=== PATIENT | female | born 1990 | race Caucasian/White ===

== ENCOUNTER 2021-12-10 11:27 | Inpatient (IN) | payer MEDICARE, MEDICAID, SELFPAY ==
--- NOTE | 2021-12-10 | ECG_ITS ---
Test Reason : cp Blood Pressure : / mmHG Vent. Rate : 063 BPM Atrial Rate : 063 BPM P-R Int : 120 ms QRS Dur : 084 ms QT Int : 496 ms P-R-T Axes : 056 065 040 degrees QTc Int : 507 ms Normal sinus rhythm Prolonged QT Abnormal ECG No previous ECGs available Referred By: Chandni Tracy Electronically Signed By:JETT SHEN
[2021-12-10 18:00] VITALS: BP 115/88; PULSE 95; TEMP 37.1; O2SAT 98
[2021-12-10] MEDS: busPIRone HCl 5 MG TABLET 15 MG PO (20:47)
[2021-12-10] MEDS: Gabapentin 100 MG CAPSULE PO (20:47)
[2021-12-10] MEDS: clonazePAM 1 MG TABLET 2 MG PO (20:47)
[2021-12-10] MEDS: cloNIDine HCL 0.1 MG TABLET PO (20:47)
[2021-12-10] MEDS: Albuterol Sulfate 90 MCG 8 GM INHALER 2 PUFF INHALE (20:49)
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
--- NOTE | 2021-12-10 21:57 | PC.ADMIT ---
pt is a 31 year old female who presented to [facility] with SI and increased depression. pt is positive for alcohol. pt has a PMH of anorexia, GIANCARLO, MDD, alcohol use disorder. during admission, pt appears to answer questions and seems to be withdrawn. pt has been sleeping in her room entire shift. pt reported chest pain and an EKG was ordered. pt was put on a liquid diet, but doesn't seems to be eating.
[2021-12-11 06:00] VITALS: BP 112/68; PULSE 94; RESP 16; O2SAT 98
[2021-12-11] MEDS: Fluticasone/Vilanterol 100/25 BLST.W.DEV 1 PUFF INHALE (08:34)
[2021-12-11] MEDS: Albuterol Sulfate 90 MCG 8 GM INHALER 2 PUFF INHALE ×2 (08:34→21:01)
[2021-12-11] MEDS: Thiamine HCL 100 MG TABLET PO (08:35)
[2021-12-11] MEDS: Cariprazine HCl 3 MG CAPSULE PO (08:35)
[2021-12-11] MEDS: Cholecalciferol (Vitamin D3) 25 MCG TABLET PO (08:35)
[2021-12-11] MEDS: Multivitamin TABLET 1 TAB PO (08:35)
[2021-12-11] MEDS: DULoxetine HCl 60 MG CAPSULE.DR 120 MG PO (08:35)
[2021-12-11] MEDS: clonazePAM 1 MG TABLET 2 MG PO ×2 (08:35→20:58)
[2021-12-11] MEDS: busPIRone HCl 10 MG TABLET 20 MG PO ×3 (08:36→20:58)
[2021-12-11] MEDS: Gabapentin 100 MG CAPSULE 200 MG PO ×2 (08:36→14:10)
[2021-12-11 09:59] LABS: Cholesterol 311 mg/dL; HDL Cholesterol 43 mg/dL; LDL Cholesterol Calculated 242 mg/dl; Triglycerides 131 mg/dL
--- NOTE | 2021-12-11 10:56 | HO.PM.IMCN ---
History of Present Illness Data of Consult Service Date: 12/11/21 Requesting physician: Robson Cade Primary Care Provider: Unknown Physician HPI Reason for consult: Prolonged QTC this is a 31-year-old female patient admitted to [facility] at due to generalized anxiety disorder patient was recently taken of Zyprexa since due to significant weight gain of 40 lb subsequently she was placed on metformin for weight loss, patient recently developed a bout of diarrhea mostly noted after solid food, diarrhea has now stopped, patient had no bowel movement in last 4 days, she has been mostly drinking Ensure at home, patient complained of mild denies nausea, denies vomiting, denies abdominal discomfort ,denies fever chills, has no urinary symptoms, of urgency, frequency, or burning, has history of mild persistent asthma, denies any shortness of breath, no new cough denies fever, chills, no recent travels, patient has no symptoms of headache, dizziness. 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 CVS no chest pain no palpitation musculoskeletal no joint pain Yes all other systems are reviewed and are negative PMFSH Pertinent family history: no pertinent family history, no history of premature coronary artery disease Social History Household Members: Family Housing: House Do you presently have visiting nurse or other home services: No Patient Tobacco Use Status: Never used Tobacco Use of substances other than those prescribed or required for medical reasons: No Currently Displaying Signs/Symptoms of Drug Intoxication Withdrawal: No Have you been hit, kicked, punched, or otherwise hurt by someone within the past year? If so, by whom?: No Do you feel safe in your current relationship?: Yes Is there a partner from a previous relationship who is making you feel unsafe now?: No Are you made to feel afraid or neglected: No Advance Directives: No Advance Directives Information Provided: No Do you have thoughts of harming others: None Do you have a plan to hurt others: No Plan Recently lost weight without trying: Yes How much weight loss: 24-33 pounds Eating poorly because of decreased appetite: Yes Nutrition screen score: 6 Nutrition Risks: No Nutritional Risk Patient : No : No Poor oral hygiene: No Meds Allergies Allergy/AdvReac Type Severity Reaction Status Date / Time escitalopram [From Lexapro] Allergy Unknown Unknown Verified 12/10/21 11:27 oxcarbazepine Allergy Unknown Unknown Verified 12/10/21 11:27 [From Trileptal] Active Medications: Current Medications Acetaminophen (Acetaminophen 325 Mg Tablet) 650 mg PO Q6H PRN PRN Reason: Headache/Pain Mild Scale (1-3) Al Hydroxide/Mg Hydroxide (Magnesium Hydrox/Alum Hydrox 30 Ml Oral.Susp) 30 ml PO Q6H PRN PRN Reason: Heartburn/Nausea Albuterol Sulfate (Albuterol Sulfate 90 Mcg 8 Gm Inhaler) 2 puff INHALE BID [facility] Last Admin: 12/11/21 08:34 Dose: 2 puff Buspirone HCl (Buspirone Hcl 10 Mg Tablet) 20 mg PO TID [facility] Last Admin: 12/11/21 08:36 Dose: 20 mg Cariprazine (Cariprazine Hcl 3 Mg Capsule) 3 mg PO DAILY [facility] Last Admin: 12/11/21 08:35 Dose: 3 mg Clonazepam (Clonazepam 1 Mg Tablet) 2 mg PO BID [facility] Last Admin: 12/11/21 08:35 Dose: 2 mg Clonidine HCl (Clonidine Hcl 0.1 Mg Tablet) 0.1 mg PO BEDTIME [facility]; Protocol Last Admin: 12/10/21 20:47 Dose: 0.1 mg Clonidine HCl (Clonidine Hcl 0.1 Mg Tablet) 0.1 mg PO DAILY PRN; Protocol PRN Reason: hyperarousal, anxiety Duloxetine HCl (Duloxetine Hcl 60 Mg Capsule.Dr) 120 mg PO DAILY [facility] Last Admin: 12/11/21 08:35 Dose: 120 mg Fluticasone/Vilanterol (Fluticasone/Vilanterol 100/25 Blst.W.Dev) 1 puff INHALE RDAILY [facility] Last Admin: 12/11/21 08:34 Dose: 1 puff Gabapentin (Gabapentin 100 Mg Capsule) 200 mg PO TID [facility] Last Admin: 12/11/21 08:36 Dose: 200 mg Magnesium Hydroxide (Milk Of Magnesia 30 Ml Oral.Susp) 30 ml PO DAILY PRN PRN Reason: Constipation Multivitamins/Vitamin C (Multivitamin Tablet) 1 tab PO DAILY [facility] Last Admin: 12/11/21 08:35 Dose: 1 tab Thiamine HCl (Thiamine Hcl 100 Mg Tablet) 100 mg PO DAILY [facility] Last Admin: 12/11/21 08:35 Dose: 100 mg Vitamin D (Cholecalciferol (Vitamin D3) 25 Mcg Tablet) 25 mcg PO DAILY [facility] Last Admin: 12/11/21 08:35 Dose: 25 mcg Physical Exam Vital Signs and Narrative: Vital Signs: Last Vital Signs Temp 98.7 F 12/10/21 18:00 Pulse 94 12/11/21 06:00 Resp 16 12/11/21 06:00 BP 112/68 12/11/21 06:00 Pulse Ox 98 12/11/21 06:00 O2 Del Method 12/11/21 06:00 Const: Other: General awake alert x3, in no acute distress. oral mucosa moist Neck no lymphadenopathy. CVS regular rate rhythm, Respiratory lungs clear to auscultation, no respiratory distress, no wheeze, no rhonchi. Gastrointestinal abdomen soft, nontender, bowel sounds audible, no guarding , no rigidity. Extremities no edema. Neuro nonfocal Skin no rash Results Labs Labs: Laboratory Results - last 24 hr 12/11/21 08:17 Triglycerides 131 Cholesterol 311 LDL Cholesterol, Calc 242 HDL Cholesterol 43 Assessment and Plan (1) Prolonged QT interval: Status: Acute (2) Mild persistent asthma: Status: Acute Plan 31-year-old female patient with past medical history of mild persistent asthma, history of generalized anxiety, depression, admitted to [facility] medical consult obtained due to prolonged QTC history of mild persistent asthma, no acute exacerbation recommend to continue Breo inhaler daily and Ventolin inhaler twice daily prolonged QTC noted on EKG from December 10 no prior EKGs available for comparison, prolonged QTC likely multifactorial was recently on Zyprexa , history of multiple other antipsychotic use and recent diarrhea likely causing electrolyte abnormality,patient asymptomatic with no chest pain, no palpitations, no lightheadedness, dizziness on near-syncope, will check electrolytes, magnesium, and repeat EKG, will review current medications. generalized anxiety disorder treatment as per Psychiatrist. thank you for allowing us to participate in the care of the patient will follow the patient along with you.
[2021-12-11 11:44] LABS: Anion Gap 21 (12-20); Blood Urea Nitrogen 11 mg/dL (9-16); Calcium 9.2 mg/dL (8.4-10.2); Carbon Dioxide 20 mmol/L (22-29); Chloride 101 mmol/L (96-108); Estimated Glomerular Filt Rate > 60; Glucose Random 92 mg/dL (60-115); Potassium 3.9 mmol/L (3.3-5.1); Sodium 138 mmol/L (135-145)
[2021-12-11] MEDS: cloNIDine HCL 0.1 MG TABLET PO ×2 (13:36→20:58)
[2021-12-11 13:38] VITALS: BP 116/73; PULSE 108
[2021-12-11 18:00] VITALS: BP 110/59; PULSE 71; TEMP 36.8; O2SAT 99
--- NOTE | 2021-12-11 20:14 | HO.PSYCHPN ---
Subjective Subjective Date of Service: 12/11/21 Reason For Visit: Generalized anxiety, Alcohol use, Depression Interim History: I spoke to pt's team and pt. Per pt, the increase in buspar has been well tolerated, I might have noticed something. Says she slept pretty good last night but woke up a few times and still says during the night is when I have the most SI. Says today she has been eating a little better than yesterday, willing to add ensure to her meals. She continues to endorse depressed mood and anxiety. Medication Compliance: Yes Side effects from medications: No Attending Groups: Yes Review of Systems Acute medical concerns: No Medical Review of Systems: unchanged Mental Status Exam Mental Status Exam Narrative: Patient Appearance: Well Groomed Patient Orientation: Person, Place, Time and Situation Level of Consciousness: Awake and Appropriate Patient Behavior: Passive and Anxious Mood Description: Depressed and Anxious Affect Description: Blunted Patient Cognition Impaired: No Ability to Follow Directions: Excellent Speech Pattern: Clear and Appropriate Memory Description: Intact Hallucinations: Auditory Delusions: Not Present Thought Process: Intact Thought Content: positive for Perseveration Depressive Symptoms: Increased Anxiety, Difficulty Sleeping, Changes in Appetite, Isolating-Friends/Family, Loss of Energy and Difficulty Concentrating Judgment: Fair Diagnostics Vital Signs (24Hr): Vital Signs - 24 hr 12/11/21 06:00 12/11/21 13:38 12/11/21 18:00 Temperature 98.3 F Pulse Rate 94 108 H 71 Respiratory Rate 16 Blood Pressure 112/68 116/73 110/59 L Pulse Oximetry 98 99 Oxygen Delivery Method Room Air Room Air Labs Results: 12/11/21 08:17 Labs: Laboratory Results - last 48 hr 12/11/21 08:17 Sodium 138 Potassium 3.9 Chloride 101 Carbon Dioxide 20 L Anion Gap 21 H BUN 11 Creatinine 0.84 Estim Creat Clear Calc TNP Estimated GFR > 60 Random Glucose 92 Calcium 9.2 Magnesium 2.0 Triglycerides 131 Cholesterol 311 LDL Cholesterol, Calc 242 HDL Cholesterol 43 Medications Medications Current Medications Acetaminophen (Acetaminophen 325 Mg Tablet) 650 mg PO Q6H PRN PRN Reason: Headache/Pain Mild Scale (1-3) Al Hydroxide/Mg Hydroxide (Magnesium Hydrox/Alum Hydrox 30 Ml Oral.Susp) 30 ml PO Q6H PRN PRN Reason: Heartburn/Nausea Albuterol Sulfate (Albuterol Sulfate 90 Mcg 8 Gm Inhaler) 2 puff INHALE BID [facility] Last Admin: 12/11/21 08:34 Dose: 2 puff Buspirone HCl (Buspirone Hcl 10 Mg Tablet) 20 mg PO TID [facility] Last Admin: 12/11/21 14:10 Dose: 20 mg Cariprazine (Cariprazine Hcl 1.5 Mg Capsule) 4.5 mg PO DAILY [facility] Clonazepam (Clonazepam 1 Mg Tablet) 2 mg PO BID [facility] Last Admin: 12/11/21 08:35 Dose: 2 mg Clonidine HCl (Clonidine Hcl 0.1 Mg Tablet) 0.1 mg PO BEDTIME [facility]; Protocol Last Admin: 12/10/21 20:47 Dose: 0.1 mg Clonidine HCl (Clonidine Hcl 0.1 Mg Tablet) 0.1 mg PO DAILY PRN; Protocol PRN Reason: hyperarousal, anxiety Last Admin: 12/11/21 13:36 Dose: 0.1 mg Duloxetine HCl (Duloxetine Hcl 60 Mg Capsule.Dr) 120 mg PO DAILY [facility] Last Admin: 12/11/21 08:35 Dose: 120 mg Fluticasone/Vilanterol (Fluticasone/Vilanterol 100/25 Blst.W.Dev) 1 puff INHALE RDAILY [facility] Last Admin: 12/11/21 08:34 Dose: 1 puff Lamotrigine (Lamotrigine 25 Mg Tablet) 25 mg PO BEDTIME [facility] Magnesium Hydroxide (Milk Of Magnesia 30 Ml Oral.Susp) 30 ml PO DAILY PRN PRN Reason: Constipation Multivitamins/Vitamin C (Multivitamin Tablet) 1 tab PO DAILY [facility] Last Admin: 12/11/21 08:35 Dose: 1 tab Thiamine HCl (Thiamine Hcl 100 Mg Tablet) 100 mg PO DAILY [facility] Last Admin: 12/11/21 08:35 Dose: 100 mg Vitamin D (Cholecalciferol (Vitamin D3) 25 Mcg Tablet) 25 mcg PO DAILY [facility] Last Admin: 12/11/21 08:35 Dose: 25 mcg Allergies Allergies Allergy/AdvReac Type Severity Reaction Status Date / Time escitalopram [From Lexapro] Allergy Unknown Unknown Verified 12/10/21 11:27 oxcarbazepine Allergy Unknown Unknown Verified 12/10/21 11:27 [From Trileptal] Assessment & Plan Assessment & Plan (1) Prolonged QT interval: Status: Acute Code(s): R94.31 - Abnormal electrocardiogram [ECG] [EKG] (2) Mild persistent asthma: Status: Acute Code(s): J45.30 - Mild persistent asthma, uncomplicated Plan Bozena is a 31 y.o. female who self presented to [facility] due to SI and increased depression. She also reports restricting her food intake x 2 weeks, has extensive hx of anorexia nervosa with multiple inpatient and residential stays at [facility]. Plan: 12/10: Pt denies benefit on gabapentin, will consider discontinuing this. Says klonopin and clonidine help with anxiety. Thinks buspar helps a little. Unsure if cymbalta or vraylar (on both since 09/2021) are helping. Will increase buspar to 20 mg TID for anxiety. Discussed starting mood stabilizer for depression, impulsive urges, will defer to primary psych provider. 12/11: Will start lamictal 25 mg HS for depression, impulsivity- discussed monitoring for rash/ SJS. Will discontinue gabapentin, as pt denies benefit and to reduce polypharm. Will increase vraylar to 4.5 mg as pt appears to need higher dosage range for therapeutic benefit and may help with depression, perceptual disturbances. Will re-check EKG due to hx of QTc prolongation, 507ms on 12/10. Will add ensure to her meals, monitor for restricting bx. Q15 min safety checks, CV Monitor response to medications. Monitor for safety in the milieu. Discharge on stabilization. Patient seen. Chart reviewed. Discussed with team. Obtain collateral contact info?as needed Per hospitalist consult: history of mild persistent asthma, no acute exacerbation recommend to continue Breo inhaler daily and Ventolin inhaler twice daily. prolonged QTC noted on EKG from December 10 no prior EKGs available for comparison, prolonged QTC likely multifactorial was recently on Zyprexa , history of multiple other antipsychotic use and recent diarrhea likely causing electrolyte abnormality,patient asymptomatic with no chest pain, no palpitations, no lightheadedness, dizziness on near-syncope, will check electrolytes, magnesium, and repeat EKG, will review current medications. I spent minutes with the patient and/or on the patient floor today, greater than?50% of which was spent counseling/coordinating care. Patient educated on: medication risk/benefits and therapeutic strategies Reason for contiued inpatient stay Substantial Risk for: harm to self and med/psych decompensation
[2021-12-11] MEDS: lamoTRIgine 25 MG TABLET PO (20:58)
[2021-12-12] MEDS: Cariprazine HCl 1.5 MG CAPSULE 4.5 MG PO (08:12)
[2021-12-12] MEDS: clonazePAM 1 MG TABLET 2 MG PO ×2 (08:12→20:27)
[2021-12-12] MEDS: Cholecalciferol (Vitamin D3) 25 MCG TABLET PO (08:12)
[2021-12-12] MEDS: busPIRone HCl 10 MG TABLET 20 MG PO ×3 (08:12→20:27)
[2021-12-12] MEDS: Thiamine HCL 100 MG TABLET PO (08:12)
[2021-12-12] MEDS: Multivitamin TABLET 1 TAB PO (08:12)
[2021-12-12] MEDS: DULoxetine HCl 60 MG CAPSULE.DR 120 MG PO (08:12)
[2021-12-12] MEDS: Fluticasone/Vilanterol 100/25 BLST.W.DEV 1 PUFF INHALE (08:22)
[2021-12-12 08:26] VITALS: BP 100/59; PULSE 62; TEMP 36.1; O2SAT 99
[2021-12-12 14:18] VITALS: BP 119/78; PULSE 98
[2021-12-12] MEDS: cloNIDine HCL 0.1 MG TABLET PO ×2 (14:19→20:26)
--- NOTE | 2021-12-12 15:47 | P.PNPSI_ITS ---
Subjective Subjective Date of Service: 12/12/21 Reason For Visit: Generalized anxiety, Alcohol use, Depression Subjective Notes: Conditional Voluntary Healthcare Proxy: No Guardianship: No Medical Problems Affecting Mental Status: Yes (gi issues, eating do) Review of Systems Acute medical concerns: Yes only taking liquid diet ? due to eating do or due to s/e of medications- unclear feels she could add fruit and reports not consistently getting ensure Review of Systems: slight gi difficulty ? since started lamotrigine , though also went up on vraylar Mental Status Exam Mental Status Exam Narrative: groomed, dec eye contact, Patient Appearance: Appropriate Patient Orientation: Person, Place, Time and Situation Level of Consciousness: Awake Patient Behavior: Appropriate and Guarded Mood Description: Anxious Affect Description: Blunted Patient Cognition Impaired: No Ability to Follow Directions: Good Speech Pattern: Clear Hallucinations: None Thought Process: Intact Thought Content: positive for Intact Depressive Symptoms: Increased Anxiety, Diff. Making Decisions, Changes in Appetite and Unexplained Stomach Pain Judgement: Fair Diagnostics Vital Signs (24Hr): Vital Signs - 24 hr 12/11/21 18:00 12/12/21 08:26 12/12/21 14:18 Temperature 98.3 F 97 F Pulse Rate 71 62 98 Blood Pressure 110/59 L 100/59 L 119/78 Pulse Oximetry 99 99 Oxygen Delivery Method Room Air Room Air Labs Results: 12/11/21 08:17 Labs: Laboratory Results - last 48 hr 12/11/21 08:17 Sodium 138 Potassium 3.9 Chloride 101 Carbon Dioxide 20 L Anion Gap 21 H BUN 11 Creatinine 0.84 Estim Creat Clear Calc TNP Estimated GFR > 60 Random Glucose 92 Calcium 9.2 Magnesium 2.0 Triglycerides 131 Cholesterol 311 LDL Cholesterol, Calc 242 HDL Cholesterol 43 Medications Medications Current Medications Acetaminophen (Acetaminophen 325 Mg Tablet) 650 mg PO Q6H PRN PRN Reason: Headache/Pain Mild Scale (1-3) Al Hydroxide/Mg Hydroxide (Magnesium Hydrox/Alum Hydrox 30 Ml Oral.Susp) 30 ml PO Q6H PRN PRN Reason: Heartburn/Nausea Albuterol Sulfate (Albuterol Sulfate 90 Mcg 8 Gm Inhaler) 2 puff INHALE BID [facility] Last Admin: 12/12/21 08:42 Dose: Not Given Buspirone HCl (Buspirone Hcl 10 Mg Tablet) 20 mg PO TID [facility] Last Admin: 10/01/22 14:15 Dose: 20 mg Cariprazine (Cariprazine Hcl 1.5 Mg Capsule) 4.5 mg PO DAILY [facility] Last Admin: 12/12/21 08:12 Dose: 4.5 mg Clonazepam (Clonazepam 1 Mg Tablet) 2 mg PO BID [facility] Last Admin: 12/12/21 08:12 Dose: 2 mg Clonidine HCl (Clonidine Hcl 0.1 Mg Tablet) 0.1 mg PO BEDTIME [facility]; Protocol Last Admin: 12/11/21 20:58 Dose: 0.1 mg Clonidine HCl (Clonidine Hcl 0.1 Mg Tablet) 0.1 mg PO DAILY PRN; Protocol PRN Reason: hyperarousal, anxiety Last Admin: 12/12/21 14:19 Dose: 0.1 mg Duloxetine HCl (Duloxetine Hcl 60 Mg Capsule.Dr) 120 mg PO DAILY [facility] Last Admin: 12/12/21 08:12 Dose: 120 mg Fluticasone/Vilanterol (Fluticasone/Vilanterol 100/25 Blst.W.Dev) 1 puff INHALE RDAILY [facility] Last Admin: 12/12/21 08:22 Dose: 1 puff Lamotrigine (Lamotrigine 25 Mg Tablet) 25 mg PO BEDTIME [facility] Last Admin: 12/11/21 20:58 Dose: 25 mg Magnesium Hydroxide (Milk Of Magnesia 30 Ml Oral.Susp) 30 ml PO DAILY PRN PRN Reason: Constipation Multivitamins/Vitamin C (Multivitamin Tablet) 1 tab PO DAILY [facility] Last Admin: 12/12/21 08:12 Dose: 1 tab Pt Own (Disulfiram (250 Mg)) 250 mg PO DAILY [facility] Last Admin: 12/12/21 08:22 Dose: 250 mg Thiamine HCl (Thiamine Hcl 100 Mg Tablet) 100 mg PO DAILY [facility] Last Admin: 12/12/21 08:12 Dose: 100 mg Vitamin D (Cholecalciferol (Vitamin D3) 25 Mcg Tablet) 25 mcg PO DAILY [facility] Last Admin: 12/12/21 08:12 Dose: 25 mcg Allergies Allergies Allergy/AdvReac Type Severity Reaction Status Date / Time escitalopram [From Lexapro] Allergy Unknown Unknown Verified 12/10/21 11:27 oxcarbazepine Allergy Unknown Unknown Verified 12/10/21 11:27 [From Trileptal] Assessment & Plan Assessment & Plan (1) Prolonged QT interval: Status: Acute Code(s): R94.31 - Abnormal electrocardiogram [ECG] [EKG] Assessment and Plan: ?eating do (2) MDD (major depressive disorder), recurrent episode, moderate: Status: Acute Code(s): F33.1 - Major depressive disorder, recurrent, moderate Assessment and Plan: having several medications adjusted seems concerned re gi s/e of lamotrigine- though pt has ongoing gi issues clearly as on very odd diet (3) Post traumatic stress disorder (PTSD): Status: Acute Code(s): F43.10 - Post-traumatic stress disorder, unspecified Assessment and Plan: on high doses of clonazepam, going to groups, (4) Anorexia nervosa: Status: Acute Code(s): F50.00 - Anorexia nervosa, unspecified Assessment and Plan: restricting so now on liquid diet- also getting ensure but not clear if tid or not also pt would like fruit as well with diet requests nutritional consult Plan Bozena is a 31 y.o. female who self presented to [facility] due to SI and increased depression. She also reports restricting her food intake x 2 weeks, has extensive hx of anorexia nervosa with multiple inpatient and residential stays at [place]. Plan: 12/10: Pt denies benefit on gabapentin, will consider discontinuing this. Says klonopin and clonidine help with anxiety. Thinks buspar helps a little. Unsure if cymbalta or vraylar (on both since 09/2021) are helping. Will increase buspar to 20 mg TID for anxiety. Discussed starting mood stabilizer for depressi on, impulsive urges, will defer to primary psych provider. 12/11: Will start lamictal 25 mg HS for depression, impulsivity- discussed monitoring for rash/ SJS. Will discontinue gabapentin, as pt denies benefit and to reduce polypharm. Will increase vraylar to 4.5 mg as pt appears to need higher dosage range for therapeutic benefit and may help with depression, perceptual disturbances. Will re-check EKG due to hx of QTc prolongation, 507ms on 12/10. Will add ensure to her meals, monitor for restricting bx. Q15 min safety checks, CV Monitor response to medications. Monitor for safety in the milieu. Discharge on stabilization. Patient seen. Chart reviewed. Discussed with team. Obtain collateral contact info?as needed Per hospitalist consult: history of mild persistent asthma, no acute exac erbation recommend to continue Breo inhaler daily and Ventolin inhaler twice daily. prolonged QTC noted on EKG from December 10 no prior EKGs available for comparison, prolonged QTC likely multifactorial was recently on Zyprexa , history of multiple other antipsychotic use and recent diarrhea likely causing electrolyte abnormality,patient asymptomatic with no chest pain, no palpitations, no lightheadedness, dizziness on near-syncope, will check electrolytes, magnesium, and repeat EKG, will review current medications. I spent minutes with the patient and/or on the patient floor today, greater than?50% of which was spent counseling/coordinating care. Patient educated on: medication risk/benefits Informed Consent: further education needed (wanted to change back to gabapentin , after told her lamotrigine could cause gi s/e but so can gabapentin) Reason for contiued inpatient stay Substantial Risk for: inability to function (not eating normally) and rapid decompensation
[2021-12-12 16:14] VITALS: BP 151/73; PULSE 76; TEMP 36.8; O2SAT 96
[2021-12-12] MEDS: Albuterol Sulfate 90 MCG 8 GM INHALER 2 PUFF INHALE (20:33)
[2021-12-13] MEDS: Magnesium Hydrox/Alum Hydrox 30 ML ORAL.SUSP PO (05:36)
[2021-12-13] MEDS: Fluticasone/Vilanterol 100/25 BLST.W.DEV 1 PUFF INHALE (08:28)
[2021-12-13] MEDS: Cariprazine HCl 1.5 MG CAPSULE 4.5 MG PO (08:29)
[2021-12-13] MEDS: DULoxetine HCl 60 MG CAPSULE.DR 120 MG PO (08:29)
[2021-12-13] MEDS: clonazePAM 1 MG TABLET 2 MG PO (08:29)
[2021-12-13] MEDS: Cholecalciferol (Vitamin D3) 25 MCG TABLET PO (08:29)
[2021-12-13] MEDS: Thiamine HCL 100 MG TABLET PO (08:29)
[2021-12-13] MEDS: Multivitamin TABLET 1 TAB PO (08:29)
[2021-12-13] MEDS: busPIRone HCl 10 MG TABLET 20 MG PO ×3 (08:29→20:27)
[2021-12-13] MEDS: Albuterol Sulfate 90 MCG 8 GM INHALER 2 PUFF INHALE ×2 (08:31→22:11)
[2021-12-13 09:00] VITALS: BP 105/66; PULSE 73; TEMP 36.4; O2SAT 100
--- NOTE | 2021-12-13 12:18 | P.PNPSI_ITS ---
Subjective Subjective Date of Service: 12/13/21 Reason For Visit: Generalized anxiety, Alcohol use, Depression Subjective Notes: Conditional Voluntary Healthcare Proxy: No Guardianship: No Medical Problems Affecting Mental Status: No Interim History: Pt with ongoing eating issues, eating do /on liquid diet? changed back to regular diet and pt can pick what she wants to eat (eg wanted fruit, soy milk) Also pt unhappy with lamotrigine trial said she felt better on gabapentin 200mg tid discussed with pt pros/cons lamotrigine might help depression more, pt wanting gabapentin for anxiety , - some concerns re weight didn't want to discuss Medication Compliance: Intermittent Side effects from medications: Yes (gi- but could be gi issues due to eating do) Attending Groups: Yes Review of Systems Acute medical concerns: No Mental Status Exam Mental Status Exam Patient Appearance: Well Grooomed and Appropriate Patient Orientation: Person, Place, Time and Situation Level of Consciousness: Awake, Appropriate and Alert Patient Behavior: Appropriate, Passive, Avoidant and Poor Eye Contact Mood Description: Depressed and Anxious Affect Description: Withdrawn and Constricted Patient Cognition Impaired: No Ability to Follow Directions: Fair Speech Pattern: Soft-Spoken Hallucinations: None Thought Process: Goal Oriented Thought Content: positive for Perseveration and positive for Suicidal Ideation (3:30 am and then again upon awakening) Depressive Symptoms: Increased Anxiety, Difficulty Sleeping, Unhappiness, Thoughts of /Suicide and Unexplained Stomach Pain Judgement: Fair Diagnostics Vital Signs (24Hr): Vital Signs - 24 hr 12/12/21 14:18 12/12/21 16:14 12/13/21 09:00 Temperature 98.3 F 97.5 F Pulse Rate 98 76 73 Blood Pressure 119/78 151/73 H 105/66 Pulse Oximetry 96 100 Oxygen Delivery Method Room Air Room Air Labs Results: 12/11/21 08:17 Medications Medications Current Medications Acetaminophen (Acetaminophen 325 Mg Tablet) 650 mg PO Q6H PRN PRN Reason: Headache/Pain Mild Scale (1-3) Al Hydroxide/Mg Hydroxide (Magnesium Hydrox/Alum Hydrox 30 Ml Oral.Susp) 30 ml PO Q6H PRN PRN Reason: Heartburn/Nausea Last Admin: 12/13/21 05:36 Dose: 30 ml Albuterol Sulfate (Albuterol Sulfate 90 Mcg 8 Gm Inhaler) 2 puff INHALE BID [facility] Last Admin: 12/13/21 08:31 Dose: 2 puff Buspirone HCl (Buspirone Hcl 10 Mg Tablet) 20 mg PO TID [facility] Last Admin: 12/13/21 08:29 Dose: 20 mg Cariprazine (Cariprazine Hcl 1.5 Mg Capsule) 4.5 mg PO DAILY [facility] Last Admin: 12/13/21 08:29 Dose: 4.5 mg Clonazepam (Clonazepam 1 Mg Tablet) 2 mg PO BID [facility] Last Admin: 12/13/21 08:29 Dose: 2 mg Clonidine HCl (Clonidine Hcl 0.1 Mg Tablet) 0.1 mg PO BEDTIME [facility]; Protocol Last Admin: 12/12/21 20:26 Dose: 0.1 mg Clonidine HCl (Clonidine Hcl 0.1 Mg Tablet) 0.1 mg PO DAILY PRN; Protocol PRN Reason: hyperarousal, anxiety Last Admin: 12/12/21 14:19 Dose: 0.1 mg Duloxetine HCl (Duloxetine Hcl 60 Mg Capsule.Dr) 120 mg PO DAILY [facility] Last Admin: 12/13/21 08:29 Dose: 120 mg Fluticasone/Vilanterol (Fluticasone/Vilanterol 100/25 Blst.W.Dev) 1 puff INHALE RDAILY [facility] Last Admin: 12/13/21 08:28 Dose: 1 puff Lamotrigine (Lamotrigine 25 Mg Tablet) 25 mg PO BEDTIME [facility] Last Admin: 12/12/21 20:48 Dose: Not Given Magnesium Hydroxide (Milk Of Magnesia 30 Ml Oral.Susp) 30 ml PO DAILY PRN PRN Reason: Constipation Multivitamins/Vitamin C (Multivitamin Tablet) 1 tab PO DAILY [facility] Last Admin: 12/13/21 08:29 Dose: 1 tab Pt Own (Disulfiram (250 Mg)) 250 mg PO DAILY [facility] Last Admin: 12/13/21 08:28 Dose: 250 mg Thiamine HCl (Thiamine Hcl 100 Mg Tablet) 100 mg PO DAILY [facility] Last Admin: 12/13/21 08:29 Dose: 100 mg Vitamin D (Cholecalciferol (Vitamin D3) 25 Mcg Tablet) 25 mcg PO DAILY [facility] Last Admin: 12/13/21 08:29 Dose: 25 mcg Allergies Allergies Allergy/AdvReac Type Severity Reaction Status Date / Time escitalopram [From Lexapro] Allergy Unknown Unknown Verified 12/10/21 11:27 oxcarbazepine Allergy Unknown Unknown Verified 12/10/21 11:27 [From Trileptal] Assessment & Plan Assessment & Plan (1) Prolonged QT interval: Status: Acute Code(s): R94.31 - Abnormal electrocardiogram [ECG] [EKG] Assessment and Plan: ?eating do (2) MDD (major depressive disorder), recurrent episode, moderate: Status: Acute Code(s): F33.1 - Major depressive disorder, recurrent, moderate Assessment and Plan: having several medications adjusted seems concerned re gi s/e of lamotrigine- though pt has ongoing gi issues clearly as on very odd diet 12/13 change back to regular diet, lamotrigine dced (3) Post traumatic stress disorder (PTSD): Status: Acute Code(s): F43.10 - Post-traumatic stress disorder, unspecified Assessment and Plan: on high doses of clonazepam, going to groups, 12/13 lowered clonazepam to 3mg/day resumed gabapentin per pt request (4) Anorexia nervosa: Status: Acute Code(s): F50.00 - Anorexia nervosa, unspecified Assessment and Plan: restricting so now on liquid diet- also getting ensure but not clear if tid or not also pt would like fruit as well with diet requests nutritional consult Plan Bozena is a 31 y.o. female who self presented to [facility] due to SI and increased depression. She also reports restricting her food intake x 2 weeks, has extensive hx of anorexia nervosa with multiple inpatient and residential stays at [place]. Plan: 12/10: Pt denies benefit on gabapentin, will consider discontinuing this. Says klonopin and clonidine help with anxiety. Thinks buspar helps a little. Unsure if cymbalta or vraylar (on both since 09/2021) are helping. Will increase buspar to 20 mg TID for anxiety. Discussed starting mood stabilizer for depression, impulsive urges, will defer to primary psych provider. 12/11: Will start lamictal 25 mg HS for depression, impulsivity- discussed monitoring for rash/ SJS. Will discontinue gabapentin, as pt denies benefit and to reduce polypharm. Will increase vraylar to 4.5 mg as pt appears to need higher dosage range for therapeutic benefit and may help with depression, perceptual disturbances. Will re-check EKG due to hx of QTc prolongation, 507ms on 12/10. Will add ensure to her meals, monitor for restricting bx. Q15 min safety checks, CV Monitor response to medications. Monitor for safety in the milieu. Discharge on stabilization. Patient seen. Chart reviewed. Discussed with team. Obtain collateral contact info?as needed Per hospitalist consult: history of mild persistent asthma, no acute exacerbation recommend to continue Breo inhaler daily and Ventolin inhaler twice daily. prolonged QTC noted on EKG from December 10 no prior EKGs available for comparison, prolonged QTC likely multifactorial was recently on Zyprexa , h istory of multiple other antipsychotic use and recent diarrhea likely causing electrolyte abnormality,patient asymptomatic with no chest pain, no palpitations, no lightheadedness, dizziness on near-syncope, will check electrolytes, magnesium, and repeat EKG, will review current medications. I spent minutes with the patient and/or on the patient floor today, great er than?50% of which was spent counseling/coordinating care. Patient educated on: medication risk/benefits and medical condition Informed Consent: understands Reason for contiued inpatient stay Substantial Risk for: harm to self, inability to function and rapid decompensation
[2021-12-13 16:20] VITALS: BP 126/73; PULSE 76; TEMP 36.3
[2021-12-13] MEDS: cloNIDine HCL 0.1 MG TABLET PO ×2 (16:25→20:32)
[2021-12-13] MEDS: Gabapentin 300 MG CAPSULE PO (20:24)
[2021-12-13] MEDS: clonazePAM 1 MG TABLET PO (20:24)
[2021-12-13 22:46] VITALS: BP 116/68; PULSE 81; TEMP 35.9
[2021-12-14] MEDS: Albuterol Sulfate 90 MCG 8 GM INHALER 2 PUFF INHALE ×2 (08:48→22:47)
[2021-12-14] MEDS: Fluticasone/Vilanterol 100/25 BLST.W.DEV 1 PUFF INHALE (08:48)
[2021-12-14] MEDS: Multivitamin TABLET 1 TAB PO (08:49)
[2021-12-14] MEDS: Gabapentin 100 MG CAPSULE 200 MG PO ×2 (08:49→14:52)
[2021-12-14] MEDS: busPIRone HCl 10 MG TABLET 20 MG PO ×3 (08:49→21:15)
[2021-12-14] MEDS: Cholecalciferol (Vitamin D3) 25 MCG TABLET PO (08:49)
[2021-12-14] MEDS: DULoxetine HCl 60 MG CAPSULE.DR 120 MG PO (08:49)
[2021-12-14] MEDS: Cariprazine HCl 1.5 MG CAPSULE 4.5 MG PO (08:49)
[2021-12-14] MEDS: clonazePAM 1 MG TABLET PO ×3 (08:49→21:17)
[2021-12-14] MEDS: Thiamine HCL 100 MG TABLET PO (08:50)
[2021-12-14] MEDS: cloNIDine HCL 0.1 MG TABLET PO ×2 (09:19→21:16)
[2021-12-14 09:39] VITALS: BP 104/60; PULSE 75; RESP 16; TEMP 36.2; O2SAT 100
--- NOTE | 2021-12-14 10:33 | P.PNPSI_ITS ---
Subjective Subjective Date of Service: 12/14/21 Reason For Visit: Generalized anxiety, Alcohol use, Depression Interim History: Patient shared with senior technical writer some of her history. She says that she was doing really well on Zyprexa, social anxiety gone, voices gone and was on this medication for couple of years. However she gained weight and went to about 160 lb which significantly triggered her anorexia thinking and so got off Zyprexa this past summer. She started losing weight and also started decompensating until she was depressed enough, not needing and started to get suicidal. P terenceozzie talked about how her eating disordered thinking and her depression/anxiety feet off of 1 another. Also, sometimes when her mood is better, she gets worried that she will start eating again which makes her anxious and depressed. She agrees that it is tricky overcoming the eating disordered thinking; she says [place] has helped significantly in hopes to get back in. Patient says that she was doing a little better on the unit until her clonazepam dose was changed without anyone telling her, lowered from 2 mg b.i.d. to 1 mg t.i.d.. She said that she got very anxious last night and had a hard time sleeping and has been too anxious to eat today. Patient talked about Disulfiram and how it has helped her stay sober since March. Currently no AH which only appear when she is upset and anxious; passive SI but intermittently some active suicidal thoughts come and go. Patient says she started thinking she will probably from anorexia Discuss therapy. Patient has been engaged in a version of EMDR; says it has not helped and that symptoms are significant problem Discussed medications. Patient said that Trileptal was helpful; it did not help as much as Zyprexa but it was helping her mood and anxiety. She says that erroneously it was listed as an allergy and that she only got hives from it because she took too much too soon. Patient agrees to a trial of Latuda since it is low risk for weight gain. Bindery Machine Operator reviewed risks/side effects of this medication which patient understood, asked questions about and agreed to trial of. other medication trials Risperdal Abilify Trileptal Lexapro Prozac Effexor Prazosin Mental Status Exam Mental Status Exam Narrative: Pt is alert and oriented; behavior is cooperative, slow moving, head down; patient is not in distress; dressed in casual attire with adequate hygiene; mood is described as too anxous and affect congruent, downcast; limited eye contact; Speech is a little soft; normal rate and prosody and not pressured; psychomotor retardation present; thought process is goal directed; Thought content is on tx, struggling to believe she will ever get better; otherwise pertinent to relevant topics and without any delusional content, paranoid ideations or grandiosity; passive wish; intermittent active SI but no plan or intent; no HI; intermittent AH, but mood congruent. Patients insight and judgment are impaired. Diagnostics Vital Signs (24Hr): Vital Signs - 24 hr 12/13/21 16:20 12/13/21 22:46 12/14/21 09:39 Temperature 97.3 F 96.6 F L 97.1 F Pulse Rate 76 81 75 Respiratory Rate 16 Blood Pressure 126/73 116/68 104/60 Pulse Oximetry 100 Oxygen Delivery Method Room Air Labs Results: 12/11/21 08:17 EKG EKG Comment: ? Date of Service: 12/10/21 Procedure(s): ECG 12 lead EKG Accession Number(s): [id number] Test Reason : cp Blood Pressure : / mmHG Vent. Rate : 063 BPM ? ? Atrial Rate : 063 BPM ?? P-R Int : 120 ms? QRS Dur : 084 ms ? ? QT Int : 496 ms ? ? ? P-R-T Axes : 056 065 040 degrees ?? QTc Int : 507 ms Medications Medications Current Medications Acetaminophen (Acetaminophen 325 Mg Tablet) 650 mg PO Q6H PRN PRN Reason: Headache/Pain Mild Scale (1-3) Al Hydroxide/Mg Hydroxide (Magnesium Hydrox/Alum Hydrox 30 Ml Oral.Susp) 30 ml PO Q6H PRN PRN Reason: Heartburn/Nausea Last Admin: 12/13/21 05:36 Dose: 30 ml Albuterol Sulfate (Albuterol Sulfate 90 Mcg 8 Gm Inhaler) 2 puff INHALE BID [facility] Last Admin: 12/14/21 08:48 Dose: 2 puff Buspirone HCl (Buspirone Hcl 10 Mg Tablet) 20 mg PO TID [facility] Last Admin: 12/14/21 08:49 Dose: 20 mg Cariprazine (Cariprazine Hcl 1.5 Mg Capsule) 4.5 mg PO DAILY [facility] Last Admin: 12/14/21 08:49 Dose: 4.5 mg Clonazepam (Clonazepam 1 Mg Tablet) 1 mg PO TID [facility] Last Admin: 12/14/21 08:49 Dose: 1 mg Clonidine HCl (Clonidine Hcl 0.1 Mg Tablet) 0.1 mg PO BEDTIME [facility]; Protocol Last Admin: 12/13/21 20:32 Dose: 0.1 mg Clonidine HCl (Clonidine Hcl 0.1 Mg Tablet) 0.1 mg PO DAILY PRN; Protocol PRN Reason: hyperarousal, anxiety Last Admin: 12/14/21 09:19 Dose: 0.1 mg Duloxetine HCl (Duloxetine Hcl 60 Mg Capsule.Dr) 120 mg PO DAILY [facility] Last Admin: 12/14/21 08:49 Dose: 120 mg Fluticasone/Vilanterol (Fluticasone/Vilanterol 100/25 Blst.W.Dev) 1 puff INHALE RDAILY [facility] Last Admin: 12/14/21 08:48 Dose: 1 puff Gabapentin (Gabapentin 300 Mg Capsule) 300 mg PO BEDTIME [facility] Last Admin: 12/13/21 20:24 Dose: 300 mg Gabapentin (Gabapentin 100 Mg Capsule) 200 mg PO BID@0830,1330 [facility] Last Admin: 12/14/21 08:49 Dose: 200 mg Magnesium Hydroxide (Milk Of Magnesia 30 Ml Oral.Susp) 30 ml PO DAILY PRN PRN Reason: Constipation Multivitamins/Vitamin C (Multivitamin Tablet) 1 tab PO DAILY [facility] Last Admin: 12/14/21 08:49 Dose: 1 tab Pt Own (Disulfiram (250 Mg)) 250 mg PO DAILY [facility] Last Admin: 12/14/21 08:48 Dose: 250 mg Thiamine HCl (Thiamine Hcl 100 Mg Tablet) 100 mg PO DAILY [facility] Last Admin: 12/14/21 08:50 Dose: 100 mg Vitamin D (Cholecalciferol (Vitamin D3) 25 Mcg Tablet) 25 mcg PO DAILY [facility] Last Admin: 12/14/21 08:49 Dose: 25 mcg Allergies Allergies Allergy/AdvReac Type Severity Reaction Status Date / Time escitalopram [From Lexapro] Allergy Unknown Unknown Verified 12/10/21 11:27 oxcarbazepine Allergy Unknown Unknown Verified 12/10/21 11:27 [From Trileptal] Assessment & Plan Assessment & Plan (1) MDD (major depressive disorder), recurrent episode, moderate: Status: Acute Code(s): F33.1 - Major depressive disorder, recurrent, moderate Assessment and Plan: having several medications adjusted seems concerned re gi s/e of lamotrigine- though pt has ongoing gi issues clearly as on very odd diet 12/13 change back to regular diet, lamotrigine dced (2) Post traumatic stress disorder (PTSD): Status: Acute Code(s): F43.10 - Post-traumatic stress disorder, unspecified (3) Anorexia nervosa: Status: Acute Code(s): F50.00 - Anorexia nervosa, unspecified Assessment and Plan: restricting so now on liquid diet- also getting ensure but not clear if tid or not also pt would like fruit as well with diet requests nutritional consult (4) Prolonged QT interval: Status: Acute Code(s): R94.31 - Abnormal electrocardiogram [ECG] [EKG] Assessment and Plan: ?eating do Plan Bozena is a 31 y.o. female who self presented to [facility] due to SI and increased depression. She also reports restricting her food intake x 2 weeks, has extensive hx of anorexia nervosa with multiple inpatient and residential stays at [place]. 12/10: Pt denies benefit on gabapentin, will consider discontinuing this. Says klonopin and clonidine help with anxiety. Thinks buspar helps a little. Unsure if cymbalta or vraylar (on both since 09/2021) are helping. Will increase buspar to 20 mg TID for anxiety. Discussed starting mood stabilizer for depression, impulsive urges, will defer to primary psych provider. 12/11: Will start lamictal 25 mg HS for depression, impulsivity- discussed monitoring for rash/ SJS. Will discontinue gabapentin, as pt denies benefit and to reduce polypharm. Will increase vraylar to 4.5 mg as pt appears to need higher dosage range for therapeutic benefit and may help with depression, perceptual disturbances. Will re-check EKG due to hx of QTc prolongation, 507ms on 12/10. Will add ensure to her meals, monitor for restricting bx. on high doses of clonazepam, going to groups, 12/13 lowered clonazepam to 3mg/day; resumed gabapentin per pt request 12/14 patient said she was doing okay but got much more anxious when suddenly found out clonazepam has been lowered. Patient still has depression, anxiety and intermittent SI. Reports Vraylar started 4 months ago and has had no effect; raised to 4.5mg this admission, but still no help Reports Cymbalta no affect patient was going to try Lamictal but over the weekend got anxious about it and did not want to take it Patient would like to try Latuda to see if it can replicate the effect of Zyprexa; otherwise will go back on Trileptal which she said was helpful. Regarding clonazepam, patient understands risks of this medication and also the barrier it can create an getting over PTSD/trauma; she has been on clonazepam 2 mg b.i.d. for several years. Patient would consider going down but feels it was abrupt to have it reduced without being told. She agrees to have senior technical writer put back 0.5 mg as a p.r.n. and will see if she can avoid taking it. PLAN: Q15 min safety checks, CV Start Latuda 20 mg daily; goal is to see if it can reproduce the effective Zypre xa Continue Vraylar 4.5 mg for now; if Latuda helpful will taper off and DC Vraylar Continue clonazepam 1 mg t.i.d., but will add 0.5 mg as a p.r.n. (has been on 4 mg daily for years) Continue to pursue [place] application Continued Dislulfiram 250 mg daily; will check labs Recheck Qtc Monitor response to medications. Monitor for safety in the milieu. Discharge on stabilization. Patient seen. Chart reviewed. Discussed with team. Obtain collateral contact info?as needed Per hospitalist consult: history of mild persistent asthma, no acute exacerbation recommend to continue Breo inhaler daily and Ventolin inhaler twice daily. prolonged QTC noted on EKG from December 10 no prior EKGs available for comparison, prolonged QTC likely multifactorial was recently on Zyprexa , history of multiple other antipsychotic use and recent diarrhea likely causing electrolyte abnormality,patient asymptomatic with no chest pain, no palpitations, no lightheadedness, dizziness on near-syncope, will check electrolytes, magnesium, and repeat EKG, will review current medications. I spent minutes with the patient and/or on the patient floor today, greater than?50% of which was spent counseling/coordinating care. Patient educated on: diagnosis, medication risk/benefits, substance abuse and therapeutic strategies Informed Consent: understands Reason for contiued inpatient stay Substantial Risk for: rapid decompensation
--- NOTE | 2021-12-14 10:57 | MHC.CLN ---
NUTRITION CONSULT FOR EATING DISORDER. VISITED WITH PATIENT ON UNIT. STATED THAT TAKES LIQUIDS ONLY DUE TO EATING DISORDER. HAS NOT BEEN ADVISED TO FOLLOW LIQUID DIET, BUT DOES SO DUE TO PREFERENCE. DIET=REGULAR WITH ENSURE CLEAR TID. SUPPLEMENT PROVIDES ADDITIONAL 720 KCALS, 24 G PROTEIN. STATED THAT SHE LIKES SUPPLEMENT. STATED THAT WILL START EATING SOLIDS TONIGHT. FOLLOWS VEGETARIAN DIET. HAD FOLLOWED VEGAN DIET X 4 YEARS BUT NO LONGER FOLLOWS. DISCUSSED ADDING VARIETY OF FOODS TO DIET. DOES NOT WANT CUT UP FRUIT BUT AGREES TO APPLESAUCE. WOULD LIKE SOY MILK EACH MEAL. RD TO ADVISE GSR OR PATIENT'S FOOD PREFERENCES SO HE CAN ASSIST HER WITH MEAL CHOICES.
[2021-12-14 12:03] VITALS: BMI 23.3
[2021-12-14] MEDS: Lurasidone HCl 20 MG TABLET PO (15:09)
[2021-12-14 21:10] VITALS: BP 133/75; PULSE 95; TEMP 36.1
[2021-12-14] MEDS: Gabapentin 300 MG CAPSULE PO (21:17)
[2021-12-15 06:00] VITALS: BP 99/55; PULSE 74; RESP 16; TEMP 36.5; O2SAT 99
[2021-12-15 08:00] VITALS: BP 99/55; PULSE 74; RESP 18; TEMP 36.5; O2SAT 99
[2021-12-15 08:19] LABS: Alanine Aminotransferase 10 U/L (0-31); Alkaline Phosphatase 49 U/L (39-117); Anion Gap 16 (12-20); Aspartate Amino Transferase 13 U/L (5-31); Bilirubin Direct 0.2 mg/dL (0.0-0.5); Bilirubin Total 0.6 mg/dL (0.0-1.0); Blood Urea Nitrogen 8 mg/dL (9-16); Carbon Dioxide 26 mmol/L (22-29); Chloride 103 mmol/L (96-108); Creatinine Clr Calc Pharmacy 79.2; Estimated Glomerular Filt Rate > 60; Potassium 4.6 mmol/L (3.3-5.1); Sodium 140 mmol/L (135-145); Total Protein 5.9 g/dL (6.5-8.0)
[2021-12-15 08:23] LABS: Estimated Average Glucose 97 mg/dL
[2021-12-15] MEDS: Albuterol Sulfate 90 MCG 8 GM INHALER 2 PUFF INHALE ×2 (08:30→20:42)
[2021-12-15] MEDS: Fluticasone/Vilanterol 100/25 BLST.W.DEV 1 PUFF INHALE (08:30)
[2021-12-15] MEDS: clonazePAM 1 MG TABLET PO ×3 (08:32→20:43)
[2021-12-15] MEDS: busPIRone HCl 10 MG TABLET 20 MG PO ×3 (08:32→20:42)
[2021-12-15] MEDS: Gabapentin 100 MG CAPSULE 200 MG PO ×2 (08:32→14:38)
[2021-12-15] MEDS: Thiamine HCL 100 MG TABLET PO (08:32)
[2021-12-15] MEDS: Multivitamin TABLET 1 TAB PO (08:32)
[2021-12-15] MEDS: DULoxetine HCl 60 MG CAPSULE.DR 120 MG PO (08:33)
[2021-12-15] MEDS: Lurasidone HCl 20 MG TABLET PO ×2 (08:33→17:06)
[2021-12-15] MEDS: Cholecalciferol (Vitamin D3) 25 MCG TABLET PO (09:27)
--- NOTE | 2021-12-15 10:00 | ECG_ITS ---
Test Reason : qtc Blood Pressure : / mmHG Vent. Rate : 066 BPM Atrial Rate : 066 BPM P-R Int : 116 ms QRS Dur : 092 ms QT Int : 458 ms P-R-T Axes : 059 056 035 degrees QTc Int : 480 ms Normal sinus rhythm Prolonged QT Abnormal ECG When compared with ECG of 10-DEC-2021 22:08, QT has shortened Referred By: Robson Cade Electronically Signed By:JETT SHEN
[2021-12-15] MEDS: cloNIDine HCL 0.1 MG TABLET PO ×2 (11:12→20:43)
[2021-12-15] MEDS: clonazePAM 0.5 MG TABLET PO (13:02)
--- NOTE | 2021-12-15 16:36 | P.PNPSI_ITS ---
Subjective Subjective Date of Service: 12/15/21 Reason For Visit: Generalized anxiety, Alcohol use, Depression Interim History: Patient reports she remains depressed with passive wish, intermittent SI but no plans or intention. Patient reports last night she had a nightmare which triggered SI in the morning but it has resolved. She denies any self-harm prior to this admission and feels she can stay safe. Patient did not eat breakfast today saying that she decided only coffee and tea were safe things to eat, safe meeting would not contain calories. Patient recognizes this as eating disordered thinking and explored new ways to approach eating, perhaps not thinking of it as choosing food but that she is choosing to spend more time with her boyfriend, choosing to take care of her organs... Choosing to give Latuda chance to work.. This idea resonate with patient and she said she would consider focusing on these ideas. She agreed to increasing Latuda. Patient was unsure about very large, thinking maybe it helped a little but not very sure but agrees to continue taking it for now. Mental Status Exam Mental Status Exam Narrative: Pt is alert and oriented; behavior is cooperative, slow moving, head down; patient is not in distress; dressed in casual attire with adequate hygiene; mood is described as anxous and affect congruent, downcast; limited eye contact; Speech is a little soft; normal rate and prosody and not pressured; psychomotor retardation present; thought process is goal directed; Thought content is on tx, struggling to believe she will ever get better; otherwise pertinent to relevant topics and without any delusional content, paranoid ideations or grandiosity; passive wish; intermittent active SI but no plan or intent; no HI; intermittent AH, but mood congruent. Patients insight and judgment are impaired. Diagnostics Vital Signs (24Hr): Vital Signs - 24 hr 12/14/21 21:10 12/15/21 06:00 12/15/21 08:00 Temperature 97.0 F 97.7 F 97.7 F Pulse Rate 95 74 74 Respiratory Rate 16 18 Blood Pressure 133/75 99/55 L 99/55 L Pulse Oximetry 99 99 Oxygen Delivery Method Room Air Room Air BMI result Body Mass Index 23.3 Labs Results: 12/15/21 07:32 Labs: Laboratory Results - last 48 hr 12/15/21 12/15/21 07:32 07:32 Sodium 140 Potassium 4.6 Chloride 103 Carbon Dioxide 26 Anion Gap 16 BUN 8 L Creatinine 0.79 Estim Creat Clear Calc 79.2 Estimated GFR > 60 Estimat Average Glucose 97 Hemoglobin A1c % 5.0 Total Bilirubin 0.6 Direct Bilirubin 0.2 AST 13 ALT 10 Alkaline Phosphatase 49 Total Protein 5.9 L Albumin 4.0 Medications Medications Current Medications Acetaminophen (Acetaminophen 325 Mg Tablet) 650 mg PO Q6H PRN PRN Reason: Headache/Pain Mild Scale (1-3) Al Hydroxide/Mg Hydroxide (Magnesium Hydrox/Alum Hydrox 30 Ml Oral.Susp) 30 ml PO Q6H PRN PRN Reason: Heartburn/Nausea Last Admin: 12/13/21 05:36 Dose: 30 ml Albuterol Sulfate (Albuterol Sulfate 90 Mcg 8 Gm Inhaler) 2 puff INHALE BID [facility] Last Admin: 12/15/21 08:30 Dose: 2 puff Buspirone HCl (Buspirone Hcl 10 Mg Tablet) 20 mg PO TID [facility] Last Admin: 12/15/21 14:38 Dose: 20 mg Cariprazine (Cariprazine Hcl 1.5 Mg Capsule) 4.5 mg PO DAILY [facility] Last Admin: 12/15/21 09:45 Dose: Not Given Clonazepam (Clonazepam 1 Mg Tablet) 1 mg PO TID [facility] Last Admin: 12/15/21 14:38 Dose: 1 mg Clonazepam (Clonazepam 0.5 Mg Tablet) 0.5 mg PO DAILY PRN PRN Reason: Anxiety Last Admin: 12/15/21 13:02 Dose: 0.5 mg Clonidine HCl (Clonidine Hcl 0.1 Mg Tablet) 0.1 mg PO BEDTIME [facility]; Protocol Last Admin: 12/14/21 21:16 Dose: 0.1 mg Clonidine HCl (Clonidine Hcl 0.1 Mg Tablet) 0.1 mg PO DAILY PRN; Protocol PRN Reason: hyperarousal, anxiety Last Admin: 12/15/21 11:12 Dose: 0.1 mg Duloxetine HCl (Duloxetine Hcl 60 Mg Capsule.Dr) 120 mg PO DAILY [facility] Last Admin: 12/15/21 08:33 Dose: 120 mg Fluticasone/Vilanterol (Fluticasone/Vilanterol 100/25 Blst.W.Dev) 1 puff INHALE RDAILY [facility] Last Admin: 12/15/21 08:30 Dose: 1 puff Gabapentin (Gabapentin 300 Mg Capsule) 300 mg PO BEDTIME [facility] Last Admin: 12/14/21 21:17 Dose: 300 mg Gabapentin (Gabapentin 100 Mg Capsule) 200 mg PO BID@0830,1330 [facility] Last Admin: 12/15/21 14:38 Dose: 200 mg Lurasidone HCl (Lurasidone Hcl 20 Mg Tablet) 20 mg PO DAILY [facility] Last Admin: 12/15/21 08:33 Dose: 20 mg Magnesium Hydroxide (Milk Of Magnesia 30 Ml Oral.Susp) 30 ml PO DAILY PRN PRN Reason: Constipation Multivitamins/Vitamin C (Multivitamin Tablet) 1 tab PO DAILY [facility] Last Admin: 12/15/21 08:32 Dose: 1 tab Pt Own (Disulfiram (250 Mg)) 250 mg PO DAILY [facility] Last Admin: 12/15/21 08:30 Dose: 250 mg Thiamine HCl (Thiamine Hcl 100 Mg Tablet) 100 mg PO DAILY [facility] Last Admin: 12/15/21 08:32 Dose: 100 mg Vitamin D (Cholecalciferol (Vitamin D3) 25 Mcg Tablet) 25 mcg PO DAILY [facility] Last Admin: 12/15/21 09:27 Dose: 25 mcg Allergies Allergies Allergy/AdvReac Type Severity Reaction Status Date / Time escitalopram [From Lexapro] AdvReac Unknown Unknown Unverified 12/14/21 14:28 Assessment & Plan Assessment & Plan (1) MDD (major depressive disorder), recurrent episode, moderate: Status: Acute Code(s): F33.1 - Major depressive disorder, recurrent, moderate Assessment and Plan: having several medications adjusted seems concerned re gi s/e of lamotrigine- though pt has ongoing gi issues clearly as on very odd diet 12/13 change back to regular diet, lamotrigine dced (2) Post traumatic stress disorder (PTSD): Status: Acute Code(s): F43.10 - Post-traumatic stress disorder, unspecified (3) Anorexia nervosa: Status: Acute Code(s): F50.00 - Anorexia nervosa, unspecified Assessment and Plan: restricting so now on liquid diet- also getting ensure but not clear if tid or not also pt would like fruit as well with diet requests nutritional consult (4) Prolonged QT interval: Status: Acute Code(s): R94.31 - Abnormal electrocardiogram [ECG] [EKG] Assessment and Plan: ?eating do Plan Bozena is a 31 y.o. female who self presented to [facility] due to SI and increased depression. She also reports restricting her food intake x 2 weeks, has extensive hx of anorexia nervosa with multiple inpatient and residential stays at [place]. 12/10: Pt denies benefit on gabapentin, will consider discontinuing this. Says klonopin and clonidine help with anxiety. Thinks buspar helps a little. Unsure if cymbalta or vraylar (on both since 09/2021) are helping. Will increase buspar to 20 mg TID for anxiety. Discussed starting mood stabilizer for depression, impulsive urges, will defer to primary psych provider. 12/11: Will start lamictal 25 mg HS for depression, impulsivity- discussed monitoring for rash/ SJS. Will discontinue gabapentin, as pt denies benefit and to reduce polypharm. Will increase vraylar to 4.5 mg as pt appears to need higher dosage range for therapeutic benefit and may help with depression, perceptual disturbances. Will re-check EKG due to hx of QTc prolongation, 507ms on 12/10. Will add ensure to her meals, monitor for restricting bx. on high doses of clonazepam, going to groups, 12/13 lowered clonazepam to 3mg/day; resumed gabapentin per pt request 12/14 patient said she was doing okay but got much more anxious when suddenly found out clonazepam has been lowered. Patient still has depression, anxiety and intermittent SI. Reports Vraylar started 4 months ago and has had no effect; raised to 4.5mg this admission, but still no help Reports Cymbalta no affect patient was going to try Lamictal but over the weekend got anxious about it and did not want to take it Patient would like to try Latuda to see if it can replicate the effect of Zyprexa; otherwise will go back on Trileptal which she said was helpful. Regarding clonazepam, patient understands risks of this medication and also the barrier it can create an getting over PTSD/trauma; she has been on clonazepam 2 mg b.i.d. for several years. Patient would consider going down but feels it was abrupt to have it reduced without being told. She agrees to have typewriter mechanic put back 0.5 mg as a p.r.n. and will see if she can avoid taking it. 12/15 still struggling with thought disordered thinking, restricting intake; no problems with Latuda and agrees to increase. Continue to work on making healthy choices. Patient's QTC is mildly prolonged. It is very rare for QTC prolongation to causing an arrhythmia and potential benefit far outweighs potential risk; most medications in this class pose this risk (though not cariprazine); will continue to monitor PLAN: Q15 min safety checks, CV INCREASE to Latuda 40 mg daily; goal is to see if it can reproduce the effective Zyprexa Continue Vraylar but back to former dose 3mg while seeing Latuda helpful; will taper off and DC Vraylar; has been on it for 4 months and patient says no help Continue clonazepam 1 mg t.i.d., but will add 0.5 mg as a p.r.n. (has been on 4 mg daily for years) Continue to pursue [place] application Continued Dislulfiram 250 mg daily; will check labs Rechecked Qtc on 12/15: ? ? QT Int : 458 ms ? QTc Int : 480 ms ? Monitor response to medications. Monitor for safety in the milieu. Discharge on stabilization. Patient seen. Chart reviewed. Discussed with team. Obtain collateral contact info?as needed Per hospitalist consult: history of mild persistent asthma, no acute exacerbation recommend to continue Breo inhaler daily and Ventolin inhaler twice daily. prolonged QTC noted on EKG from December 10 no prior EKGs available for comparison, prolonged QTC likely multifactorial was recently on Zyprexa , history of multiple other antipsychotic use and recent diarrhea likely causing electrolyte abnormality,patient asymptomatic with no chest pain, no palpitations, no lightheadedness, dizziness on near-syncope, will check electrolytes, magnesium, and repeat EKG, will review current medications. I spent minutes with the patient and/or on the patient floor today, greater than?50% of which was spent counseling/coordinating care. Patient educated on: diagnosis, medication risk/benefits, substance abuse and therapeutic strategies Informed Consent: understands Reason for contiued inpatient stay Substantial Risk for: rapid decompensation
[2021-12-15] MEDS: Magnesium Hydrox/Alum Hydrox 30 ML ORAL.SUSP PO (19:16)
[2021-12-15 20:30] VITALS: BP 114/80; PULSE 88; TEMP 36.1; O2SAT 100
[2021-12-15] MEDS: Gabapentin 300 MG CAPSULE PO (20:43)
[2021-12-16 05:38] VITALS: BP 109/72; PULSE 74
[2021-12-16] MEDS: cloNIDine HCL 0.1 MG TABLET PO ×2 (05:38→20:26)
[2021-12-16 06:00] VITALS: BP 99/55; PULSE 74; RESP 16; TEMP 36.5; O2SAT 74
[2021-12-16] MEDS: Fluticasone/Vilanterol 100/25 BLST.W.DEV 1 PUFF INHALE (08:54)
[2021-12-16] MEDS: Albuterol Sulfate 90 MCG 8 GM INHALER 2 PUFF INHALE ×2 (08:54→20:29)
[2021-12-16] MEDS: DULoxetine HCl 60 MG CAPSULE.DR 120 MG PO (08:54)
[2021-12-16] MEDS: Gabapentin 100 MG CAPSULE 200 MG PO ×2 (08:54→14:15)
[2021-12-16] MEDS: Lurasidone HCl 40 MG TABLET PO (08:55)
[2021-12-16] MEDS: Multivitamin TABLET 1 TAB PO (08:55)
[2021-12-16] MEDS: Cariprazine HCl 3 MG CAPSULE PO (08:55)
[2021-12-16] MEDS: busPIRone HCl 10 MG TABLET 20 MG PO ×3 (08:55→20:27)
[2021-12-16] MEDS: clonazePAM 1 MG TABLET PO ×3 (08:55→20:27)
[2021-12-16] MEDS: Cholecalciferol (Vitamin D3) 25 MCG TABLET PO (08:55)
[2021-12-16] MEDS: Thiamine HCL 100 MG TABLET PO (08:55)
[2021-12-16] MEDS: clonazePAM 0.5 MG TABLET PO (11:25)
--- NOTE | 2021-12-16 12:20 | P.PNIM_ITS ---
Subjective Subjective Date of Service: 12/16/21 Interval History: Seen for follow up on prolonged QTC: Pt reporting 6/0 nonradiating central chest tightness. Reports worsening of symptoms with deep inspiration. Nonexertional. Endorses anxiety and took prn clonazepam 10 minutes ago. Reports has has similar pain in the past. Denies palpitations, diaphoresis, lightheadedness. Otherwise has no complaints. Review of Systems General: No fevers, malaise, unintentional weight loss Cardiovascular: +chest pain. No palpitations, or leg edema Respiratory: No shortness of breath, wheezing, cough GI: No abdominal pain, nausea, vomiting, diarrhea, constipation, melena, hematochezia Neuro: No headaches, weakness, paresthesias Skin: No rashes or lesions Physical Exam Vital Signs: Vital Signs: Last Vital Signs Temp 97.7 F 12/16/21 06:00 Pulse 74 12/16/21 06:00 Resp 16 12/16/21 06:00 BP 99/55 L 12/16/21 06:00 Pulse Ox 74 L 12/16/21 06:00 O2 Del Method 12/16/21 06:00 BMI result Body Mass Index 23.3 Constitutional - Awake and Alert, No apparent distress Eyes - PERRLA, EOMI Cardiovascular - S1S2, RRR, No edema Respiratory - Normal lung expansion, Normal respiratory effort, No respiratory distress, CTA bilaterally Chest: Reproducible ttp across anterior chest Extremities - no calf tenderness bilaterally, no swelling Skin - Warm/Dry Neurological - Alert & oriented x3, No focal deficit Psychological - Appropriate affect Objective Data Active Medications Acetaminophen (Acetaminophen 325 Mg Tablet) 650 mg PO Q6H PRN PRN Reason: Headache/Pain Mild Scale (1-3) Al Hydroxide/Mg Hydroxide (Magnesium Hydrox/Alum Hydrox 30 Ml Oral.Susp) 30 ml PO Q6H PRN PRN Reason: Heartburn/Nausea Last Admin: 12/15/21 19:16 Dose: 30 ml Documented By: JOE Albuterol Sulfate (Albuterol Sulfate 90 Mcg 8 Gm Inhaler) 2 puff INHALE BID [facility] Last Admin: 12/16/21 08:54 Dose: 2 puff Documented By: ROCIO Buspirone HCl (Buspirone Hcl 10 Mg Tablet) 20 mg PO TID [facility] Last Admin: 12/16/21 08:55 Dose: 20 mg Documented By: ROCIO Cariprazine (Cariprazine Hcl 3 Mg Capsule) 3 mg PO DAILY [facility] Last Admin: 12/16/21 08:55 Dose: 3 mg Documented By: ROCIO Clonazepam (Clonazepam 1 Mg Tablet) 1 mg PO TID [facility] Last Admin: 12/16/21 08:55 Dose: 1 mg Documented By: ROCIO Clonazepam (Clonazepam 0.5 Mg Tablet) 0.5 mg PO DAILY PRN PRN Reason: Anxiety Last Admin: 12/16/21 11:25 Dose: 0.5 mg Documented By: DANIEL Clonidine HCl (Clonidine Hcl 0.1 Mg Tablet) 0.1 mg PO BEDTIME [facility]; Protocol Last Admin: 12/15/21 20:43 Dose: 0.1 mg Documented By: JOE Clonidine HCl (Clonidine Hcl 0.1 Mg Tablet) 0.1 mg PO DAILY PRN; Protocol PRN Reason: hyperarousal, anxiety Last Admin: 12/16/21 05:38 Dose: 0.1 mg Documented By: ALTAF Comments: 109/72, 74 Duloxetine HCl (Duloxetine Hcl 60 Mg Capsule.Dr) 120 mg PO DAILY [facility] Last Admin: 12/16/21 08:54 Dose: 120 mg Documented By: ROCIO Fluticasone/Vilanterol (Fluticasone/Vilanterol 100/25 Blst.W.Dev) 1 puff INHALE RDAILY [facility] Last Admin: 12/16/21 08:54 Dose: 1 puff Documented By: ROCIO Gabapentin (Gabapentin 300 Mg Capsule) 300 mg PO BEDTIME [facility] Last Admin: 12/15/21 20:43 Dose: 300 mg Documented By: JOE Gabapentin (Gabapentin 100 Mg Capsule) 200 mg PO BID@0830,1330 [facility] Last Admin: 12/16/21 08:54 Dose: 200 mg Documented By: ROCIO Lurasidone HCl (Lurasidone Hcl 40 Mg Tablet) 40 mg PO DAILY [facility] Last Admin: 12/16/21 08:55 Dose: 40 mg Documented By: ROCIO Magnesium Hydroxide (Milk Of Magnesia 30 Ml Oral.Susp) 30 ml PO DAILY PRN PRN Reason: Constipation Multivitamins/Vitamin C (Multivitamin Tablet) 1 tab PO DAILY [facility] Last Admin: 12/16/21 08:55 Dose: 1 tab Documented By: ROCIO Pt Own (Disulfiram (250 Mg)) 250 mg PO DAILY [facility] Last Admin: 12/16/21 08:54 Dose: 250 mg Documented By: ROCIO Thiamine HCl (Thiamine Hcl 100 Mg Tablet) 100 mg PO DAILY [facility] Last Admin: 12/16/21 08:55 Dose: 100 mg Documented By: ROCIO Vitamin D (Cholecalciferol (Vitamin D3) 25 Mcg Tablet) 25 mcg PO DAILY [facility] Last Admin: 12/16/21 08:55 Dose: 25 mcg Documented By: ROCIO Labs CBC & Chem 7: 12/15/21 07:32 Assessment and Plan (1) MDD (major depressive disorder), recurrent episode, moderate: Status: Acute (2) Post traumatic stress disorder (PTSD): Status: Acute (3) Anorexia nervosa: Status: Acute (4) Prolonged QT interval: Status: Acute Plan 31-year-old female patient with past medical history of mild persistent asthma, history of generalized anxiety, depression, anorexia nervose, admitted to . QTC improved to 460 on EKG obtained yesterday and chemistries showing normal electrolyte levels Prlonged QTC likely multifactorial including previous zyrexa use- -improved since medication dc'd and anorexia. Chest pain pt is reporting is reproducible to palpation and similar to prior episodes of chest pain, not likely to cardiac in etiology. Continue following monitoring QTC and management of anxiety per psychiatry. Quality Stroke Does the patient have a stroke diagnosis?: No VTE Prior VTE?: No VTE Risk Level:: Medical - low VTE Device Contraindication: Treatment Not Indicated VTE Drug Contraindication: Treatment Not Indicated
--- NOTE | 2021-12-16 14:37 | HO.PSYCHPN ---
Subjective Subjective Date of Service: 12/16/21 Reason For Visit: Generalized anxiety, Alcohol use, Depression Interim History: Patient depressed. Remains with passive wish however some increasing Hope. No active SI though patient feels that remains an option. Patient said her mood was better yesterday however a staff person broached the topic of her past trauma and she felt some obligation to discuss it, thinking maybe it would help her, however this triggered intense flashbacks, worse nightmares and she woke up suicidal this morning. Patient shared that Though she has engaged in trauma informed therapy, including EMDR, it has not been successful and overall she has hardly talked about her trauma but is realizing this is necessary in order for her to overcome feeling trapped by this past. Patient said she never thought about it before but she is realizing she has been in survival mode for years and this understanding is helping her make more sense of why she has struggled to accomplish things. Senior Product Development Scientist and patient engaged in some CBT work And patient responded favorably. Patient has not eaten for 2 and half days. She said she has it in her mind she needs to wait 3 full days before she eats again; however patient knows that this is irrational thinking. She shared more about how eating disordered thinking is so challenging and that in some ways she has thought that her anorexia has helped keep her alive. However, patient reports she is becoming more aware of how it is quite the opposite and that she is more controlled by it then in control of it. Patient said she is trying to consider eating; she does not want to go on a feeding Tube. Patient shared some history of OCD type behaviors, such as, having to shake her toothbrush 3 times; however she says These behaviors only occur when triggered by PTSD symptoms and not otherwise. Patient shared that she imagines she will be by her 32th birthday, which is a little over a month. She has no plans to kill herself but just thinks that it is likely she will gets overwhelmed that she will become suicidal or that her anorexia will become so severe that she will from that. That said patient does express this is not what she wants to occur and does want to believe that she can overcome her current issues. Patient discussed her hopes to be close to her family again and that she feels it is worth it to continue pushing forward. Mental Status Exam Mental Status Exam Narrative: Pt is alert and oriented; behavior is cooperative, slow moving, head down; patient is not in distress; dressed in casual attire with adequate hygiene; mood is described as Depressed, Anxious and affect congruent, downcast; limited eye contact; Speech is a little soft; normal rate and prosody and not pressured; psychomotor retardation present; thought process is goal directed; Thought content is on past trauma, hopelessness, but also on treatment; otherwise pertinent to relevant topics and without any delusional content, paranoid ideations or grandiosity; passive wish; intermittent active SI but no plan or intent; no HI; intermittent AH, but mood congruent. Patients insight and judgment are impaired. Diagnostics Vital Signs (24Hr): Vital Signs - 24 hr 12/15/21 20:30 12/16/21 05:38 12/16/21 06:00 Temperature 96.9 F 97.7 F Pulse Rate 88 74 74 Respiratory Rate 16 Blood Pressure 114/80 109/72 99/55 L Pulse Oximetry 100 74 L Oxygen Delivery Method Room Air Room Air BMI result Body Mass Index 23.3 Labs Results: 12/15/21 07:32 Labs: Laboratory Results - last 48 hr 12/15/21 12/15/21 07:32 07:32 Sodium 140 Potassium 4.6 Chloride 103 Carbon Dioxide 26 Anion Gap 16 BUN 8 L Creatinine 0.79 Estim Creat Clear Calc 79.2 Estimated GFR > 60 Estimat Average Glucose 97 Hemoglobin A1c % 5.0 Total Bilirubin 0.6 Direct Bilirubin 0.2 AST 13 ALT 10 Alkaline Phosphatase 49 Total Protein 5.9 L Albumin 4.0 Medications Medications Current Medications Acetaminophen (Acetaminophen 325 Mg Tablet) 650 mg PO Q6H PRN PRN Reason: Headache/Pain Mild Scale (1-3) Al Hydroxide/Mg Hydroxide (Magnesium Hydrox/Alum Hydrox 30 Ml Oral.Susp) 30 ml PO Q6H PRN PRN Reason: Heartburn/Nausea Last Admin: 12/15/21 19:16 Dose: 30 ml Albuterol Sulfate (Albuterol Sulfate 90 Mcg 8 Gm Inhaler) 2 puff INHALE BID [facility] Last Admin: 12/16/21 08:54 Dose: 2 puff Buspirone HCl (Buspirone Hcl 10 Mg Tablet) 20 mg PO TID [facility] Last Admin: 12/16/21 14:16 Dose: 20 mg Cariprazine (Cariprazine Hcl 3 Mg Capsule) 3 mg PO DAILY [facility] Last Admin: 12/16/21 08:55 Dose: 3 mg Clonazepam (Clonazepam 1 Mg Tablet) 1 mg PO TID [facility] Last Admin: 12/16/21 14:15 Dose: 1 mg Clonazepam (Clonazepam 0.5 Mg Tablet) 0.5 mg PO DAILY PRN PRN Reason: Anxiety Last Admin: 12/16/21 11:25 Dose: 0.5 mg Clonidine HCl (Clonidine Hcl 0.1 Mg Tablet) 0.1 mg PO BEDTIME [facility]; Protocol Last Admin: 12/15/21 20:43 Dose: 0.1 mg Clonidine HCl (Clonidine Hcl 0.1 Mg Tablet) 0.1 mg PO DAILY PRN; Protocol PRN Reason: hyperarousal, anxiety Last Admin: 12/16/21 05:38 Dose: 0.1 mg Duloxetine HCl (Duloxetine Hcl 60 Mg Capsule.Dr) 120 mg PO DAILY [facility] Last Admin: 12/16/21 08:54 Dose: 120 mg Fluticasone/Vilanterol (Fluticasone/Vilanterol 100/25 Blst.W.Dev) 1 puff INHALE RDAILY [facility] Last Admin: 12/16/21 08:54 Dose: 1 puff Gabapentin (Gabapentin 300 Mg Capsule) 300 mg PO BEDTIME [facility] Last Admin: 12/15/21 20:43 Dose: 300 mg Gabapentin (Gabapentin 100 Mg Capsule) 200 mg PO BID@0830,1330 [facility] Last Admin: 12/16/21 14:15 Dose: 200 mg Lurasidone HCl (Lurasidone Hcl 40 Mg Tablet) 40 mg PO DAILY [facility] Last Admin: 12/16/21 08:55 Dose: 40 mg Magnesium Hydroxide (Milk Of Magnesia 30 Ml Oral.Susp) 30 ml PO DAILY PRN PRN Reason: Constipation Multivitamins/Vitamin C (Multivitamin Tablet) 1 tab PO DAILY [facility] Last Admin: 12/16/21 08:55 Dose: 1 tab Pt Own (Disulfiram (250 Mg)) 250 mg PO DAILY [facility] Last Admin: 12/16/21 08:54 Dose: 250 mg Thiamine HCl (Thiamine Hcl 100 Mg Tablet) 100 mg PO DAILY [facility] Last Admin: 12/16/21 08:55 Dose: 100 mg Vitamin D (Cholecalciferol (Vitamin D3) 25 Mcg Tablet) 25 mcg PO DAILY [facility] Last Admin: 12/16/21 08:55 Dose: 25 mcg Allergies Allergies Allergy/AdvReac Type Severity Reaction Status Date / Time escitalopram [From Lexapro] AdvReac Unknown Unknown Unverified 12/14/21 14:28 Assessment & Plan Assessment & Plan (1) MDD (major depressive disorder), recurrent episode, moderate: Status: Acute Code(s): F33.1 - Major depressive disorder, recurrent, moderate (2) Post traumatic stress disorder (PTSD): Status: Acute Code(s): F43.10 - Post-traumatic stress disorder, unspecified (3) Anorexia nervosa: Status: Acute Code(s): F50.00 - Anorexia nervosa, unspecified (4) Prolonged QT interval: Status: Acute Code(s): R94.31 - Abnormal electrocardiogram [ECG] [EKG] Plan Bozena is a 31 y.o. female who self presented to [facility] due to SI and increased depression. She also reports restricting her food intake x 2 weeks, has extensive hx of anorexia nervosa with multiple inpatient and residential stays at [place]. ? 12/10: Pt denies benefit on gabapentin, will consider discontinuing this. Says klonopin and clonidine help with anxiety. Thinks buspar helps a little. Unsure if cymbalta or vraylar (on both since 09/2021) are helping. Will increase buspar to 20 mg TID for anxiety. Discussed starting mood stabilizer for depression, impulsive urges, will defer to primary psych provider. 12/11: Will start lamictal 25 mg HS for depression, impulsivity- discussed monitoring for rash/ SJS. Will discontinue gabapentin, as pt denies benefit and to reduce polypharm. Will increase vraylar to 4.5 mg as pt appears to need higher dosage range for therapeutic benefit and may help with depression, perceptual disturbances. Will re-check EKG due to hx of QTc prolongation, 507ms on 12/10. Will add ensure to her meals, monitor for restricting bx. on high doses of clonazepam, going to groups, 12/13 lowered clonazepam to 3mg/day; resumed gabapentin per pt request 12/14 patient said she was doing okay but got much more anxious when suddenly found out clonazepam has been lowered.? Patient still has depression, anxiety and intermittent SI. Reports Vraylar started 4 months ago and has had no effect; raised to 4.5mg this admission, but still no help Reports Cymbalta no affect patient was going to try Lamictal but over the weekend got anxious about it and did not want to take it Patient would like to try Latuda to see if it can replicate the effect of Zyprexa; otherwise will go back on Trileptal which she said was helpful. Regarding clonazepam, patient understands risks of this medication and also the barrier it can create an getting over PTSD/trauma; she has been on clonazepam 2 mg b.i.d. for several years.? Patient would consider going down but feels it was abrupt to have it reduced without being told.? She agrees to have typewriter assembler put back 0.5 mg as a p.r.n. and will see if she can avoid taking it. 12/15 still struggling with thought disordered thinking, restricting intake; no problems with Latuda and agrees to increase.? Continue to work on making healthy choices.? Patient's QTC is mildly prolonged. It is very rare for QTC prolongation to causing an arrhythmia and potential benefit far outweighs potential risk; most medications in this class pose this risk (though not cariprazine); will continue to monitor 12/16 Continues to be depressed, anxious, struggling with PTSD symptoms and hopelessness; that said she is also pushing herself to be hopeful that she can work through these issues. Patient shares that she is much more aware of her need to address more deeply her history of trauma. Patient has not eaten for almost 3 days. Will leave Latuda as it is for now since she is not taking in any food. Patient is pushing herself to trying get herself to eat. PLAN: Q15 min safety checks, CV Continue Latuda 40 mg daily; goal is to see if it can reproduce the effective Zyprexa Continue Vraylar but back to former dose 3mg while seeing Latuda helpful; will taper off and DC Vraylar; has been on it for 4 months and patient says no help Continue clonazepam 1 mg t.i.d., but will add 0.5 mg as a p.r.n. (has been on 4 mg daily for years) Continue to pursue [place] application Continued Dislulfiram 250 mg daily; will check labs Rechecked Qtc on 12/15: ? ? QT Int : 458 ms ? QTc Int : 480 ms ? Monitor response to medications. Monitor for safety in the milieu. Discharge on stabilization. Patient seen. Chart reviewed. Discussed with team. Obtain collateral contact info?as needed Per hospitalist consult: history of mild persistent asthma, no acute exacerbation recommend to continue Breo inhaler daily and Ventolin inhaler twice daily. prolonged QTC noted on EKG from December 10 no prior EKGs available for comparison, prolonged QTC likely multifactorial was recently on Zyprexa , history of multiple other antipsychotic use and? recent diarrhea likely ?causing electrolyte abnormality,patient asymptomatic with no chest pain, no palpitations, no lightheadedness, dizziness on near-syncope, will check electrolytes, magnesium, and repeat EKG, will review current medications. -hospitalist OTTONIEL saw patient again: QTC improved to 460 on EKG obtained yesterday and chemistries showing normal electrolyte levels Prlonged QTC likely multifactorial including previous zyrexa use- -improved since medication dc'd and anorexia. Chest pain pt is reporting is reproducible to palpation and similar to prior episodes of chest pain, not likely to cardiac in etiology. Continue following monitoring QTC and management of anxiety per psychiatry. I spent minutes with the patient and/or on the patient floor today, greater than?50% of which was spent counseling/coordinating care. Patient educated on: diagnosis, medication risk/benefits and therapeutic strategies Informed Consent: understands Reason for contiued inpatient stay Substantial Risk for: harm to self, inability to function and rapid decompensation
[2021-12-16 20:25] VITALS: BP 118/76; PULSE 102; TEMP 35.9
[2021-12-16] MEDS: Gabapentin 300 MG CAPSULE PO (20:28)
[2021-12-17 06:00] VITALS: BP 145/66; PULSE 81; RESP 16; TEMP 36.4; O2SAT 97
[2021-12-17] MEDS: clonazePAM 1 MG TABLET PO ×3 (08:40→21:04)
[2021-12-17] MEDS: Albuterol Sulfate 90 MCG 8 GM INHALER 2 PUFF INHALE ×2 (08:40→21:59)
[2021-12-17] MEDS: Cariprazine HCl 3 MG CAPSULE PO (08:40)
[2021-12-17] MEDS: Multivitamin TABLET 1 TAB PO (08:40)
[2021-12-17] MEDS: Cholecalciferol (Vitamin D3) 25 MCG TABLET PO (08:40)
[2021-12-17] MEDS: Thiamine HCL 100 MG TABLET PO (08:40)
[2021-12-17] MEDS: Lurasidone HCl 40 MG TABLET PO (08:40)
[2021-12-17] MEDS: busPIRone HCl 10 MG TABLET 20 MG PO ×3 (08:40→21:04)
[2021-12-17] MEDS: Fluticasone/Vilanterol 100/25 BLST.W.DEV 1 PUFF INHALE (08:40)
[2021-12-17] MEDS: Gabapentin 100 MG CAPSULE 200 MG PO ×2 (08:40→14:09)
[2021-12-17] MEDS: DULoxetine HCl 60 MG CAPSULE.DR 120 MG PO (08:41)
--- NOTE | 2021-12-17 09:12 | HO.PSYCHPN ---
Subjective Subjective Date of Service: 12/17/21 Reason For Visit: Generalized anxiety, Alcohol use, Depression Interim History: Patient has not eaten for about 4 days now. She is taking in some fluids but not much. She feels that her mind is a little mentally fuzzy and it does appear that way. Patient says that she does not want to and she remains holding on to some hope that perhaps she can get through this time and end up overall more stable. However she feels that right now she is stuck and cannot make herself eat food. Patient cannot explain it Other than to say that in her mind she is Just so far removed from food right now... She does not really want to go on a feeding tube but says that maybe she needs to, just to get some nutrition and her so that she can get unstuck and not be so captive to disordered thinking. She also asks to get on Trileptal which she has been on before and found partially helpful. Patient willing to have an IV Mental Status Exam Mental Status Exam Narrative: Pt is alert and oriented; behavior is cooperative, slow moving, head down; patient is not in distress; dressed in casual attire with adequate hygiene; mood is described as Depressed, Anxious and affect congruent, downcast; limited eye contact; Speech is a little soft; normal rate and prosody and not pressured; psychomotor retardation present; thought process is goal directed; Thought content is on past trauma, hopelessness, but also on treatment; otherwise pertinent to relevant topics and without any delusional content, paranoid ideations or grandiosity; passive wish; intermittent active SI but no plan or intent; no HI; intermittent AH, but mood congruent. Patients insight and judgment are impaired. Diagnostics Vital Signs (24Hr): Vital Signs - 24 hr 12/16/21 20:25 Temperature 96.7 F L Pulse Rate 102 H Blood Pressure 118/76 BMI result Body Mass Index 23.3 Labs Results: 12/15/21 07:32 Medications Medications Current Medications Acetaminophen (Acetaminophen 325 Mg Tablet) 650 mg PO Q6H PRN PRN Reason: Headache/Pain Mild Scale (1-3) Al Hydroxide/Mg Hydroxide (Magnesium Hydrox/Alum Hydrox 30 Ml Oral.Susp) 30 ml PO Q6H PRN PRN Reason: Heartburn/Nausea Last Admin: 12/15/21 19:16 Dose: 30 ml Albuterol Sulfate (Albuterol Sulfate 90 Mcg 8 Gm Inhaler) 2 puff INHALE BID [facility] Last Admin: 12/17/21 08:40 Dose: 2 puff Buspirone HCl (Buspirone Hcl 10 Mg Tablet) 20 mg PO TID [facility] Last Admin: 12/17/21 08:40 Dose: 20 mg Cariprazine (Cariprazine Hcl 3 Mg Capsule) 3 mg PO DAILY [facility] Last Admin: 12/17/21 08:40 Dose: 3 mg Clonazepam (Clonazepam 1 Mg Tablet) 1 mg PO TID [facility] Last Admin: 12/17/21 08:40 Dose: 1 mg Clonazepam (Clonazepam 0.5 Mg Tablet) 0.5 mg PO DAILY PRN PRN Reason: Anxiety Last Admin: 12/16/21 11:25 Dose: 0.5 mg Clonidine HCl (Clonidine Hcl 0.1 Mg Tablet) 0.1 mg PO BEDTIME [facility]; Protocol Last Admin: 12/16/21 20:26 Dose: 0.1 mg Clonidine HCl (Clonidine Hcl 0.1 Mg Tablet) 0.1 mg PO DAILY PRN; Protocol PRN Reason: hyperarousal, anxiety Last Admin: 12/16/21 05:38 Dose: 0.1 mg Duloxetine HCl (Duloxetine Hcl 60 Mg Capsule.Dr) 120 mg PO DAILY [facility] Last Admin: 12/17/21 08:41 Dose: 120 mg Fluticasone/Vilanterol (Fluticasone/Vilanterol 100/25 Blst.W.Dev) 1 puff INHALE RDAILY [facility] Last Admin: 12/17/21 08:40 Dose: 1 puff Gabapentin (Gabapentin 300 Mg Capsule) 300 mg PO BEDTIME [facility] Last Admin: 12/16/21 20:28 Dose: 300 mg Gabapentin (Gabapentin 100 Mg Capsule) 200 mg PO BID@0830,1330 [facility] Last Admin: 12/17/21 08:40 Dose: 200 mg Lurasidone HCl (Lurasidone Hcl 40 Mg Tablet) 40 mg PO DAILY [facility] Last Admin: 12/17/21 08:40 Dose: 40 mg Magnesium Hydroxide (Milk Of Magnesia 30 Ml Oral.Susp) 30 ml PO DAILY PRN PRN Reason: Constipation Multivitamins/Vitamin C (Multivitamin Tablet) 1 tab PO DAILY [facility] Last Admin: 12/17/21 08:40 Dose: 1 tab Pt Own (Disulfiram (250 Mg)) 250 mg PO DAILY [facility] Last Admin: 12/17/21 08:40 Dose: 250 mg Thiamine HCl (Thiamine Hcl 100 Mg Tablet) 100 mg PO DAILY [facility] Last Admin: 12/17/21 08:40 Dose: 100 mg Vitamin D (Cholecalciferol (Vitamin D3) 25 Mcg Tablet) 25 mcg PO DAILY [facility] Last Admin: 12/17/21 08:40 Dose: 25 mcg Allergies Allergies Allergy/AdvReac Type Severity Reaction Status Date / Time escitalopram [From Lexapro] AdvReac Unknown Unknown Unverified 12/14/21 14:28 Assessment & Plan Assessment & Plan (1) MDD (major depressive disorder), recurrent episode, moderate: Status: Acute Code(s): F33.1 - Major depressive disorder, recurrent, moderate (2) Post traumatic stress disorder (PTSD): Status: Acute Code(s): F43.10 - Post-traumatic stress disorder, unspecified (3) Anorexia nervosa: Status: Acute Code(s): F50.00 - Anorexia nervosa, unspecified (4) Prolonged QT interval: Status: Acute Code(s): R94.31 - Abnormal electrocardiogram [ECG] [EKG] Sallie Seals is a 31 y.o. female who self presented to [facility] due to SI and increased depression. She also reports restricting her food intake x 2 weeks, has extensive hx of anorexia nervosa with multiple inpatient and residential stays at [place]. ? 12/10: Pt denies benefit on gabapentin, will consider discontinuing this. Says klonopin and clonidine help with anxiety. Thinks buspar helps a little. Unsure if cymbalta or vraylar (on both since 09/2021) are helping. Will increase buspar to 20 mg TID for anxiety. Discussed starting mood stabilizer for depression, impulsive urges, will defer to primary psych provider. 12/11: Will start lamictal 25 mg HS for depression, impulsivity- discussed monitoring for rash/ SJS. Will discontinue gabapentin, as pt denies benefit and to reduce polypharm. Will increase vraylar to 4.5 mg as pt appears to need higher dosage range for therapeutic benefit and may help with depression, perceptual disturbances. Will re-check EKG due to hx of QTc prolongation, 507ms on 12/10. Will add ensure to her meals, monitor for restricting bx. on high doses of clonazepam, going to groups, 12/13 lowered clonazepam to 3mg/day; resumed gabapentin per pt request 12/14 patient said she was doing okay but got much more anxious when suddenly found out clonazepam has been lowered.? Patient still has depression, anxiety and intermittent SI. Reports Vraylar started 4 months ago and has had no effect; raised to 4.5mg this admission, but still no help Reports Cymbalta no affect patient was going to try Lamictal but over the weekend got anxious about it and did not want to take it Patient would like to try Latuda to see if it can replicate the effect of Zyprexa; otherwise will go back on Trileptal which she said was helpful. Regarding clonazepam, patient understands risks of this medication and also the barrier it can create an getting over PTSD/trauma; she has been on clonazepam 2 mg b.i.d. for several years.? Patient would consider going down but feels it was abrupt to have it reduced without being told.? She agrees to have sheet writer put back 0.5 mg as a p.r.n. and will see if she can avoid taking it. 12/15 still struggling with thought disordered thinking, restricting intake; no problems with Latuda and agrees to increase.? Continue to work on making healthy choices.? Patient's QTC is mildly prolonged. It is very rare for QTC prolongation to causing an arrhythmia and potential benefit far outweighs potential risk; most medications in this class pose this risk (though not cariprazine); will continue to monitor 12/16 Continues to be depressed, anxious, struggling with PTSD symptoms and hopelessness; that said she is also pushing herself to be hopeful that she can work through these issues. Patient shares that she is much more aware of her need to address more deeply her history of trauma. Patient has not eaten for almost 3 days. Will leave Latuda as it is for now since she is not taking in any food. Patient is pushing herself to trying get herself to eat. 12/17 Patient has not eaten for about 4 days; limited fluid intake and has become tachycardic though BP is remain normal. Will get repeat labs to assess. Discussed case with hospitalist who agrees with a L of fluid plus D5W for now;But to continue to assess. Hopefully fluids plus sugar will help patient turn the corner and get back to making healthy food choices and avoid need for feeding tube. Patient says she feels too stuck to make herself eat however she remains holding on to hope that she can work through these issues in therapy. She asks for Trileptal. Will DC Latuda For now. PLAN: Q15 min safety checks, CV 1. Aneroxia Has not eaten for 4 days with limited fluid intake; tachycardic up to 150 Repeat lytes, BUN creatinine Will give 1 L of fluid NS with D5W; Discussed case with hospitalist who agrees 2. Depression/PTSD DC Latuda 40 mg daily (she's not eating) START Trileptal: pt said partially helpful in past Continue Vraylar but back to former dose 3mg while seeing Latuda helpful; will taper off and DC Vraylar; has been on it for 4 months and patient says no help Continue clonazepam 1 mg t.i.d., but will add 0.5 mg as a p.r.n. (has been on 4 mg daily for years) Continue to pursue [employer] application Continued Dislulfiram 250 mg daily; will check labs Rechecked Qtc on 12/15: ? ? QT Int : 458 ms ? QTc Int : 480 ms ? Monitor response to medications. Monitor for safety in the milieu. Discharge on stabilization. Patient seen. Chart reviewed. Discussed with team. Obtain collateral contact info?as needed Per hospitalist consult: history of mild persistent asthma, no acute exacerbation recommend to continue Breo inhaler daily and Ventolin inhaler twice daily. prolonged QTC noted on EKG from December 10 no prior EKGs available for comparison, prolonged QTC likely multifactorial was recently on Zyprexa , history of multiple other antipsychotic use and? recent diarrhea likely ?causing electrolyte abnormality,patient asymptomatic with no chest pain, no palpitations, no lightheadedness, dizziness on near-syncope, will check electrolytes, magnesium, and repeat EKG, will review current medications. -hospitalist OTTONIEL saw patient again: QTC improved to 460 on EKG obtained yesterday and chemistries showing normal electrolyte levels Prlonged QTC likely multifactorial including previous zyrexa use- -improved since medication dc'd and anorexia. Chest pain pt is reporting is reproducible to palpation and similar to prior episodes of chest pain, not likely to cardiac in etiology. Continue following monitoring QTC and management of anxiety per psychiatry. I spent minutes with the patient and/or on the patient floor today, greater than?50% of which was spent counseling/coordinating care. Patient educated on: diagnosis, medication risk/benefits, therapeutic strategies and medical condition Informed Consent: understands Reason for contiued inpatient stay Substantial Risk for: inability to function
[2021-12-17] MEDS: cloNIDine HCL 0.1 MG TABLET PO ×2 (10:14→21:04)
[2021-12-17 10:17] VITALS: BP 112/75; PULSE 140
[2021-12-17 10:40] VITALS: BP 115/67; PULSE 118; RESP 18; O2SAT 100
[2021-12-17] MEDS: 0.9 % Sodium Chloride 1,000 ML 999 ML IV (15:00)
--- NOTE | 2021-12-17 15:28 | PC.NURSE ---
#22 IV placed to Left AC. Pt tolerated procedure well. Fluids started per MD order. 1:1 Sitter at bedside.
[2021-12-17 15:29] LABS: Anion Gap 19 (12-20); Blood Urea Nitrogen 10 mg/dL (9-16); Carbon Dioxide 23 mmol/L (22-29); Chloride 100 mmol/L (96-108); Creatinine Clr Calc Pharmacy 81.3; Estimated Glomerular Filt Rate > 60; Potassium 3.9 mmol/L (3.3-5.1); Sodium 138 mmol/L (135-145)
[2021-12-17] MEDS: Dextrose 5 % and 0.9 % NaCl 1,000 ML 250 ML IVCONT ×2 (16:57→21:33)
[2021-12-17 20:47] VITALS: BP 117/75; PULSE 84; TEMP 36.3
[2021-12-17] MEDS: Gabapentin 300 MG CAPSULE PO (21:04)
[2021-12-18] MEDS: Dextrose 5 % and 0.9 % NaCl 1,000 ML 250 ML IVCONT (03:11)
[2021-12-18 04:32] LABS: Glucose, Whole Blood 116 mg/dL (60-115)
[2021-12-18] MEDS: Dextrose 5 % and 0.9 % NaCl 1,000 ML 150 ML IVCONT (06:05)
[2021-12-18] MEDS: Gabapentin 100 MG CAPSULE 200 MG PO ×2 (08:46→14:16)
[2021-12-18] MEDS: DULoxetine HCl 60 MG CAPSULE.DR 120 MG PO (08:46)
[2021-12-18] MEDS: OXcarbazepine 150 MG TABLET PO ×2 (08:47→20:01)
[2021-12-18] MEDS: busPIRone HCl 10 MG TABLET 20 MG PO ×3 (08:47→20:00)
[2021-12-18] MEDS: Thiamine HCL 100 MG TABLET PO (08:47)
[2021-12-18] MEDS: clonazePAM 1 MG TABLET PO ×3 (08:47→20:00)
[2021-12-18] MEDS: Multivitamin TABLET 1 TAB PO (08:47)
[2021-12-18] MEDS: Cholecalciferol (Vitamin D3) 25 MCG TABLET PO (08:47)
[2021-12-18] MEDS: Fluticasone/Vilanterol 100/25 BLST.W.DEV 1 PUFF INHALE (08:49)
[2021-12-18] MEDS: Albuterol Sulfate 90 MCG 8 GM INHALER 2 PUFF INHALE ×2 (08:49→20:00)
--- NOTE | 2021-12-18 10:33 | HO.PSYCHPN ---
Subjective Subjective Date of Service: 12/18/21 Reason For Visit: Generalized anxiety, Alcohol use, Depression Interim History: pt reports she's a little better. She says she's more hopeful and a little less anxious. She continues to want to explore the possibility that she can get and stay stable. Patient denies SI. She says she knows she needs to eat in order to engage in therapy, but she feels stuck, that her mind cannot get herself to think of eating, that she is so removed from food right now... Pt says that what has helped in the past is a feeding tube, that it will get nutrion in her which will help her think more clearly and kind of gets ball rolling and unstick her. Mom called and they got in an arguement about eating; pt says historically when her mom gets pushy with her she ends up restricting more. felt fluids helped alot Mental Status Exam Mental Status Exam Narrative: Pt is alert and oriented; behavior is cooperative, more engaged; patient is not in distress; dressed in casual attire with adequate hygiene; mood is described as a little better and affect congruent, brighter; good eye contact; Speech is a little soft; normal rate and prosody and not pressured; psychomotor retardation present; thought process is goal directed; Thought content is on trying to get herself to make healthy choices; treatment; worried about her boyfriend; otherwise pertinent to relevant topics and without any delusional content, paranoid ideations or grandiosity; passive wish (chronic); but no SI; no HI; no AH, but mood congruent. Patients insight and judgment are impaired but improved. Diagnostics Vital Signs (24Hr): Vital Signs - 24 hr 12/17/21 10:40 12/17/21 20:47 Temperature 97.4 F Pulse Rate 118 H 84 Respiratory Rate 18 Blood Pressure 115/67 117/75 Pulse Oximetry 100 Oxygen Delivery Method Room Air BMI result Body Mass Index 23.3 Labs Results: 12/17/21 15:08 Labs: Laboratory Results - last 48 hr 12/17/21 12/18/21 15:08 04:25 Sodium 138 Potassium 3.9 Chloride 100 Carbon Dioxide 23 Anion Gap 19 BUN 10 Creatinine 0.77 Estim Creat Clear Calc 81.3 Estimated GFR > 60 POC Glucose 116 H Medications Medications Current Medications Acetaminophen (Acetaminophen 325 Mg Tablet) 650 mg PO Q6H PRN PRN Reason: Headache/Pain Mild Scale (1-3) Al Hydroxide/Mg Hydroxide (Magnesium Hydrox/Alum Hydrox 30 Ml Oral.Susp) 30 ml PO Q6H PRN PRN Reason: Heartburn/Nausea Last Admin: 12/15/21 19:16 Dose: 30 ml Albuterol Sulfate (Albuterol Sulfate 90 Mcg 8 Gm Inhaler) 2 puff INHALE BID [facility] Last Admin: 12/18/21 08:49 Dose: 2 puff Buspirone HCl (Buspirone Hcl 10 Mg Tablet) 20 mg PO TID [facility] Last Admin: 12/18/21 08:47 Dose: 20 mg Clonazepam (Clonazepam 1 Mg Tablet) 1 mg PO TID [facility] Last Admin: 12/18/21 08:47 Dose: 1 mg Clonazepam (Clonazepam 0.5 Mg Tablet) 0.5 mg PO DAILY PRN PRN Reason: Anxiety Last Admin: 12/16/21 11:25 Dose: 0.5 mg Clonidine HCl (Clonidine Hcl 0.1 Mg Tablet) 0.1 mg PO BEDTIME [facility]; Protocol Last Admin: 12/17/21 21:04 Dose: 0.1 mg Clonidine HCl (Clonidine Hcl 0.1 Mg Tablet) 0.1 mg PO DAILY PRN; Protocol PRN Reason: hyperarousal, anxiety Last Admin: 12/17/21 10:14 Dose: 0.1 mg Duloxetine HCl (Duloxetine Hcl 60 Mg Capsule.Dr) 120 mg PO DAILY [facility] Last Admin: 12/18/21 08:46 Dose: 120 mg Fluticasone/Vilanterol (Fluticasone/Vilanterol 100/25 Blst.W.Dev) 1 puff INHALE RDAILY [facility] Last Admin: 12/18/21 08:49 Dose: 1 puff Gabapentin (Gabapentin 300 Mg Capsule) 300 mg PO BEDTIME [facility] Last Admin: 12/17/21 21:04 Dose: 300 mg Gabapentin (Gabapentin 100 Mg Capsule) 200 mg PO BID@0830,1330 [facility] Last Admin: 12/18/21 08:46 Dose: 200 mg Magnesium Hydroxide (Milk Of Magnesia 30 Ml Oral.Susp) 30 ml PO DAILY PRN PRN Reason: Constipation Multivitamins/Vitamin C (Multivitamin Tablet) 1 tab PO DAILY [facility] Last Admin: 12/18/21 08:47 Dose: 1 tab Pt Own (Disulfiram (250 Mg)) 250 mg PO DAILY [facility] Last Admin: 12/18/21 08:49 Dose: 250 mg Oxcarbazepine (Oxcarbazepine 150 Mg Tablet) 150 mg PO DAILY [facility] Last Admin: 12/18/21 08:47 Dose: 150 mg Thiamine HCl (Thiamine Hcl 100 Mg Tablet) 100 mg PO DAILY [facility] Last Admin: 12/18/21 08:47 Dose: 100 mg Vitamin D (Cholecalciferol (Vitamin D3) 25 Mcg Tablet) 25 mcg PO DAILY [facility] Last Admin: 12/18/21 08:47 Dose: 25 mcg Allergies Allergies Allergy/AdvReac Type Severity Reaction Status Date / Time escitalopram [From Lexapro] AdvReac Unknown Unknown Unverified 12/14/21 14:28 Assessment & Plan Assessment & Plan (1) MDD (major depressive disorder), recurrent episode, moderate: Status: Acute Code(s): F33.1 - Major depressive disorder, recurrent, moderate (2) Post traumatic stress disorder (PTSD): Status: Acute Code(s): F43.10 - Post-traumatic stress disorder, unspecified (3) Anorexia nervosa: Status: Acute Code(s): F50.00 - Anorexia nervosa, unspecified (4) Prolonged QT interval: Status: Acute Code(s): R94.31 - Abnormal electrocardiogram [ECG] [EKG] Plan Bozena is a 31 y.o. female who self presented to [facility] due to SI and increased depression. She also reports restricting her food intake x 2 weeks, has extensive hx of anorexia nervosa with multiple inpatient and residential stays at [place]. ? 12/10: Pt denies benefit on gabapentin, will consider discontinuing this. Says klonopin and clonidine help with anxiety. Thinks buspar helps a little. Unsure if cymbalta or vraylar (on both since 09/2021) are helping. Will increase buspar to 20 mg TID for anxiety. Discussed starting mood stabilizer for depression, impulsive urges, will defer to primary psych provider. 12/11: Will start lamictal 25 mg HS for depression, impulsivity- discussed monitoring for rash/ SJS. Will discontinue gabapentin, as pt denies benefit and to reduce polypharm. Will increase vraylar to 4.5 mg as pt appears to need higher dosage range for therapeutic benefit and may help with depression, perceptual disturbances. Will re-check EKG due to hx of QTc prolongation, 507ms on 12/10. Will add ensure to her meals, monitor for restricting bx. on high doses of clonazepam, going to groups, 12/13 lowered clonazepam to 3mg/day; resumed gabapentin per pt request 12/14 patient said she was doing okay but got much more anxious when suddenly found out clonazepam has been lowered.? Patient still has depression, anxiety and intermittent SI. Reports Vraylar started 4 months ago and has had no effect; raised to 4.5mg this admission, but still no help Reports Cymbalta no affect patient was going to try Lamictal but over the weekend got anxious about it and did not want to take it Patient would like to try Latuda to see if it can replicate the effect of Zyprexa; otherwise will go back on Trileptal which she said was helpful. Regarding clonazepam, patient understands risks of this medication and also the barrier it can create an getting over PTSD/trauma; she has been on clonazepam 2 mg b.i.d. for several years.? Patient would consider going down but feels it was abrupt to have it reduced without being told.? She agrees to have personal lines underwriter put back 0.5 mg as a p.r.n. and will see if she can avoid taking it. 12/15 still struggling with thought disordered thinking, restricting intake; no problems with Latuda and agrees to increase.? Continue to work on making healthy choices.? Patient's QTC is mildly prolonged. It is very rare for QTC prolongation to causing an arrhythmia and potential benefit far outweighs potential risk; most medications in this class pose this risk (though not cariprazine); will continue to monitor 12/16 Continues to be depressed, anxious, struggling with PTSD symptoms and hopelessness; that said she is also pushing herself to be hopeful that she can work through these issues. Patient shares that she is much more aware of her need to address more deeply her history of trauma. Patient has not eaten for almost 3 days. Will leave Latuda as it is for now since she is not taking in any food. Patient is pushing herself to trying get herself to eat. 12/17 Patient has not eaten for about 4 days; limited fluid intake and has become tachycardic though BP is remain normal. Will get repeat labs to assess. Discussed case with hospitalist who agrees with a L of fluid plus D5W for now;But to continue to assess. Hopefully fluids plus sugar will help patient turn the corner and get back to making healthy food choices and avoid need for feeding tube. Patient says she feels too stuck to make herself eat however she remains holding on to hope that she can work through these issues in therapy. She asks for Trileptal. Will DC Latuda For now. 12/18 will increase Trileptal; although this can cause the side effect of electrolyte imbalance as can imposed fasting and poor p.o. intake, patient's mood significantly related to her willingness to eat food; also patient has tolerated this medication in the past which she found at least partially helpful. At this point the potential benefit outweighs the risk. -mood a little better and no SI; increasing hope and wanting to engage in therapy; feels stuck, unable to get herself to eat -pt convinced she will not be able to will/get herself to eat; says needs feeding tube to unstick her anorexic-disorderd thinking -discussed feeding tube with Dr. Simpson who agrees pt likely needs feeding tube; as it's inevitable (5 days no food) and no reason to wait until pt crashes. Says to get nutritional assessment as first step PLAN: Q15 min safety checks, CV 1. Aneroxia Has not eaten for 4 days with limited fluid intake; tachycardic up to 150 Repeat lytes, BUN creatinine gave1 L of fluid NS; got a few liters of D5W; Discussed case with hospitalist who agrees -Nutritional assessment 2. Depression/PTSD DC Latuda 40 mg daily (she's not eating) Increased to Trileptal 150 mg b.i.d.: pt said partially helpful in past Continue Vraylar but back to former dose 3mg while seeing Latuda helpful; will taper off and DC Vraylar; has been on it for 4 months and patient says no help Continue clonazepam 1 mg t.i.d., but will add 0.5 mg as a p.r.n. (has been on 4 mg daily for years) Continue to pursue [employer] application Continued Dislulfiram 250 mg daily; will check labs Rechecked Qtc on 12/15: ? ? QT Int : 458 ms ? QTc Int : 480 ms ? Monitor response to medications. Monitor for safety in the milieu. Discharge on stabilization. Patient seen. Chart reviewed. Discussed with team. Obtain collateral contact info?as needed Per hospitalist consult: history of mild persistent asthma, no acute exacerbation recommend to continue Breo inhaler daily and Ventolin inhaler twice daily. prolonged QTC noted on EKG from December 10 no prior EKGs available for comparison, prolonged QTC likely multifactorial was recently on Zyprexa , history of multiple other antipsychotic use and? recent diarrhea likely ?causing electrolyte abnormality,patient asymptomatic with no chest pain, no palpitations, no lightheadedness, dizziness on near-syncope, will check electrolytes, magnesium, and repeat EKG, will review current medications. -hospitalist OTTONIEL saw patient again: QTC improved to 460 on EKG obtained yesterday and chemistries showing normal electrolyte levels Prlonged QTC likely multifactorial including previous zyrexa use- -improved since medication dc'd and anorexia. Chest pain pt is reporting is reproducible to palpation and similar to prior episodes of chest pain, not likely to cardiac in etiology. Continue following monitoring QTC and management of anxiety per psychiatry. I spent minutes with the patient and/or on the patient floor today, greater than?50% of which was spent counseling/coordinating care. Patient educated on: diagnosis, medication risk/benefits, therapeutic strategies and medical condition Informed Consent: understands Reason for contiued inpatient stay Substantial Risk for: inability to function
[2021-12-18 11:25] VITALS: BP 113/66; PULSE 74; TEMP 36.1
[2021-12-18] MEDS: clonazePAM 0.5 MG TABLET PO (12:11)
[2021-12-18] MEDS: cloNIDine HCL 0.1 MG TABLET PO ×2 (17:09→20:00)
[2021-12-18 19:45] VITALS: BP 126/74; PULSE 90; TEMP 36.1
[2021-12-18] MEDS: Gabapentin 300 MG CAPSULE PO (20:00)
[2021-12-19 06:00] VITALS: BP 116/81; PULSE 113; RESP 18; O2SAT 98
[2021-12-19] MEDS: Albuterol Sulfate 90 MCG 8 GM INHALER 2 PUFF INHALE (09:20)
[2021-12-19] MEDS: Fluticasone/Vilanterol 100/25 BLST.W.DEV 1 PUFF INHALE (09:20)
[2021-12-19] MEDS: Gabapentin 100 MG CAPSULE 200 MG PO ×2 (09:21→15:04)
[2021-12-19] MEDS: DULoxetine HCl 60 MG CAPSULE.DR 120 MG PO (09:21)
[2021-12-19] MEDS: busPIRone HCl 10 MG TABLET 20 MG PO ×3 (09:21→20:24)
[2021-12-19] MEDS: Multivitamin TABLET 1 TAB PO (09:21)
[2021-12-19] MEDS: OXcarbazepine 150 MG TABLET PO ×2 (09:21→20:24)
[2021-12-19] MEDS: Cholecalciferol (Vitamin D3) 25 MCG TABLET PO (09:21)
[2021-12-19] MEDS: Thiamine HCL 100 MG TABLET PO (09:21)
[2021-12-19] MEDS: clonazePAM 0.5 MG TABLET PO (09:26)
[2021-12-19] MEDS: clonazePAM 1 MG TABLET PO ×3 (09:59→20:24)
[2021-12-19] MEDS: cloNIDine HCL 0.1 MG TABLET PO ×2 (17:06→20:24)
--- NOTE | 2021-12-19 18:19 | MHC.CLN ---
RE:CONSULT HT 61.5 WT 57.1KG (12/14/21) IBW 107#+/-10% PT IS 117% IBW; BMI 23.3 WNL PT APPEARS ADEQUATE WT FOR HT. 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 PT HAS NOT EATEN X6 DAYS REVIEWED LABS BMP-WNL ON 12/17/21 NOTED TC 311, LDL 242, HDL 43 ESTIMATED NUTRITION NEEDS:1425KCALS, 57G PROTEIN, 1710ML FLUIDS DIET RX: REGULAR-APPROPRIATE PT SPOKE WITH RD (SEE NOTE DATED 12/14/21) FOLLOWS VEGETARIAN DIET PT AGREED TO DRINK ENSURE CLEAR SUPPLEMENT FOOD PREFERENCES RECORDED AND SENT TO [facility] PT REPORTED ON THAT DATE SHE WAS ONLY DRINKING LIQUIDS PT RECEPTIVE TO FEEDING TUBE PER MD PT WITH HX FEEDING TUBE IN PAST PT WITH HIGH NUTRITION RISK R/T HX ANOREXIA, WT LOSS, TACHYCARDIA, AND POOR PO >/=5 DAYS RECOMMEND NGT FOR ALTERNATIVE NUTRITION SUPPORT-PT IS AGREEABLE AT THIS TIME RECOMMEND JEVITY 1.0 FORMULA START AT 10ML/HR AND INCREASE BY 10ML Q 4 HRS UNTIL MAX GOAL IS ACHIEVED MONITOR TOLERANCE, RESIDUALS AND LYTES RECOMMEND INCREASING FORMULA SLOWLY R/T RISK OF RE-FEEDING SECONDARY TO HX ANOREXIA (MONITOR K+, PHOS, MG CLOSELY) PT'S MAX GOAL RATE JEVITY 1.0 AT 55ML/HR TO PROVIDE 1399KCALS (25KCALS/KG), 58G PROTEIN (1.0G/KG), 1168ML FREE WATER FLUSHES WILL FOLLOW WITH TEAM
--- NOTE | 2021-12-19 18:56 | HO.PSYCHPN ---
Subjective Subjective Date of Service: 12/19/21 Reason For Visit: Generalized anxiety, Alcohol use, Depression Interim History: pt reports mood remains a better; no SI. no passive wish but wanting to pursue therapy. Asking for feeding tube, no 6 days no food (still making urine); cannot conceive of eating and convinced needs feeding tube to get nutrition in order to combat disordered thinking. Pt has some anxiety since boyfriend called expressing SI; she will call his mother. Mental Status Exam Mental Status Exam Narrative: Pt is alert and oriented; behavior is cooperative, more engaged; patient is not in distress; dressed in casual attire with adequate hygiene; mood is described as a little better and affect congruent, brighter; good eye contact; Speech is a little soft; normal rate and prosody and not pressured; psychomotor retardation present; thought process is goal directed; Thought content is on trying to get herself to make healthy choices; treatment; worried about her boyfriend; otherwise pertinent to relevant topics and without any delusional content, paranoid ideations or grandiosity; intermittent passive wish (chronic); but no SI; no HI; no AH, but mood congruent. Patients insight and judgment are impaired but improved. Diagnostics Vital Signs (24Hr): Vital Signs - 24 hr 12/18/21 19:45 12/19/21 06:00 Temperature 97 F Pulse Rate 90 113 H Respiratory Rate 18 Blood Pressure 126/74 116/81 Pulse Oximetry 98 Oxygen Delivery Method Room Air BMI result Body Mass Index 23.3 Labs Results: 12/17/21 15:08 Labs: Laboratory Results - last 48 hr 12/18/21 04:25 POC Glucose 116 H Medications Medications Current Medications Acetaminophen (Acetaminophen 325 Mg Tablet) 650 mg PO Q6H PRN PRN Reason: Headache/Pain Mild Scale (1-3) Al Hydroxide/Mg Hydroxide (Magnesium Hydrox/Alum Hydrox 30 Ml Oral.Susp) 30 ml PO Q6H PRN PRN Reason: Heartburn/Nausea Last Admin: 12/15/21 19:16 Dose: 30 ml Albuterol Sulfate (Albuterol Sulfate 90 Mcg 8 Gm Inhaler) 2 puff INHALE BID [facility] Last Admin: 12/19/21 09:20 Dose: 2 puff Buspirone HCl (Buspirone Hcl 10 Mg Tablet) 20 mg PO TID [facility] Last Admin: 12/19/21 15:04 Dose: 20 mg Clonazepam (Clonazepam 1 Mg Tablet) 1 mg PO TID [facility] Last Admin: 12/19/21 15:04 Dose: 1 mg Clonidine HCl (Clonidine Hcl 0.1 Mg Tablet) 0.1 mg PO BEDTIME [facility]; Protocol Last Admin: 12/18/21 20:00 Dose: 0.1 mg Clonidine HCl (Clonidine Hcl 0.1 Mg Tablet) 0.1 mg PO DAILY PRN; Protocol PRN Reason: hyperarousal, anxiety Last Admin: 12/19/21 17:06 Dose: 0.1 mg Duloxetine HCl (Duloxetine Hcl 60 Mg Capsule.Dr) 120 mg PO DAILY [facility] Last Admin: 12/19/21 09:21 Dose: 120 mg Fluticasone/Vilanterol (Fluticasone/Vilanterol 100/25 Blst.W.Dev) 1 puff INHALE RDAILY [facility] Last Admin: 12/19/21 09:20 Dose: 1 puff Gabapentin (Gabapentin 300 Mg Capsule) 300 mg PO BEDTIME [facility] Last Admin: 12/18/21 20:00 Dose: 300 mg Gabapentin (Gabapentin 100 Mg Capsule) 200 mg PO BID@0830,1330 [facility] Last Admin: 12/19/21 15:04 Dose: 200 mg Magnesium Hydroxide (Milk Of Magnesia 30 Ml Oral.Susp) 30 ml PO DAILY PRN PRN Reason: Constipation Multivitamins/Vitamin C (Multivitamin Tablet) 1 tab PO DAILY [facility] Last Admin: 12/19/21 09:21 Dose: 1 tab Pt Own (Disulfiram (250 Mg)) 250 mg PO DAILY [facility] Last Admin: 12/19/21 09:21 Dose: 250 mg Oxcarbazepine (Oxcarbazepine 150 Mg Tablet) 150 mg PO BID [facility] Last Admin: 12/19/21 09:21 Dose: 150 mg Thiamine HCl (Thiamine Hcl 100 Mg Tablet) 100 mg PO DAILY [facility] Last Admin: 12/19/21 09:21 Dose: 100 mg Vitamin D (Cholecalciferol (Vitamin D3) 25 Mcg Tablet) 25 mcg PO DAILY [facility] Last Admin: 12/19/21 09:21 Dose: 25 mcg Allergies Allergies Allergy/AdvReac Type Severity Reaction Status Date / Time escitalopram [From Lexapro] AdvReac Unknown Unknown Unverified 12/14/21 14:28 Assessment & Plan Assessment & Plan (1) MDD (major depressive disorder), recurrent episode, moderate: Status: Acute Code(s): F33.1 - Major depressive disorder, recurrent, moderate (2) Post traumatic stress disorder (PTSD): Status: Acute Code(s): F43.10 - Post-traumatic stress disorder, unspecified (3) Anorexia nervosa: Status: Acute Code(s): F50.00 - Anorexia nervosa, unspecified (4) Prolonged QT interval: Status: Acute Code(s): R94.31 - Abnormal electrocardiogram [ECG] [EKG] Plan Bozena is a 31 y.o. female who self presented to [facility] due to SI and increased depression. She also reports restricting her food intake x 2 weeks, has extensive hx of anorexia nervosa with multiple inpatient and residential stays at [place]. ? 12/10: Pt denies benefit on gabapentin, will consider discontinuing this. Says klonopin and clonidine help with anxiety. Thinks buspar helps a little. Unsure if cymbalta or vraylar (on both since 09/2021) are helping. Will increase buspar to 20 mg TID for anxiety. Discussed starting mood stabilizer for depression, impulsive urges, will defer to primary psych provider. 12/11: Will start lamictal 25 mg HS for depression, impulsivity- discussed monitoring for rash/ SJS. Will discontinue gabapentin, as pt denies benefit and to reduce polypharm. Will increase vraylar to 4.5 mg as pt appears to need higher dosage range for therapeutic benefit and may help with depression, perceptual disturbances. Will re-check EKG due to hx of QTc prolongation, 507ms on 12/10. Will add ensure to her meals, monitor for restricting bx. on high doses of clonazepam, going to groups, 12/13 lowered clonazepam to 3mg/day; resumed gabapentin per pt request 12/14 patient said she was doing okay but got much more anxious when suddenly found out clonazepam has been lowered.? Patient still has depression, anxiety and intermittent SI. Reports Vraylar started 4 months ago and has had no effect; raised to 4.5mg this admission, but still no help Reports Cymbalta no affect patient was going to try Lamictal but over the weekend got anxious about it and did not want to take it Patient would like to try Latuda to see if it can replicate the effect of Zyprexa; otherwise will go back on Trileptal which she said was helpful. Regarding clonazepam, patient understands risks of this medication and also the barrier it can create an getting over PTSD/trauma; she has been on clonazepam 2 mg b.i.d. for several years.? Patient would consider going down but feels it was abrupt to have it reduced without being told.? She agrees to have writer technical publications put back 0.5 mg as a p.r.n. and will see if she can avoid taking it. 12/15 still struggling with thought disordered thinking, restricting intake; no problems with Latuda and agrees to increase.? Continue to work on making healthy choices.? Patient's QTC is mildly prolonged. It is very rare for QTC prolongation to causing an arrhythmia and potential benefit far outweighs potential risk; most medications in this class pose this risk (though not cariprazine); will continue to monitor 12/16 Continues to be depressed, anxious, struggling with PTSD symptoms and hopelessness; that said she is also pushing herself to be hopeful that she can work through these issues. Patient shares that she is much more aware of her need to address more deeply her history of trauma. Patient has not eaten for almost 3 days. Will leave Latuda as it is for now since she is not taking in any food. Patient is pushing herself to trying get herself to eat. 12/17 Patient has not eaten for about 4 days; limited fluid intake and has become tachycardic though BP is remain normal. Will get repeat labs to assess. Discussed case with hospitalist who agrees with a L of fluid plus D5W for now;But to continue to assess. Hopefully fluids plus sugar will help patient turn the corner and get back to making healthy food choices and avoid need for feeding tube. Patient says she feels too stuck to make herself eat however she remains holding on to hope that she can work through these issues in therapy. She asks for Trileptal. Will DC Latuda For now. 12/18 will increase Trileptal; although this can cause the side effect of electrolyte imbalance as can imposed fasting and poor p.o. intake, patient's mood significantly related to her willingness to eat food; also patient has tolerated this medication in the past which she found at least partially helpful.? At this point the potential benefit outweighs the risk. -mood a little better and no SI; increasing hope and wanting to engage in therapy; feels stuck, unable to get herself to eat -pt convinced she will not be able to will/get herself to eat; says needs feeding tube to unstick her anorexic-disorderd? thinking? -discussed feeding tube with Dr. Simpson who agrees pt likely needs feeding tube; as it's inevitable (5 days no food) and no reason to wait until pt crashes. Says to get nutritional assessment as first step?? 12/19 mood remains a little better; no SI and more hopeful about getting to therapy; adamant needs feeding tube. writer technical publications agrees that patient is in a place that she will not eat and it's inevitable she'll need a feeding tube. Will discuss transfer to medical floor w/ hospitalist (nursing student says nursing on current unit not trained in ng tube at this time) PLAN: Q15 min safety checks, CV 1. Aneroxia Has not eaten for 4 days with limited fluid intake; tachycardic up to 150 Repeat lytes, BUN creatinine gave1 L of fluid NS; got a few liters of D5W; Discussed case with hospitalist who agrees -Nutritional assessment: discussed case with her and she agrees w/ feeding tube -medical floor tansfer for NG tube 2. Depression/PTSD DC Latuda 40 mg daily (she's not eating) Increased to Trileptal 150 mg b.i.d.: pt said partially helpful in past Continue Vraylar but back to former dose 3mg while seeing Latuda helpful; will taper off and DC Vraylar; has been on it for 4 months and patient says no help Continue clonazepam 1 mg t.i.d., but will add 0.5 mg as a p.r.n. (has been on 4 mg daily for years) Continue to pursue [employer] application Continued Dislulfiram 250 mg daily; will check labs Rechecked Qtc on 12/15: ? ? QT Int : 458 ms ? QTc Int : 480 ms ? Monitor response to medications. Monitor for safety in the milieu. Discharge on stabilization. Patient seen. Chart reviewed. Discussed with team. Obtain collateral contact info?as needed Per hospitalist consult: history of mild persistent asthma, no acute exacerbation recommend to continue Breo inhaler daily and Ventolin inhaler twice daily. prolonged QTC noted on EKG from December 10 no prior EKGs available for comparison, prolonged QTC likely multifactorial was recently on Zyprexa , history of multiple other antipsychotic use and? recent diarrhea likely ?causing electrolyte abnormality,patient asymptomatic with no chest pain, no palpitations, no lightheadedness, dizziness on near-syncope, will check electrolytes, magnesium, and repeat EKG, will review current medications. -hospitalist OTTONIEL saw patient again: QTC improved to 460 on EKG obtained yesterday and chemistries showing normal electrolyte levels Prlonged QTC likely multifactorial including previous zyrexa use- -improved since medication dc'd and anorexia. Chest pain pt is reporting is reproducible to palpation and similar to prior episodes of chest pain, not likely to cardiac in etiology. Continue following monitoring QTC and management of anxiety per psychiatry. I spent minutes with the patient and/or on the patient floor today, greater than?50% of which was spent counseling/coordinating care. Patient educated on: diagnosis, medication risk/benefits, therapeutic strategies and medical condition Informed Consent: understands Reason for contiued inpatient stay Substantial Risk for: inability to function
--- NOTE | 2021-12-19 19:02 | PM.PSYDC ---
DS: Providers Provider Date of Service: 12/19/21 Date of admission: 12/10/21 11:27 Date of discharge: 12/19/21 Primary care physician: Unknown Physician Admitting clinician: Chandni Tracy Consults: 12/10/21 11:27 Consult to Hospitalist Routine Consulting Provider: Hospitalist Reason For Exam: [facility] Transfer; Qtc 502 Attending physician on discharge: Robson Cade DS: Diagnosis Discharge Diagnosis (1) MDD (major depressive disorder), recurrent episode, moderate: Status: Acute (2) Post traumatic stress disorder (PTSD): Status: Acute (3) Anorexia nervosa: Status: Acute (4) Prolonged QT interval: Status: Acute DS: Medications Discharge Medications Home Medications: Previous Rx's Medication Instructions Recorded albuterol sulfate 90 mcg/actuation 2 puff inhalation BID 30 days #6.7 12/15/21 aerosol inhaler (Ventolin HFA) grams Mental Status Exam Mental Status Exam Narrative: Pt is alert and oriented; behavior is cooperative, more engaged; patient is not in distress; dressed in casual attire with adequate hygiene; mood is described as a little better and affect congruent, brighter; good eye contact; Speech is a little soft; normal rate and prosody and not pressured; psychomotor retardation present; thought process is goal directed; Thought content is on trying to get herself to make healthy choices; treatment; worried about her boyfriend; otherwise pertinent to relevant topics and without any delusional content, paranoid ideations or grandiosity; intermittent passive wish (chronic); but no SI; no HI; no AH, but mood congruent. Patients insight and judgment are impaired but improved. Data Data Completed and Pending Completed studies during hospitalization [Text1]: 12/15/21 12/15/21 12/17/21 07:32 07:32 15:08 Sodium 140 138 Potassium 4.6 3.9 Chloride 103 100 Carbon Dioxide 26 23 Anion Gap 16 19 BUN 8 L 10 Creatinine 0.79 0.77 Estim Creat Clear Calc 79.2 81.3 Estimated GFR > 60 > 60 POC Glucose Estimat Average Glucose 97 Hemoglobin A1c % 5.0 Total Bilirubin 0.6 Direct Bilirubin 0.2 AST 13 ALT 10 Alkaline Phosphatase 49 Total Protein 5.9 L Albumin 4.0 12/18/21 04:25 Sodium Potassium Chloride Carbon Dioxide Anion Gap BUN Creatinine Estim Creat Clear Calc Estimated GFR POC Glucose 116 H Estimat Average Glucose Hemoglobin A1c % Total Bilirubin Direct Bilirubin AST ALT Alkaline Phosphatase Total Protein Albumin DS: Summary Hospital Course Hospital Course: Bozena is a 31 y.o. female who self presented to [facility] due to SI and increased depression. She also reports restricting her food intake x 2 weeks, has extensive hx of anorexia nervosa with multiple inpatient and residential stays at [place]. ? 12/10: Pt denies benefit on gabapentin, will consider discontinuing this. Says klonopin and clonidine help with anxiety. Thinks buspar helps a little. Unsure if cymbalta or vraylar (on both since 09/2021) are helping. Will increase buspar to 20 mg TID for anxiety. Discussed starting mood stabilizer for depression, impulsive urges, will defer to primary psych provider. 12/11: Will start lamictal 25 mg HS for depression, impulsivity- discussed monitoring for rash/ SJS. Will discontinue gabapentin, as pt denies benefit and to reduce polypharm. Will increase vraylar to 4.5 mg as pt appears to need higher dosage range for therapeutic benefit and may help with depression, perceptual disturbances. Will re-check EKG due to hx of QTc prolongation, 507ms on 12/10. Will add ensure to her meals, monitor for restricting bx. on high doses of clonazepam, going to groups, 12/13 lowered clonazepam to 3mg/day; resumed gabapentin per pt request 12/14 patient said she was doing okay but got much more anxious when suddenly found out clonazepam has been lowered.? Patient still has depression, anxiety and intermittent SI. Reports Vraylar started 4 months ago and has had no effect; raised to 4.5mg this admission, but still no help Reports Cymbalta no affect patient was going to try Lamictal but over the weekend got anxious about it and did not want to take it Patient would like to try Latuda to see if it can replicate the effect of Zyprexa; otherwise will go back on Trileptal which she said was helpful. Regarding clonazepam, patient understands risks of this medication and also the barrier it can create an getting over PTSD/trauma; she has been on clonazepam 2 mg b.i.d. for several years.? Patient would consider going down but feels it was abrupt to have it reduced without being told.? She agrees to have senior writer put back 0.5 mg as a p.r.n. and will see if she can avoid taking it. 12/15 still struggling with thought disordered thinking, restricting intake; no problems with Latuda and agrees to increase.? Continue to work on making healthy choices.? Patient's QTC is mildly prolonged. It is very rare for QTC prolongation to causing an arrhythmia and potential benefit far outweighs potential risk; most medications in this class pose this risk (though not cariprazine); will continue to monitor 12/16 Continues to be depressed, anxious, struggling with PTSD symptoms and hopelessness; that said she is also pushing herself to be hopeful that she can work through these issues.? Patient shares that she is much more aware of her need to address more deeply her history of trauma.? Patient has not eaten for almost 3 days.? Will leave Latuda as it is for now since she is not taking in any food.? Patient is pushing herself to trying get herself to eat. 12/17 Patient has not eaten for about 4 days; limited fluid intake and has become tachycardic though BP is remain normal.? Will get repeat labs to assess.? Discussed case with hospitalist who agrees with a L of fluid plus D5W for now;But to continue to assess. Hopefully fluids plus sugar will help patient turn the corner and get back to making healthy food choices and avoid need for feeding tube. Patient says she feels too stuck to make herself eat however she remains holding on to hope that she can work through these issues? in therapy.? She asks for Trileptal.? Will DC Latuda For now. -received 1 liter NS + 2 liters D5W which helped clear up some cognitive fogginess from no food intake 12/18 will increase Trileptal; although this can cause the side effect of electrolyte imbalance as can imposed fasting and poor p.o. intake, patient's mood significantly related to her willingness to eat food; also patient has tolerated this medication in the past which she found at least partially helpful.? At this point the potential benefit outweighs the risk. -mood a little better and no SI; increasing hope and wanting to engage in therapy; feels stuck, unable to get herself to eat -pt convinced she will not be able to will/get herself to eat; says needs feeding tube to unstick her anorexic-disorderd? thinking? -discussed feeding tube with Dr. Simpson who agrees pt likely needs feeding tube; as it's inevitable (5 days no food) and no reason to wait until pt crashes. Says to get nutritional assessment as first step?? 12/19 mood remains a little better; no SI and more hopeful about getting to therapy; adamant needs feeding tube.? senior writer agrees that patient is in a place that she will not eat and it's inevitable she'll need a feeding tube. Will discuss transfer to medical floor w/ hospitalist (certified nursing assistant instructor says nursing on current unit not trained in ng tube at this time) *pt discharged/transfer to medical floor for NG tube following 6 days of no food. Time spent discussing smoking cessation with patient: 3 to 10 minutes Status at Discharge Functional status at discharge: independent ambulation Overall status at discharge: patient is progressing back to baseline Time Spent with Patient Time attestation: Total time spent providing and/or coordinating discharge services: Time spent: Greater than 30 minutes Discharge Plan Discharge Anticipated Discharge Date/Time: 12/19/21 22:00 Patient Disposition: Xfer Other Discharge Diagnosis: Anorexia Nervosa; MDD; PTSD Referrals: Physician,Unknown J [Primary Care Provider] - 1 Week Discharge Medications: New albuterol sulfate [Ventolin HFA] 90 mcg/actuation Hfa Aerosol Inhaler 2 puff inhalation BID 30 Days Qty: 6.7 0RF Discharge Orders: Discharge Order (Routine); Ordered 12/19/21 Ordered By: Robson Cade Diet: NG tube Activity on Discharge: defer Stand Alone Forms: Patient Portal Discharge page Care Plan Goals: Maintain mood and safe behaviors Take medications as prescribed Continue to pursue sobriety Practice coping skills Continue with outpatient providers and reach out to them as needed Health Concerns: Mood stability and behaviors Sobriety nutritional restriction Plan of Treatment: transfer to medical floor for NG tube Assessment: Risk assessment at time of discharge:? Patient was interviewed prior to discharge and found to be fully oriented and without SI or HI. Discharge Date/Time: 12/19/21 22:11
[2021-12-19] MEDS: Gabapentin 300 MG CAPSULE PO (20:24)
== END 2021-12-19 22:11 | disposition short-term general hospital (02) | DRG 885 ==
PROVIDERS: Clinical Nurse Specialist Psychiatric/Mental Health, Adult; Hospitalist; Admitting Provider Psychiatry & Neurology Psychiatry; Visit Provider Psychiatry & Neurology Psychiatry
DX: F33.1 Major depressive disorder, recurrent, moderate (principal); R45.851 Suicidal ideations; F50.01 Anorexia nervosa, restricting type; F41.1 Generalized anxiety disorder; J45.30 Mild persistent asthma, uncomplicated; Z68.23 Body mass index [BMI] 23.0-23.9, adult; R94.31 Abnormal electrocardiogram [ECG] [EKG]; F43.10 Post-traumatic stress disorder, unspecified; Z79.51 Long term (current) use of inhaled steroids; Z79.899 Other long term (current) drug therapy
CPT/HCPCS: 36415; 80048; 80051; 80061; 80076; 82565; 82947; 83036; 83735; 84520; 90792; 93005

== ENCOUNTER 2021-12-19 22:54 | Inpatient (IN) | payer OTHER, SELFPAY ==
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
[2021-12-19 23:43] VITALS: BMI 22.8
[2021-12-20] VITALS (8 sets, daily range): BP systolic 108–136; BP diastolic 58–89; PULSE 68–122; RESP 14–20; TEMP 36.1–37.1; O2SAT 96–100
[2021-12-20] MEDS: Lactated Ringers 1,000 ML 100 ML IVCONT ×3 (00:30→21:35)
[2021-12-20] MEDS: Enoxaparin Sodium 40 MG/0.4 ML SYRINGE SUBCUT ×2 (00:30→22:39)
[2021-12-20] MEDS: 0.9 % Sodium Chloride Flush 3 ML SYRINGE IVFLUSH (00:31)
[2021-12-20 06:11] LABS: MANUAL DIFF FLAG NO
[2021-12-20 06:21] LABS: Basophils Absolute Auto 0.1 X10*3/uL (0.0-0.2); Basophils Percent Auto 0.7 % (0-2); Eosinophils Absolute Auto 0.2 X10*3/uL (0.0-0.4); Eosinophils Percent Auto 1.9 % (0-4); Hematocrit 37.4 % (37.0-47.0); Imm Gran Abs Auto 0.02 X10*3/uL (0.00-0.03); Imm Gran Pct Auto 0.2 % (0.0-0.4); Lymphocytes Absolute Auto 2.5 X10*3/uL (1.2-4.9); Lymphocytes Percent Auto 31.5 % (20-40); Mean Corpuscular HGB Conc 34.8 g/dl (31.0-35.0); Mean Corpuscular Hemoglobin 31.3 pg (27.0-33.0); Mean Corpuscular Volume 90.1 fL (80.0-98.0); Mean Platelet Volume 9.9 fL (9.4-12.3); Monocytes Absolute Auto 0.5 X10*3/uL (0.1-1.2); Neutrophils Absolute Auto 4.8 x10*3/uL (2.0-8.3); Neutrophils Percent Auto 59.7 % (45-73); Platelet Count 287 X10*3/uL (160-400); Red Blood Count 4.15 X10*6/uL (4.20-5.50); Red Cell Distribution Width 12.2 % (11.0-16.0)
[2021-12-20 06:46] LABS: Anion Gap 18 (12-20); Blood Urea Nitrogen 3 mg/dL (9-16); Calcium 8.7 mg/dL (8.4-10.2); Carbon Dioxide 20 mmol/L (22-29); Chloride 104 mmol/L (96-108); Creatinine Clr Calc Pharmacy 95.1; Estimated Glomerular Filt Rate > 60; Glucose Random 68 mg/dL (60-115); Potassium 4.3 mmol/L (3.3-5.1); Sodium 138 mmol/L (135-145)
[2021-12-20] MEDS: Albuterol Sulfate 90 MCG 8 GM INHALER 2 PUFF INHALE ×2 (07:58→19:48)
[2021-12-20] MEDS: Fluticasone/Vilanterol 100/25 BLST.W.DEV 1 PUFF INHALE (08:04)
[2021-12-20 08:24] LABS: Albumin Level 3.8 g/dL (3.5-5.0)
[2021-12-20] MEDS: Cholecalciferol (Vitamin D3) 25 MCG TABLET PO (08:39)
[2021-12-20] MEDS: DULoxetine HCl 60 MG CAPSULE.DR 120 MG PO (08:39)
[2021-12-20] MEDS: Gabapentin 100 MG CAPSULE 200 MG PO ×2 (08:39→13:19)
[2021-12-20] MEDS: Multivitamin TABLET 1 TAB PO (08:39)
[2021-12-20] MEDS: clonazePAM 1 MG TABLET PO ×3 (08:39→20:38)
[2021-12-20] MEDS: Thiamine HCL 100 MG TABLET PO (08:39)
[2021-12-20] MEDS: busPIRone HCl 10 MG TABLET 20 MG PO ×3 (08:39→20:38)
[2021-12-20] MEDS: OXcarbazepine 150 MG TABLET PO ×2 (08:40→20:38)
--- NOTE | 2021-12-20 10:19 | HO.PM.IMPN ---
Subjective Subjective Date of Service: 12/20/21 Interval History: a little lightheaded no N/V no abd pain no SI 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 of Systems: Yes all other systems are reviewed and are negative Physical Exam Vital Signs: Vital Signs: Last Vital Signs Temp 97.8 F 12/20/21 08:00 Pulse 96 12/20/21 08:00 Resp 18 12/20/21 08:00 BP 123/58 L 12/20/21 08:00 Pulse Ox 100 12/20/21 08:00 O2 Del Method 12/20/21 08:00 BMI result Body Mass Index 22.8 Gen: in no acute distress HEENT: sclera anicteric, moist mucus membranes Neck: supple Lungs: clear to auscultation bilaterally Heart: regular rate and rhythm, no murmurs Abd: soft, non-tender, non-distended Ext: no edema Skin: warm/well-perfused Neuro: alert and oriented x3, no focal findings Psych: restricted affect Objective Data Active Medications Acetaminophen (Acetaminophen 325 Mg Tablet) 650 mg PO Q6H PRN PRN Reason: Headache/Pain Mild Scale (1-3) Al Hydroxide/Mg Hydroxide (Magnesium Hydrox/Alum Hydrox 30 Ml Oral.Susp) 30 ml PO Q6H PRN PRN Reason: Heartburn/Nausea Albuterol Sulfate (Albuterol Sulfate 90 Mcg 8 Gm Inhaler) 2 puff INHALE BID [facility] Last Admin: 12/20/21 07:58 Dose: 2 puff Documented By: NEFTALI Buspirone HCl (Buspirone Hcl 10 Mg Tablet) 20 mg PO TID [facility] Last Admin: 12/20/21 08:39 Dose: 20 mg Documented By: PETERSON Clonazepam (Clonazepam 1 Mg Tablet) 1 mg PO TID [facility] Last Admin: 12/20/21 08:39 Dose: 1 mg Documented By: PETERSON Clonidine HCl (Clonidine Hcl 0.1 Mg Tablet) 0.1 mg PO BEDTIME [facility]; Protocol Clonidine HCl (Clonidine Hcl 0.1 Mg Tablet) 0.1 mg PO DAILY PRN; Protocol PRN Reason: hyperarousal, anxiety Duloxetine HCl (Duloxetine Hcl 60 Mg Capsule.Dr) 120 mg PO DAILY [facility] Last Admin: 12/20/21 08:39 Dose: 120 mg Documented By: PETERSON Enoxaparin Sodium (Enoxaparin Sodium 40 Mg/0.4 Ml Syringe) 40 mg SUBCUT Q24H [facility] Last Admin: 12/20/21 00:30 Dose: 40 mg Documented By: KIAN Fluticasone/Vilanterol (Fluticasone/Vilanterol 100/25 Blst.W.Dev) 1 puff INHALE RDAILY [facility] Last Admin: 12/20/21 08:04 Dose: 1 puff Documented By: NEFTALI Gabapentin (Gabapentin 100 Mg Capsule) 200 mg PO BID@0830,1330 [facility] Last Admin: 12/20/21 08:39 Dose: 200 mg Documented By: PETERSON Gabapentin (Gabapentin 300 Mg Capsule) 300 mg PO BEDTIME [facility] Lactated Ringer's (Lr) 1,000 mls @ 100 mls/hr IVCONT .Q10H [facility] Last Admin: 12/20/21 00:30 Dose: 100 mls/hr Documented By: KIAN Magnesium Hydroxide (Milk Of Magnesia 30 Ml Oral.Susp) 30 ml PO DAILY PRN PRN Reason: Constipation Multivitamins/Vitamin C (Multivitamin Tablet) 1 tab PO DAILY [facility] Last Admin: 12/20/21 08:39 Dose: 1 tab Documented By: PETERSON Non-Formulary Medication (Disulfiram) 250 mg PO DAILY [facility] Ondansetron HCl (Ondansetron Hcl 4 Mg/2 Ml Vial) 4 mg IVPUSH Q8H PRN PRN Reason: Nausea and Vomiting Oxcarbazepine (Oxcarbazepine 150 Mg Tablet) 150 mg PO BID [facility] Last Admin: 12/20/21 08:40 Dose: 150 mg Documented By: PETERSON Sodium Chloride (0.9 % Sodium Chloride Flush 3 Ml Syringe) 3 ml IVFLUSH QSHIFT [facility] Last Admin: 12/20/21 08:40 Dose: Not Given Documented By: PETERSON Non-Admin Reason: IV Running Thiamine HCl (Thiamine Hcl 100 Mg Tablet) 100 mg PO DAILY [facility] Last Admin: 12/20/21 08:39 Dose: 100 mg Documented By: PETERSON Vitamin D (Cholecalciferol (Vitamin D3) 25 Mcg Tablet) 25 mcg PO DAILY [facility] Last Admin: 12/20/21 08:39 Dose: 25 mcg Documented By: PETERSON Labs CBC & Chem 7: 12/20/21 05:59 12/20/21 05:59 Labs: Laboratory Results - last 24 hr 12/20/21 12/20/21 05:59 05:59 MCV 90.1 MCH 31.3 MCHC 34.8 RDW 12.2 Plt Count 287 MPV 9.9 Immature Gran % (Auto) 0.2 Neut % (Auto) 59.7 Lymph % (Auto) 31.5 [place] % (Auto) 6.0 Eos % (Auto) 1.9 Baso % (Auto) 0.7 Lymph # (Auto) 2.5 [place] # (Auto) 0.5 Eos # (Auto) 0.2 Baso # (Auto) 0.1 Abs Immat Gran (auto) 0.02 Absolute Neuts (auto) 4.8 Absolute Nucleated RBC 0.000 Nucleated RBC % (auto) 0.0 Anion Gap 18 Estim Creat Clear Calc 95.1 Estimated GFR > 60 Random Glucose 68 Calcium 8.7 Albumin 3.8 Prealbumin 18.0 L Assessment and Plan (1) Anorexia nervosa: Status: Acute Plan 31yo F admitted to 12/10/21 with MDD, PTSD, anorexia nervosa, transferred to /S 12/19/21 due to not eating for 6 days, agreeable to TFs via NGT # anorexia nervosa # malnutrition, protein-calorie, mild - place NGT and start Jevity 10 mL/hr to advance by 10 mL/hr q4h to goal 55 mL/hr; free water 300 mL q6hr; Nutrition to follow; monitor electrolytes for refeeding syndrome - vitamin supplementation # MDD # PTSD # AUD [sober since Mar 2021] - management per Psychiatry: on clonidine, duloxetine, gabapentin, buspirone, clonazepam, disulfiram, oxcarbazepine # VTE ppx: LMWH In my clinical judgment, the patient requires continued hospitalization for the following reasons: inpatient psychiatric care, tube feeding initiation Quality Stroke Does the patient have a stroke diagnosis?: No VTE Prior VTE?: No VTE Risk Level:: Medical - moderate - high VTE Device Contraindication: Treatment Not Indicated VTE Drug Contraindication: N/A - Med Ordered
--- NOTE | 2021-12-20 13:31 | MHC.CM.PN ---
Patient appears to have been admitted to [facility] 5th floor IPLOC R/T Anorexia and need for a PEG. CM will follow/assist with dc planning.
[2021-12-20] MEDS: cloNIDine HCL 0.1 MG TABLET PO ×2 (17:55→20:39)
[2021-12-20] MEDS: Gabapentin 300 MG CAPSULE PO (20:38)
[2021-12-20] MEDS: Throat Lozenge, Medicated LOZENGE 1 LOZENGE MUCOUS MEM (22:39)
--- NOTE | 2021-12-21 | ECG_ITS ---
Test Reason : cp Blood Pressure : / mmHG Vent. Rate : 111 BPM Atrial Rate : 111 BPM P-R Int : 126 ms QRS Dur : 082 ms QT Int : 356 ms P-R-T Axes : 041 051 -64 degrees QTc Int : [address] & T wave abnormality, consider inferolateral ischemia Abnormal ECG When compared with ECG of 15-DEC-2021 10:34, Vent. rate has increased BY 45 BPM T wave inversion now evident in Inferior leads T wave inversion now evident in Anterolateral leads Referred By: Cassidy Palafox Electronically Signed By:CARY BOYER MD
[2021-12-21] MEDS: Throat Lozenge, Medicated LOZENGE 1 LOZENGE MUCOUS MEM ×3 (02:10→21:37)
[2021-12-21 03:50] VITALS: BP 104/63; PULSE 74; RESP 18; TEMP 36.4; O2SAT 98
[2021-12-21 06:25] LABS: Anion Gap 14 (12-20); Blood Urea Nitrogen 3 mg/dL (9-16); Calcium 8.7 mg/dL (8.4-10.2); Carbon Dioxide 24 mmol/L (22-29); Chloride 106 mmol/L (96-108); Creatinine Clr Calc Pharmacy 93.8; Estimated Glomerular Filt Rate > 60; Glucose Random 90 mg/dL (60-115); Magnesium 1.9 mg/dL (1.6-2.6); Phosphorus 4.1 mg/dL (2.7-4.5); Potassium 3.8 mmol/L (3.3-5.1); Sodium 140 mmol/L (135-145)
[2021-12-21 06:58] VITALS: BP 119/56; PULSE 81; RESP 18; TEMP 36.1; O2SAT 98
[2021-12-21 07:58] VITALS: PULSE 81; RESP 16; O2SAT 95
[2021-12-21] MEDS: Fluticasone/Vilanterol 100/25 BLST.W.DEV 1 PUFF INHALE (07:58)
[2021-12-21] MEDS: Albuterol Sulfate 90 MCG 8 GM INHALER 2 PUFF INHALE ×2 (07:58→19:32)
[2021-12-21] MEDS: busPIRone HCl 10 MG TABLET 20 MG PO ×3 (08:13→21:30)
[2021-12-21] MEDS: Cholecalciferol (Vitamin D3) 25 MCG TABLET PO (08:13)
[2021-12-21] MEDS: DULoxetine HCl 60 MG CAPSULE.DR 120 MG PO (08:13)
[2021-12-21] MEDS: OXcarbazepine 150 MG TABLET PO ×2 (08:13→21:30)
[2021-12-21] MEDS: Thiamine HCL 100 MG TABLET PO (08:13)
[2021-12-21] MEDS: clonazePAM 1 MG TABLET PO ×3 (08:13→21:30)
[2021-12-21] MEDS: Gabapentin 100 MG CAPSULE 200 MG PO ×2 (08:13→13:59)
[2021-12-21] MEDS: Multivitamin TABLET 1 TAB PO (08:13)
[2021-12-21] MEDS: Lactated Ringers 1,000 ML 100 ML IVCONT (08:15)
[2021-12-21 11:07] VITALS: BP 114/68; PULSE 97; RESP 16; TEMP 36.8; O2SAT 96
--- NOTE | 2021-12-21 11:14 | P.PNIM_ITS ---
Subjective Subjective Date of Service: 12/21/21 Interval History: tolerating tube feeds, currently at 50 mL/hr no N/V no abd pain no SI/HI 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 of Systems: Yes all other systems are reviewed and are negative Physical Exam Vital Signs: Vital Signs: Last Vital Signs Temp 98.2 F 12/21/21 11:07 Pulse 97 12/21/21 11:07 Resp 16 12/21/21 11:07 BP 114/68 12/21/21 11:07 Pulse Ox 96 12/21/21 11:07 O2 Del Method 12/21/21 11:07 BMI result Body Mass Index 22.8 Gen: in no acute distress HEENT: sclera anicteric, moist mucus membranes Neck: supple Lungs: clear to auscultation bilaterally Heart: regular rate and rhythm, no murmurs Abd: soft, non-tender, non-distended Ext: no edema Skin: warm/well-perfused Neuro: alert and oriented x3, no focal findings Psych: appropriate affect Objective Data Active Medications Acetaminophen (Acetaminophen 325 Mg Tablet) 650 mg PO Q6H PRN PRN Reason: Headache/Pain Mild Scale (1-3) Al Hydroxide/Mg Hydroxide (Magnesium Hydrox/Alum Hydrox 30 Ml Oral.Susp) 30 ml PO Q6H PRN PRN Reason: Heartburn/Nausea Albuterol Sulfate (Albuterol Sulfate 90 Mcg 8 Gm Inhaler) 2 puff INHALE BID [facility] Last Admin: 12/21/21 07:58 Dose: 2 puff Documented By: NEFTALI Benzocaine (Throat Lozenge, Medicated Lozenge) 1 lozenge MUCOUS MEM Q2H PRN PRN Reason: Sore Throat Last Admin: 12/21/21 08:59 Dose: 1 lozenge Documented By: PETERSON Buspirone HCl (Buspirone Hcl 10 Mg Tablet) 20 mg PO TID [facility] Last Admin: 12/21/21 08:13 Dose: 20 mg Documented By: PETERSNO Clonazepam (Clonazepam 1 Mg Tablet) 1 mg PO TID [facility] Last Admin: 12/21/21 08:13 Dose: 1 mg Documented By: PETERSON Clonidine HCl (Clonidine Hcl 0.1 Mg Tablet) 0.1 mg PO BEDTIME [facility]; Protocol Last Admin: 12/20/21 20:39 Dose: 0.1 mg Documented By: MICHELINE Clonidine HCl (Clonidine Hcl 0.1 Mg Tablet) 0.1 mg PO DAILY PRN; Protocol PRN Reason: hyperarousal, anxiety Last Admin: 12/20/21 17:55 Dose: 0.1 mg Documented By: MICHELINE Duloxetine HCl (Duloxetine Hcl 60 Mg Capsule.Dr) 120 mg PO DAILY [facility] Last Admin: 12/21/21 08:13 Dose: 120 mg Documented By: PETERSON Enoxaparin Sodium (Enoxaparin Sodium 40 Mg/0.4 Ml Syringe) 40 mg SUBCUT Q24H [facility] Last Admin: 12/20/21 22:39 Dose: 40 mg Documented By: MICHELINE Fluticasone/Vilanterol (Fluticasone/Vilanterol 100/25 Blst.W.Dev) 1 puff INHALE RDAILY [facility] Last Admin: 12/21/21 07:58 Dose: 1 puff Documented By: NEFTALI Gabapentin (Gabapentin 100 Mg Capsule) 200 mg PO BID@0830,1330 [facility] Last Admin: 12/21/21 08:13 Dose: 200 mg Documented By: PETERSON Gabapentin (Gabapentin 300 Mg Capsule) 300 mg PO BEDTIME [facility] Last Admin: 12/20/21 20:38 Dose: 300 mg Documented By: MICHELINE Lactated Ringer's (Lr) 1,000 mls @ 100 mls/hr IVCONT .Q10H [facility] Last Admin: 12/21/21 08:15 Dose: 100 mls/hr Documented By: PETERSON Magnesium Hydroxide (Milk Of Magnesia 30 Ml Oral.Susp) 30 ml PO DAILY PRN PRN Reason: Constipation Multivitamins/Vitamin C (Multivitamin Tablet) 1 tab PO DAILY [facility] Last Admin: 12/21/21 08:13 Dose: 1 tab Documented By: PETERSON Non-Formulary Medication (Disulfiram) 250 mg PO DAILY [facility] Last Admin: 12/21/21 08:13 Dose: 250 mg Documented By: PETERSON Ondansetron HCl (Ondansetron Hcl 4 Mg/2 Ml Vial) 4 mg IVPUSH Q8H PRN PRN Reason: Nausea and Vomiting Oxcarbazepine (Oxcarbazepine 150 Mg Tablet) 150 mg PO BID [facility] Last Admin: 12/21/21 08:13 Dose: 150 mg Documented By: PETERSON Sodium Chloride (0.9 % Sodium Chloride Flush 3 Ml Syringe) 3 ml IVFLUSH QSHIFT [facility] Last Admin: 12/21/21 08:11 Dose: Not Given Documented By: PETERSON Non-Admin Reason: IV Running Thiamine HCl (Thiamine Hcl 100 Mg Tablet) 100 mg PO DAILY [facility] Last Admin: 12/21/21 08:13 Dose: 100 mg Documented By: PETERSON Vitamin D (Cholecalciferol (Vitamin D3) 25 Mcg Tablet) 25 mcg PO DAILY [facility] Last Admin: 12/21/21 08:13 Dose: 25 mcg Documented By: PETERSON Labs CBC & Chem 7: 12/20/21 05:59 12/21/21 05:16 Labs: Laboratory Results - last 24 hr 12/21/21 05:16 Anion Gap 14 Estim Creat Clear Calc 93.8 Estimated GFR > 60 Random Glucose 90 Calcium 8.7 Phosphorus 4.1 Magnesium 1.9 Assessment and Plan (1) Anorexia nervosa: Status: Acute Plan 31yo F admitted to 12/10/21 with MDD, PTSD, anorexia nervosa, transferred to M/S 12/19/21 due to not eating for 6 days, agreeable to TFs via NGT # anorexia nervosa # malnutrition, protein-calorie, mild - advance Jevity 1.0 to goal 55 mL/hr; free water 300 mL q6hr; Nutrition to follow; monitor electrolytes daily for refeeding syndrome - vitamin supplementation # MDD # PTSD # AUD [sober since Mar 2021] - management per Psychiatry: on clonidine, duloxetine, gabapentin, buspirone, clonazepam, disulfiram, oxcarbazepine # VTE ppx: LMWH In my clinical judgment, the patient requires continued hospitalization for the following reasons: inpatient psychiatric care, tube feeding initiation Quality Stroke Does the patient have a stroke diagnosis?: No VTE Prior VTE?: No VTE Risk Level:: Medical - moderate - high VTE Device Contraindication: Treatment Not Indicated VTE Drug Contraindication: N/A - Med Ordered
--- NOTE | 2021-12-21 13:28 | MHC.CLN ---
NUTRITION DX ANOREXIA NERVOSA AND REPORTS TAKING WATER AND COFFEE ONLY X PRIOR 6 DAYS. KAOFEED STARTED 12/20. RUNNING AT MAX GOAL RATE AND PATIENT APPEARS TO BE TOLERATING. MAX GOAL RATE JEVITY 1.0 AT 55 ML PER HOUR. FLUSH REDUCED TO 240 ML Q 8 HOURS. PROVIDES: 1399 KCALS (25 KCALS/KG), 58 G PROTEIN (1.02 G/KG), FREE WATER FROM FORMULA PLUS [id number] PB=7649 ML (32.2 ML/KG). SEE PRIOR RD NOTES FROM M5 ADMISSION. HAD BEEN TAKING LIQUIDS ONLY, INCLUDING SOY MILK AND ENSURE CLEAR TID TO PROMOTE NUTRITIONAL INTAKE. REPORTS TAKING COFFEE AND WATER ONLY X 6 DAYS PRIOR TO TUBE FEEDING. MONITOR FOR REFEEDING. FOLLOW LABS, TF TOLERANCE, AND DIET ADVANCEMENT. SEE NUTRITION ASSESSMENT 12/21/21.
[2021-12-21 13:40] VITALS: BMI 22.8
[2021-12-21 15:54] VITALS: BP 121/64; PULSE 94; RESP 18; TEMP 37; O2SAT 97
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
[2021-12-21] MEDS: cloNIDine HCL 0.1 MG TABLET PO ×2 (18:09→21:31)
[2021-12-21 19:13] VITALS: BP 118/69; PULSE 83; RESP 18; TEMP 36.6; O2SAT 98
[2021-12-21] MEDS: Gabapentin 300 MG CAPSULE PO (21:30)
[2021-12-21] MEDS: Enoxaparin Sodium 40 MG/0.4 ML SYRINGE SUBCUT (21:31)
[2021-12-22] VITALS (7 sets, daily range): BP systolic 104–119; BP diastolic 64–77; PULSE 78–89; RESP 16–19; TEMP 36.2–36.7; O2SAT 96–99
[2021-12-22] MEDS: 0.9 % Sodium Chloride Flush 3 ML SYRINGE IVFLUSH ×4 (03:11→20:37)
[2021-12-22 07:18] LABS: Anion Gap 16 (12-20); Blood Urea Nitrogen 3 mg/dL (9-16); Calcium 8.8 mg/dL (8.4-10.2); Carbon Dioxide 21 mmol/L (22-29); Chloride 107 mmol/L (96-108); Creatinine Clr Calc Pharmacy 93.8; Estimated Glomerular Filt Rate > 60; Glucose Random 96 mg/dL (60-115); Magnesium 1.9 mg/dL (1.6-2.6); Phosphorus 4.7 mg/dL (2.7-4.5); Potassium 3.8 mmol/L (3.3-5.1); Sodium 140 mmol/L (135-145)
[2021-12-22] MEDS: busPIRone HCl 10 MG TABLET 20 MG PO ×3 (09:08→20:36)
[2021-12-22] MEDS: Gabapentin 100 MG CAPSULE 200 MG PO ×2 (09:09→14:49)
[2021-12-22] MEDS: OXcarbazepine 150 MG TABLET PO ×2 (09:09→20:36)
[2021-12-22] MEDS: DULoxetine HCl 60 MG CAPSULE.DR 120 MG PO (09:09)
[2021-12-22] MEDS: Multivitamin TABLET 1 TAB PO (09:10)
[2021-12-22] MEDS: Thiamine HCL 100 MG TABLET PO (09:10)
[2021-12-22] MEDS: Cholecalciferol (Vitamin D3) 25 MCG TABLET PO (09:10)
[2021-12-22] MEDS: clonazePAM 1 MG TABLET PO ×3 (09:10→20:36)
--- NOTE | 2021-12-22 11:43 | HO.PM.IMPN ---
Subjective Subjective Date of Service: 12/22/21 Interval History: tolerating tube feeds at goal no N/V/abd pain 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 of Systems: Yes all other systems are reviewed and are negative Physical Exam Vital Signs: Vital Signs: Last Vital Signs Temp 97.8 F 12/22/21 08:00 Pulse 79 12/22/21 08:00 Resp 18 12/22/21 08:00 BP 104/64 12/22/21 08:00 Pulse Ox 98 12/22/21 08:00 O2 Del Method 12/22/21 08:00 BMI result Body Mass Index 22.8 Gen: in no acute distress HEENT: sclera anicteric, moist mucus membranes Neck: supple Lungs: clear to auscultation bilaterally Heart: regular rate and rhythm, no murmurs Abd: soft, non-tender, non-distended Ext: no edema Skin: warm/well-perfused Neuro: alert and oriented x3, no focal findings Psych: appropriate affect Objective Data Active Medications Acetaminophen (Acetaminophen 325 Mg Tablet) 650 mg PO Q6H PRN PRN Reason: Headache/Pain Mild Scale (1-3) Al Hydroxide/Mg Hydroxide (Magnesium Hydrox/Alum Hydrox 30 Ml Oral.Susp) 30 ml PO Q6H PRN PRN Reason: Heartburn/Nausea Albuterol Sulfate (Albuterol Sulfate 90 Mcg 8 Gm Inhaler) 2 puff INHALE BID [facility] Last Admin: 12/21/21 19:32 Dose: 2 puff Documented By: IVONNE Benzocaine (Throat Lozenge, Medicated Lozenge) 1 lozenge MUCOUS MEM Q2H PRN PRN Reason: Sore Throat Last Admin: 12/21/21 21:37 Dose: 1 lozenge Documented By: MARGIE Buspirone HCl (Buspirone Hcl 10 Mg Tablet) 20 mg PO TID [facility] Last Admin: 12/22/21 09:08 Dose: 20 mg Documented By: MAXIMILIANO Clonazepam (Clonazepam 1 Mg Tablet) 1 mg PO TID [facility] Last Admin: 12/22/21 09:10 Dose: 1 mg Documented By: MAXIMILIANO Clonidine HCl (Clonidine Hcl 0.1 Mg Tablet) 0.1 mg PO BEDTIME [facility]; Protocol Last Admin: 12/21/21 21:31 Dose: 0.1 mg Documented By: MARGIE Clonidine HCl (Clonidine Hcl 0.1 Mg Tablet) 0.1 mg PO DAILY PRN; Protocol PRN Reason: hyperarousal, anxiety Last Admin: 12/21/21 18:09 Dose: 0.1 mg Documented By: PETERSON Duloxetine HCl (Duloxetine Hcl 60 Mg Capsule.Dr) 120 mg PO DAILY [facility] Last Admin: 12/22/21 09:09 Dose: 120 mg Documented By: MAXIMILIANO Enoxaparin Sodium (Enoxaparin Sodium 40 Mg/0.4 Ml Syringe) 40 mg SUBCUT Q24H [facility] Last Admin: 12/21/21 21:31 Dose: 40 mg Documented By: MARGIE Fluticasone/Vilanterol (Fluticasone/Vilanterol 100/25 Blst.W.Dev) 1 puff INHALE RDAILY [facility] Last Admin: 12/21/21 07:58 Dose: 1 puff Documented By: NEFTALI Gabapentin (Gabapentin 100 Mg Capsule) 200 mg PO BID@0830,1330 [facility] Last Admin: 12/22/21 09:09 Dose: 200 mg Documented By: MAXIMILIANO Gabapentin (Gabapentin 300 Mg Capsule) 300 mg PO BEDTIME [facility] Last Admin: 12/21/21 21:30 Dose: 300 mg Documented By: MARGIE Magnesium Hydroxide (Milk Of Magnesia 30 Ml Oral.Susp) 30 ml PO DAILY PRN PRN Reason: Constipation Multivitamins/Vitamin C (Multivitamin Tablet) 1 tab PO DAILY [facility] Last Admin: 12/22/21 09:10 Dose: 1 tab Documented By: MAXIMILIANO Non-Formulary Medication (Disulfiram) 250 mg PO DAILY [facility] Last Admin: 12/22/21 09:10 Dose: 250 mg Documented By: MAXIMILIANO Ondansetron HCl (Ondansetron Hcl 4 Mg/2 Ml Vial) 4 mg IVPUSH Q8H PRN PRN Reason: Nausea and Vomiting Oxcarbazepine (Oxcarbazepine 150 Mg Tablet) 150 mg PO BID [facility] Last Admin: 12/22/21 09:09 Dose: 150 mg Documented By: MAXIMILIANO Sodium Chloride (0.9 % Sodium Chloride Flush 3 Ml Syringe) 3 ml IVFLUSH QSHIFT [facility] Last Admin: 12/22/21 09:10 Dose: 3 ml Documented By: MAXIMILIANO Thiamine HCl (Thiamine Hcl 100 Mg Tablet) 100 mg PO DAILY [facility] Last Admin: 12/22/21 09:10 Dose: 100 mg Documented By: MAXIMILIANO Vitamin D (Cholecalciferol (Vitamin D3) 25 Mcg Tablet) 25 mcg PO DAILY [facility] Last Admin: 12/22/21 09:10 Dose: 25 mcg Documented By: MAXIMILIANO Labs CBC & Chem 7: 12/20/21 05:59 12/22/21 05:52 Labs: Laboratory Results - last 24 hr 12/22/21 05:52 Anion Gap 16 Estim Creat Clear Calc 93.8 Estimated GFR > 60 Random Glucose 96 Calcium 8.8 Phosphorus 4.7 H Magnesium 1.9 Assessment and Plan (1) Anorexia nervosa: Status: Acute Plan 31yo F admitted to 12/10/21 with MDD, PTSD, anorexia nervosa, transferred to / 12/19/21 due to not eating for 6 days, agreeable to TFs via NGT # anorexia nervosa # malnutrition, protein-calorie, mild - Jevity 1.0 at goal 55 mL/hr; free water 240 mL q8hr; Nutrition to follow; monitor electrolytes daily for refeeding syndrome - vitamin supplementation # MDD # PTSD # AUD [sober since Mar 2021] - management per Psychiatry: on clonidine, duloxetine, gabapentin, buspirone, clonazepam, disulfiram, oxcarbazepine # VTE ppx: LMWH In my clinical judgment, the patient requires continued hospitalization for the following reasons: inpatient psychiatric care, tube feeding initiation Quality Stroke Does the patient have a stroke diagnosis?: No VTE Prior VTE?: No VTE Risk Level:: Medical - moderate - high VTE Device Contraindication: Treatment Not Indicated VTE Drug Contraindication: N/A - Med Ordered
--- NOTE | 2021-12-22 13:29 | MHC.CLN ---
F/U REVIEWED LABS- NO S/S RE-FEEDING AT THIS TIME PT TOLERATING JEVITY 1.0 AT MAX GOAL RATE OF 55ML/HR WITH 240ML FREE WATER FLSUHES Q 8 HRS PROVIDES 1399KCALS (25KCALS/KG), 58G PROTEIN (1.0G/KG), 1822ML TOTAL FREE WATER FROM FORMULA AND FLUSHES (32ML/KG) MONITOR TOLERANCE, RESIDUALS AND LYTES DISCUSSED WITH MDs (HOSPITALIST AND PSYCH) AGREE TO START PO MEAL TRAYS RECOMMEND REGULAR DIET IN ADDITION TO TF WILL TITRATE DOWN ON TF BASED ON PO INTAKE STRICT PO INTAKE
[2021-12-22] MEDS: Throat Lozenge, Medicated LOZENGE 1 LOZENGE MUCOUS MEM ×2 (17:07→22:14)
[2021-12-22] MEDS: cloNIDine HCL 0.1 MG TABLET PO ×2 (17:09→20:37)
--- NOTE | 2021-12-22 19:27 | PC.NURSE ---
Pt tolerated tube feed well today. Residual volume 0ml at 0915 and 10ml at 1715. 240ml water flushes at 0915 and 1715. Pt reported drinking about 250ml of protein shake after dinner. MD and scrubber operator aware.
[2021-12-22] MEDS: Albuterol Sulfate 90 MCG 8 GM INHALER 2 PUFF INHALE (20:21)
[2021-12-22] MEDS: Gabapentin 300 MG CAPSULE PO (20:36)
[2021-12-22] MEDS: Magnesium Hydrox/Alum Hydrox 30 ML ORAL.SUSP PO (20:38)
[2021-12-22] MEDS: Enoxaparin Sodium 40 MG/0.4 ML SYRINGE SUBCUT (22:14)
[2021-12-23] VITALS: BP 98/62; PULSE 73; RESP 16; TEMP 36.1; O2SAT 99
[2021-12-23 03:32] VITALS: BP 101/62; PULSE 71; RESP 16; TEMP 36.3; O2SAT 97
--- NOTE | 2021-12-23 06:39 | PC.NURSE ---
Pt has NGT on the left nares patent and intact, feedings and water bolus tolerated, no residuals noted.
[2021-12-23 07:02] LABS: Anion Gap 13 (12-20); Blood Urea Nitrogen 7 mg/dL (9-16); Calcium 8.7 mg/dL (8.4-10.2); Carbon Dioxide 26 mmol/L (22-29); Chloride 105 mmol/L (96-108); Creatinine Clr Calc Pharmacy 89.9; Estimated Glomerular Filt Rate > 60; Glucose Random 94 mg/dL (60-115); Phosphorus 4.5 mg/dL (2.7-4.5); Potassium 4.2 mmol/L (3.3-5.1); Sodium 140 mmol/L (135-145)
[2021-12-23 07:45] VITALS: BP 104/59; PULSE 74; RESP 18; TEMP 36.2; O2SAT 97
[2021-12-23] MEDS: Fluticasone/Vilanterol 100/25 BLST.W.DEV 1 PUFF INHALE (07:49)
[2021-12-23] MEDS: Albuterol Sulfate 90 MCG 8 GM INHALER 2 PUFF INHALE (07:49)
[2021-12-23 07:56] VITALS: PULSE 78; RESP 16; O2SAT 96
[2021-12-23] MEDS: busPIRone HCl 10 MG TABLET 20 MG PO (09:39)
[2021-12-23] MEDS: Cholecalciferol (Vitamin D3) 25 MCG TABLET PO (09:39)
[2021-12-23] MEDS: clonazePAM 1 MG TABLET PO (09:39)
[2021-12-23] MEDS: Gabapentin 100 MG CAPSULE 200 MG PO ×2 (09:39→13:31)
[2021-12-23] MEDS: OXcarbazepine 150 MG TABLET PO (09:39)
[2021-12-23] MEDS: Thiamine HCL 100 MG TABLET PO (09:39)
[2021-12-23] MEDS: DULoxetine HCl 60 MG CAPSULE.DR 120 MG PO (09:39)
[2021-12-23] MEDS: Multivitamin TABLET 1 TAB PO (09:39)
[2021-12-23] MEDS: 0.9 % Sodium Chloride Flush 3 ML SYRINGE IVFLUSH (09:40)
--- NOTE | 2021-12-23 10:11 | PM.DS ---
DS: Providers Provider Date of Service: 12/23/21 Date of admission: 12/19/21 22:54 Date of discharge: 12/23/21 Primary care physician: Unknown Physician Consults: 12/20/21 08:03 Consult to Psychiatry Routine Consulting Provider: Psych Covering Reason for consultation: came from [facility], ongoing medication adjustments please DS: Transfer Hospital Acceptance Reason for Transfer: psychiatric care DS: Diagnosis Discharge Diagnosis (1) Anorexia nervosa: Status: Acute (2) Post traumatic stress disorder (PTSD): Status: Acute (3) MDD (major depressive disorder), recurrent episode, moderate: Status: Acute (4) Mild protein-calorie malnutrition: Status: Acute DS: Summary Hospital Course Hospital Course: from discharge summary by psychiatric Robson Cade, 12/19/21: Bozena is a 31 y.o. female who self presented to [facility] due to SI and increased depression. She also reports restricting her food intake x 2 weeks, has extensive hx of anorexia nervosa with multiple inpatient and residential stays at [facility]. ? 12/10: Pt denies benefit on gabapentin, will consider discontinuing this. Says klonopin and clonidine help with anxiety. Thinks buspar helps a little. Unsure if cymbalta or vraylar (on both since 09/2021) are helping. Will increase buspar to 20 mg TID for anxiety. Discussed starting mood stabilizer for depression, impulsive urges, will defer to primary psych provider. 12/11: Will start lamictal 25 mg HS for depression, impulsivity- discussed monitoring for rash/ SJS. Will discontinue gabapentin, as pt denies benefit and to reduce polypharm. Will increase vraylar to 4.5 mg as pt appears to need higher dosage range for therapeutic benefit and may help with depression, perceptual disturbances. Will re-check EKG due to hx of QTc prolongation, 507ms on 12/10. Will add ensure to her meals, monitor for restricting bx. on high doses of clonazepam, going to [facility], 12/13 lowered clonazepam to 3mg/day; resumed gabapentin per pt request 12/14 patient said she was doing okay but got much more anxious when suddenly found out clonazepam has been lowered.? Patient still has depression, anxiety and intermittent SI. Reports Vraylar started 4 months ago and has had no effect; raised to 4.5mg this admission, but still no help Reports Cymbalta no affect patient was going to try Lamictal but over the weekend got anxious about it and did not want to take it Patient would like to try Latuda to see if it can replicate the effect of Zyprexa; otherwise will go back on Trileptal which she said was helpful. Regarding clonazepam, patient understands risks of this medication and also the barrier it can create an getting over PTSD/trauma; she has been on clonazepam 2 mg b.i.d. for several years.? Patient would consider going down but feels it was abrupt to have it reduced without being told.? She agrees to have ghost writer put back 0.5 mg as a p.r.n. and will see if she can avoid taking it. 12/15 still struggling with thought disordered thinking, restricting intake; no problems with Latuda and agrees to increase.? Continue to work on making healthy choices.? Patient's QTC is mildly prolonged. It is very rare for QTC prolongation to causing an arrhythmia and potential benefit far outweighs potential risk; most medications in this class pose this risk (though not cariprazine); will continue to monitor 12/16 Continues to be depressed, anxious, struggling with PTSD symptoms and hopelessness; that said she is also pushing herself to be hopeful that she can work through these issues.? Patient shares that she is much more aware of her need to address more deeply her history of trauma.? Patient has not eaten for almost 3 days.? Will leave Latuda as it is for now since she is not taking in any food.? Patient is pushing herself to trying get herself to eat. 12/17 Patient has not eaten for about 4 days; limited fluid intake and has become tachycardic though BP is remain normal.? Will get repeat labs to assess.? Discussed case with hospitalist who agrees with a L of fluid plus D5W for now;But to continue to assess. Hopefully fluids plus sugar will help patient turn the corner and get back to making healthy food choices and avoid need for feeding tube. Patient says she feels too stuck to make herself eat however she remains holding on to hope that she can work through these issues? in therapy.? She asks for Trileptal.? Will DC Latuda For now. -received 1 liter NS + 2 liters D5W which helped clear up some cognitive fogginess from no food intake 12/18 will increase Trileptal; although this can cause the side effect of electrolyte imbalance as can imposed fasting and poor p.o. intake, patient's mood significantly related to her willingness to eat food; also patient has tolerated this medication in the past which she found at least partially helpful.? At this point the potential benefit outweighs the risk. -mood a little better and no SI; increasing hope and wanting to engage in therapy; feels stuck, unable to get herself to eat -pt convinced she will not be able to will/get herself to eat; says needs feeding tube to unstick her anorexic-disorderd? thinking? -discussed feeding tube with Dr. Simpson who agrees pt likely needs feeding tube; as it's inevitable (5 days no food) and no reason to wait until pt crashes. Says to get nutritional assessment as first step?? 12/19 mood remains a little better; no SI and more hopeful about getting to therapy; adamant needs feeding tube.? ghost writer agrees that patient is in a place that she will not eat and it's inevitable she'll need a feeding tube. Will discuss transfer to medical floor w/ hospitalist (privacy director says nursing on current unit not trained in ng tube at this time) *pt discharged/transfer to medical floor for NG tube following 6 days of no food. from admission H+P by hospitalist Vera Messer, 12/19/21: This is a 31-year-old female with past medical history of major depressive disorder, PTSD who is admitted to [facility] for management of and ED as well as PTSD.? Patient was noted to be anorexic, has not been eating for past 6 days, has symptoms of lightheadedness, significant weakness, therefore she is being transferred to medical floor for placement of G-tube and initiation of tube feeds.? Patient reports that she is unable to eat, for the past 6 days.? She reports feeling dizzy and lightheaded, significantly weak.? She denies any headache, no change in vision, no chest pain, no palpitations, no nausea or vomiting, no abdominal pain, no diarrhea constipation, no urinary symptoms and no lower extremity edema.? At this time patient denies any SI, she is not having any thoughts of hurting herself, no homicidal ideation.? Vitals reviewed show no significant findings Labs done on 12/17 unremarkable 31yo F admitted to 12/10/21 with MDD, PTSD, anorexia nervosa, transferred to M/S 12/19/21 due to not eating for 6 days, agreeable to TFs via NGT. Small-bore NGT placed at bedside on 12/20/21 and advanced to Jevity 1.0 goal 55 mL/hr plus free water 240 mL q8h. Electrolytes normal. Starting to take some POs as well. Transferred back to inpatient psychiatry on 12/23/21 for resumption of care. Time Spent with Patient Time attestation: Total time spent providing and/or coordinating discharge services: Discharge coordination time: Greater than 30 minutes Quality: Safe Use of Opioids Does Pt have an Active Cancer Diagnosis on the Problem List?: No Quality: Stroke Does the patient have a stroke diagnosis?: No Physical Exam Vital Signs: Vital Signs: Last Vital Signs Temp 97.2 F 12/23/21 07:45 Pulse 78 12/23/21 07:56 Resp 16 12/23/21 07:56 BP 104/59 L 12/23/21 07:45 Pulse Ox 97 12/23/21 07:45 O2 Del Method 12/23/21 07:45 BMI result Body Mass Index 22.8 Gen: in no acute distress HEENT: sclera anicteric, moist mucus membranes, NGT running feeds Neck: supple Lungs: clear to auscultation bilaterally Heart: regular rate and rhythm, no murmurs Abd: soft, non-tender, non-distended Ext: no edema Skin: warm/well-perfused Neuro: alert and oriented x3, no focal findings Psych: appropriate affect DS: Data Data Completed and Pending Completed studies during hospitalization [Text1]: Laboratory Tests 12/20/21 12/20/21 12/21/21 05:59 05:59 05:16 WBC 8.0 RBC 4.15 L Hgb 13.0 Hct 37.4 MCV 90.1 MCH 31.3 MCHC 34.8 RDW 12.2 Plt Count 287 MPV 9.9 Immature Gran % (Auto) 0.2 Neut % (Auto) 59.7 Lymph % (Auto) 31.5 Grant % (Auto) 6.0 Eos % (Auto) 1.9 Baso % (Auto) 0.7 Lymph # (Auto) 2.5 Grant # (Auto) 0.5 Eos # (Auto) 0.2 Baso # (Auto) 0.1 Abs Immat Gran (auto) 0.02 Absolute Neuts (auto) 4.8 Absolute Nucleated RBC 0.000 Nucleated RBC % (auto) 0.0 Sodium 138 140 Potassium 4.3 3.8 Chloride 104 106 Carbon Dioxide 20 L 24 Anion Gap 18 14 BUN 3 L D 3 L Creatinine 0.69 0.70 Estim Creat Clear Calc 95.1 93.8 Estimated GFR > 60 > 60 Random Glucose 68 90 Calcium 8.7 8.7 Phosphorus 4.1 Magnesium 1.9 Albumin 3.8 Prealbumin 18.0 L 12/22/21 12/23/21 05:52 05:29 WBC RBC Hgb Hct MCV MCH MCHC RDW Plt Count MPV Immature Gran % (Auto) Neut % (Auto) Lymph % (Auto) Grant % (Auto) Eos % (Auto) Baso % (Auto) Lymph # (Auto) Grant # (Auto) Eos # (Auto) Baso # (Auto) Abs Immat Gran (auto) Absolute Neuts (auto) Absolute Nucleated RBC Nucleated RBC % (auto) Sodium 140 140 Potassium 3.8 4.2 Chloride 107 105 Carbon Dioxide 21 L 26 Anion Gap 16 13 BUN 3 L 7 L D Creatinine 0.70 0.73 Estim Creat Clear Calc 93.8 89.9 Estimated GFR > 60 > 60 Random Glucose 96 94 Calcium 8.8 8.7 Phosphorus 4.7 H 4.5 Magnesium 1.9 2.0 Albumin Prealbumin ITS Impressions Abdomen X-Ray 12/20/21 11:45 IMPRESSION: Weighted enterogastric tube with the tip in the region of the gastric antrum/proximal duodenum. Moderate air and stool throughout the bowel. Discharge Plan Discharge Patient Disposition: Xfer Psychiatric Hosp Referrals: Physician,Unknown J [Primary Care Provider] - 1 Week Discharge Medications: New clonidine HCl 0.1 mg Tablet 0.1 mg PO BEDTIME Qty: 14 0RF Protocol: Hold for SBP< HOLD for SBP < : 90 clonidine HCl 0.1 mg Tablet 0.1 mg PO DAILY PRN (Reason: hyperarousal, anxiety) Qty: 14 0RF Protocol: Hold for SBP< HOLD for SBP < : 90 acetaminophen 325 mg Tablet 650 mg PO Q6H PRN (Reason: Headache/Pain Mild Scale (1-3)) Qty: 10 0RF oxcarbazepine 150 mg Tablet 150 mg PO BID Qty: 14 0RF clonazepam 1 mg Tablet 1 mg PO TID Qty: 10 0RF buspirone 10 mg Tablet 20 mg PO TID Qty: 1 0RF gabapentin 300 mg Capsule 300 mg PO BEDTIME Qty: 7 0RF gabapentin 100 mg Capsule 200 mg PO BID@0830,1330 Qty: 20 0RF duloxetine 60 mg Capsule,Delayed Release(Dr/Ec) 120 mg PO DAILY Qty: 30 0RF fluticasone furoate-vilanterol [Breo Ellipta] 100-25 mcg/dose Blister With Device 1 ea inhalation RDAILY Qty: 60 0RF cholecalciferol (vitamin D3) 25 mcg (1,000 unit) Tablet 25 mcg PO DAILY Qty: 7 0RF multivitamin [Daily-Sara] Tablet 1 tab PO DAILY Qty: 1 0RF thiamine mononitrate (vit B1) 100 mg Tablet 100 mg PO DAILY Qty: 10 0RF Continued albuterol sulfate [Ventolin HFA] 90 mcg/actuation Hfa Aerosol Inhaler 2 puff inhalation BID 30 Days Qty: 6.7 0RF disulfiram 250 mg tablet 1 tab PO DAILY Discontinued metformin 500 mg tablet 1 tab PO BID clonidine HCl 0.1 mg tablet 1 tab PO BEDTIME hydroxyzine HCl 50 mg tablet 1 tab PO BID PRN (Reason: anxiety) clonazepam 2 mg tablet 1 tab PO BID PRN (Reason: anxiety attack) gabapentin 100 mg capsule 2 cap PO TID buspirone 15 mg tablet 1 tab PO TID cholecalciferol (vitamin D3) [Vitamin D3] 25 mcg (1,000 unit) capsule 1 cap PO DAILY duloxetine 60 mg capsule,delayed release(DR/EC) 2 cap PO DAILY Latuda 80 mg tablet 1 tab PO BEDTIME fluticasone furoate-vilanterol [Breo Ellipta] 100-25 mcg/dose blister with device 1 puff INHALATION DAILY Vraylar 3 mg capsule 1 cap PO DAILY Discharge Orders: Discharge Order (Routine); Ordered 12/20/21 Ordered By: Vera Cowan Diet: tube feeds Activity on Discharge: As tolerated Stand Alone Forms: Patient Portal Discharge page Care Plan Goals: mental health nutrition Health Concerns: anorexia PTSD depression Plan of Treatment: inpatient psychiatric care tube feeds- Jevity 1.0 @ 55 mL/hr plus free water 240 mL q8h until taking oral feeds consistently Assessment: See Discharge Summary. Discharge Date/Time: 12/23/21 14:11
[2021-12-23 11:34] VITALS: BP 116/76; PULSE 87; RESP 18; TEMP 520; TEMP 968; O2SAT 98
--- NOTE | 2021-12-23 13:21 | MHC.CLN ---
F/U REVIEWED LABS- NO S/S RE-FEEDING AT THIS TIME PT TOLERATING JEVITY 1.0 AT MAX GOAL RATE OF 55ML/HR WITH 240ML FREE WATER FLUSHES Q 8 HRS. PROVIDES 1399KCALS (25KCALS/KG), 58G PROTEIN (1.0G/KG), 1822ML TOTAL FREE WATER FROM FORMULA AND FLUSHES (32ML/KG) MONITOR TOLERANCE, RESIDUALS AND LYTES DIET ORDER=REGULAR IN ADDITION TO TUBE FEEDING. VISITED WITH PATIENT BEFORE AND AFTER LUNCH TODAY. DID NOT EAT/DRINK FROM BREAKFAST TRAY. ENSURE CLEAR, SOY MILK, AND COFFEE WITH ONE SUGAR DELIVERED ON LUNCH TRAY. DRANK 1/2 OF COFFEE, OTHER BEVERAGES UNOPENED. WILLING TO TAKE SMALL AMOUNTS OF LIQUIDS IN 1 OZ CUP PER M[facility] STAFF RECOMMENDATION. AGREED WITH METHOD TO TAKE SOME PO. CONTINUE REGULAR DIET AND TUBE FEEDING. WILL TITRATE DOWN ON TF BASED ON PO INTAKE. FOLLOW PO INTAKE.
== END 2021-12-23 14:11 | DRG 641 ==
PROVIDERS: Admitting Provider Internal Medicine; Visit Provider Family Medicine
DX: E44.1 Mild protein-calorie malnutrition (principal); F50.01 Anorexia nervosa, restricting type; F33.1 Major depressive disorder, recurrent, moderate; F10.11 Alcohol abuse, in remission; Z56.0 Unemployment, unspecified; F43.10 Post-traumatic stress disorder, unspecified; Z68.22 Body mass index [BMI] 22.0-22.9, adult; Z91.52 Personal history of nonsuicidal self-harm; Z79.51 Long term (current) use of inhaled steroids; Z79.899 Other long term (current) drug therapy
CPT/HCPCS: 36415; 74018; 80048; 80051; 82040; 83735; 84100; 84134; 85025; 87635; 93005; 94640; J1650

== ENCOUNTER 2021-12-23 15:20 | Inpatient (IN) | payer OTHER, SELFPAY ==
[2021-12-23 15:42] VITALS: BMI 22.8
--- NOTE | 2021-12-23 16:04 | MHC.CLN ---
NUTRITION SEE CLINICAL NUTRITION ASSESSMENT 12/23/21. PATIENT TOLERATING NG TUBE FEEDING AT MAX GOAL RATE: JEVITY 1.0 AT 55 ML PER HOUR. FLUSH 240 ML WATER Q 8 HOURS. HAS DIET ORDER FOR REGULAR. PATIENT AGREES AND DINING SERVICES AWARE TO SEND ON EACH TRAY ENSURE CLEAR, SOY MILK, AND COFFEE IN ADDITION TO OTHER PATIENT CHOICES. LABS REVIEWED WITH NO SIGNS OF REFEEDING. RD TO FOLLOW FOR TUBE FEED TOLERANCE, PO INTAKE, AND LABS.
[2021-12-23] MEDS: clonazePAM 1 MG TABLET PO (17:55)
[2021-12-23] MEDS: busPIRone HCl 10 MG TABLET 20 MG PO (17:55)
[2021-12-23 18:49] VITALS: BMI 22.7
[2021-12-23 19:26] VITALS: BP 118/68; PULSE 75; RESP 16; TEMP 36.6; O2SAT 99
[2021-12-23] MEDS: cloNIDine HCL 0.1 MG TABLET PO (21:10)
[2021-12-23] MEDS: Gabapentin 300 MG CAPSULE PO (21:10)
[2021-12-23] MEDS: OXcarbazepine 150 MG TABLET PO (21:10)
--- NOTE | 2021-12-23 23:50 | PC.ADMIT ---
Pt is a 31 year old woman previously known to this unit. Pt was transferred to the medical floor for NG-Tube placement and stabilization. Pt is readmitted on CV back to the unit. Pt is alert and oriented. VSS. Tox screen negative, covid negative. Pt is physically in group room B with in medical bed with equipment observation. Pt is on Jevity 1 suri 24hrs waterflush 240ml/8hrs. Regular diet as tolerated. Pt is taking PO meds, Med and meal compliant. Pt denies SI/HI/AH/VH but endorses a low depression of 4/10, anxiety of 3/10. Speech is normal with regular rhythm, tone and omar. Pt is tolerating Tube feeding well. Admission orders obtained.
[2021-12-24] MEDS: DULoxetine HCl 60 MG CAPSULE.DR 120 MG PO (08:47)
[2021-12-24] MEDS: busPIRone HCl 10 MG TABLET 20 MG PO ×3 (08:48→20:49)
[2021-12-24] MEDS: Multivitamin TABLET 1 TAB PO (08:48)
[2021-12-24] MEDS: Gabapentin 100 MG CAPSULE 200 MG PO ×2 (08:48→13:09)
[2021-12-24] MEDS: clonazePAM 1 MG TABLET PO ×3 (08:49→20:49)
[2021-12-24] MEDS: Thiamine HCL 100 MG TABLET PO (08:49)
[2021-12-24] MEDS: OXcarbazepine 150 MG TABLET PO ×2 (08:49→20:49)
[2021-12-24] MEDS: Cholecalciferol (Vitamin D3) 25 MCG TABLET PO (08:49)
[2021-12-24 08:57] VITALS: BP 120/70; PULSE 87; RESP 16; TEMP 36.3; O2SAT 99
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
--- NOTE | 2021-12-24 16:50 | P.DS_ITS ---
DS: Providers Provider Date of Service: 12/25/21 Date of admission: 12/23/21 15:20 Date of discharge: 12/25/21 Primary care physician: Unknown Physician Attending physician on admission: Robson Cade Attending physician on discharge: Robson Cade DS: Diagnosis Discharge Diagnosis (1) Post traumatic stress disorder (PTSD): Status: Acute (2) Anorexia nervosa: Status: Acute (3) MDD (major depressive disorder), recurrent episode, moderate: Status: Acute DS: Medications Discharge Medications Home Medications: Home Medications Medication Instructions Recorded Confirmed disulfiram 250 mg tablet 1 tab PO DAILY 12/20/21 12/20/21 Previous Rx's Medication Instructions Recorded albuterol sulfate 90 mcg/actuation 2 puff inhalation BID 30 days #6.7 12/15/21 aerosol inhaler (Ventolin HFA) grams acetaminophen 325 mg tablet 650 mg PO Q6H PRN Headache/Pain 12/23/21 Mild Scale (1-3) #10 tabs buspirone 10 mg tablet 20 mg PO TID #1 tab 12/23/21 cholecalciferol (vitamin D3) 25 25 mcg PO DAILY #7 tabs 12/23/21 mcg (1,000 unit) tablet clonazepam 1 mg tablet 1 mg PO TID #10 tabs 12/23/21 clonidine HCl 0.1 mg tablet 0.1 mg PO BEDTIME #14 tabs 12/23/21 clonidine HCl 0.1 mg tablet 0.1 mg PO DAILY PRN hyperarousal, 12/23/21 anxiety #14 tabs duloxetine 60 mg capsule,delayed 120 mg PO DAILY #30 caps 12/23/21 release fluticasone furoate 100 1 ea inhalation RDAILY #60 ea 12/23/21 mcg-vilanterol 25 mcg/dose inhalation powder (Breo Ellipta) gabapentin 100 mg capsule 200 mg PO BID@0830,1330 #20 caps 12/23/21 gabapentin 300 mg capsule 300 mg PO BEDTIME #7 caps 12/23/21 multivitamin (Daily-Sara tablet) 1 tab PO DAILY #1 tab 12/23/21 oxcarbazepine 150 mg tablet 150 mg PO BID #14 tabs 12/23/21 thiamine mononitrate (vit B1) 100 100 mg PO DAILY #10 tabs 12/23/21 mg tablet Mental Status Exam Mental Status Exam Narrative: Pt is alert and oriented; behavior is cooperative, calm, engaged; patient is not in distress; dressed in hospital gown, NG tube; mood is described as better and affect congruent, brighter; good eye contact; Speech is a little soft; normal rate and prosody and not pressured; psychomotor retardation present; thought process is goal directed; Thought content is on trying to get herself to make healthy choices; treatment; otherwise pertinent to relevant topics and without any delusional content, paranoid ideations or grandiosity; no SI; no HI; Patients insight and judgment are impaired but improving. DS: Summary Hospital Course Hospital Course: This is a 31-year-old female with past medical history of major depressive disorder, PTSD who is admitted to Psych inpatient for management of and depression, Anorexia nervosa (restricting food for 2 weeks) hx of being on tube feeding/admissions to [facility],? PTSD and 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 Patient was admitted to for worsening depression, continued restricting and SI with plan to admit to [facility] once bed available.? Patient reports Zyprexa was most helpful however caused weight gain.? Patient currently on Vraylar and duloxetine neither of which she thinks are helpful.? For Vralar was discontinued and she was started on Latuda however she was not eating and Latuda was discontinued. She remained on Clonazepam and disulfiram. She was restarted on Trileptal; SI resolved.? Considered starting Lamictal, however she continued to restrict and not eating for 6 days,? with symptoms of lightheadedness, significant weakness, and intermittent prolonged QTc (which resolved); therefore she was transferred to medical floor for placement of G-tube and initiation of tube feeds.? Transfer to Mecical floor: Patient was transferred to /S 12/19/21 due to not eating for 6 days, agreeable to TFs via NGT.? Small-bore NGT placed at bedside on 12/20/21 and advanced to Jevity 1.0 goal 55 mL/hr plus free water 240 mL q8h.? Electrolytes normal.? She started to take in some POs as well and was able to be transferred back to inpatient psychiatry. Patient returns to psych unit: Returns on tube feed: - Jevity 1.0 @ 55 mL/hr plus free water 240 mL q8h until taking oral feeds consistently Patient reports her mood is a little better, though she is still quite anxious.? Says she feels much less weak and dizzy.? She said her suicidal thinking is on hold since the feeding tube is in which she is curious about but does not know why.? Patient remains eager for treatment and continues to take in PO and eat 1/2 Ensure at lunch time.? Patient has a goal to get to 3 ensures per day. On 12/24 [facility] called and offered a bed for the following day.? Patient wanted to go to [facility], agreed with plan and discharge preparations made.? Admission to [facility] was the plan from the beginning.? Patient wants to go and is appropriate for discharge via ambulance to this facility. Time spent discussing smoking cessation with patient: 3 to 10 minutes Status at Discharge Functional status at discharge: independent ambulation Overall status at discharge: patient is progressing back to baseline Time Spent with Patient Time attestation: Total time spent providing and/or coordinating discharge services: Time spent: Greater than 30 minutes Discharge Plan Discharge Anticipated Discharge Date/Time: 12/25/21 07:00 Patient Disposition: Xfer Other Discharge Diagnosis: Anorexia Nervousa; MDD Referrals: [facility] [Other] - 12/25/21 9:00 am (Patient being transferred to [facility] In[facility] from [facility]. ) Physician,Unknown J [Primary Care Provider] - 1 Week Discharge Medications: Continued albuterol sulfate [Ventolin HFA] 90 mcg/actuation Hfa Aerosol Inhaler 2 puff inhalation BID 30 Days Qty: 6.7 0RF disulfiram 250 mg tablet 1 tab PO DAILY clonidine HCl 0.1 mg Tablet 0.1 mg PO BEDTIME Qty: 14 0RF Protocol: Hold for SBP< HOLD for SBP < : 90 clonidine HCl 0.1 mg Tablet 0.1 mg PO DAILY PRN (Reason: hyperarousal, anxiety) Qty: 14 0RF Protocol: Hold for SBP< HOLD for SBP < : 90 acetaminophen 325 mg Tablet 650 mg PO Q6H PRN (Reason: Headache/Pain Mild Scale (1-3)) Qty: 10 0RF oxcarbazepine 150 mg Tablet 150 mg PO BID Qty: 14 0RF clonazepam 1 mg Tablet 1 mg PO TID Qty: 10 0RF buspirone 10 mg Tablet 20 mg PO TID Qty: 1 0RF gabapentin 300 mg Capsule 300 mg PO BEDTIME Qty: 7 0RF gabapentin 100 mg Capsule 200 mg PO BID@0830,1330 Qty: 20 0RF duloxetine 60 mg Capsule,Delayed Release(Dr/Ec) 120 mg PO DAILY Qty: 30 0RF fluticasone furoate-vilanterol [Breo Ellipta] 100-25 mcg/dose Blister With Device 1 ea inhalation RDAILY Qty: 60 0RF cholecalciferol (vitamin D3) 25 mcg (1,000 unit) Tablet 25 mcg PO DAILY Qty: 7 0RF multivitamin [Daily-Sara] Tablet 1 tab PO DAILY Qty: 1 0RF thiamine mononitrate (vit B1) 100 mg Tablet 100 mg PO DAILY Qty: 10 0RF Discharge Orders: Discharge Order (Routine); Ordered 12/23/21 Ordered By: Robson Cade Diet: Advance to usual diet Activity on Discharge: As tolerated Stand Alone Forms: Patient Portal Discharge page, Community Support Care Plan Goals: Maintain mood and safe behaviors Take medications as prescribed Continue to pursue sobriety Practice coping skills Continue with outpatient providers and reach out to them as needed Health Concerns: Mood stability and behaviors Healthy eating Plan of Treatment: Discharging for admission to [facility] Assessment: Risk assessment at time of discharge:? Patient was interviewed prior to discharge and found to be fully oriented and without any SI or HI. Patient has insight and demonstrates good judgment in terms of wanting to pursue treatment. Patient is not in imminent risk of harm to self or others and has a safety plan that includes presenting to the closest ER or calling 911 if feeling unsafe.? Patient has been observed closely by nursing and unit staff throughout admission; patient has not engaged in any behaviors that suggest dangerousness to self or others and has demonstrated appropriate behaviors and impulse control
[2021-12-24 18:00] VITALS: BP 119/67; PULSE 83; RESP 16; TEMP 36.3; O2SAT 100
[2021-12-24] MEDS: Gabapentin 300 MG CAPSULE PO (20:49)
[2021-12-24] MEDS: cloNIDine HCL 0.1 MG TABLET PO (20:49)
[2021-12-25 07:26] LABS: COVID-19 Test Negative (Negative); IDNOW Serial# 16C4AD1C
[2021-12-25] MEDS: OXcarbazepine 150 MG TABLET PO (08:39)
[2021-12-25] MEDS: busPIRone HCl 10 MG TABLET 20 MG PO (08:39)
[2021-12-25] MEDS: Gabapentin 100 MG CAPSULE 200 MG PO (08:40)
[2021-12-25] MEDS: Multivitamin TABLET 1 TAB PO (08:40)
[2021-12-25] MEDS: DULoxetine HCl 60 MG CAPSULE.DR 120 MG PO (08:40)
[2021-12-25] MEDS: clonazePAM 1 MG TABLET PO (08:40)
[2021-12-25] MEDS: Cholecalciferol (Vitamin D3) 25 MCG TABLET PO (08:40)
[2021-12-25] MEDS: Thiamine HCL 100 MG TABLET PO (08:40)
[2021-12-25] MEDS: Fluticasone/Vilanterol 100/25 BLST.W.DEV 1 PUFF INHALE (08:41)
[2021-12-25] MEDS: Albuterol Sulfate 90 MCG 8 GM INHALER 2 PUFF INHALE (09:06)
[2021-12-25 09:23] LABS: Anion Gap 16 (12-20); Carbon Dioxide 26 mmol/L (22-29); Chloride 100 mmol/L (96-108); Sodium 137 mmol/L (135-145)
--- NOTE | 2021-12-25 10:39 | PC.NURSE ---
Nasogastric tube flushed with 30mls of N/S and removed at approximately 0815 without incident.
== END 2021-12-25 09:30 | disposition other institution (70) | DRG 885 ==
PROVIDERS: Admitting Provider Psychiatry & Neurology Psychiatry; Visit Provider Psychiatry & Neurology Psychiatry
DX: F33.1 Major depressive disorder, recurrent, moderate (principal); F50.01 Anorexia nervosa, restricting type; F10.11 Alcohol abuse, in remission; F43.10 Post-traumatic stress disorder, unspecified; Z68.22 Body mass index [BMI] 22.0-22.9, adult; Z20.822 Contact with and (suspected) exposure to COVID-19; Z79.51 Long term (current) use of inhaled steroids; Z79.899 Other long term (current) drug therapy
CPT/HCPCS: 36415; 80051; 87635

== ENCOUNTER 2023-05-12 14:19 | Inpatient (IN) | payer OTHER, SELFPAY ==
--- NOTE | ~2023-05-12 | FL_ITS ---
FLUOROSCOPIC GUIDED PLACEMENT OF A NASOGASTRIC TUBE. INDICATION: Needs enteral feeding access. Failed bedside attempts. Patient was placed upright on the fluoroscopy table. A lubricated 10 [place] soft feeding tube was placed into the left nare advanced into the stomach under fluoroscopic guidance. The tip overlies the distal body of the stomach along the greater curvature. The tube was secured to the patient's nose with the marking at 75 cm from the left nare. No immediate complications Total fluoroscopy time: 0.2 min FL/FL fluoroscopy <1hr IMPRESSION: Fluoroscopic placement of a nasogastric tube for enteral feeding. This procedure was performed by Lencho Olsen PA-C and supervised by Dr. Jimenez.
[2023-05-12 14:22] VITALS: BP 114/69; PULSE 98; RESP 16; TEMP 36.6; O2SAT 98; BMI 18.0
--- NOTE | 2023-05-12 14:22 | ED_ITS ---
HPI - General Adult General Chief complaint: General Medical Stated complaint: Rapid weight loss, low BP Time Seen by Provider: 05/12/23 19:51 Source: patient Mode of arrival: ambulatory Limitations: no limitations History of Present Illness HPI narrative: 33-year-old female with history of alcohol use disorder, MDD, PTSD, anorexia nervosa, asthma presenting to the emergency department with complaint of diarrhea, loss of approx 20lbs over a few months. States she has been struggling with intake over the past 3-4 weeks. Attributes weight loss to multiple life stressors. Patient states she was recently hospitalized at [facility] for 1-2 days for NG tube feeding. I did speak to the nursing staff at the patient's current respite in a state that the patient has had very little concerned that the patient needs a higher level of care at this point in needs IV fluid and NG tube feeds since despite getting psychiatric she has made no progress and eating. The patient does not report any significant event that is changed but states that she just has significant life stress and is not able to eat. She denied suicidal or homicidal ideation. Related Data Home Medications Medication Instructions Recorded Confirmed disulfiram 250 mg tablet 1 tab PO QAM PRN alcohol craving 12/20/21 05/12/23 albuterol sulfate 90 mcg/actuation 2 puff inhalation Q4H PRN 05/12/23 05/12/23 aerosol inhaler (Ventolin HFA) Shortness Of Breath Or Wheezing buspirone 10 mg tablet 20 mg PO TID 05/12/23 05/12/23 clonazepam 1 mg tablet 1 mg PO BID 05/12/23 05/12/23 clonazepam 1 mg tablet 1 mg PO DAILY PRN Anxiety 05/12/23 05/12/23 cyanocobalamin (vitamin B-12) 1,000 mcg PO QAM 05/12/23 05/12/23 1,000 mcg tablet docusate sodium 100 mg capsule 100 mg PO BID 05/12/23 05/12/23 ferrous sulfate 140 mg (45 mg 140 mg PO DAILY 05/12/23 05/12/23 iron) tablet,extended release (Slow Release Iron) fluticasone furoate 200 1 ea inhalation DAILY 05/12/23 05/12/23 mcg-vilanterol 25 mcg/dose inhalation powder (Breo Ellipta) folic acid 1 mg tablet 1 mg PO DAILY 05/12/23 05/12/23 lurasidone 80 mg tablet 160 mg PO QPM 05/12/23 05/12/23 omeprazole 20 mg capsule,delayed 20 mg PO DAILY 05/12/23 05/12/23 release vilazodone 10 mg tablet 10 mg PO DAILY@1800 05/12/23 05/12/23 Previous Rx's Medication Instructions Recorded acetaminophen 325 mg tablet 650 mg (2 x 325 mg) PO Q6H PRN 12/23/21 Headache/Pain Mild Scale (1-3) #10 tabs thiamine mononitrate (vit B1) 100 100 mg PO DAILY #10 tabs 12/23/21 mg tablet Allergies Allergy/AdvReac Type Severity Reaction Status Date / Time escitalopram [From Lexapro] AdvReac Unknown Unknown Verified 12/20/21 13:16 Review of Systems 2 Review of Systems: Yes all other systems are reviewed and are negative [facility] Past Medical History [facility] Narrative: Social history: Patient smokes 4 cigarettes per day. She denies alcohol use. She denies drug use Medical History MDD (major depressive disorder), recurrent episode, moderate Post traumatic stress disorder (PTSD) Anorexia nervosa Prolonged QT interval Surgical History No pertinent past surgical history Family History Family History Other No family history of coronary artery disease Social History Social History Household Members: None Household Members Other:: house on mothers land Housing: House Do you presently have visiting nurse or other home services: No Patient Tobacco Use Status: Never used Tobacco Smoked in Last 30 Days: Yes Use of substances other than those prescribed or required for medical reasons: No Substance Use Type: Marijuana Advance Directives: No Advance Directives Information Provided: No Patient : No service: No Current occupational status: unemployed Sexual orientation: Straight/Heterosexual Physical Exam ED Vital Signs: Vital Signs - 24 hr 05/12/23 14:22 05/12/23 18:58 Temperature 97.8 F 97.2 F Pulse Rate 98 84 Respiratory Rate 16 16 Blood Pressure 114/69 105/62 Pulse Oximetry 98 98 Oxygen Delivery Method Room Air Room Air BMI result Body Mass Index 18.0 Vital signs were no Exam General: Awake, alert in no distress, very soft-spoken, thin, BMI 18.0 kg per m2 with a weight of 44.6 kg Head: Normocephalic, atraumatic EENT: PERRL, Lids normal, sclera normal, conjunctiva normal, nose normal , ears normal, throat without erythema or exudates Neck: Supple, no adenopathy Lung: breath sounds symmetric, no wheezing, rales or rhonchi Chest: symmetric movement, nontender Heart: regular rate and rhythm, normal S1, S2 no murmurs or rubs Abdomen: soft, non-tender, nondistended, normal bowel sounds Back: no vertebral tenderness, no CVAT Extremities: no deformities, moves all extremities symmetrically Neuro: Awake, alert, oriented, normal speech, cranial nerves intact, moves all extremities symmetrically Psych: Pleasant, cooperative Course Course Course Narrative: This is a rapid medical exam: Additional HPI, ROS, PE not included below will be deferred to primary provider. Patient is a 33-year-old female with history of alcohol use disorder, MDD, PTSD, anorexia nervosa, asthma presenting to the emergency department with complaint of diarrhea, loss of approx 20lbs over a few months. States she has been struggling with intake over the past 3-4 weeks. Attributes weight loss to multiple life stressors. Currently in respite. BP 114/69 in triage. Plan: EKG, labs, UA Medications Administered Generic Name Dose Route Start Last Admin Trade Name Freq PRN Reason Stop Dose Admin Enoxaparin Sodium 40 mg 05/12/23 21:00 05/12/23 22:44 Enoxaparin Sodium 40 Mg/0.4 Ml Syringe SUBCUT Not Given Q24H MARY BETH Lactated Ringer's 1,000 mls @ 125 mls/hr 05/12/23 20:45 05/12/23 21:21 Lr IV 05/13/23 04:44 125 mls/hr .Q8H MARY BETH Administration Sodium Chloride 3 ml 05/13/23 00:00 05/12/23 23:43 0.9 % Sodium Chloride Flush 3 Ml Syringe IVFLUSH Not Given QSHIFT MARY BETH Discontinued Medications Generic Name Dose Route Start Last Admin Trade Name Freq PRN Reason Stop Dose Admin Lidocaine HCl 10 ml 05/12/23 22:16 05/12/23 22:38 Lidocaine Hcl 2 % Urojet 10 Ml Jel.Pf.Scott TOPICAL 05/12/23 22:17 10 ml ONCE ONE Administration Lorazepam 2 mg 05/12/23 22:14 05/12/23 22:38 Lorazepam 2 Mg/Ml Vial IVPUSH 05/12/23 22:15 2 mg ONCE ONE Administration Medical Decision Making Medical Decision Making MDM Narrative: 33-year-old female with history of alcohol use disorder, MDD, PTSD, anorexia nervosa, asthma presenting to the emergency department with complaint of diarrhea, loss of approx 20lbs over a few months with very poor oral intake over the last 3-4 weeks, hospitalized for several days at [facility] 2 weeks prior for NG-tube feeding. Patient is at a respite and according to respite staff, they are concerned that the patient has had very little food and fluid intake and that the patient needs a higher level of care since despite psychiatric care at the [facility] she is not eating. Patient states she is feeling weak and dizzy otherwise has no complaints. She denied being suicidal or homicidal. Physical examination was unremarkable except for low BMI of 18 kg per meter sq and low body weight of 44.6 kg. Differential diagnosis: ?Includes but is not limited to volume depletion, dehydration, malnutrition, electrolyte abnormalities, anemia, depression, anxiety, Following evaluation was ordered: CBC, CMP, ethanol level, urinalysis, quantitative beta-hCG, lipase, magnesium, PT/INR, TSH with reflex T4 Patient was initially treated with the following: Lactated Ringer's 125 cc/hour, NG tube for tube feeds Course: My interpretation patient's laboratory evaluation is as follows: CBC was normal. CMP revealed elevated chloride of 110. LFTs were normal. Urinalysis detectable limits. Alcohol was below detectable limits. Given the patient's failure to eat despite getting psychiatric care at the [facility], the patient will need to be admitted medically for NG tube nutritional supplementation. Respite states that the patient does have a bed at the [facility] where they specialize and anorexia nervosa however there is no bed at this time and the patient could possibly get the next bed available . According the respite staff , the [facility] does do NG tube nutritional supplementation for people with anorexia nervosa I did discuss the patient's presentation with the covering hospitalist, Dr. Scott and the patient will be admitted for further management 23:40 I was unable to insert a 10 [place] Octavio Entriflex weighted feeding in the patient's left nares secondary to a very narrow nasal passage. I did make several attempts at inserting that to but was unsuccessful. Patient states that she has never been able to get a to placed in her right nares secondary to deviated septum and she would not allow me to try the right nares. I did discuss inability to insert in NG tube with the covering hospitalist Dr. Scott. Admission/Observation Consideration of admission/observation: Escalation of care including admission/observation considered Consult Healthcare Provider Management of the patient was discussed with: Hospitalist Lab Data MDM Lab Attestation statement: I reviewed the patient's lab results. 05/12/23 14:43 05/12/23 14:43 Labs: Lab Results 05/12/23 05/12/23 Range/Units 14:43 14:45 WBC 10.4 (4.8-10.8) X10*3/uL RBC 4.00 L (4.20-5.50) X10*6/uL Hgb 12.7 (12.0-16.0) g/dl Hct 37.7 (37.0-47.0) % MCV 94.3 (80.0-98.0) fL MCH 31.8 (27.0-33.0) pg MCHC 33.7 (31.0-35.0) g/dl RDW 12.1 (11.0-16.0) % Plt Count 316 (160-400) X10*3/uL MPV 9.7 (9.4-12.3) fL Immature Gran % (Auto) 0.3 (0.0-0.4) % Neut % (Auto) 74.3 H (45-73) % Lymph % (Auto) 18.1 L (20-40) % Jewell % (Auto) 6.2 (2-11) % Eos % (Auto) 0.8 (0-4) % Baso % (Auto) 0.3 (0-2) % Lymph # (Auto) 1.9 (1.2-4.9) X10*3/uL Jewell # (Auto) 0.6 (0.1-1.2) X10*3/uL Eos # (Auto) 0.1 (0.0-0.4) X10*3/uL Baso # (Auto) 0.0 (0.0-0.2) X10*3/uL Abs Immat Gran (auto) 0.03 (0.00-0.03) X10*3/uL Absolute Neuts (auto) 7.7 (2.0-8.3) x10*3/uL Absolute Nucleated RBC 0.000 (0.0-0.012) X10*3/uL Nucleated RBC % (auto) 0.0 (0.0-0.2) /100WBC PT 13.1 (11.1-13.3) SEC INR 1.1 (0.9-1.1) Sodium 143 (135-145) mmol/L Potassium 4.0 (3.3-5.1) mmol/L Chloride 110 H (96-108) mmol/L Carbon Dioxide 25 (22-29) mmol/L Anion Gap 12 (12-20) BUN 7 L (9-16) mg/dL Creatinine 0.79 (0.5-1.4) mg/dL Estim Creat Clear Calc 72.6 Estimated GFR > 60 Random Glucose 78 (60-115) mg/dL Calcium 9.1 (8.4-10.2) mg/dL Magnesium 1.7 (1.6-2.6) mg/dL Total Bilirubin 0.3 (0.0-1.0) mg/dL AST 13 (5-31) U/L ALT 14 (0-31) U/L Alkaline Phosphatase 46 (39-117) U/L Total Protein 6.4 L (6.5-8.0) g/dL Albumin 4.0 (3.5-5.0) g/dL Lipase 24 (8-78) U/L TSH 0.94 (0.32-4.0) uIU/mL Beta HCG, Quant < 2 mIU/mL Urine Color Yellow Urine Appearance Clear Urine pH 7.5 (5.0-9.0) Ur Specific [place] 1.015 (1.005-1.025) Urine Protein Negative (Neg-Trace) mg/dL Urine Glucose (UA) Negative (Negative) mg/dL Urine Ketones Trace (Negative) mg/dL Urine Blood Negative (Negative) Urine Nitrite Negative (Negative) Ur Leukocyte Esterase Negative (Negative) Ethyl Alcohol < 10 mg/dL Independent Historian Clinical information obtained from an independent historian. History obtained from or confirmed by: Other (Nursing staff at patient's respite) External Record Review External record reviewed: Inpatient record Chronic Conditions Patient?s care impacted by: Other (Anorexia nervosa) Discharge Plan Discharge Clinical Impression: Caloric malnutrition, Anorexia nervosa Patient Disposition: Admitted As Inpatient
--- NOTE | 2023-05-12 14:24 | ECG_ITS ---
Test Reason : WEIGHT LOSS Blood Pressure : / mmHG Vent. Rate : 090 BPM Atrial Rate : 090 BPM P-R Int : 112 ms QRS Dur : 088 ms QT Int : 394 ms P-R-T Axes : 069 058 033 degrees QTc Int : 481 ms Normal sinus rhythm Prolonged QT Abnormal ECG When compared with ECG of 21-DEC-2021 10:26, T wave inversion no longer evident in Inferior leads T wave inversion no longer evident in Anterolateral leads Referred By: Bozena Mendes Electronically Signed By:TANYA TOLEDO
[2023-05-12 14:50] LABS: MANUAL DIFF FLAG NO
[2023-05-12 14:52] LABS: Basophils Percent Auto 0.3 % (0-2); Eosinophils Absolute Auto 0.1 X10*3/uL (0.0-0.4); Eosinophils Percent Auto 0.8 % (0-4); Hematocrit 37.7 % (37.0-47.0); Hemoglobin 12.7 g/dl (12.0-16.0); Imm Gran Abs Auto 0.03 X10*3/uL (0.00-0.03); Imm Gran Pct Auto 0.3 % (0.0-0.4); Lymphocytes Absolute Auto 1.9 X10*3/uL (1.2-4.9); Lymphocytes Percent Auto 18.1 % (20-40); Mean Corpuscular HGB Conc 33.7 g/dl (31.0-35.0); Mean Corpuscular Hemoglobin 31.8 pg (27.0-33.0); Mean Corpuscular Volume 94.3 fL (80.0-98.0); Mean Platelet Volume 9.7 fL (9.4-12.3); Monocytes Absolute Auto 0.6 X10*3/uL (0.1-1.2); Monocytes Percent Auto 6.2 % (2-11); Neutrophils Absolute Auto 7.7 x10*3/uL (2.0-8.3); Neutrophils Percent Auto 74.3 % (45-73); Platelet Count 316 X10*3/uL (160-400); Red Cell Distribution Width 12.1 % (11.0-16.0); White Blood Count 10.4 X10*3/uL (4.8-10.8)
[2023-05-12 14:53] LABS: Appearance Urine Clear; Color Urine Yellow; Glucose Urine UA Negative (Negative); Leukocyte Esterase Urine Negative (Negative); Nitrite Urine Negative (Negative); PH 7.5 (5.0-9.0); Specific Gravity - Urine 1.015 (1.005-1.025); Urine Blood Negative (Negative); Urine Ketones Trace mg/dL (Negative); Urine Protein Negative (Neg-Trace)
[2023-05-12 15:05] LABS: INTERNATIONAL NORM RATIO 1.1 (0.9-1.1); Prothrombin Time 13.1 SEC (11.1-13.3)
[2023-05-12 15:14] LABS: Alanine Aminotransferase 14 U/L (0-31); Alkaline Phosphatase 46 U/L (39-117); Anion Gap 12 (12-20); Aspartate Amino Transferase 13 U/L (5-31); Bilirubin Total 0.3 mg/dL (0.0-1.0); Blood Urea Nitrogen 7 mg/dL (9-16); Calcium 9.1 mg/dL (8.4-10.2); Carbon Dioxide 25 mmol/L (22-29); Chloride 110 mmol/L (96-108); Creatinine Clr Calc Pharmacy 72.6; Estimated Glomerular Filt Rate > 60; Ethanol < 10 mg/dL; Glucose Random 78 mg/dL (60-115); HCG Quantitative < 2 mIU/mL; Lipase 24 U/L (8-78); Magnesium 1.7 mg/dL (1.6-2.6); Sodium 143 mmol/L (135-145); Total Protein 6.4 g/dL (6.5-8.0)
[2023-05-12 15:27] LABS: TSH reflex Free T4 0.94 uIU/mL (0.32-4.0)
[2023-05-12 18:58] VITALS: BP 105/62; PULSE 84; RESP 16; TEMP 36.2; O2SAT 98
--- NOTE | 2023-05-12 20:42 | PM.IMHP ---
History of Present Illness Date of Service: 05/12/23 Chief Complaint: Weight loss This is a 33-year-old female with pertinent history of anorexia nervosa, PTSD, major depressive disorder who presents to the emergency department for evaluation of weakness and poor appetite. Patient states she has been dealing with anorexia nervosa for the last 16 years. Patient states she has been struggling with multiple life stressors and over the last 2 months she has lost about 20 lb. She has been unable to maintain adequate p.o. intake. She was hospitalized at [facility] about 10 days ago and given NG tube feedings for a couple of days. Patient states since returning to [facility], she has been unable to maintain adequate p.o. intake. She feels weak and and has occasional dizziness. Of note, [place] [facility] [place]. No fever, chills, chest discomfort, palpitations, shortness of breath, changes in urinary or bowel habits. Patient denies any suicidal or homicidal ideations. States her last alcohol intake was about 7 months ago. Review of Systems Constitutional: Constitutional: Reports poor appetite, Reports weakness and Reports weight loss Cardiovascular: Cardiovascular: Reports no additional cardiovascular complaints Respiratory: Respiratory: Reports no additional respiratory complaints Gastrointestinal: Gastrointestinal: Reports no additional gastrointestinal complaints Genitourinary: Genitourinary: Reports no additional female genitourinary complaints Neurologic: Reports weakness [facility] Medical History MDD (major depressive disorder), recurrent episode, moderate Post traumatic stress disorder (PTSD) Anorexia nervosa Prolonged QT interval Family History Other No family history of coronary artery disease Surgical History No pertinent past surgical history Social History Household Members: None Household Members Other:: house on mothers land Housing: House Do you presently have visiting nurse or other home services: No Patient Tobacco Use Status: Never used Tobacco Substance Use Type: Marijuana service: No Current occupational status: unemployed Sexual orientation: Straight/Heterosexual Meds Allergies Allergy/AdvReac Type Severity Reaction Status Date / Time escitalopram [From Lexapro] AdvReac Unknown Unknown Verified 12/20/21 13:16 Active Medications: Current Medications Lactated Ringer's (Lr) 1,000 mls @ 125 mls/hr IV .Q8H MARY BETH Stop: 05/13/23 04:44 Home Medications Medication Instructions Recorded Confirmed Last Taken Type disulfiram 250 mg tablet 1 tab PO DAILY 12/20/21 12/20/21 Unknown History Physical Exam Vital Signs and Narrative: Vital Signs: Last Vital Signs Temp 97.2 F 05/12/23 18:58 Pulse 84 05/12/23 18:58 Resp 16 05/12/23 18:58 BP 105/62 05/12/23 18:58 Pulse Ox 98 05/12/23 18:58 O2 Del Method Room Air 05/12/23 18:58 BMI result Body Mass Index 18.0 Middle-aged thinly built female lying in bed in no distress Neck supple, no JVD Regular rate and rhythm, S1-S2 heard Regular breath sounds bilaterally, no wheezing or crackles appreciated Abdomen soft nontender, no guarding, no rigidity Patient is awake, alert and oriented to self, place, time and person ; no focal motor deficit Psych: Normal mood No pedal edema Results Labs 05/12/23 14:43 05/12/23 14:43 Labs: Laboratory Results - last 24 hr 05/12/23 05/12/23 14:43 14:45 MCV 94.3 MCH 31.8 MCHC 33.7 RDW 12.1 Plt Count 316 MPV 9.7 Immature Gran % (Auto) 0.3 Neut % (Auto) 74.3 H Lymph % (Auto) 18.1 L [place] % (Auto) 6.2 Eos % (Auto) 0.8 Baso % (Auto) 0.3 Lymph # (Auto) 1.9 [place] # (Auto) 0.6 Eos # (Auto) 0.1 Baso # (Auto) 0.0 Abs Immat Gran (auto) 0.03 Absolute Neuts (auto) 7.7 Absolute Nucleated RBC 0.000 Nucleated RBC % (auto) 0.0 PT 13.1 INR 1.1 Anion Gap 12 Estim Creat Clear Calc 72.6 Estimated GFR > 60 Random Glucose 78 Calcium 9.1 Magnesium 1.7 Total Bilirubin 0.3 AST 13 ALT 14 Alkaline Phosphatase 46 Total Protein 6.4 L Albumin 4.0 Lipase 24 TSH 0.94 Beta HCG, Quant < 2 Urine Color Yellow Urine Appearance Clear Urine pH 7.5 Ur Specific [place] 1.015 Urine Protein Negative Urine Glucose (UA) Negative Urine Ketones Trace Urine Blood Negative Urine Nitrite Negative Ur Leukocyte Esterase Negative Ethyl Alcohol < 10 Assessment and Plan (1) Anorexia nervosa: Status: Acute (2) Caloric malnutrition: Status: Acute Plan This is a 33-year-old female with pertinent history of anorexia nervosa, PTSD, major depressive disorder who presents to the emergency department for evaluation of weakness and poor appetite. #. Anorexia nervosa / protein calorie malnutrition: NG tube being placed in the ER. Will consult nutrition for recommendation regarding tube feedings. Monitor electrolytes for refeeding syndrome. Consulted Psychiatry, appreciate assistance. Obtaining TSH #. PTSD / major depressive disorder: No suicidal or homicidal ideations. Continue home mood stabilizers. Management per Psychiatry Med rec pending DVT prophylaxis: Lovenox Full code Admit as inpatient and will require two night minimum hospital stay for tube feeding, monitoring of electrolytes in a patient with weight loss due to anorexia nervosa (as above), which is not possible in a lesser acute setting. Quality Stroke Does the patient have a stroke diagnosis?: No VTE Prior VTE?: No VTE Risk Level:: Medical - moderate - high VTE Device Contraindication: Treatment Not Indicated VTE Drug Contraindication: N/A - Med Ordered
[2023-05-12] MEDS: Lactated Ringers 1,000 ML 125 ML IV (21:21)
--- NOTE | 2023-05-12 22:01 | PC.NURSE ---
PT is refusing placement of NG tube due to size. 14 is the smallest in ED. air conditioning installer supervisor made aware. Dr. Gtz aware. Looking for alternatives at this time. LR running @ 125mls/hr. VSS. Resting quietly.
--- NOTE | 2023-05-12 22:12 | PHA.MEDREC ---
Pharmacy Consult ? Medication Reconciliation Pharmacy has completed the medication reconciliation.Confirmed medication with patient and with list brought from [facility]) Patient reports she is no longer taking [place].
[2023-05-12] MEDS: LORazepam 2 MG/ML VIAL IVPUSH (22:38)
[2023-05-12] MEDS: Lidocaine HCl 2 % Urojet 10 ML JEL.PF.APP TOPICAL (22:38)
[2023-05-12 22:39] VITALS: BP 101/61; PULSE 70; RESP 17; O2SAT 95
--- NOTE | 2023-05-12 23:03 | PC.NURSE ---
PT refused Lovenox, I don't need that . Dr. Scott made aware.
--- NOTE | 2023-05-12 23:44 | PC.NURSE ---
PT unable to tolerate NG tube placement by Dr. Almazan and tearful throughout process. Verbal reassurance given throughout process.
[2023-05-13 02:34] VITALS: BP 104/56; PULSE 52; RESP 13; O2SAT 97
[2023-05-13 05:04] LABS: Basophils Percent Auto 0.4 % (0-2); Eosinophils Absolute Auto 0.2 X10*3/uL (0.0-0.4); Eosinophils Percent Auto 3.1 % (0-4); Hematocrit 36.5 % (37.0-47.0); Hemoglobin 12.2 g/dl (12.0-16.0); Imm Gran Abs Auto 0.02 X10*3/uL (0.00-0.03); Imm Gran Pct Auto 0.3 % (0.0-0.4); Lymphocytes Absolute Auto 2.6 X10*3/uL (1.2-4.9); Lymphocytes Percent Auto 35.6 % (20-40); MANUAL DIFF FLAG NO; Mean Corpuscular HGB Conc 33.4 g/dl (31.0-35.0); Mean Corpuscular Hemoglobin 32.2 pg (27.0-33.0); Mean Corpuscular Volume 96.3 fL (80.0-98.0); Mean Platelet Volume 9.6 fL (9.4-12.3); Monocytes Absolute Auto 0.5 X10*3/uL (0.1-1.2); Monocytes Percent Auto 6.8 % (2-11); Neutrophils Percent Auto 53.8 % (45-73); Platelet Count 233 X10*3/uL (160-400); Red Blood Count 3.79 X10*6/uL (4.20-5.50); Red Cell Distribution Width 12.2 % (11.0-16.0); White Blood Count 7.4 X10*3/uL (4.8-10.8)
[2023-05-13 05:27] LABS: Anion Gap 12 (12-20); Blood Urea Nitrogen 7 mg/dL (9-16); Calcium 9.1 mg/dL (8.4-10.2); Carbon Dioxide 26 mmol/L (22-29); Chloride 108 mmol/L (96-108); Creatinine Clr Calc Pharmacy 75.5; Estimated Glomerular Filt Rate > 60; Glucose Random 99 mg/dL (60-115); Magnesium 1.9 mg/dL (1.6-2.6); Phosphorus 4.1 mg/dL (2.7-4.5); Potassium 4.2 mmol/L (3.3-5.1); Sodium 142 mmol/L (135-145)
[2023-05-13 05:41] LABS: Thyroid Stimulating Hormone 0.97 uIU/mL (0.32-4.0)
[2023-05-13 06:14] VITALS: BP 106/57; PULSE 61; RESP 12; TEMP 36.6; O2SAT 96
--- NOTE | 2023-05-13 09:48 | MHC.CLN ---
Addendum entered by Camryn Haines, CAREN 05/13/23 14:04: SEE FULL CLINICAL NUTRITION ASSESSMENT FOR FURTHER DETAILS Original Note: RE: CONSULT PT REFUSED NGT PLACEMENT AND ALSO UNABLE TO TOLERATE PLACEMENT ON SECOND ATTEMPT IF NGT PLACED AND TF NEEDED; RECOMMEND JEVITY 1.0 AT MAX GOAL RATE 55ML/HR WITH 120ML FREE WATER FLUSHES Q 8 HRS TO PROVIDE 1399KCALS (31KCALS/KG), 58G PROTEIN (1.3G/KG), 1462ML TOTAL WATER FROM FORMULA AND FLUSHES (32ML/KG) MONITOR TOLERANCE, RESIDUALS AND LYTES STRICT INTAKE RECORDS
[2023-05-13] MEDS: clonazePAM 1 MG TABLET PO ×3 (11:33→20:42)
[2023-05-13] MEDS: busPIRone HCl 10 MG TABLET 20 MG PO ×3 (11:33→20:43)
[2023-05-13] MEDS: 0.9 % Sodium Chloride Flush 3 ML SYRINGE IVFLUSH ×3 (11:34→20:43)
--- NOTE | 2023-05-13 11:35 | P.PNIM_ITS ---
Subjective Subjective Date of Service: 05/13/23 Interval History: seen and examined this morning follow up for anorexia patient reports weakness, has had trouble eating for several weeks has been losing weight. no nausea or vomiting 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 of Systems: Yes all other systems are reviewed and are negative Constitutional Constitutional: Denies chills and Denies fever(s) Cardiovascular Cardiovascular: Denies chest pain, Denies palpitations and Denies dyspnea Respiratory Respiratory: Denies cough and Denies dyspnea Gastrointestinal Gastrointestinal: Denies abdominal pain, Denies nausea and Denies vomiting Endocrine Endocrine: Denies palpitations Physical Exam 2 Vital Signs: Vital Signs: Last Vital Signs Temp 97.8 F 05/13/23 06:14 Pulse 61 05/13/23 06:14 Resp 12 05/13/23 06:14 BP 106/57 L 05/13/23 06:14 Pulse Ox 96 05/13/23 06:14 O2 Del Method Room Air 05/13/23 06:14 BMI result Body Mass Index 18.0 Const: General: cooperative, comfortable, no acute distress, alert and awake Nutritional Appearance: thin Orientation/consciousness: patient oriented x3 Resp: Effort & Inspection: normal respiratory effort, able to speak in complete sentences, no respiratory distress and no use of accessory muscles Cardio: Rate: regular rate GI: Inspection: No distended Palpation (GI): Soft to palpation and nontender Neuro: General: patient oriented x3, moves all extremities and CN's II-XI intact bilaterally Extrem: General: Yes no pedal edema Objective Data Active Medications Acetaminophen (Acetaminophen 325 Mg Tablet) 650 mg PO Q6H PRN PRN Reason: Pain, Mild (Pain Scale 1-3) Albuterol Sulfate (Albuterol Sulfate 90 Mcg 8 Gm Inhaler) 2 puff INHALE Q4H PRN PRN Reason: Shortness Of Breath Or Wheezing Buspirone HCl (Buspirone Hcl 10 Mg Tablet) 20 mg PO TID MARY BETH Clonazepam (Clonazepam 1 Mg Tablet) 1 mg PO DAILY PRN PRN Reason: Anxiety Clonazepam (Clonazepam 1 Mg Tablet) 1 mg PO BID [facility] Docusate Sodium (Docusate Sodium 100 Mg Capsule) 100 mg PO BID [facility] Enoxaparin Sodium (Enoxaparin Sodium 40 Mg/0.4 Ml Syringe) 40 mg SUBCUT Q24H [facility] Last Admin: 05/12/23 22:44 Dose: Not Given Documented By: NIGEL Non-Admin Reason: Patient Refused Fluticasone/Vilanterol (Fluticasone/Vilanterol 200/25 Blst.W.Dev) 1 puff INHALE RDAILY [facility] Folic Acid (Folic Acid 1 Mg Tablet) 1 mg PO DAILY [facility] Lurasidone HCl (Lurasidone Hcl 80 Mg Tablet) 160 mg PO DAILY@1700 [facility] Melatonin (Melatonin 3 Mg Tablet) 6 mg PO BEDTIME PRN PRN Reason: Insomnia Omeprazole (Omeprazole 20 Mg Capsule.Dr) 20 mg PO DAILY@0630 [facility] Ondansetron HCl (Ondansetron Hcl 4 Mg/2 Ml Vial) 4 mg IVPUSH Q8H PRN PRN Reason: Nausea and Vomiting Sodium Chloride (0.9 % Sodium Chloride Flush 3 Ml Syringe) 3 ml IVFLUSH QSHIFT [facility] Last Admin: 05/12/23 23:43 Dose: Not Given Documented By: NIGEL Non-Admin Reason: IV Running Thiamine HCl (Thiamine Hcl 100 Mg Tablet) 100 mg PO DAILY [facility] Vilazodone HCl (Vilazodone Hcl 10 Mg Tablet) 10 mg PO DAILY@1800 [facility] Labs 05/13/23 04:59 05/13/23 04:59 Labs: Laboratory Results - last 24 hr 05/12/23 05/12/23 05/13/23 14:43 14:45 04:59 MCV 94.3 96.3 MCH 31.8 32.2 MCHC 33.7 33.4 RDW 12.1 12.2 Plt Count 316 233 D MPV 9.7 9.6 Immature Gran % (Auto) 0.3 0.3 Neut % (Auto) 74.3 H 53.8 Lymph % (Auto) 18.1 L 35.6 [place] % (Auto) 6.2 6.8 Eos % (Auto) 0.8 3.1 Baso % (Auto) 0.3 0.4 Lymph # (Auto) 1.9 2.6 [place] # (Auto) 0.6 0.5 Eos # (Auto) 0.1 0.2 Baso # (Auto) 0.0 0.0 Abs Immat Gran (auto) 0.03 0.02 Absolute Neuts (auto) 7.7 4.0 Absolute Nucleated RBC 0.000 0.000 Nucleated RBC % (auto) 0.0 0.0 PT 13.1 INR 1.1 Anion Gap 12 12 Estim Creat Clear Calc 72.6 75.5 Estimated GFR > 60 > 60 Random Glucose 78 99 Calcium 9.1 9.1 Phosphorus 4.1 Magnesium 1.7 1.9 Total Bilirubin 0.3 AST 13 ALT 14 Alkaline Phosphatase 46 Total Protein 6.4 L Albumin 4.0 Lipase 24 TSH 0.94 0.97 Beta HCG, Quant < 2 Urine Color Yellow Urine Appearance Clear Urine pH 7.5 Ur Specific [place] 1.015 Urine Protein Negative Urine Glucose (UA) Negative Urine Ketones Trace Urine Blood Negative Urine Nitrite Negative Ur Leukocyte Esterase Negative Ethyl Alcohol < 10 Assessment and Plan (1) Anorexia nervosa: Status: Acute Plan This is a 33-year-old female with pertinent history of anorexia nervosa, PTSD, major depressive disorder who presents to the emergency department for evaluation of weakness and poor appetite. Anorexia nervosa / protein calorie malnutrition: plan for NG tube being placed in the ER but unable to be placed; have requsted IR to place under fluoroscopy guidance nutrition consulted for recommendations regarding tube feedings Monitor electrolytes for refeeding syndrome - if K, phos, mag all low at the same time rec to reduce feeding by 10 kcals/kg Psychiatry consult pending PTSD / major depressive disorder: No suicidal or homicidal ideations Continue home mood stabilizers psych consult pending mild persistent asthma no acute exacerbation DVT prophylaxis: Lovenox Full code Requires ongoing hospital stay for tube feeding, monitoring of electrolytes in a patient with weight loss due to anorexia nervosa (as above), which is not possible in a lesser acute setting. Quality Stroke Does the patient have a stroke diagnosis?: No VTE Prior VTE?: No VTE Risk Level:: Medical - moderate - high VTE Device Contraindication: Treatment Not Indicated VTE Drug Contraindication: N/A - Med Ordered
--- NOTE | 2023-05-13 12:02 | PC.NURSE ---
pt slept most of the morning, awoke and only wantd coffee with 2 cream and 2 sugars, offered to make toast or try to get something else for her and she declined, it's past that point I can't eat , c/o anxiety and medicated as ordered, skin wpd, nad
--- NOTE | 2023-05-13 13:26 | PM.EVENT ---
Event Note Date of Service: 05/13/23 Event Note: Procedure Note: FL feeding tube placement Indications: refeeding syndrome, failed bedside attempts 10 fr DHT placed via left nare into the stomach. Position confirmed with fluoroscopy. Would ideally place tube post pyloric, however, patient requested tube not be advanced any further. Tube at 75 cm at left nare. Ok for use. Lencho ALCAZAR Interventional Radiology Time Spent With Patient Time: Total time managing care of this patient today ____ minutes.
[2023-05-13 13:31] VITALS: BP 114/65; PULSE 61; RESP 16; TEMP 36.5; O2SAT 100
[2023-05-13 13:56] VITALS: BMI 18.0
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
[2023-05-13 14:40] VITALS: BMI 19.1
[2023-05-13 14:58] VITALS: BP 104/68; PULSE 65; RESP 18; TEMP 36.4; O2SAT 98
[2023-05-13 20:00] VITALS: BP 103/68; PULSE 62; RESP 18; TEMP 36.7; O2SAT 97
[2023-05-13] MEDS: Enoxaparin Sodium 40 MG/0.4 ML SYRINGE SUBCUT (20:42)
[2023-05-13] MEDS: Lurasidone HCl 80 MG TABLET 160 MG PO (20:42)
[2023-05-13] MEDS: Docusate Sodium 100 MG CAPSULE PO (20:43)
[2023-05-13] MEDS: Vilazodone HCL 10 MG TABLET PO (20:43)
[2023-05-14 03:49] VITALS: BP 107/54; PULSE 52; RESP 16; TEMP 36.4; O2SAT 97
[2023-05-14 05:39] LABS: Anion Gap 11 (12-20); Blood Urea Nitrogen 8 mg/dL (9-16); Calcium 8.8 mg/dL (8.4-10.2); Carbon Dioxide 25 mmol/L (22-29); Chloride 108 mmol/L (96-108); Creatinine Clr Calc Pharmacy 85.7; Estimated Glomerular Filt Rate > 60; Glucose Random 92 mg/dL (60-115); Phosphorus 4.2 mg/dL (2.7-4.5); Potassium 3.8 mmol/L (3.3-5.1); Sodium 140 mmol/L (135-145)
[2023-05-14] MEDS: Omeprazole 20 MG CAPSULE.DR PO (06:02)
[2023-05-14 07:36] VITALS: BP 104/54; PULSE 55; RESP 18; TEMP 36.1; O2SAT 96
[2023-05-14] MEDS: Fluticasone/Vilanterol 200/25 BLST.W.DEV 1 PUFF INHALE (07:48)
[2023-05-14 07:49] VITALS: PULSE 61; RESP 18; O2SAT 99
[2023-05-14] MEDS: 0.9 % Sodium Chloride Flush 3 ML SYRINGE IVFLUSH ×3 (08:13→20:53)
[2023-05-14] MEDS: busPIRone HCl 10 MG TABLET 20 MG PO ×3 (08:14→20:52)
[2023-05-14] MEDS: Thiamine HCL 100 MG TABLET PO (08:14)
[2023-05-14] MEDS: clonazePAM 1 MG TABLET PO ×3 (08:14→20:52)
[2023-05-14] MEDS: Folic Acid 1 MG TABLET PO (08:14)
[2023-05-14] MEDS: Docusate Sodium 100 MG CAPSULE PO ×2 (08:15→20:52)
--- NOTE | 2023-05-14 09:54 | MHC.CM.PN ---
pt lives in a [facility] respite house where he has been the last yr [address] [facility] [address] [place]hena she will her own ride when dcd
--- NOTE | 2023-05-14 10:25 | HO.PM.IMPN ---
Subjective Subjective Date of Service: 05/14/23 Interval History: seen and examined this morning follow up for anorexia patient reports weakness, has had trouble eating for several weeks has been losing weight. no nausea or vomiting 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 of Systems: Yes all other systems are reviewed and are negative Constitutional Constitutional: Denies chills and Denies fever(s) Cardiovascular Cardiovascular: Denies chest pain, Denies palpitations and Denies dyspnea Respiratory Respiratory: Denies cough and Denies dyspnea Gastrointestinal Gastrointestinal: Denies abdominal pain, Denies nausea and Denies vomiting Endocrine Endocrine: Denies palpitations Physical Exam Vital Signs: Vital Signs: Last Vital Signs Temp 97.0 F 05/14/23 07:36 Pulse 61 05/14/23 07:49 Resp 18 05/14/23 07:49 BP 104/54 L 05/14/23 07:36 Pulse Ox 96 05/14/23 07:36 O2 Del Method Room Air 05/14/23 07:36 BMI result Body Mass Index 19.1 Appearing in no acute distress lung sounds are clear to auscultation heart regular rate rhythm, clear S1, S2 positive bowel sounds, abdomen is soft, nontender neuro patient is alert x3, no focal deficits NGT feed Objective Data Active Medications Acetaminophen (Acetaminophen 325 Mg Tablet) 650 mg PO Q6H PRN PRN Reason: Pain, Mild (Pain Scale 1-3) Albuterol Sulfate (Albuterol Sulfate 90 Mcg 8 Gm Inhaler) 2 puff INHALE Q4H PRN PRN Reason: Shortness Of Breath Or Wheezing Buspirone HCl (Buspirone Hcl 10 Mg Tablet) 20 mg PO TID [facility] Last Admin: 05/14/23 08:14 Dose: 20 mg Documented By: ANGÉLICA Clonazepam (Clonazepam 1 Mg Tablet) 1 mg PO BID [facility] Last Admin: 05/14/23 08:14 Dose: 1 mg Documented By: ANGÉLICA Clonazepam (Clonazepam 1 Mg Tablet) 1 mg PO DAILY PRN PRN Reason: Anxiety Last Admin: 05/13/23 16:18 Dose: 1 mg Documented By: NURIS Docusate Sodium (Docusate Sodium 100 Mg Capsule) 100 mg PO BID [facility] Last Admin: 05/14/23 08:15 Dose: 100 mg Documented By: ANGÉLICA Enoxaparin Sodium (Enoxaparin Sodium 40 Mg/0.4 Ml Syringe) 40 mg SUBCUT Q24H [facility] Last Admin: 05/13/23 20:42 Dose: 40 mg Documented By: ISABEL Fluticasone/Vilanterol (Fluticasone/Vilanterol 200/25 Blst.W.Dev) 1 puff INHALE RDAILY [facility] Last Admin: 05/14/23 07:48 Dose: 1 puff Documented By: CORI Folic Acid (Folic Acid 1 Mg Tablet) 1 mg PO DAILY [facility] Last Admin: 05/14/23 08:14 Dose: 1 mg Documented By: ANGÉLICA Lurasidone HCl (Lurasidone Hcl 80 Mg Tablet) 160 mg PO BEDTIME [facility] Last Admin: 05/13/23 20:42 Dose: 160 mg Documented By: ISABEL Melatonin (Melatonin 3 Mg Tablet) 6 mg PO BEDTIME PRN PRN Reason: Insomnia Omeprazole (Omeprazole 20 Mg Capsule.Dr) 20 mg PO DAILY@0630 [facility] Last Admin: 05/14/23 06:02 Dose: 20 mg Documented By: ISABEL Ondansetron HCl (Ondansetron Hcl 4 Mg/2 Ml Vial) 4 mg IVPUSH Q8H PRN PRN Reason: Nausea and Vomiting Sodium Chloride (0.9 % Sodium Chloride Flush 3 Ml Syringe) 3 ml IVFLUSH QSHIFT [facility] Last Admin: 05/14/23 08:13 Dose: 3 ml Documented By: ANGÉLICA Thiamine HCl (Thiamine Hcl 100 Mg Tablet) 100 mg PO DAILY [facility] Last Admin: 05/14/23 08:14 Dose: 100 mg Documented By: ANGÉLICA Vilazodone HCl (Vilazodone Hcl 10 Mg Tablet) 10 mg PO BEDTIME [facility] Last Admin: 05/13/23 20:43 Dose: 10 mg Documented By: ISABEL Labs 05/13/23 04:59 05/14/23 05:09 Labs: Laboratory Results - last 24 hr 05/14/23 05:09 Hold Purple Top SEE NOTE Anion Gap 11 L Estim Creat Clear Calc 85.7 Estimated GFR > 60 Random Glucose 92 Calcium 8.8 Phosphorus 4.2 Magnesium 2.0 Assessment and Plan (1) Anorexia nervosa: Status: Acute Plan This is a 33-year-old female with pertinent history of anorexia nervosa, PTSD, major depressive disorder who presents to the emergency department for evaluation of weakness and poor appetite. Anorexia nervosa / protein calorie malnutrition NG tube feedings nutrition/dietition following Monitor electrolytes for re feeding syndrome Psychiatry following> tx to [facility], eating disorder unit, as soon as bed available PTSD / major depressive disorder No suicidal or homicidal ideations Continue home mood stabilizers psych consult pending mild persistent asthma no acute exacerbation DVT prophylaxis: Nathan Attending Dr. Regalado Full code Requires ongoing hospital stay for tube feeding, monitoring of electrolytes in a patient with weight loss due to anorexia nervosa (as above), which is not possible in a lesser acute setting. Quality Stroke Does the patient have a stroke diagnosis?: No VTE Prior VTE?: No VTE Risk Level:: Medical - moderate - high VTE Device Contraindication: Treatment Not Indicated VTE Drug Contraindication: N/A - Med Ordered
[2023-05-14] MEDS: Throat Lozenge, Medicated LOZENGE 1 LOZENGE MUCOUS MEM ×2 (13:50→20:53)
[2023-05-14 15:27] VITALS: BP 102/55; PULSE 60; RESP 18; TEMP 36.4; O2SAT 95
[2023-05-14 20:00] VITALS: BP 102/57; PULSE 56; RESP 16; TEMP 35.9; O2SAT 98
[2023-05-14] MEDS: Lurasidone HCl 80 MG TABLET 160 MG PO (20:52)
[2023-05-14] MEDS: Vilazodone HCL 10 MG TABLET PO (20:53)
[2023-05-15 04:00] VITALS: BP 102/61; PULSE 61; RESP 18; TEMP 36.3; O2SAT 98
[2023-05-15] MEDS: Omeprazole 20 MG CAPSULE.DR PO (06:10)
[2023-05-15 06:48] LABS: Anion Gap 10 (12-20); Blood Urea Nitrogen 11 mg/dL (9-16); Calcium 8.9 mg/dL (8.4-10.2); Carbon Dioxide 27 mmol/L (22-29); Chloride 106 mmol/L (96-108); Creatinine Clr Calc Pharmacy 81.1; Estimated Glomerular Filt Rate > 60; Glucose Random 85 mg/dL (60-115); Magnesium 2.1 mg/dL (1.6-2.6); Phosphorus 4.1 mg/dL (2.7-4.5); Potassium 3.9 mmol/L (3.3-5.1); Sodium 139 mmol/L (135-145)
[2023-05-15 08:00] VITALS: BP 96/51; PULSE 69; RESP 17; TEMP 36.3; O2SAT 97
[2023-05-15] MEDS: Fluticasone/Vilanterol 200/25 BLST.W.DEV 1 PUFF INHALE (08:10)
[2023-05-15 08:12] VITALS: PULSE 68; RESP 18; O2SAT 98
--- NOTE | 2023-05-15 08:46 | P.PNIM_ITS ---
Subjective Subjective Date of Service: 05/15/23 Interval History: seen and examined this morning follow up for anorexia patient reports weakness, has had trouble eating for several weeks has been losing weight. no nausea or vomiting taking po as well as tube feed 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 of Systems: Yes all other systems are reviewed and are negative Constitutional Constitutional: Denies chills and Denies fever(s) Cardiovascular Cardiovascular: Denies chest pain, Denies palpitations and Denies dyspnea Respiratory Respiratory: Denies cough and Denies dyspnea Gastrointestinal Gastrointestinal: Denies abdominal pain, Denies nausea and Denies vomiting Endocrine Endocrine: Denies palpitations Physical Exam 2 Vital Signs: Vital Signs: Last Vital Signs Temp 97.3 F 05/15/23 08:00 Pulse 68 05/15/23 08:12 Resp 18 05/15/23 08:12 BP 96/51 L 05/15/23 08:00 Pulse Ox 97 05/15/23 08:00 O2 Del Method Room Air 05/15/23 08:00 BMI result Body Mass Index 19.1 Appearing in no acute distress lung sounds are clear to auscultation heart regular rate rhythm, clear S1, S2 positive bowel sounds, abdomen is soft, nontender neuro patient is alert x3, no focal deficits Objective Data Active Medications Acetaminophen (Acetaminophen 325 Mg Tablet) 650 mg PO Q6H PRN PRN Reason: Pain, Mild (Pain Scale 1-3) Albuterol Sulfate (Albuterol Sulfate 90 Mcg 8 Gm Inhaler) 2 puff INHALE Q4H PRN PRN Reason: Shortness Of Breath Or Wheezing Benzocaine (Throat Lozenge, Medicated Lozenge) 1 lozenge MUCOUS MEM Q2H PRN PRN Reason: Sore Throat Last Admin: 05/14/23 20:53 Dose: 1 lozenge Documented By: ISABEL Buspirone HCl (Buspirone Hcl 10 Mg Tablet) 20 mg PO TID [facility] Last Admin: 05/14/23 20:52 Dose: 20 mg Documented By: ISABEL Clonazepam (Clonazepam 1 Mg Tablet) 1 mg PO BID [facility] Last Admin: 05/14/23 20:52 Dose: 1 mg Documented By: ISABEL Clonazepam (Clonazepam 1 Mg Tablet) 1 mg PO DAILY PRN PRN Reason: Anxiety Last Admin: 05/14/23 14:48 Dose: 1 mg Documented By: ANGÉLICA Docusate Sodium (Docusate Sodium 100 Mg Capsule) 100 mg PO BID [facility] Last Admin: 05/14/23 20:52 Dose: 100 mg Documented By: ISABEL Enoxaparin Sodium (Enoxaparin Sodium 40 Mg/0.4 Ml Syringe) 40 mg SUBCUT Q24H [facility] Last Admin: 05/14/23 20:52 Dose: Not Given Documented By: ISABEL Non-Admin Reason: Patient Refused Fluticasone/Vilanterol (Fluticasone/Vilanterol 200/25 Blst.W.Dev) 1 puff INHALE RDAILY [facility] Last Admin: 05/15/23 08:10 Dose: 1 puff Documented By: MAGALIE Folic Acid (Folic Acid 1 Mg Tablet) 1 mg PO DAILY [facility] Last Admin: 05/14/23 08:14 Dose: 1 mg Documented By: ANGÉLICA Lurasidone HCl (Lurasidone Hcl 80 Mg Tablet) 160 mg PO BEDTIME [facility] Last Admin: 05/14/23 20:52 Dose: 160 mg Documented By: ISABEL Melatonin (Melatonin 3 Mg Tablet) 6 mg PO BEDTIME PRN PRN Reason: Insomnia Omeprazole (Omeprazole 20 Mg Capsule.Dr) 20 mg PO DAILY@0630 [facility] Last Admin: 05/15/23 06:10 Dose: 20 mg Documented By: ISABEL Ondansetron HCl (Ondansetron Hcl 4 Mg/2 Ml Vial) 4 mg IVPUSH Q8H PRN PRN Reason: Nausea and Vomiting Sodium Chloride (0.9 % Sodium Chloride Flush 3 Ml Syringe) 3 ml IVFLUSH QSHIFT [facility] Last Admin: 05/14/23 20:53 Dose: 3 ml Documented By: ISABEL Thiamine HCl (Thiamine Hcl 100 Mg Tablet) 100 mg PO DAILY [facility] Last Admin: 05/14/23 08:14 Dose: 100 mg Documented By: ANGÉLICA Vilazodone HCl (Vilazodone Hcl 10 Mg Tablet) 10 mg PO BEDTIME [facility] Last Admin: 05/14/23 20:53 Dose: 10 mg Documented By: ISABEL Labs 05/13/23 04:59 05/15/23 05:36 Labs: Laboratory Results - last 24 hr 05/15/23 05:36 Anion Gap 10 L Estim Creat Clear Calc 81.1 Estimated GFR > 60 Random Glucose 85 Calcium 8.9 Phosphorus 4.1 Magnesium 2.1 Assessment and Plan (1) Anorexia nervosa: Status: Acute Plan This is a 33-year-old female with pertinent history of anorexia nervosa, PTSD, major depressive disorder who presents to the emergency department for evaluation of weakness and poor appetite. Anorexia nervosa / protein calorie malnutrition NG tube feedings also taking po nutrition/dietition following Monitor electrolytes for re feeding syndrome Psychiatry following> tx to [place], eating disorder unit, as soon as bed available PTSD / major depressive disorder No suicidal or homicidal ideations Continue home mood stabilizers mild persistent asthma no acute exacerbation DVT prophylaxis: Lovenox Attending Dr. Regalado Full code Requires ongoing hospital stay for tube feeding, monitoring of electrolytes in a patient with weight loss due to anorexia nervosa (as above), which is not possible in a lesser acute setting. Quality Stroke Does the patient have a stroke diagnosis?: No VTE Prior VTE?: No VTE Risk Level:: Medical - moderate - high VTE Device Contraindication: Treatment Not Indicated VTE Drug Contraindication: N/A - Med Ordered
[2023-05-15] MEDS: clonazePAM 1 MG TABLET PO ×3 (08:57→21:02)
[2023-05-15] MEDS: Thiamine HCL 100 MG TABLET PO (08:57)
[2023-05-15] MEDS: Folic Acid 1 MG TABLET PO (08:57)
[2023-05-15] MEDS: busPIRone HCl 10 MG TABLET 20 MG PO ×3 (08:57→21:01)
[2023-05-15] MEDS: Docusate Sodium 100 MG CAPSULE PO ×2 (08:57→21:00)
[2023-05-15] MEDS: 0.9 % Sodium Chloride Flush 3 ML SYRINGE IVFLUSH ×3 (08:58→21:01)
[2023-05-15] MEDS: Throat Lozenge, Medicated LOZENGE 1 LOZENGE MUCOUS MEM ×2 (09:02→19:22)
[2023-05-15] MEDS: Nicotine Polacrilex 2 MG GUM BUCCAL ×3 (09:39→19:22)
[2023-05-15 10:06] LABS: Adenovirus F 40/41 Not Detected (Not Detect.); Astrovirus Not Detected (Not Detect.); Campylobacter Not Detected (Not Detect.); Cryptosporidium Not Detected (Not Detect.); Cyclospora cayetanensis Not Detected (Not Detect.); E. coli EAEC Not Detected (Not Detect.); E. coli EPEC Not Detected (Not Detect.); E. coli ETEC Not Detected (Not Detect.); E. coli STEC Not Detected (Not Detect.); Entamoeba histolytica Not Detected (Not Detect.); Giardia lamblia Not Detected (Not Detect.); Norovirus GI/GII Not Detected (Not Detect.); Plesiomonas shigelloides Not Detected (Not Detect.); Rotavirus A Not Detected (Not Detect.); Salmonella Not Detected (Not Detect.); Sapovirus Not Detected (Not Detect.); Shigella sp./EIEC Not Detected (Not Detect.); Vibrio Not Detected (Not Detect.); Vibrio Cholerae Not Detected (Not Detect.); Yersinia enterocolitica Not Detected (Not Detect.)
[2023-05-15 16:00] VITALS: BP 96/49; PULSE 63; RESP 18; TEMP 36.8; O2SAT 97
[2023-05-15 19:08] VITALS: BP 111/53; PULSE 59; RESP 18; TEMP 36.2; O2SAT 96
[2023-05-15] MEDS: Vilazodone HCL 10 MG TABLET PO (21:00)
[2023-05-15] MEDS: Lurasidone HCl 80 MG TABLET 160 MG PO (21:01)
[2023-05-16 03:49] VITALS: BP 98/57; PULSE 60; RESP 16; TEMP 36.4; O2SAT 97
[2023-05-16] MEDS: Omeprazole 20 MG CAPSULE.DR PO (06:11)
[2023-05-16 07:00] VITALS: BP 107/53; PULSE 68; RESP 16; TEMP 36.7; O2SAT 97
[2023-05-16 07:28] LABS: Anion Gap 10 (12-20); Blood Urea Nitrogen 11 mg/dL (9-16); Calcium 8.9 mg/dL (8.4-10.2); Carbon Dioxide 28 mmol/L (22-29); Chloride 106 mmol/L (96-108); Creatinine Clr Calc Pharmacy 79.1; Estimated Glomerular Filt Rate > 60; Glucose Random 98 mg/dL (60-115); Phosphorus 3.7 mg/dL (2.7-4.5); Sodium 140 mmol/L (135-145)
[2023-05-16] MEDS: Fluticasone/Vilanterol 200/25 BLST.W.DEV 1 PUFF INHALE (07:48)
[2023-05-16 07:49] VITALS: PULSE 86; RESP 16; O2SAT 98
[2023-05-16] MEDS: clonazePAM 1 MG TABLET PO ×3 (08:33→20:38)
[2023-05-16] MEDS: Folic Acid 1 MG TABLET PO (08:33)
[2023-05-16] MEDS: 0.9 % Sodium Chloride Flush 3 ML SYRINGE IVFLUSH ×3 (08:33→20:40)
[2023-05-16] MEDS: Docusate Sodium 100 MG CAPSULE PO ×2 (08:33→20:38)
[2023-05-16] MEDS: busPIRone HCl 10 MG TABLET 20 MG PO ×3 (08:33→20:38)
[2023-05-16] MEDS: Thiamine HCL 100 MG TABLET PO (08:33)
[2023-05-16] MEDS: Nicotine Polacrilex 2 MG GUM BUCCAL ×2 (08:50→16:04)
[2023-05-16] MEDS: Throat Lozenge, Medicated LOZENGE 1 LOZENGE MUCOUS MEM ×2 (08:51→16:04)
--- NOTE | 2023-05-16 10:16 | HO.PM.IMPN ---
Subjective Subjective Date of Service: 05/16/23 Interval History: seen and examined this morning follow up for anorexia taking po as well as tube feed 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 of Systems: Yes all other systems are reviewed and are negative Constitutional Constitutional: Denies chills and Denies fever(s) Cardiovascular Cardiovascular: Denies chest pain, Denies palpitations and Denies dyspnea Respiratory Respiratory: Denies cough and Denies dyspnea Gastrointestinal Gastrointestinal: Denies abdominal pain, Denies nausea and Denies vomiting Endocrine Endocrine: Denies palpitations Physical Exam Vital Signs: Vital Signs: Last Vital Signs Temp 98.0 F 05/16/23 07:00 Pulse 86 05/16/23 07:49 Resp 16 05/16/23 07:49 BP 107/53 L 05/16/23 07:00 Pulse Ox 97 05/16/23 07:00 O2 Del Method Room Air 05/16/23 07:00 BMI result Body Mass Index 19.1 Appearing in no acute distress lung sounds are clear to auscultation heart regular rate rhythm, clear S1, S2 positive bowel sounds, abdomen is soft, nontender neuro patient is alert x3, no focal deficits Tube feed Objective Data Active Medications Acetaminophen (Acetaminophen 325 Mg Tablet) 650 mg PO Q6H PRN PRN Reason: Pain, Mild (Pain Scale 1-3) Albuterol Sulfate (Albuterol Sulfate 90 Mcg 8 Gm Inhaler) 2 puff INHALE Q4H PRN PRN Reason: Shortness Of Breath Or Wheezing Benzocaine (Throat Lozenge, Medicated Lozenge) 1 lozenge MUCOUS MEM Q2H PRN PRN Reason: Sore Throat Last Admin: 05/16/23 08:51 Dose: 1 lozenge Documented By: PETERSON Buspirone HCl (Buspirone Hcl 10 Mg Tablet) 20 mg PO TID [facility] Last Admin: 05/16/23 08:33 Dose: 20 mg Documented By: PETERSON Clonazepam (Clonazepam 1 Mg Tablet) 1 mg PO BID [facility] Last Admin: 05/16/23 08:33 Dose: 1 mg Documented By: PETERSON Clonazepam (Clonazepam 1 Mg Tablet) 1 mg PO DAILY PRN PRN Reason: Anxiety Last Admin: 05/15/23 15:03 Dose: 1 mg Documented By: ANGÉLICA Docusate Sodium (Docusate Sodium 100 Mg Capsule) 100 mg PO BID [facility] Last Admin: 05/16/23 08:33 Dose: 100 mg Documented By: PETERSON Enoxaparin Sodium (Enoxaparin Sodium 40 Mg/0.4 Ml Syringe) 40 mg SUBCUT Q24H [facility] Last Admin: 05/15/23 21:01 Dose: Not Given Documented By: ISABEL Non-Admin Reason: Patient Refused Fluticasone/Vilanterol (Fluticasone/Vilanterol 200/25 Blst.W.Dev) 1 puff INHALE RDAILY [facility] Last Admin: 05/16/23 07:48 Dose: 1 puff Documented By: CHERIE Folic Acid (Folic Acid 1 Mg Tablet) 1 mg PO DAILY [facility] Last Admin: 05/16/23 08:33 Dose: 1 mg Documented By: PETERSON Lurasidone HCl (Lurasidone Hcl 80 Mg Tablet) 160 mg PO BEDTIME [facility] Last Admin: 05/15/23 21:01 Dose: 160 mg Documented By: ISABEL Melatonin (Melatonin 3 Mg Tablet) 6 mg PO BEDTIME PRN PRN Reason: Insomnia Nicotine Polacrilex (Nicotine Polacrilex 2 Mg Gum) 2 mg BUCCAL Q2H PRN PRN Reason: withdrawl Last Admin: 05/16/23 08:50 Dose: 2 mg Documented By: PETERSON Omeprazole (Omeprazole 20 Mg Capsule.Dr) 20 mg PO DAILY@0630 [facility] Last Admin: 05/16/23 06:11 Dose: 20 mg Documented By: ISABEL Ondansetron HCl (Ondansetron Hcl 4 Mg/2 Ml Vial) 4 mg IVPUSH Q8H PRN PRN Reason: Nausea and Vomiting Sodium Chloride (0.9 % Sodium Chloride Flush 3 Ml Syringe) 3 ml IVFLUSH QSHIFT [facility] Last Admin: 05/16/23 08:33 Dose: 3 ml Documented By: PETERSON Thiamine HCl (Thiamine Hcl 100 Mg Tablet) 100 mg PO DAILY [facility] Last Admin: 05/16/23 08:33 Dose: 100 mg Documented By: PETERSON Vilazodone HCl (Vilazodone Hcl 10 Mg Tablet) 10 mg PO BEDTIME [facility] Last Admin: 05/15/23 21:00 Dose: 10 mg Documented By: HO.CHOIP Labs 05/13/23 04:59 05/16/23 05:57 Labs: Laboratory Results - last 24 hr 05/15/23 05/16/23 07:23 05:57 Hold Purple Top SEE NOTE Anion Gap 10 L Estim Creat Clear Calc 79.1 Estimated GFR > 60 Random Glucose 98 Calcium 8.9 Phosphorus 3.7 Magnesium 2.0 Stl C. cayetanensis PCR Not Detected Stool Rotavirus A PCR Not Detected Stl Adenov F 40/41 PCR Not Detected Stool Astrovirus (PCR) Not Detected Stool Campylobacter PCR Not Detected Stool Cryptosporidium PCR Not Detected Stl Sh Tox Pr E STEC PCR Not Detected Stool E coli O157 PCR Not applicable Stl Enterotoxigenic E PCR Not Detected Stool EPEC (PCR) Not Detected Stool EAEC (PCR) Not Detected Stl E. histolytica PCR Not Detected Stool Giardia Lamblia PCR Not Detected Stl P. shigelloides PCR Not Detected Stool Salmonella PCR Not Detected Stool Sapovirus (PCR) Not Detected Stl Shigella/EIEC PCR Not Detected St Y.enterocolitica PCR Not Detected Stool Vibrio (PCR) Not Detected Stl Vibrio cholerae PCR Not Detected Stl Norovirus GI/GII PCR Not Detected Assessment and Plan (1) Anorexia nervosa: Status: Acute Plan This is a 33-year-old female with pertinent history of anorexia nervosa, PTSD, major depressive disorder who presents to the emergency department for evaluation of weakness and poor appetite. Anorexia nervosa / protein calorie malnutrition NG tube feedings also taking po nutrition/dietition following Monitor electrolytes for re feeding syndrome Psychiatry following> tx to [place], eating disorder unit, as soon as bed available PTSD / major depressive disorder No suicidal or homicidal ideations Continue home mood stabilizers mild persistent asthma no acute exacerbation DVT prophylaxis: Lovenox Attending Dr. Simpson Full code Requires ongoing hospital stay for tube feeding, monitoring of electrolytes in a patient with weight loss due to anorexia nervosa (as above), which is not possible in a lesser acute setting. Quality Stroke Does the patient have a stroke diagnosis?: No VTE Prior VTE?: No VTE Risk Level:: Medical - moderate - high VTE Device Contraindication: Treatment Not Indicated VTE Drug Contraindication: N/A - Med Ordered
--- NOTE | 2023-05-16 10:28 | MHC.CLN ---
F/U PT IS SEVERELY MALNOURISHED PT TRIGGERS FOR 20% SIGNIFICANT WT LOSS X 16 MONTHS WITH CHRONIC POOR PO INTAKE R/T ANOREXIA NERVOSA. PT WITH HX DX X16 YEARS WITH RECENT LIFE STRESSORS CAUSING SEVERE POOR PO INTAKE WITH WEAKNESS AND DIZZINESS. PT IS FAMILIAR FROM PREVIOUS ADMISSION NOTED 12/23/21-PT DID ACCEPT NGT AT PREVIOUS ADMISSION SEE FULL CLINICAL NUTRITION ASSESSMENT DATED 05/13/[address] WITH ENSURE BID PT CONSUMING APPROX. 25% PT ALSO RECEIVING TF JEVITY 1.0 AT MAX GOAL RATE 55ML/HR WITH 120ML Q 8 HRS PROVIDES 1399KCALS (31KCALS/KG), 58G PROTEIN (1.3G/KG), 1462ML TOTAL WATER FROM FORMULA AND FLUSHES REVIEWED LABS-NO S/S RE-FEEDING STRICT PO INTAKE RECORDS
--- NOTE | 2023-05-16 11:02 | MHC.CM.PN ---
Addendum entered by Coco Shen 05/16/23 15:35: PT WILL STAY TODAY, PLAN TO DC BACK [facility] TOMOR[facility] Original Note: PER PSYCH NOTE, THE RECOMMENDATION IS TO REFER PT TO [facility] CM CALLED [facility] SEVERAL TIMES [phone] AND [phone] AND LEFT TWO MESSAGES CM MET WITH PT WHO REPORTS SHE DID HER INTAKE WITH [facility] OVER A MONTH AGO AND HAS BEEN ON THE WAIT LIST CM INFORMED PT IF SHE IS ALREADY ON THE WAIT LIST, THERE IS LIKELY NOTHING WE CAN DO TO EXPEDITE THE PROCESS SHE REPORTS SHE THINKS SHE STILL HAS A BED AT [facility] BUT ASKS THAT CM CONFIRM CM CALLED [facility] [phone] AND SPOKE TO THE SUPERVISOR SHOW OPERATIONS HE REPORTS THE PT DOES HAVE A BED, HOWEVER THEY WILL NEED A NURSE TO NURSE REPORT BEFORE HER RETURN PHONE NUMBER AND NURSES NAME, IVANA, GIVEN TO PTS NURSE FOR REPORT. PT WILL DC BACK TO [facility] WHILE WAITING FOR A BED TO OPEN AT [facility]
[2023-05-16 15:16] VITALS: BP 95/54; PULSE 64; RESP 16; TEMP 36.9; O2SAT 98
[2023-05-16 19:36] VITALS: BP 92/53; PULSE 70; RESP 18; TEMP 36.1; O2SAT 98
[2023-05-16] MEDS: Vilazodone HCL 10 MG TABLET PO (20:38)
[2023-05-16] MEDS: Lurasidone HCl 80 MG TABLET 160 MG PO (20:38)
[2023-05-17 03:18] VITALS: BP 95/54; PULSE 60; RESP 18; TEMP 36.7; O2SAT 97
[2023-05-17] MEDS: Omeprazole 20 MG CAPSULE.DR PO (05:50)
[2023-05-17 06:00] LABS: Anion Gap 9 (12-20); Blood Urea Nitrogen 12 mg/dL (9-16); Calcium 8.9 mg/dL (8.4-10.2); Carbon Dioxide 26 mmol/L (22-29); Chloride 109 mmol/L (96-108); Estimated Glomerular Filt Rate > 60; Glucose Random 117 mg/dL (60-115); Magnesium 2.1 mg/dL (1.6-2.6); Phosphorus 3.7 mg/dL (2.7-4.5); Potassium 3.7 mmol/L (3.3-5.1); Sodium 140 mmol/L (135-145)
[2023-05-17 07:20] VITALS: BP 96/55; PULSE 60; RESP 16; TEMP 36.3; O2SAT 97
[2023-05-17] MEDS: Fluticasone/Vilanterol 200/25 BLST.W.DEV 1 PUFF INHALE (08:24)
[2023-05-17 08:25] VITALS: PULSE 71; RESP 15; O2SAT 98
[2023-05-17] MEDS: Folic Acid 1 MG TABLET PO (08:57)
[2023-05-17] MEDS: Nicotine Polacrilex 2 MG GUM BUCCAL (08:57)
[2023-05-17] MEDS: Docusate Sodium 100 MG CAPSULE PO (08:57)
[2023-05-17] MEDS: Thiamine HCL 100 MG TABLET PO (08:57)
[2023-05-17] MEDS: Throat Lozenge, Medicated LOZENGE 1 LOZENGE MUCOUS MEM (08:57)
[2023-05-17] MEDS: clonazePAM 1 MG TABLET PO (08:57)
[2023-05-17] MEDS: busPIRone HCl 10 MG TABLET 20 MG PO (08:57)
[2023-05-17] MEDS: 0.9 % Sodium Chloride Flush 3 ML SYRINGE IVFLUSH (08:58)
--- NOTE | 2023-05-17 10:36 | HO.PM.IMPN ---
Subjective Subjective Date of Service: 05/17/23 Interval History: seen and examined this morning follow up for anorexia taking po as well as tube feed 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 of Systems: Yes all other systems are reviewed and are negative Constitutional Constitutional: Denies chills and Denies fever(s) Cardiovascular Cardiovascular: Denies chest pain, Denies palpitations and Denies dyspnea Respiratory Respiratory: Denies cough and Denies dyspnea Gastrointestinal Gastrointestinal: Denies abdominal pain, Denies nausea and Denies vomiting Endocrine Endocrine: Denies palpitations Physical Exam Vital Signs: Vital Signs: Last Vital Signs Temp 97.4 F 05/17/23 07:20 Pulse 71 05/17/23 08:25 Resp 15 05/17/23 08:25 BP 96/55 L 05/17/23 07:20 Pulse Ox 97 05/17/23 07:20 O2 Del Method Room Air 05/17/23 07:20 BMI result Body Mass Index 19.1 Appearing in no acute distress lung sounds are clear to auscultation heart regular rate rhythm, clear S1, S2 positive bowel sounds, abdomen is soft, nontender. NGT feeding tube neuro patient is alert x3, no focal deficits Objective Data Active Medications Acetaminophen (Acetaminophen 325 Mg Tablet) 650 mg PO Q6H PRN PRN Reason: Pain, Mild (Pain Scale 1-3) Albuterol Sulfate (Albuterol Sulfate 90 Mcg 8 Gm Inhaler) 2 puff INHALE Q4H PRN PRN Reason: Shortness Of Breath Or Wheezing Benzocaine (Throat Lozenge, Medicated Lozenge) 1 lozenge MUCOUS MEM Q2H PRN PRN Reason: Sore Throat Last Admin: 05/17/23 08:57 Dose: 1 lozenge Documented By: PETERSON Buspirone HCl (Buspirone Hcl 10 Mg Tablet) 20 mg PO TID [facility] Last Admin: 05/17/23 08:57 Dose: 20 mg Documented By: PETERSON Clonazepam (Clonazepam 1 Mg Tablet) 1 mg PO BID [facility] Last Admin: 05/17/23 08:57 Dose: 1 mg Documented By: PETERSON Clonazepam (Clonazepam 1 Mg Tablet) 1 mg PO DAILY PRN PRN Reason: Anxiety Last Admin: 05/16/23 15:02 Dose: 1 mg Documented By: PETERSON Docusate Sodium (Docusate Sodium 100 Mg Capsule) 100 mg PO BID [facility] Last Admin: 05/17/23 08:57 Dose: 100 mg Documented By: PETERSON Enoxaparin Sodium (Enoxaparin Sodium 40 Mg/0.4 Ml Syringe) 40 mg SUBCUT Q24H [facility] Last Admin: 05/16/23 20:45 Dose: Not Given Documented By: MATEO Non-Admin Reason: Patient Refused Fluticasone/Vilanterol (Fluticasone/Vilanterol 200/25 Blst.W.Dev) 1 puff INHALE RDAILY [facility] Last Admin: 05/17/23 08:24 Dose: 1 puff Documented By: AURELIO Folic Acid (Folic Acid 1 Mg Tablet) 1 mg PO DAILY [facility] Last Admin: 05/17/23 08:57 Dose: 1 mg Documented By: PETERSON Lurasidone HCl (Lurasidone Hcl 80 Mg Tablet) 160 mg PO BEDTIME [facility] Last Admin: 05/16/23 20:38 Dose: 160 mg Documented By: MATEO Melatonin (Melatonin 3 Mg Tablet) 6 mg PO BEDTIME PRN PRN Reason: Insomnia Nicotine Polacrilex (Nicotine Polacrilex 2 Mg Gum) 2 mg BUCCAL Q2H PRN PRN Reason: withdrawl Last Admin: 05/17/23 08:57 Dose: 2 mg Documented By: PETERSON Omeprazole (Omeprazole 20 Mg Capsule.Dr) 20 mg PO DAILY@0630 [facility] Last Admin: 05/17/23 05:50 Dose: 20 mg Documented By: MATEO Ondansetron HCl (Ondansetron Hcl 4 Mg/2 Ml Vial) 4 mg IVPUSH Q8H PRN PRN Reason: Nausea and Vomiting Sodium Chloride (0.9 % Sodium Chloride Flush 3 Ml Syringe) 3 ml IVFLUSH QSHIFT [facility] Last Admin: 05/17/23 08:58 Dose: 3 ml Documented By: PETERSON Thiamine HCl (Thiamine Hcl 100 Mg Tablet) 100 mg PO DAILY [facility] Last Admin: 05/17/23 08:57 Dose: 100 mg Documented By: PETERSON Vilazodone HCl (Vilazodone Hcl 10 Mg Tablet) 10 mg PO BEDTIME [facility] Last Admin: 05/16/23 20:38 Dose: 10 mg Documented By: MATEO Labs 05/13/23 04:59 05/17/23 05:17 Labs: Laboratory Results - last 24 hr 05/17/23 05:17 Hold Purple Top SEE NOTE Anion Gap 9 L Estim Creat Clear Calc 78.0 Estimated GFR > 60 Random Glucose 117 H Calcium 8.9 Phosphorus 3.7 Magnesium 2.1 Assessment and Plan (1) Anorexia nervosa: Status: Acute Plan This is a 33-year-old female with pertinent history of anorexia nervosa, PTSD, major depressive disorder who presents to the emergency department for evaluation of weakness and poor appetite. Anorexia nervosa / protein calorie malnutrition NG tube feedings also taking po nutrition/dietition following Monitor electrolytes for re feeding syndrome Psychiatry following> tx to [place], eating disorder unit, as soon as bed available PTSD / major depressive disorder No suicidal or homicidal ideations Continue home mood stabilizers mild persistent asthma no acute exacerbation DVT prophylaxis: Nathan Attending Dr. Simpson Full code Requires ongoing hospital stay for tube feeding, monitoring of electrolytes in a patient with weight loss due to anorexia nervosa (as above), which is not possible in a lesser acute setting. Quality Stroke Does the patient have a stroke diagnosis?: No VTE Prior VTE?: No VTE Risk Level:: Medical - moderate - high VTE Device Contraindication: Treatment Not Indicated VTE Drug Contraindication: N/A - Med Ordered
--- NOTE | 2023-05-17 10:54 | MHC.CM.PN ---
pt dcd back to [facility] staff will picker feeder pt at 1:00
--- NOTE | 2023-05-17 12:10 | P.DS_ITS ---
DS: Providers Provider Date of Service: 05/17/23 Date of admission: 05/12/23 20:40 Primary care physician: Criselda Jeffrey NP Consults: 05/12/23 20:40 Consult to Psychiatry Routine Consulting Provider: Psych Covering Reason for consultation: anorexia nervosa DS: Diagnosis Discharge Diagnosis (1) Anorexia nervosa: Status: Acute DS: Summary Hospital Course Hospital Course: HP as per admitting provider. This is a 33-year-old female with pertinent history of anorexia nervosa, PTSD, major depressive disorder who presents to the emergency department for evaluation of weakness and poor appetite. Patient states she has been dealing with anorexia nervosa for the last 16 years. Patient states she has been struggling with multiple life stressors and over the last 2 months she has lost about 20 lb. She has been unable to maintain adequate p.o. intake. She was hospitalized at [facility] about 10 days ago and given NG tube feedings for a couple of days. Patient states since returning to [facility], she has been unable to maintain adequate p.o. intake. She feels weak and and has occasional dizziness. Of note, patient was admitted in December 2021 at [facility] for NG tube feedings. No fever, chills, chest discomfort, palpitations, shortness of breath, changes in urinary or bowel habits. Patient denies any suicidal or homicidal ideations. States her last alcohol intake was about 7 months ago. 33-year-old woman treated for anorexia nervosa with concern for refeeding. Patient was started on NG tube with Jevity at 55 mL an hour with 120 mL of water flushes. Patient was also taking mostly protein shakes orally. Patient never had any symptoms of refeeding, electrolytes remained within normal limits. She was seen evaluated by nutrition, with goal of 1300 calories a day with 45 g of protein. Patient is currently on a waiting list for an eating disorder clinic has been for about 1 month, currently awaiting bed to open up, will be [facility] in the meantime. PTSD. Continue home medications Asthma. No exacerbation during hospitalization Time Attestation Discharge Coordination Time: discharge time of ____ minutes Quality: Safe Use of Opioids Does Pt have an Active Cancer Diagnosis on the Problem List?: No Quality: Stroke Does the patient have a stroke diagnosis?: No Physical Exam Vital Signs: Vital Signs: Last Vital Signs Temp 97.4 F 05/17/23 07:20 Pulse 71 05/17/23 08:25 Resp 15 05/17/23 08:25 BP 96/55 L 05/17/23 07:20 Pulse Ox 97 05/17/23 07:20 O2 Del Method Room Air 05/17/23 07:20 BMI result Body Mass Index 19.1 Appearing in no acute distress head is normocephalic atraumatic eyes pupils are PERRLA sclera is anicteric mouth throat mucous membranes are intact and moist neck is supple no lymphadenopathy, no JVD noted lung sounds are clear to auscultation heart regular rate rhythm, clear S1, S2 positive bowel sounds, abdomen is soft, nontender neuro patient is alert x3, no focal deficits DS: Data Data Completed and Pending Completed studies during hospitalization [Text1]: Procedures Insertion of Feeding Device into Stomach, Via Natural or Artificial Opening (12/19/21) Introduction of Nutritional Substance into Upper GI, Via Natural or Artificial Opening (12/19/21) Labs on day of discharge: Laboratory Results - last 24 hr 05/17/23 05:17 Hold Purple Top SEE NOTE Sodium 140 Potassium 3.7 Chloride 109 H Carbon Dioxide 26 Anion Gap 9 L BUN 12 Creatinine 0.78 Estim Creat Clear Calc 78.0 Estimated GFR > 60 Random Glucose 117 H Calcium 8.9 Phosphorus 3.7 Magnesium 2.1 Discharge Plan Discharge Anticipated Discharge Date/Time: 05/17/23 12:04 Patient Disposition: Home, Self-Care Discharge Diagnosis: Anorexia nervosa Protein calorie malnutrition Referrals: Criselda Jeffrey [employer] [Primary Care Provider] - 1 Week Discharge Medications: New Ensure MAX Protein Liquid 1 ea PO BID Qty: 1320 0RF Continued disulfiram 250 mg tablet 1 tab PO QAM PRN (Reason: alcohol craving) acetaminophen 325 mg Tablet 650 mg PO Q6H PRN (Reason: Headache/Pain Mild Scale (1-3)) Qty: 10 0RF thiamine mononitrate (vit B1) 100 mg Tablet 100 mg PO DAILY Qty: 10 0RF cyanocobalamin (vitamin B-12) 1,000 mcg tablet 1,000 mcg PO QAM docusate sodium 100 mg capsule 100 mg PO BID omeprazole 20 mg capsule,delayed release(DR/EC) 20 mg PO DAILY folic acid 1 mg tablet 1 mg PO DAILY lurasidone 80 mg tablet 160 mg PO QPM Slow Release Iron 140 mg (45 mg iron) Tablet Extended Release 140 mg PO DAILY vilazodone 10 mg tablet 10 mg PO DAILY@1800 albuterol sulfate [Ventolin HFA] 90 mcg/actuation HFA aerosol inhaler 2 puff inhalation Q4H PRN (Reason: Shortness Of Breath Or Wheezing) clonazepam 1 mg Tablet 1 mg PO DAILY PRN (Reason: Anxiety) clonazepam 1 mg tablet 1 mg PO BID buspirone 10 mg tablet 20 mg PO TID fluticasone furoate-vilanterol [Breo Ellipta] 200-25 mcg/dose blister with device 1 ea inhalation DAILY Discharge Orders: Discharge Order (Routine); Ordered 05/17/23 Ordered By: Crystal Lynn Diet: Advance to usual diet Activity on Discharge: As tolerated Stand Alone Forms: Patient Portal Discharge page Care Plan Goals: Goal is for 1300 calories, 45grams of protein daily Health Concerns: Anorexia nervosa Protein calorie malnutrition Plan of Treatment: Follow up with primary care provider as needed Take all medications as prescribed Assessment: See discharge summary
== END 2023-05-17 12:54 | disposition home or self-care (01) | DRG 883 ==
LOC: HO.ED 20:29 → HO.EDOVER 21:06 → HO.S3 05-13 12:01
PROVIDERS: Physician Assistant Medical; Registered Nurse Emergency; Admitting Provider Student in an Organized Health Care Education/Training Program; Emergency Provider Emergency Medicine Emergency Medical Services; PCP Nurse Practitioner Adult Health; Visit Provider Nurse Practitioner Acute Care
DX: F50.00 Anorexia nervosa, unspecified (principal); E43 Unspecified severe protein-calorie malnutrition; Z68.1 Body mass index [BMI] 19.9 or less, adult; F33.1 Major depressive disorder, recurrent, moderate; F17.210 Nicotine dependence, cigarettes, uncomplicated; Z71.6 Tobacco abuse counseling; F43.10 Post-traumatic stress disorder, unspecified; J45.30 Mild persistent asthma, uncomplicated; Z79.51 Long term (current) use of inhaled steroids; Z79.899 Other long term (current) drug therapy
CPT/HCPCS: 36415; 76000; 80048; 80053; 80307; 81003; 83690; 83735; 84100; 84443; 84702; 85025; 85610; 87507; 93005; 94640; 99285; J1650; J2060; J7120

== ENCOUNTER → 2023-05-12 14:24 | Outpatient (BNV) | payer OTHER, SELFPAY | PROVIDERS: Admitting Provider Student in an Organized Health Care Education/Training Program; Emergency Provider Emergency Medicine Emergency Medical Services; PCP Nurse Practitioner Adult Health; Visit Provider Internal Medicine | DX: R63.4 Abnormal weight loss (principal) | CPT/HCPCS: 93010 ==

== ENCOUNTER 2023-05-12 20:40 | Outpatient (BNV) | payer OTHER, SELFPAY | END 2023-05-13 12:45 | PROVIDERS: Admitting Provider Student in an Organized Health Care Education/Training Program; Emergency Provider Emergency Medicine Emergency Medical Services; PCP Nurse Practitioner Adult Health; Visit Provider Physician Assistant Surgical | DX: E46 Unspecified protein-calorie malnutrition (principal) | CPT/HCPCS: 43752 ==

== ENCOUNTER → 2023-05-12 20:40 | Outpatient (BNV) | payer OTHER, SELFPAY | PROVIDERS: Admitting Provider Student in an Organized Health Care Education/Training Program; Emergency Provider Emergency Medicine Emergency Medical Services; PCP Nurse Practitioner Adult Health; Visit Provider Student in an Organized Health Care Education/Training Program | DX: F50.00 Anorexia nervosa, unspecified (principal) | CPT/HCPCS: 99222; 99232; 99238 ==

== ENCOUNTER → 2023-05-12 20:40 | Outpatient (BNV) | payer OTHER, SELFPAY | PROVIDERS: Admitting Provider Student in an Organized Health Care Education/Training Program; Emergency Provider Emergency Medicine Emergency Medical Services; PCP Nurse Practitioner Adult Health; Visit Provider Social Worker | DX: F50.00 Anorexia nervosa, unspecified (principal); F33.1 Major depressive disorder, recurrent, moderate | CPT/HCPCS: 99232 ==

== ENCOUNTER 2023-07-01 14:15 | Inpatient (IN) | payer OTHER, SELFPAY ==
--- NOTE | 2023-07-01 | ECG_ITS ---
Test Reason : CONCERN FOR REFEEDING SYNDROME Blood Pressure : / mmHG Vent. Rate : 053 BPM Atrial Rate : 053 BPM P-R Int : 106 ms QRS Dur : 092 ms QT Int : 504 ms P-R-T Axes : 063 066 056 degrees QTc Int : 472 ms Sinus bradycardia with short DE Otherwise normal ECG When compared with ECG of 12-MAY-2023 14:35, Vent. rate has decreased BY 37 BPM Referred By: Dania Gaytan Electronically Signed By:TANYA TOLEDO
--- NOTE | ~2023-07-01 | XR_ITS ---
EXAMINATION: XR CHEST CLINICAL INFORMATION: Feeding tube position. COMPARISON: None available. TECHNIQUE: Frontal view of the chest was obtained. FINDINGS: Feeding tube passing through the esophagus into the stomach the tip of which is outside the [id number]. Opacity projecting over the left lung laterally, has unusual configuration could be soft tissue overlap and/or in patient clothing. Costophrenic angles are sharp. Lung apices are excluded from film margins. Skeletal structures unremarkable. XR/XR chest 1V IMPRESSION: 1. Feeding tube passing through the esophagus into the stomach the tip of which is outside the [id number]. 2. Large Opacity projecting over the left lung laterally, has unusual configuration could be soft tissue overlap and/or in patient clothing rather than pulmonary disease. Please correlate with the clinical presentation. May consider correlation with follow-up chest PA and lateral..
[2023-07-01 14:20] VITALS: BP 128/64; PULSE 98; RESP 18; TEMP 36.6; O2SAT 98; BMI 17.3
--- NOTE | 2023-07-01 14:35 | ED.GENADULT ---
HPI - General Adult General Chief complaint: General Medical Stated complaint: Dehydrated Time Seen by Provider: 07/01/23 18:35 History of Present Illness HPI narrative: Opening duplicate please delete Related Data Home Medications ?Medication ?Instructions ?Recorded ?Confirmed disulfiram 250 mg tablet 1 tab PO QAM PRN alcohol craving 12/20/21 07/01/23 albuterol sulfate 90 mcg/actuation 2 puff inhalation Q4H PRN 05/12/23 07/01/23 aerosol inhaler (Ventolin HFA) Shortness Of Breath Or Wheezing buspirone 10 mg tablet 20 mg PO TID 05/12/23 07/01/23 clonazepam 1 mg tablet 1 mg PO BID 05/12/23 07/01/23 clonazepam 1 mg tablet 1 mg PO DAILY@1400 PRN Anxiety 05/12/23 07/01/23 cyanocobalamin (vitamin B-12) 1,000 mcg PO QAM 05/12/23 07/01/23 1,000 mcg tablet docusate sodium 100 mg capsule 100 mg PO BID 05/12/23 07/01/23 ferrous sulfate 140 mg (45 mg 140 mg PO DAILY 05/12/23 07/01/23 iron) tablet,extended release (Slow Release Iron) fluticasone furoate 200 1 ea inhalation DAILY 05/12/23 07/01/23 mcg-vilanterol 25 mcg/dose inhalation powder (Breo Ellipta) folic acid 1 mg tablet 1 mg PO DAILY 05/12/23 07/01/23 lurasidone 80 mg tablet 160 mg PO DAILY@1800 05/12/23 07/01/23 omeprazole 20 mg capsule,delayed 20 mg PO DAILY 05/12/23 07/01/23 release vilazodone 20 mg tablet 20 mg PO DAILY@1800 07/01/23 07/01/23 Previous Rx's ?Medication ?Instructions ?Recorded acetaminophen 325 mg tablet 650 mg (2 x 325 mg) PO Q6H PRN 12/23/21 Headache/Pain Mild Scale (1-3) #10 tabs thiamine mononitrate (vit B1) 100 100 mg PO DAILY #10 tabs 12/23/21 mg tablet Allergies Allergy/AdvReac Type Severity Reaction Status Date / Time escitalopram [From Lexapro] AdvReac Unknown Unknown Verified 07/01/23 14:22 egg AdvReac Diarrhea Verified 07/01/23 14:22 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 of Systems: Yes all other systems are reviewed and are negative [facility] Past Medical History Medical History MDD (major depressive disorder), recurrent episode, moderate Post traumatic stress disorder (PTSD) Anorexia nervosa Prolonged QT interval Surgical History No pertinent past surgical history Family History Family History Other No family history of coronary artery disease Social History Social History Household Members: Other Household Members Other:: [facility]pite community. Housing: House Do you presently have visiting nurse or other home services: No (24hour Nurse on site per pt.) Alcohol intake: never Patient Tobacco Use Status: Current everyday Tobacco user Tobacco use type: Cigarette Cigarettes Per Day: 8 Smoked in Last 30 Days: Yes Second Hand Smoke Exposure: No Use of substances other than those prescribed or required for medical reasons: Yes Substance Use Type: Marijuana Advance Directives: No Advance Directives Information Provided: Yes service: No Current occupational status: unemployed Sexual orientation: Straight/Heterosexual Physical Exam ED Vital Signs: Vital Signs - 24 hr 07/01/23 14:20 07/01/23 18:21 07/01/23 18:48 Temperature 98 F 97.8 F Pulse Rate 98 96 84 Respiratory Rate 18 18 18 Blood Pressure 128/64 131/79 107/52 L Pulse Oximetry 98 98 98 Oxygen Delivery Method Room Air Room Air Room Air BMI result Body Mass Index 17.3 General: Alert, Not in Distress, muscle waisting Skin: No rash, warm HEENT: Atraumatic, No Exudate or Pharyngeal Erythema Resp: Normal Breath sounds bilaterally Cardio: Regular rate and Rhythm, Normal S1, S2 ABD: Abd soft, non tender, no guarding or rebound. Normal Bowel sounds. : No cva tenderness Neuro: Alert, oriented x4, PERRL Strenght 5/5 on all extremities Sensation is preserved in both lower and upper extremities Index to nose: normal Cranial Nerves II-XII grossly intact No dysarthria, or aphasia No neglet. Visual lemon are normal bilaterally Psych: Cooperative, NO SI Course Course Course Narrative: This is an RME: Additional HPI, ROS, PE not included below will be deferred to primary provider. 33 yo f hx of anorexia nervosa, caloric malnutrition, alcohol use, ptsd, asthma, depression presents w/ poor po intake x 3 days. Last intake was ensure 3 days ago. PCP told her to come in for feeding tube and labs. Patient tells me she has had multiple admissions for anorexia. PE cachectic Medications Administered Discontinued Medications Generic Name Dose Route Start Last Admin Trade Name Frefaizan PRN Reason Stop Dose Admin Sodium Chloride 1,000 mls @ 999 mls/hr 07/01/23 19:00 07/01/23 20:10 Ns IV 07/01/23 20:00 Infused .Q1H1M MARY BETH Infusion Medical Decision Making Medical Decision Making [facility] Narrative: Patient presented to the emergency room requesting IV fluids and NG feeding. Patient has been admitted in the past for similar reasons last admission was in May. Her blood work done Lab Data 07/01/23 14:44 07/01/23 14:44 Labs: Lab Results 07/01/23 Range/Units 14:44 WBC 8.6 (4.8-10.8) X10*3/uL RBC 4.34 (4.20-5.50) X10*6/uL Hgb 13.6 (12.0-16.0) g/dl Hct 39.7 (37.0-47.0) % MCV 91.5 (80.0-98.0) fL MCH 31.3 (27.0-33.0) pg MCHC 34.3 (31.0-35.0) g/dl RDW 11.9 (11.0-16.0) % Plt Count 293 D (160-400) X10*3/uL MPV 9.1 L (9.4-12.3) fL Immature Gran % (Auto) 0.2 (0.0-0.4) % Neut % (Auto) 77.2 H (45-73) % Lymph % (Auto) 17.7 L (20-40) % [place] % (Auto) 4.4 (2-11) % Eos % (Auto) 0.1 (0-4) % Baso % (Auto) 0.4 (0-2) % Lymph # (Auto) 1.5 (1.2-4.9) X10*3/uL [place] # (Auto) 0.4 (0.1-1.2) X10*3/uL Eos # (Auto) 0.0 (0.0-0.4) X10*3/uL Baso # (Auto) 0.0 (0.0-0.2) X10*3/uL Abs Immat Gran (auto) 0.02 (0.00-0.03) X10*3/uL Absolute Neuts (auto) 6.6 (2.0-8.3) x10*3/uL Absolute Nucleated RBC 0.000 (0.0-0.012) X10*3/uL Nucleated RBC % (auto) 0.0 (0.0-0.2) /100WBC Sodium 139 (135-145) mmol/L Potassium 3.7 (3.3-5.1) mmol/L Chloride 105 (96-108) mmol/L Carbon Dioxide 26 (22-29) mmol/L Anion Gap 12 (12-20) BUN 9 (9-16) mg/dL Creatinine 0.87 (0.5-1.4) mg/dL Estim Creat Clear Calc 63.6 Estimated GFR > 60 Random Glucose 113 (60-115) mg/dL Calcium 9.8 D (8.4-10.2) mg/dL Total Bilirubin 0.7 (0.0-1.0) mg/dL AST 20 (5-31) U/L ALT 17 (0-31) U/L Alkaline Phosphatase 46 (39-117) U/L Total Protein 7.2 (6.5-8.0) g/dL Albumin 4.5 (3.5-5.0) g/dL Beta HCG, Quant < 2 mIU/mL Discharge Plan Discharge Clinical Impression: Anorexia nervosa, Acute dehydration Patient Disposition: Admitted As Inpatient Print Language: Uzbek
[2023-07-01 14:48] LABS: MANUAL DIFF FLAG NO
[2023-07-01 14:51] LABS: Basophils Percent Auto 0.4 % (0-2); Eosinophils Percent Auto 0.1 % (0-4); Hematocrit 39.7 % (37.0-47.0); Hemoglobin 13.6 g/dl (12.0-16.0); Imm Gran Abs Auto 0.02 X10*3/uL (0.00-0.03); Imm Gran Pct Auto 0.2 % (0.0-0.4); Lymphocytes Absolute Auto 1.5 X10*3/uL (1.2-4.9); Lymphocytes Percent Auto 17.7 % (20-40); Mean Corpuscular HGB Conc 34.3 g/dl (31.0-35.0); Mean Corpuscular Hemoglobin 31.3 pg (27.0-33.0); Mean Corpuscular Volume 91.5 fL (80.0-98.0); Mean Platelet Volume 9.1 fL (9.4-12.3); Monocytes Absolute Auto 0.4 X10*3/uL (0.1-1.2); Monocytes Percent Auto 4.4 % (2-11); Neutrophils Absolute Auto 6.6 x10*3/uL (2.0-8.3); Neutrophils Percent Auto 77.2 % (45-73); Platelet Count 293 X10*3/uL (160-400); Red Blood Count 4.34 X10*6/uL (4.20-5.50); Red Cell Distribution Width 11.9 % (11.0-16.0); White Blood Count 8.6 X10*3/uL (4.8-10.8)
[2023-07-01 15:31] LABS: Alanine Aminotransferase 17 U/L (0-31); Albumin Level 4.5 g/dL (3.5-5.0); Alkaline Phosphatase 46 U/L (39-117); Anion Gap 12 (12-20); Aspartate Amino Transferase 20 U/L (5-31); Bilirubin Total 0.7 mg/dL (0.0-1.0); Blood Urea Nitrogen 9 mg/dL (9-16); Calcium 9.8 mg/dL (8.4-10.2); Carbon Dioxide 26 mmol/L (22-29); Chloride 105 mmol/L (96-108); Creatinine Clr Calc Pharmacy 63.6; Estimated Glomerular Filt Rate > 60; Glucose Random 113 mg/dL (60-115); Potassium 3.7 mmol/L (3.3-5.1); Sodium 139 mmol/L (135-145); Total Protein 7.2 g/dL (6.5-8.0)
[2023-07-01 15:32] LABS: HCG Quantitative < 2 mIU/mL
[2023-07-01 18:21] VITALS: BP 131/79; PULSE 96; RESP 18; TEMP 36.6; O2SAT 98
--- NOTE | 2023-07-01 18:42 | ED_ITS ---
HPI - General Adult General Chief complaint: General Medical Stated complaint: Dehydrated Time Seen by Provider: 07/01/23 18:35 Source: patient Limitations: no limitations History of Present Illness HPI narrative: 33 years old with history of anorexia nervosa, PTSD, major depressive disorder, multiple admission for poor p.o. feeding requiring NG tube and NG tube feeding, presents emergency room for decreased p.o. intake over the past 3 days, patient reports that the only thing she had was 1 and sure. Patient reports that she was admitted last month here for similar presentation. Patient reported that since she got home she was doing okay up until a few days ago when she had an argument with her mom that precipitated patient symptoms. Patient reports that she has not willing to eat and does not have appetite. She discussed her symptoms and situation with her therapist Dr. Jeffrey who recommended for her to come to the emergency room for NG tube and IV fluids. Patient denies chest pain, shortness of breath, nausea or vomiting. Denies SI or HI. No recent trauma Related Data Home Medications ?Medication ?Instructions ?Recorded ?Confirmed disulfiram 250 mg tablet 1 tab PO QAM PRN alcohol craving 12/20/21 07/01/23 albuterol sulfate 90 mcg/actuation 2 puff inhalation Q4H PRN 05/12/23 07/01/23 aerosol inhaler (Ventolin HFA) Shortness Of Breath Or Wheezing buspirone 10 mg tablet 20 mg PO TID 05/12/23 07/01/23 clonazepam 1 mg tablet 1 mg PO BID 05/12/23 07/01/23 clonazepam 1 mg tablet 1 mg PO DAILY@1400 PRN Anxiety 05/12/23 07/01/23 cyanocobalamin (vitamin B-12) 1,000 mcg PO QAM 05/12/23 07/01/23 1,000 mcg tablet docusate sodium 100 mg capsule 100 mg PO BID 05/12/23 07/01/23 ferrous sulfate 140 mg (45 mg 140 mg PO DAILY 05/12/23 07/01/23 iron) tablet,extended release (Slow Release Iron) fluticasone furoate 200 1 ea inhalation DAILY 05/12/23 07/01/23 mcg-vilanterol 25 mcg/dose inhalation powder (Breo Ellipta) folic acid 1 mg tablet 1 mg PO DAILY 05/12/23 07/01/23 lurasidone 80 mg tablet 160 mg PO DAILY@1800 05/12/23 07/01/23 omeprazole 20 mg capsule,delayed 20 mg PO DAILY 05/12/23 07/01/23 release vilazodone 20 mg tablet 20 mg PO DAILY@1800 07/01/23 07/01/23 Previous Rx's ?Medication ?Instructions ?Recorded acetaminophen 325 mg tablet 650 mg (2 x 325 mg) PO Q6H PRN 12/23/21 Headache/Pain Mild Scale (1-3) #10 tabs thiamine mononitrate (vit B1) 100 100 mg PO DAILY #10 tabs 12/23/21 mg tablet Allergies Allergy/AdvReac Type Severity Reaction Status Date / Time escitalopram [From Lexapro] AdvReac Unknown Unknown Verified 07/01/23 14:22 egg AdvReac Diarrhea Verified 07/01/23 14:22 Review of Systems 2 Review of Systems: Yes all other systems are reviewed and are negative [facility] Past Medical History Medical History MDD (major depressive disorder), recurrent episode, moderate Post traumatic stress disorder (PTSD) Anorexia nervosa Prolonged QT interval Surgical History No pertinent past surgical history Family History Family History Other No family history of coronary artery disease Social History Social History Household Members: Other Household Members Other:: [facility] community. Housing: House Do you presently have visiting nurse or other home services: No (24hour Nurse on site per pt.) Alcohol intake: never Patient Tobacco Use Status: Current everyday Tobacco user Tobacco use type: Cigarette Cigarettes Per Day: 8 Smoked in Last 30 Days: Yes Second Hand Smoke Exposure: No Use of substances other than those prescribed or required for medical reasons: Yes Substance Use Type: Marijuana Advance Directives: No Advance Directives Information Provided: Yes service: No Current occupational status: unemployed Sexual orientation: Straight/Heterosexual Physical Exam ED Vital Signs: Vital Signs - 24 hr 07/01/23 14:20 07/01/23 18:21 07/01/23 18:48 Temperature 98 F 97.8 F Pulse Rate 98 96 84 Respiratory Rate 18 18 18 Blood Pressure 128/64 131/79 107/52 L Pulse Oximetry 98 98 98 Oxygen Delivery Method Room Air Room Air Room Air BMI result Body Mass Index 17.3 General: Alert, Not in Distress, poor muscle mass Skin: No rash, warm HEENT: Atraumatic, No Exudate or Pharyngeal Erythema Resp: Normal Breath sounds bilaterally Cardio: Regular rate and Rhythm, Normal S1, S2 ABD: Abd soft, non tender, no guarding or rebound. Normal Bowel sounds. : No cva tenderness Neuro: Alert, oriented x4, PERRL Strenght 5/5 on all extremities Sensation is preserved in both lower and upper extremities Index to nose: normal Cranial Nerves II-XII grossly intact No dysarthria, or aphasia No neglet. Visual lemon are normal bilaterally Psych: Cooperative, NO SI Course Reevaluation(s) Reevaluation #1: Case was discussed with admitting team for admission in consideration that patient is not tolerating p.o. will admit the patient to the hospital for IV fluids and further treatment. Time: 19:31 Medications Administered Discontinued Medications Generic Name Dose Route Start Last Admin Trade Name Freq PRN Reason Stop Dose Admin Sodium Chloride 1,000 mls @ 999 mls/hr 07/01/23 19:00 07/01/23 20:10 Ns IV 07/01/23 20:00 Infused .Q1H1M MARY BETH Infusion Medical Decision Making Medical Decision Making [facility] Narrative: Patient presents to the emergency room requesting admission for IV fluids and NG tube. Patient has history of anorexia nervosa and is refusing to eat. She had several admission for similar presentation. On arrival she has stable vital signs. I personally reviewed the patient's lab work that showed normal electrolytes Plan IV fluids Discussed with IM team for admission. Admission/Observation Consideration of admission/observation: Escalation of care including admission/observation considered Consult Healthcare Provider Management of the patient was discussed with: Hospitalist (Hospitalist consulted for admission. We will admit the patient) Lab Data [facility] Lab Attestation statement: I reviewed the patient's lab results. An unremarkable BMP and CBC 07/01/23 14:44 07/01/23 14:44 Labs: Lab Results 07/01/23 Range/Units 14:44 WBC 8.6 (4.8-10.8) X10*3/uL RBC 4.34 (4.20-5.50) X10*6/uL Hgb 13.6 (12.0-16.0) g/dl Hct 39.7 (37.0-47.0) % MCV 91.5 (80.0-98.0) fL MCH 31.3 (27.0-33.0) pg MCHC 34.3 (31.0-35.0) g/dl RDW 11.9 (11.0-16.0) % Plt Count 293 D (160-400) X10*3/uL MPV 9.1 L (9.4-12.3) fL Immature Gran % (Auto) 0.2 (0.0-0.4) % Neut % (Auto) 77.2 H (45-73) % Lymph % (Auto) 17.7 L (20-40) % [place] % (Auto) 4.4 (2-11) % Eos % (Auto) 0.1 (0-4) % Baso % (Auto) 0.4 (0-2) % Lymph # (Auto) 1.5 (1.2-4.9) X10*3/uL [place] # (Auto) 0.4 (0.1-1.2) X10*3/uL Eos # (Auto) 0.0 (0.0-0.4) X10*3/uL Baso # (Auto) 0.0 (0.0-0.2) X10*3/uL Abs Immat Gran (auto) 0.02 (0.00-0.03) X10*3/uL Absolute Neuts (auto) 6.6 (2.0-8.3) x10*3/uL Absolute Nucleated RBC 0.000 (0.0-0.012) X10*3/uL Nucleated RBC % (auto) 0.0 (0.0-0.2) /100WBC Sodium 139 (135-145) mmol/L Potassium 3.7 (3.3-5.1) mmol/L Chloride 105 (96-108) mmol/L Carbon Dioxide 26 (22-29) mmol/L Anion Gap 12 (12-20) BUN 9 (9-16) mg/dL Creatinine 0.87 (0.5-1.4) mg/dL Estim Creat Clear Calc 63.6 Estimated GFR > 60 Random Glucose 113 (60-115) mg/dL Calcium 9.8 D (8.4-10.2) mg/dL Total Bilirubin 0.7 (0.0-1.0) mg/dL AST 20 (5-31) U/L ALT 17 (0-31) U/L Alkaline Phosphatase 46 (39-117) U/L Total Protein 7.2 (6.5-8.0) g/dL Albumin 4.5 (3.5-5.0) g/dL Beta HCG, Quant < 2 mIU/mL External Record Review External record reviewed: Inpatient record (Records from last admission for similar complaint were reviewed. Patient did require NG feeding) Discharge Plan Discharge Clinical Impression: Anorexia nervosa, Acute dehydration Patient Disposition: Admitted As Inpatient Print Language: Stateless
[2023-07-01 18:48] VITALS: BP 107/52; PULSE 84; RESP 18; O2SAT 98
[2023-07-01] MEDS: 0.9 % Sodium Chloride 1,000 ML 999 ML IV (19:07)
--- NOTE | 2023-07-01 19:50 | PHA.MEDREC ---
Pharmacy Consult ? Medication Reconciliation Pharmacy has completed the medication reconciliation. Patient confirmed all medications. Ching Mei, EnidD
--- NOTE | 2023-07-01 20:26 | PC.NURSE ---
Patient is alert and oriented x5, VSS. Patient denies any pain. 1 L NS IV infused. Patient ambulates to the restroom independently, gait is steady. Urine specimen collected via clean catch and sent to lab. Patient denies urinary symptoms. + BS x4. Patient reports last BM 07/01/2023. Patient resting in a stretcher bed, call ramirez in reach. Plan of care ongoing.
[2023-07-01 20:34] LABS: Appearance Urine Clear; Color Urine Yellow; Glucose Urine UA Negative (Negative); Leukocyte Esterase Urine Negative (Negative); Nitrite Urine Negative (Negative); PH 6.5 (5.0-9.0); Specific Gravity - Urine 1.015 (1.005-1.025); Urine Blood Negative (Negative); Urine Ketones Negative (Negative); Urine Protein Negative (Neg-Trace)
[2023-07-01 20:36] LABS: UPreg QC Valid YES; Urine Pregnancy NEGATIVE (NEGATIVE)
[2023-07-01 20:50] VITALS: BP 112/78; PULSE 53; RESP 14; TEMP 37.1; O2SAT 99
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
[2023-07-01] MEDS: Docusate Sodium 100 MG CAPSULE PO (21:11)
[2023-07-01] MEDS: busPIRone HCl 10 MG TABLET 20 MG PO (21:12)
[2023-07-01] MEDS: clonazePAM 1 MG TABLET PO (21:12)
[2023-07-01] MEDS: KCl 20 mEq in 5% Dex/0.9% Sod 20 MEQ/1,000 ML IV.SOLN 100 MEQ IVCONT (23:04)
[2023-07-01] MEDS: 0.9 % Sodium Chloride Flush 3 ML SYRINGE IVFLUSH (23:11)
--- NOTE | 2023-07-01 23:29 | PC.NURSE ---
Patient refused 14 Fr NG tube placement reporting that she requires a smallest size of NG tube. Per patient she remembers from the last stay that the smallest size of NG tube available at OR is 8Fr/pediatric and it was too big for her, GI had to address the NG tube placement in the morning last time when she was hospitalized here. Patient requesting NG tube placement by GI in am. Dr. Tyson and rn charge made aware.
[2023-07-02] VITALS (8 sets, daily range): BP systolic 85–107; BP diastolic 50–66; PULSE 49–67; RESP 16–20; TEMP 36.3–36.7; O2SAT 96–99; BMI 19.2
[2023-07-02 07:30] LABS: Anion Gap 7 (12-20); Blood Urea Nitrogen 8 mg/dL (9-16); Calcium 8.4 mg/dL (8.4-10.2); Carbon Dioxide 27 mmol/L (22-29); Chloride 112 mmol/L (96-108); Creatinine Clr Calc Pharmacy 83.7; Estimated Glomerular Filt Rate > 60; Glucose Random 107 mg/dL (60-115); Magnesium 2.1 mg/dL (1.6-2.6); Phosphorus 3.3 mg/dL (2.7-4.5); Potassium 3.8 mmol/L (3.3-5.1); Sodium 142 mmol/L (135-145)
[2023-07-02] MEDS: Omeprazole 20 MG CAPSULE.DR PO (07:36)
--- NOTE | 2023-07-02 08:07 | MHC.CM.PN ---
CM met with Patient at bedside and addressed IMM with her, providing Patient with the original and a copy has been placed on the chart. Patient has lived at the [facility] in [facility], for Mental Health purposes for nearly a year. Returning there is the goal unless a bed were to become available at [facility], where Patient is on a waiting list.CM has initiated and will follow for dc planning. Prior, Patient was living in a small house on her Mother/HCP/Yusra's land and she is functionally independent. PCP is Dr. Criselda Jeffrey.
[2023-07-02] MEDS: busPIRone HCl 10 MG TABLET 20 MG PO ×3 (08:46→20:39)
[2023-07-02] MEDS: Cyanocobalamin (Vitamin B-12) 1,000 MCG TABLET 1000 MCG PO (08:47)
[2023-07-02] MEDS: 0.9 % Sodium Chloride Flush 3 ML SYRINGE IVFLUSH ×2 (08:47→20:39)
[2023-07-02] MEDS: Docusate Sodium 100 MG CAPSULE PO ×2 (08:47→20:38)
[2023-07-02] MEDS: Thiamine HCL 100 MG TABLET PO (08:47)
[2023-07-02] MEDS: clonazePAM 1 MG TABLET PO ×3 (08:47→20:39)
[2023-07-02] MEDS: Folic Acid 1 MG TABLET PO (08:47)
[2023-07-02] MEDS: KCl 20 mEq in 5% Dex/0.9% Sod 20 MEQ/1,000 ML IV.SOLN 100 MEQ IVCONT ×2 (08:51→18:11)
[2023-07-02] MEDS: Nicotine Polacrilex 2 MG GUM BUCCAL ×2 (10:55→20:45)
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
--- NOTE | 2023-07-02 13:21 | P.PNIM_ITS ---
Subjective Subjective Date of Service: 07/02/23 Interval History: Seen and examined this morning Follow-up for anorexia, decreased p.o. intake KO feeding tube placed at bedside, patient tolerated well Denies abdominal pain, nausea, vomiting 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 of Systems: Yes all other systems are reviewed and are negative Constitutional Constitutional: Denies chills and Denies fever(s) Cardiovascular Cardiovascular: Denies chest pain, Denies palpitations and Denies dyspnea Respiratory Respiratory: Denies cough and Denies dyspnea Gastrointestinal Gastrointestinal: Denies abdominal pain Endocrine Endocrine: Denies palpitations Physical Exam 2 Vital Signs: Vital Signs: Last Vital Signs Temp 98.1 F 07/02/23 11:05 Pulse 54 07/02/23 11:05 Resp 18 07/02/23 11:05 BP 92/56 L 07/02/23 11:05 Pulse Ox 98 07/02/23 11:05 O2 Del Method Room Air 07/02/23 11:05 BMI result Body Mass Index 19.2 Const: General: cooperative, comfortable, alert and awake Nutritional Appearance: thin Orientation/consciousness: patient oriented x3 Resp: Effort & Inspection: normal respiratory effort, able to speak in complete sentences, no respiratory distress and no use of accessory muscles Cardio: Rate: regular rate GI: Inspection: No distended Palpation (GI): Soft to palpation and nontender Neuro: General: patient oriented x3, moves all extremities and CN's II-XI intact bilaterally Objective Data Active Medications Acetaminophen (Acetaminophen 325 Mg Tablet) 650 mg PO Q6H PRN PRN Reason: Pain, Mild (Pain Scale 1-3) Albuterol Sulfate (Albuterol Sulfate 90 Mcg 8 Gm Inhaler) 2 puff INHALE Q4H PRN PRN Reason: Shortness Of Breath Or Wheezing Benzonatate (Benzonatate 100 Mg Capsule) 100 mg PO TID PRN PRN Reason: Cough Buspirone HCl (Buspirone Hcl 10 Mg Tablet) 20 mg PO TID [facility] Last Admin: 07/02/23 08:46 Dose: 20 mg Documented By: JULIO Clonazepam (Clonazepam 1 Mg Tablet) 1 mg PO DAILY@1400 PRN PRN Reason: Anxiety Clonazepam (Clonazepam 1 Mg Tablet) 1 mg PO BID [facility] Last Admin: 07/02/23 08:47 Dose: 1 mg Documented By: JULIO Cyanocobalamin (Cyanocobalamin (Vitamin B-12) 1,000 Mcg Tablet) 1,000 mcg PO DAILY [facility] Last Admin: 07/02/23 08:47 Dose: 1,000 mcg Documented By: JULIO Docusate Sodium (Docusate Sodium 100 Mg Capsule) 100 mg PO BID [facility] Last Admin: 07/02/23 08:47 Dose: 100 mg Documented By: JULIO Enoxaparin Sodium (Enoxaparin Sodium 40 Mg/0.4 Ml Syringe) 40 mg SUBCUT Q24H [facility] Last Admin: 07/01/23 20:50 Dose: Not Given Documented By: LEE Non-Admin Reason: Patient Refused Fluticasone/Vilanterol (Fluticasone/Vilanterol 200/25 Blst.W.Dev) 1 puff INHALE RDAILY@2000 [facility] Folic Acid (Folic Acid 1 Mg Tablet) 1 mg PO DAILY [facility] Last Admin: 07/02/23 08:47 Dose: 1 mg Documented By: JULIO Potassium Chloride/Dextrose/Sod Cl (Kcl 20 Meq In 5% Dex/0.9% Sod) 20 meq in 1,000 mls @ 100 mls/hr IVCONT .Q10H [facility] Last Admin: 07/02/23 08:51 Dose: 100 mls/hr Documented By: JULIO Lurasidone HCl (Lurasidone Hcl 80 Mg Tablet) 160 mg PO DAILY@1800 [facility] Melatonin (Melatonin 3 Mg Tablet) 6 mg PO BEDTIME PRN PRN Reason: Insomnia Nicotine Polacrilex (Nicotine Polacrilex 2 Mg Gum) 2 mg BUCCAL Q2H PRN PRN Reason: Nicotine Cravings Last Admin: 07/02/23 10:55 Dose: 2 mg Documented By: JULIO Omeprazole (Omeprazole 20 Mg Capsule.) 20 mg PO DAILY@0630 [facility] Last Admin: 07/02/23 07:36 Dose: 20 mg Documented By: BRANDON Ondansetron HCl (Ondansetron Hcl 4 Mg/2 Ml Vial) 4 mg IVPUSH Q8H PRN PRN Reason: Nausea and Vomiting Sodium Chloride (0.9 % Sodium Chloride Flush 3 Ml Syringe) 3 ml IVFLUSH QSHIFT [facility] Last Admin: 07/02/23 08:47 Dose: 3 ml Documented By: JULIO Thiamine HCl (Thiamine Hcl 100 Mg Tablet) 100 mg PO DAILY [facility] Last Admin: 07/02/23 08:47 Dose: 100 mg Documented By: MELISSA Vilazodone HCl (Vilazodone Hcl 20 Mg Tablet) 20 mg PO DAILY@1800 [facility] Labs 07/01/23 14:44 07/02/23 06:01 Labs: Laboratory Results - last 24 hr 07/01/23 07/01/23 07/02/23 14:44 20:20 06:01 MCV 91.5 MCH 31.3 MCHC 34.3 RDW 11.9 Plt Count 293 D MPV 9.1 L Immature Gran % (Auto) 0.2 Neut % (Auto) 77.2 H Lymph % (Auto) 17.7 L [place] % (Auto) 4.4 Eos % (Auto) 0.1 Baso % (Auto) 0.4 Lymph # (Auto) 1.5 [place] # (Auto) 0.4 Eos # (Auto) 0.0 Baso # (Auto) 0.0 Abs Immat Gran (auto) 0.02 Absolute Neuts (auto) 6.6 Absolute Nucleated RBC 0.000 Nucleated RBC % (auto) 0.0 Hold Purple Top SEE NOTE Anion Gap 12 7 L Estim Creat Clear Calc 63.6 83.7 Estimated GFR > 60 > 60 Random Glucose 113 107 Calcium 9.8 D 8.4 D Phosphorus 3.3 Magnesium 2.1 Total Bilirubin 0.7 AST 20 ALT 17 Alkaline Phosphatase 46 Total Protein 7.2 Albumin 4.5 Beta HCG, Quant < 2 Urine Color Yellow Urine Appearance Clear Urine pH 6.5 Ur Specific [place] 1.015 Urine Protein Negative Urine Glucose (UA) Negative Urine Ketones Negative Urine Blood Negative Urine Nitrite Negative Ur Leukocyte Esterase Negative Urine Test NEGATIVE Assessment and Plan (1) Anorexia nervosa: Status: Acute (2) Caloric malnutrition: Status: Acute Plan Pt is a 33-year-old female with a PMH significant for?anorexia nervosa, mild intermittent asthma, PTSD, MDD, and GERD who presents to the ED after being unable to make herself eat or drink for the past 3 days Anorexia nervosa/protein calorie malnutrition KO feeding tube placed at bedside Initial tube feeding instructions per nutrition from last admission: Monitor electrolytes for refeeding syndrome - if K, phos, mag all low at the same time rec to reduce feeding by 10 kcals/kg Continue PPI Will monitor BMP, phosphorus, magnesium Mood disorder Patient denies SI/HI Continue home mood stabilizers seen by psych - plan to continue same medication regimen Mild persistent asthma Not in acute exacerbation Continue home inhalers Full Code Attending:?Dr. Ty DVT Prophylaxis: Lovenox Pt will require a hospitalization of at least two nights for treatment of?severe anorexia nervosa with concern for refeeding syndrome. Patient will require hospitalization for feeding through NGT and close monitoring of electrolytes and cardiac function. Quality Stroke Does the patient have a stroke diagnosis?: No VTE Prior VTE?: No VTE Risk Level:: Medical - moderate - high VTE Device Contraindication: Treatment Not Indicated VTE Drug Contraindication: N/A - Med Ordered
[2023-07-02] MEDS: Acetaminophen 325 MG TABLET 650 MG PO (14:25)
--- NOTE | 2023-07-02 15:23 | PC.NURSE ---
tube feed inserted by DR CRUZ , # 10 FR keofreyna , placement confirmed by CXRAY and Maddie Levin clarified that tube feed can start
[2023-07-02] MEDS: Throat Lozenge, Medicated LOZENGE 1 LOZENGE MUCOUS MEM ×2 (15:31→20:45)
[2023-07-02] MEDS: Lurasidone HCl 80 MG TABLET 160 MG PO (17:57)
[2023-07-02] MEDS: Vilazodone HCL 20 MG TABLET PO (17:57)
[2023-07-02] MEDS: Fluticasone/Vilanterol 200/25 BLST.W.DEV 1 PUFF INHALE (20:06)
[2023-07-03] VITALS (7 sets, daily range): BP systolic 90–99; BP diastolic 48–59; PULSE 50–76; RESP 16–20; TEMP 36.1–37; O2SAT 96–100
[2023-07-03] MEDS: Omeprazole 20 MG CAPSULE.DR PO (05:02)
[2023-07-03] MEDS: Throat Lozenge, Medicated LOZENGE 1 LOZENGE MUCOUS MEM ×6 (05:02→23:54)
[2023-07-03] MEDS: KCl 20 mEq in 5% Dex/0.9% Sod 20 MEQ/1,000 ML IV.SOLN 100 MEQ IVCONT ×2 (05:02→16:39)
[2023-07-03] MEDS: Nicotine Polacrilex 2 MG GUM BUCCAL ×3 (05:04→14:14)
[2023-07-03 07:52] LABS: Anion Gap 8 (12-20); Blood Urea Nitrogen 7 mg/dL (9-16); Calcium 8.3 mg/dL (8.4-10.2); Carbon Dioxide 25 mmol/L (22-29); Chloride 112 mmol/L (96-108); Creatinine Clr Calc Pharmacy 89.8; Estimated Glomerular Filt Rate > 60; Glucose Random 85 mg/dL (60-115); Magnesium 2.1 mg/dL (1.6-2.6); Phosphorus 2.8 mg/dL (2.7-4.5); Potassium 4.2 mmol/L (3.3-5.1); Sodium 141 mmol/L (135-145)
[2023-07-03] MEDS: busPIRone HCl 10 MG TABLET 20 MG PO ×3 (08:57→19:54)
[2023-07-03] MEDS: Thiamine HCL 100 MG TABLET PO (08:57)
[2023-07-03] MEDS: Folic Acid 1 MG TABLET PO (08:57)
[2023-07-03] MEDS: clonazePAM 1 MG TABLET PO ×3 (08:57→19:54)
[2023-07-03] MEDS: Cyanocobalamin (Vitamin B-12) 1,000 MCG TABLET 1000 MCG PO (08:57)
--- NOTE | 2023-07-03 11:48 | P.PNIM_ITS ---
Subjective Subjective Date of Service: 07/03/23 Interval History: seen and examined this morning follow up for decreased po intake, h/o anorexia no abdominal pain, no vomiting tolerating tube feeds minimal po intake 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 of Systems: Yes all other systems are reviewed and are negative Constitutional Constitutional: Denies chills and Denies fever(s) Gastrointestinal Gastrointestinal: Denies abdominal pain Physical Exam 2 Vital Signs: Vital Signs: Last Vital Signs Temp 98.0 F 07/03/23 11:29 Pulse 50 07/03/23 11:29 Resp 19 07/03/23 11:29 BP 95/52 L 07/03/23 11:29 Pulse Ox 100 07/03/23 11:29 O2 Del Method Room Air 07/03/23 11:29 BMI result Body Mass Index 19.2 Const: General: cooperative, comfortable, no acute distress, alert and awake Nutritional Appearance: thin Orientation/consciousness: patient oriented x3 HEENT: Other: KO feeding tube left nare Resp: Effort & Inspection: normal respiratory effort, able to speak in complete sentences, no respiratory distress and no use of accessory muscles Cardio: Rate: regular rate GI: Inspection: No distended Palpation (GI): Soft to palpation and nontender Neuro: General: patient oriented x3 Objective Data Active Medications Acetaminophen (Acetaminophen 325 Mg Tablet) 650 mg PO Q6H PRN PRN Reason: Pain, Mild (Pain Scale 1-3) Last Admin: 07/02/23 14:25 Dose: 650 mg Documented By: JULIO Albuterol Sulfate (Albuterol Sulfate 90 Mcg 8 Gm Inhaler) 2 puff INHALE Q4H PRN PRN Reason: Shortness Of Breath Or Wheezing Benzocaine (Throat Lozenge, Medicated Lozenge) 1 lozenge MUCOUS MEM Q2H PRN PRN Reason: Sore Throat Last Admin: 07/03/23 09:00 Dose: 1 lozenge Documented By: JULIO Benzonatate (Benzonatate 100 Mg Capsule) 100 mg PO TID PRN PRN Reason: Cough Buspirone HCl (Buspirone Hcl 10 Mg Tablet) 20 mg PO TID [facility] Last Admin: 07/03/23 08:57 Dose: 20 mg Documented By: JULIO Clonazepam (Clonazepam 1 Mg Tablet) 1 mg PO DAILY@1400 PRN PRN Reason: Anxiety Last Admin: 07/02/23 14:04 Dose: 1 mg Documented By: JULIO Clonazepam (Clonazepam 1 Mg Tablet) 1 mg PO BID [facility] Last Admin: 07/03/23 08:57 Dose: 1 mg Documented By: JULIO Cyanocobalamin (Cyanocobalamin (Vitamin B-12) 1,000 Mcg Tablet) 1,000 mcg PO DAILY [facility] Last Admin: 07/03/23 08:57 Dose: 1,000 mcg Documented By: JULIO Docusate Sodium (Docusate Sodium 100 Mg Capsule) 100 mg PO BID [facility] Last Admin: 07/03/23 08:58 Dose: Not Given Documented By: JULIO Non-Admin Reason: loose stool Enoxaparin Sodium (Enoxaparin Sodium 40 Mg/0.4 Ml Syringe) 40 mg SUBCUT Q24H [facility] Last Admin: 07/02/23 20:40 Dose: Not Given Documented By: JASPAL Non-Admin Reason: Patient Refused Fluticasone/Vilanterol (Fluticasone/Vilanterol 200/25 Blst.W.Dev) 1 puff INHALE RDAILY@2000 [facility] Last Admin: 07/02/23 20:06 Dose: 1 puff Documented By: VICKY Folic Acid (Folic Acid 1 Mg Tablet) 1 mg PO DAILY [facility] Last Admin: 07/03/23 08:57 Dose: 1 mg Documented By: JULIO Potassium Chloride/Dextrose/Sod Cl (Kcl 20 Meq In 5% Dex/0.9% Sod) 20 meq in 1,000 mls @ 100 mls/hr IVCONT .Q10H [facility] Last Admin: 07/03/23 05:02 Dose: 100 mls/hr Documented By: JASPAL Lurasidone HCl (Lurasidone Hcl 80 Mg Tablet) 160 mg PO DAILY@1800 [facility] Last Admin: 07/02/23 17:57 Dose: 160 mg Documented By: JULIO Melatonin (Melatonin 3 Mg Tablet) 6 mg PO BEDTIME PRN PRN Reason: Insomnia Nicotine Polacrilex (Nicotine Polacrilex 2 Mg Gum) 2 mg BUCCAL Q2H PRN PRN Reason: Nicotine Cravings Last Admin: 07/03/23 09:00 Dose: 2 mg Documented By: JULIO Omeprazole (Omeprazole 20 Mg Capsule.) 20 mg PO DAILY@0630 [facility] Last Admin: 07/03/23 05:02 Dose: 20 mg Documented By: JASPAL Ondansetron HCl (Ondansetron Hcl 4 Mg/2 Ml Vial) 4 mg IVPUSH Q8H PRN PRN Reason: Nausea and Vomiting Sodium Chloride (0.9 % Sodium Chloride Flush 3 Ml Syringe) 3 ml IVFLUSH QSHIFT [facility] Last Admin: 07/03/23 10:38 Dose: Not Given Documented By: JULIO Non-Admin Reason: IV Running Thiamine HCl (Thiamine Hcl 100 Mg Tablet) 100 mg PO DAILY [facility] Last Admin: 07/03/23 08:57 Dose: 100 mg Documented By: JULIO Vilazodone HCl (Vilazodone Hcl 20 Mg Tablet) 20 mg PO DAILY@1800 [facility] Last Admin: 07/02/23 17:57 Dose: 20 mg Documented By: JULIO Labs 07/01/23 14:44 07/03/23 06:35 Labs: Laboratory Results - last 24 hr 07/03/23 06:35 Hold Purple Top SEE NOTE Anion Gap 8 L Estim Creat Clear Calc 89.8 Estimated GFR > 60 Random Glucose 85 Calcium 8.3 L Phosphorus 2.8 Magnesium 2.1 Assessment and Plan (1) Anorexia nervosa: Status: Acute (2) Caloric malnutrition: Status: Acute Plan Pt is a 33-year-old female with a PMH significant for?anorexia nervosa, mild intermittent asthma, PTSD, MDD, and GERD who presents to the ED after being unable to make herself eat or drink for 3 days prior to presentation Anorexia nervosa/moderate protein calorie malnutrition KO feeding tube placed at bedside 07/02 Initial tube feeding instructions per nutrition from last admission: Monitor electrolytes for refeeding syndrome - if K, phos, mag all low at the same time rec to reduce feeding by 10 kcals/kg nutrition consult Continue PPI monitor BMP, phosphorus, magnesium Mood disorder Continue home mood stabilizers seen by psych - plan to continue same medication regimen Mild persistent asthma Not in acute exacerbation Continue home inhalers Full Code Attending:?Dr. Ty DVT Prophylaxis: Lovenox dispo - return to respite; on wait list for [place] inpatient program in [facility] [place] Requires ongoing inpatient stay for treatment of?anorexia nervosa, tube feeding and close monitoring of electrolytes Quality Stroke Does the patient have a stroke diagnosis?: No VTE Prior VTE?: No VTE Risk Level:: Medical - moderate - high VTE Device Contraindication: Treatment Not Indicated VTE Drug Contraindication: N/A - Med Ordered
--- NOTE | 2023-07-03 13:21 | PC.NURSE ---
tolerating tube feed , some po intake : 2 cups of coffee and 1 ensure for lunch
[2023-07-03] MEDS: Acetaminophen 325 MG TABLET 650 MG PO (16:42)
[2023-07-03] MEDS: Lurasidone HCl 80 MG TABLET 160 MG PO (17:52)
[2023-07-03] MEDS: Vilazodone HCL 20 MG TABLET PO (17:52)
[2023-07-03] MEDS: Fluticasone/Vilanterol 200/25 BLST.W.DEV 1 PUFF INHALE ×2 (19:22→19:26)
[2023-07-03] MEDS: Docusate Sodium 100 MG CAPSULE PO (19:56)
[2023-07-03] MEDS: 0.9 % Sodium Chloride Flush 3 ML SYRINGE IVFLUSH (19:57)
--- NOTE | 2023-07-03 23:28 | PC.NURSE ---
Assumed care of pt at 19:15. A&Ox4. Pt c/o sore throat 2/2 NGT; lozenges prn as ordered given with some effect. Covering Dr. Jah Hull notified and requested to adjust tylenol dose or frequency. Handoff report given to oncoming RN at 23:00. Please see shift assessment, tasks, and MAR for full details.
[2023-07-03] MEDS: Acetaminophen 325 MG TABLET 975 MG PO (23:54)
[2023-07-04] VITALS (8 sets, daily range): BP systolic 87–100; BP diastolic 46–57; PULSE 51–63; RESP 16–20; TEMP 36.1–36.6; O2SAT 97–100; BMI 19.2
[2023-07-04 06:10] LABS: Anion Gap 8 (12-20); Blood Urea Nitrogen 6 mg/dL (9-16); Calcium 8.3 mg/dL (8.4-10.2); Carbon Dioxide 27 mmol/L (22-29); Chloride 110 mmol/L (96-108); Creatinine Clr Calc Pharmacy 87.3; Estimated Glomerular Filt Rate > 60; Glucose Random 93 mg/dL (60-115); Magnesium 2.1 mg/dL (1.6-2.6); Phosphorus 3.4 mg/dL (2.7-4.5); Potassium 3.9 mmol/L (3.3-5.1); Sodium 141 mmol/L (135-145)
[2023-07-04] MEDS: Omeprazole 20 MG CAPSULE.DR PO (06:15)
[2023-07-04] MEDS: Thiamine HCL 100 MG TABLET PO (07:45)
[2023-07-04] MEDS: busPIRone HCl 10 MG TABLET 20 MG PO ×3 (07:45→20:20)
[2023-07-04] MEDS: Cyanocobalamin (Vitamin B-12) 1,000 MCG TABLET 1000 MCG PO (07:45)
[2023-07-04] MEDS: Docusate Sodium 100 MG CAPSULE PO ×2 (07:45→20:19)
[2023-07-04] MEDS: clonazePAM 1 MG TABLET PO ×3 (07:45→20:20)
[2023-07-04] MEDS: Folic Acid 1 MG TABLET PO (07:45)
[2023-07-04] MEDS: 0.9 % Sodium Chloride Flush 3 ML SYRINGE IVFLUSH ×3 (07:46→20:20)
[2023-07-04] MEDS: Nicotine Polacrilex 2 MG GUM BUCCAL (07:48)
[2023-07-04] MEDS: Throat Lozenge, Medicated LOZENGE 1 LOZENGE MUCOUS MEM ×2 (07:48→14:44)
[2023-07-04] MEDS: Acetaminophen 325 MG TABLET 975 MG PO ×2 (07:48→14:44)
--- NOTE | 2023-07-04 09:52 | HO.PM.IMPN ---
Subjective Subjective Date of Service: 07/04/23 Review of Systems Follow up dehydration. poor oral intake doing better, no pain NGT in place Physical Exam Vital Signs: Vital Signs: Last Vital Signs Temp 98 F 07/04/23 07:34 Pulse 57 07/04/23 07:34 Resp 20 07/04/23 07:34 BP 97/55 L 07/04/23 07:34 Pulse Ox 99 07/04/23 07:34 O2 Del Method Room Air 07/04/23 07:34 BMI result Body Mass Index 19.2 Appearing in no acute distress lung sounds are clear to auscultation heart regular rate rhythm, clear S1, S2 positive bowel sounds, abdomen is soft, nontender neuro patient is alert x3, no focal deficits Objective Data Active Medications Acetaminophen (Acetaminophen 325 Mg Tablet) 975 mg PO Q6H PRN PRN Reason: mild pain, headache or fever Last Admin: 07/04/23 07:48 Dose: 975 mg Documented By: ZONIA Albuterol Sulfate (Albuterol Sulfate 90 Mcg 8 Gm Inhaler) 2 puff INHALE Q4H PRN PRN Reason: Shortness Of Breath Or Wheezing Benzocaine (Throat Lozenge, Medicated Lozenge) 1 lozenge MUCOUS MEM Q2H PRN PRN Reason: Sore Throat Last Admin: 07/04/23 07:48 Dose: 1 lozenge Documented By: ZONIA Benzonatate (Benzonatate 100 Mg Capsule) 100 mg PO TID PRN PRN Reason: Cough Buspirone HCl (Buspirone Hcl 10 Mg Tablet) 20 mg PO TID [facility] Last Admin: 07/04/23 07:45 Dose: 20 mg Documented By: ZONIA Clonazepam (Clonazepam 1 Mg Tablet) 1 mg PO DAILY@1400 PRN PRN Reason: Anxiety Last Admin: 07/03/23 14:14 Dose: 1 mg Documented By: JULIO Clonazepam (Clonazepam 1 Mg Tablet) 1 mg PO BID [facility] Last Admin: 07/04/23 07:45 Dose: 1 mg Documented By: ZONIA Cyanocobalamin (Cyanocobalamin (Vitamin B-12) 1,000 Mcg Tablet) 1,000 mcg PO DAILY [facility] Last Admin: 07/04/23 07:45 Dose: 1,000 mcg Documented By: ZONIA Docusate Sodium (Docusate Sodium 100 Mg Capsule) 100 mg PO BID [facility] Last Admin: 07/04/23 07:45 Dose: 100 mg Documented By: ZONIA Enoxaparin Sodium (Enoxaparin Sodium 40 Mg/0.4 Ml Syringe) 40 mg SUBCUT Q24H [facility] Last Admin: 07/03/23 19:54 Dose: Not Given Documented By: ELHAM Non-Admin Reason: Patient Refused Fluticasone/Vilanterol (Fluticasone/Vilanterol 200/25 Blst.W.Dev) 1 puff INHALE RDAILY@2000 [facility] Last Admin: 07/03/23 19:26 Dose: 1 puff Documented By: SUHA Folic Acid (Folic Acid 1 Mg Tablet) 1 mg PO DAILY [facility] Last Admin: 07/04/23 07:45 Dose: 1 mg Documented By: ZONIA Lurasidone HCl (Lurasidone Hcl 80 Mg Tablet) 160 mg PO DAILY@1800 [facility] Last Admin: 07/03/23 17:52 Dose: 160 mg Documented By: JULIO Melatonin (Melatonin 3 Mg Tablet) 6 mg PO BEDTIME PRN PRN Reason: Insomnia Nicotine Polacrilex (Nicotine Polacrilex 2 Mg Gum) 2 mg BUCCAL Q2H PRN PRN Reason: Nicotine Cravings Last Admin: 07/04/23 07:48 Dose: 2 mg Documented By: ZONIA Omeprazole (Omeprazole 20 Mg Capsule.Dr) 20 mg PO DAILY@0630 [facility] Last Admin: 07/04/23 06:15 Dose: 20 mg Documented By: BREANNA Ondansetron HCl (Ondansetron Hcl 4 Mg/2 Ml Vial) 4 mg IVPUSH Q8H PRN PRN Reason: Nausea and Vomiting Sodium Chloride (0.9 % Sodium Chloride Flush 3 Ml Syringe) 3 ml IVFLUSH QSHIFT [facility] Last Admin: 07/04/23 07:46 Dose: 3 ml Documented By: ZONIA Thiamine HCl (Thiamine Hcl 100 Mg Tablet) 100 mg PO DAILY [facility] Last Admin: 07/04/23 07:45 Dose: 100 mg Documented By: ZONIA Vilazodone HCl (Vilazodone Hcl 20 Mg Tablet) 20 mg PO DAILY@1800 [facility] Last Admin: 07/03/23 17:52 Dose: 20 mg Documented By: JULIO Labs 07/01/23 14:44 07/04/23 05:30 Labs: Laboratory Results - last 24 hr 07/04/23 05:30 Hold Purple Top SEE NOTE Anion Gap 8 L Estim Creat Clear Calc 87.3 Estimated GFR > 60 Random Glucose 93 Calcium 8.3 L Phosphorus 3.4 Magnesium 2.1 Assessment and Plan (1) Anorexia nervosa: Status: Acute (2) Caloric malnutrition: Status: Acute Plan Pt is a 33-year-old female with a PMH significant for?anorexia nervosa, mild intermittent asthma, PTSD, MDD, and GERD who presents to the ED after being unable to make herself eat or drink for 3 days prior to presentation Anorexia nervosa/moderate protein calorie malnutrition feeding tube placed at bedside 07/02 Initial tube feeding instructions per nutrition from last admission: Monitor electrolytes for refeeding syndrome - if K, phos, mag all low at the same time rec to reduce feeding by 10 kcals/kg nutrition consult Continue PPI monitor BMP, phosphorus, magnesium Mood disorder Continue home mood stabilizers seen by psych - plan to continue same medication regimen Mild persistent asthma Not in acute exacerbation Continue home inhalers Severe protein calorie malnutrition. BMI 19.2 Continue NG tube Encourage oral intake Full Code Attending:?Dr. Simpson DVT Prophylaxis: Lovenox dispo - return to respite; on wait list for [place] inpatient program in [facility] Requires ongoing inpatient stay for treatment of?anorexia nervosa, tube feeding and close monitoring of electrolytes Quality Stroke Does the patient have a stroke diagnosis?: No VTE Prior VTE?: No VTE Risk Level:: Medical - moderate - high VTE Device Contraindication: Treatment Not Indicated VTE Drug Contraindication: N/A - Med Ordered
--- NOTE | 2023-07-04 11:46 | MHC.CLN ---
RE: CONSULT PT IS SEVERELY MALNOURISHED PT TRIGGERS FOR 20% SIGNIFICANT WT LOSS X 16 MONTHS (PREVIOUS ADMISSION 1 MONTH AGO) WITH CHRONIC POOR PO INTAKE R/T ANOREXIA NERVOSA. PT IS FAMILIAR FROM PREVIOUS ADMISSION WT STABLE X 1 MONTH; NO SIGNIFICANT CHANGE REGULAR DIET IN PLACE PT WITH NGT INSERTED PT RECEIVING TF JEVITY 1.0 AT MAX GOAL RATE 55ML/HR WITH 120ML Q 8 HRS PROVIDES 1399KCALS (31KCALS/KG), 58G PROTEIN (1.3G/KG), 1462ML TOTAL WATER FROM FORMULA AND FLUSHES START FORMULA AT 10ML/HR AND INCREASE BY 10ML Q 4 HRS UNTIL MAX GOAL IS ACHIEVED MONITOR CLOSELY FOR RE-FEEDING SYNDROME LOW K+, MG, PHOS (THEN DECREASE FEEDING TO 10KCALS/KG) STRICT PO INTAKE RECORDS PT MAY REQUIRE HIGHER LEVEL OF CARE IE [facility] DIS[facility] -RECOMMEND PSYCH INVOLVEMENT -NOTED PT AWAITING ADMISSION INTO EATING D/O CLINIC SEE ALSO FULL CLINICAL NUTRITION ASSESSMENT
--- NOTE | 2023-07-04 12:51 | MHC.CM.PN ---
Pt is not ready for DC. Her DC plan is to return to the prison that she [facility] in run by [facility], a respite program in [place]. Pt. has been on a waiting list for [facility] [place]. CM received a call today from the nurse from the [facility] program, Jose Albert, , she asked if hosp. can place a referral to the [place] program. CM called and sent in referral information to [facility] today, fax# [phone]. CM will follow and assist with DC planning.
[2023-07-04] MEDS: Vilazodone HCL 20 MG TABLET PO (17:15)
[2023-07-04] MEDS: Lurasidone HCl 80 MG TABLET 160 MG PO (17:15)
[2023-07-04] MEDS: Fluticasone/Vilanterol 200/25 BLST.W.DEV 1 PUFF INHALE (19:53)
[2023-07-05] VITALS (9 sets, daily range): BP systolic 86–105; BP diastolic 40–63; PULSE 50–70; RESP 16–18; TEMP 36.1–36.7; O2SAT 96–98
[2023-07-05] MEDS: Omeprazole 20 MG CAPSULE.DR PO (06:24)
[2023-07-05 07:57] LABS: Anion Gap 9 (12-20); Blood Urea Nitrogen 10 mg/dL (9-16); Calcium 8.7 mg/dL (8.4-10.2); Carbon Dioxide 28 mmol/L (22-29); Chloride 107 mmol/L (96-108); Creatinine Clr Calc Pharmacy 73.6; Estimated Glomerular Filt Rate > 60; Glucose Random 70 mg/dL (60-115); Magnesium 2.1 mg/dL (1.6-2.6); Phosphorus 3.6 mg/dL (2.7-4.5); Potassium 3.8 mmol/L (3.3-5.1); Sodium 140 mmol/L (135-145)
[2023-07-05] MEDS: Docusate Sodium 100 MG CAPSULE PO (08:59)
[2023-07-05] MEDS: Thiamine HCL 100 MG TABLET PO (08:59)
[2023-07-05] MEDS: Cyanocobalamin (Vitamin B-12) 1,000 MCG TABLET 1000 MCG PO (08:59)
[2023-07-05] MEDS: busPIRone HCl 10 MG TABLET 20 MG PO ×2 (08:59→14:18)
[2023-07-05] MEDS: clonazePAM 1 MG TABLET PO ×2 (08:59→14:12)
[2023-07-05] MEDS: Folic Acid 1 MG TABLET PO (08:59)
[2023-07-05] MEDS: 0.9 % Sodium Chloride Flush 3 ML SYRINGE IVFLUSH ×2 (09:00→15:52)
[2023-07-05] MEDS: Throat Lozenge, Medicated LOZENGE 1 LOZENGE MUCOUS MEM ×3 (09:02→17:04)
[2023-07-05] MEDS: Acetaminophen 325 MG TABLET 975 MG PO ×2 (09:02→17:04)
[2023-07-05] MEDS: Nicotine Polacrilex 2 MG GUM BUCCAL (09:03)
--- NOTE | 2023-07-05 09:22 | P.PNIM_ITS ---
Subjective Subjective Date of Service: 07/05/23 Review of Systems Follow up dehydration. poor oral intake doing better, no pain NGT in place Physical Exam 2 Vital Signs: Vital Signs: Last Vital Signs Temp 97.4 F 07/05/23 07:10 Pulse 50 07/05/23 07:10 Resp 18 07/05/23 07:10 BP 96/63 07/05/23 07:10 Pulse Ox 97 07/05/23 07:10 O2 Del Method Room Air 07/05/23 07:10 BMI result Body Mass Index 19.2 Appearing in no acute distress lung sounds are clear to auscultation heart regular rate rhythm, clear S1, S2 positive bowel sounds, abdomen is soft, nontender neuro patient is alert x3, no focal deficits Objective Data Active Medications Acetaminophen (Acetaminophen 325 Mg Tablet) 975 mg PO Q6H PRN PRN Reason: mild pain, headache or fever Last Admin: 07/05/23 09:02 Dose: 975 mg Documented By: BRANDON Albuterol Sulfate (Albuterol Sulfate 90 Mcg 8 Gm Inhaler) 2 puff INHALE Q4H PRN PRN Reason: Shortness Of Breath Or Wheezing Benzocaine (Throat Lozenge, Medicated Lozenge) 1 lozenge MUCOUS MEM Q2H PRN PRN Reason: Sore Throat Last Admin: 07/05/23 09:02 Dose: 1 lozenge Documented By: BRANDON Benzonatate (Benzonatate 100 Mg Capsule) 100 mg PO TID PRN PRN Reason: Cough Buspirone HCl (Buspirone Hcl 10 Mg Tablet) 20 mg PO TID [facility] Last Admin: 07/05/23 08:59 Dose: 20 mg Documented By: BRANDON Clonazepam (Clonazepam 1 Mg Tablet) 1 mg PO DAILY@1400 PRN PRN Reason: Anxiety Last Admin: 07/04/23 14:44 Dose: 1 mg Documented By: ZONIA Clonazepam (Clonazepam 1 Mg Tablet) 1 mg PO BID [facility] Last Admin: 07/05/23 08:59 Dose: 1 mg Documented By: BRANDON Cyanocobalamin (Cyanocobalamin (Vitamin B-12) 1,000 Mcg Tablet) 1,000 mcg PO DAILY [facility] Last Admin: 07/05/23 08:59 Dose: 1,000 mcg Documented By: BRANDON Docusate Sodium (Docusate Sodium 100 Mg Capsule) 100 mg PO BID [facility] Last Admin: 07/05/23 08:59 Dose: 100 mg Documented By: BRANDON Enoxaparin Sodium (Enoxaparin Sodium 40 Mg/0.4 Ml Syringe) 40 mg SUBCUT Q24H [facility] Last Admin: 07/04/23 20:20 Dose: Not Given Documented By: BREANNA Non-Admin Reason: Patient Refused Fluticasone/Vilanterol (Fluticasone/Vilanterol 200/25 Blst.W.Dev) 1 puff INHALE RDAILY@2000 [facility] Last Admin: 07/04/23 19:53 Dose: 1 puff Documented By: VICKY Folic Acid (Folic Acid 1 Mg Tablet) 1 mg PO DAILY [facility] Last Admin: 07/05/23 08:59 Dose: 1 mg Documented By: BRANDON Lurasidone HCl (Lurasidone Hcl 80 Mg Tablet) 160 mg PO DAILY@1800 [facility] Last Admin: 07/04/23 17:15 Dose: 160 mg Documented By: ZONIA Melatonin (Melatonin 3 Mg Tablet) 6 mg PO BEDTIME PRN PRN Reason: Insomnia Nicotine Polacrilex (Nicotine Polacrilex 2 Mg Gum) 2 mg BUCCAL Q2H PRN PRN Reason: Nicotine Cravings Last Admin: 07/05/23 09:03 Dose: 2 mg Documented By: BRANDON Omeprazole (Omeprazole 20 Mg Capsule.Dr) 20 mg PO DAILY@0630 [facility] Last Admin: 07/05/23 06:24 Dose: 20 mg Documented By: BREANNA Ondansetron HCl (Ondansetron Hcl 4 Mg/2 Ml Vial) 4 mg IVPUSH Q8H PRN PRN Reason: Nausea and Vomiting Sodium Chloride (0.9 % Sodium Chloride Flush 3 Ml Syringe) 3 ml IVFLUSH QSHIFT [facility] Last Admin: 07/05/23 09:00 Dose: 3 ml Documented By: BRANDON Thiamine HCl (Thiamine Hcl 100 Mg Tablet) 100 mg PO DAILY [facility] Last Admin: 07/05/23 08:59 Dose: 100 mg Documented By: BRANDON Vilazodone HCl (Vilazodone Hcl 20 Mg Tablet) 20 mg PO DAILY@1800 [facility] Last Admin: 07/04/23 17:15 Dose: 20 mg Documented By: ZONIA Labs 07/01/23 14:44 07/05/23 06:32 Labs: Laboratory Results - last 24 hr 07/05/23 06:32 Hold Purple Top SEE NOTE Anion Gap 9 L Estim Creat Clear Calc 73.6 Estimated GFR > 60 Random Glucose 70 Calcium 8.7 Phosphorus 3.6 Magnesium 2.1 Assessment and Plan (1) Anorexia nervosa: Status: Acute (2) Caloric malnutrition: Status: Acute Plan 33-year-old female with a PMH significant for?anorexia nervosa, mild intermittent asthma, PTSD, MDD, and GERD who presents to the ED after being unable to make herself eat or drink for 3 days prior to presentation Anorexia nervosa/moderate protein calorie malnutrition feeding tube placed at bedside 07/02 nutrition following Continue PPI monitor BMP, phosphorus, magnesium Mood disorder Continue home mood stabilizers seen by psych - plan to continue same medication regimen Mild persistent asthma Not in acute exacerbation Continue home inhalers Severe protein calorie malnutrition. BMI 19.2 Continue NG tube feeding Encourage oral intake Full Code Attending:?Dr. Simpson DVT Prophylaxis: Lovenox dispo - return to respite; on wait list for [place] inpatient program in [facility] Requires ongoing inpatient stay for treatment of?anorexia nervosa, tube feeding and close monitoring of electrolytes Quality Stroke Does the patient have a stroke diagnosis?: No VTE Prior VTE?: No VTE Risk Level:: Medical - moderate - high VTE Device Contraindication: Treatment Not Indicated VTE Drug Contraindication: N/A - Med Ordered
--- NOTE | 2023-07-05 11:08 | MHC.CLN ---
F/U PT IS SEVERELY MALNOURISHED SEE FULL CLINICAL NUTRITION ASSESSMENT DATED 07/04/[address] NO PO INTAKE RECORDED REVIEWED LABS-UNREMARKABLE NO S/S RE-FEEDING AT THIS TIME PT RECEIVING TF JEVITY 1.0 AT MAX GOAL RATE 55ML/HR WITH 120ML Q 8 HRS PROVIDES 1399KCALS (31KCALS/KG), 58G PROTEIN (1.3G/KG), 1462ML TOTAL WATER FROM FORMULA AND FLUSHES CONTINUE TF AT MAX GOAL RATE AND REGULAR DIET MONITOR TOLERANCE, RESIDUALS AND LYTES STRICT PO INTAKE RECORDS NOTED PT AWAITING ADMISSION INTO [facility]
[2023-07-05] MEDS: Lactated Ringers 1,000 ML 150 ML IVCONT (15:58)
[2023-07-05] MEDS: Lurasidone HCl 80 MG TABLET 160 MG PO (17:04)
[2023-07-05] MEDS: Vilazodone HCL 20 MG TABLET PO (17:04)
[2023-07-05] MEDS: Fluticasone/Vilanterol 200/25 BLST.W.DEV 1 PUFF INHALE (19:37)
[2023-07-05] MEDS: Lactated Ringers 500 ML 999 ML IV (22:09)
[2023-07-06 04:00] VITALS: BP 94/50; PULSE 56; RESP 20; TEMP 36.2; O2SAT 98
[2023-07-06] MEDS: Omeprazole 20 MG CAPSULE.DR PO (05:27)
[2023-07-06] MEDS: 0.9 % Sodium Chloride Flush 3 ML SYRINGE IVFLUSH ×3 (05:28→14:46)
[2023-07-06 06:52] LABS: Anion Gap 8 (12-20); Blood Urea Nitrogen 12 mg/dL (9-16); Calcium 8.8 mg/dL (8.4-10.2); Carbon Dioxide 28 mmol/L (22-29); Chloride 106 mmol/L (96-108); Creatinine Clr Calc Pharmacy 78.3; Estimated Glomerular Filt Rate > 60; Glucose Random 85 mg/dL (60-115); Magnesium 1.9 mg/dL (1.6-2.6); Phosphorus 3.8 mg/dL (2.7-4.5); Potassium 3.8 mmol/L (3.3-5.1); Sodium 138 mmol/L (135-145)
[2023-07-06 07:21] VITALS: BP 104/57; PULSE 79; RESP 20; TEMP 36.4; O2SAT 97
[2023-07-06] MEDS: Cyanocobalamin (Vitamin B-12) 1,000 MCG TABLET 1000 MCG PO (08:01)
[2023-07-06] MEDS: busPIRone HCl 10 MG TABLET 20 MG PO ×2 (08:01→14:45)
[2023-07-06] MEDS: Docusate Sodium 100 MG CAPSULE PO (08:01)
[2023-07-06] MEDS: Thiamine HCL 100 MG TABLET PO (08:02)
[2023-07-06] MEDS: clonazePAM 1 MG TABLET PO ×2 (08:02→14:45)
[2023-07-06] MEDS: Folic Acid 1 MG TABLET PO (08:02)
[2023-07-06] MEDS: Nicotine Polacrilex 2 MG GUM BUCCAL (08:06)
[2023-07-06] MEDS: Throat Lozenge, Medicated LOZENGE 1 LOZENGE MUCOUS MEM (08:06)
--- NOTE | 2023-07-06 09:32 | HO.PM.IMPN ---
Subjective Subjective Date of Service: 07/06/23 Review of Systems Follow up dehydration. poor oral intake doing better, no pain NGT in place Physical Exam Vital Signs: Vital Signs: Last Vital Signs Temp 97.6 F 07/06/23 07:21 Pulse 79 07/06/23 07:21 Resp 20 07/06/23 07:21 BP 104/57 L 07/06/23 07:21 Pulse Ox 97 07/06/23 07:21 O2 Del Method Room Air 07/06/23 07:21 BMI result Body Mass Index 19.2 Appearing in no acute distress lung sounds are clear to auscultation heart regular rate rhythm, clear S1, S2 positive bowel sounds, abdomen is soft, nontender neuro patient is alert x3, no focal deficits Objective Data Active Medications Acetaminophen (Acetaminophen 325 Mg Tablet) 975 mg PO Q6H PRN PRN Reason: mild pain, headache or fever Last Admin: 07/05/23 17:04 Dose: 975 mg Documented By: DARON Albuterol Sulfate (Albuterol Sulfate 90 Mcg 8 Gm Inhaler) 2 puff INHALE Q4H PRN PRN Reason: Shortness Of Breath Or Wheezing Benzocaine (Throat Lozenge, Medicated Lozenge) 1 lozenge MUCOUS MEM Q2H PRN PRN Reason: Sore Throat Last Admin: 07/06/23 08:06 Dose: 1 lozenge Documented By: AYAN Benzonatate (Benzonatate 100 Mg Capsule) 100 mg PO TID PRN PRN Reason: Cough Buspirone HCl (Buspirone Hcl 10 Mg Tablet) 20 mg PO TID [facility] Last Admin: 07/06/23 08:01 Dose: 20 mg Documented By: AYAN Clonazepam (Clonazepam 1 Mg Tablet) 1 mg PO DAILY@1400 PRN PRN Reason: Anxiety Last Admin: 07/05/23 14:12 Dose: 1 mg Documented By: DARON Clonazepam (Clonazepam 1 Mg Tablet) 1 mg PO BID [facility] Last Admin: 07/06/23 08:02 Dose: 1 mg Documented By: AYAN Cyanocobalamin (Cyanocobalamin (Vitamin B-12) 1,000 Mcg Tablet) 1,000 mcg PO DAILY [facility] Last Admin: 07/06/23 08:01 Dose: 1,000 mcg Documented By: AYAN Docusate Sodium (Docusate Sodium 100 Mg Capsule) 100 mg PO BID [facility] Last Admin: 07/06/23 08:01 Dose: 100 mg Documented By: AYAN Enoxaparin Sodium (Enoxaparin Sodium 40 Mg/0.4 Ml Syringe) 40 mg SUBCUT Q24H [facility] Last Admin: 07/05/23 22:21 Dose: Not Given Documented By: DEANA Non-Admin Reason: Patient Refused Fluticasone/Vilanterol (Fluticasone/Vilanterol 200/25 Blst.W.Dev) 1 puff INHALE RDAILY@2000 [facility] Last Admin: 07/05/23 19:37 Dose: 1 puff Documented By: RYAN Folic Acid (Folic Acid 1 Mg Tablet) 1 mg PO DAILY [facility] Last Admin: 07/06/23 08:02 Dose: 1 mg Documented By: AYAN Lurasidone HCl (Lurasidone Hcl 80 Mg Tablet) 160 mg PO DAILY@1800 [facility] Last Admin: 07/05/23 17:04 Dose: 160 mg Documented By: DARON Melatonin (Melatonin 3 Mg Tablet) 6 mg PO BEDTIME PRN PRN Reason: Insomnia Nicotine Polacrilex (Nicotine Polacrilex 2 Mg Gum) 2 mg BUCCAL Q2H PRN PRN Reason: Nicotine Cravings Last Admin: 07/06/23 08:06 Dose: 2 mg Documented By: AYAN Omeprazole (Omeprazole 20 Mg Capsule.Dr) 20 mg PO DAILY@0630 [facility] Last Admin: 07/06/23 05:27 Dose: 20 mg Documented By: DEANA Ondansetron HCl (Ondansetron Hcl 4 Mg/2 Ml Vial) 4 mg IVPUSH Q8H PRN PRN Reason: Nausea and Vomiting Sodium Chloride (0.9 % Sodium Chloride Flush 3 Ml Syringe) 3 ml IVFLUSH QSHIFT [facility] Last Admin: 07/06/23 08:02 Dose: 3 ml Documented By: AYAN Thiamine HCl (Thiamine Hcl 100 Mg Tablet) 100 mg PO DAILY [facility] Last Admin: 07/06/23 08:02 Dose: 100 mg Documented By: AYAN Vilazodone HCl (Vilazodone Hcl 20 Mg Tablet) 20 mg PO DAILY@1800 [facility] Last Admin: 07/05/23 17:04 Dose: 20 mg Documented By: DARON Labs 07/01/23 14:44 07/06/23 05:57 Labs: Laboratory Results - last 24 hr 07/06/23 05:57 Anion Gap 8 L Estim Creat Clear Calc 78.3 Estimated GFR > 60 Random Glucose 85 Calcium 8.8 Phosphorus 3.8 Magnesium 1.9 Assessment and Plan (1) Anorexia nervosa: Status: Acute (2) Caloric malnutrition: Status: Acute Plan 33-year-old female with a PMH significant for?anorexia nervosa, mild intermittent asthma, PTSD, MDD, and GERD who presents to the ED after being unable to make herself eat or drink for 3 days prior to presentation Anorexia nervosa/moderate protein calorie malnutrition feeding tube placed at bedside 07/02 nutrition following Continue PPI monitor BMP, phosphorus, magnesium Mood disorder Continue home mood stabilizers seen by psych - plan to continue same medication regimen Mild persistent asthma Not in acute exacerbation Continue home inhalers Severe protein calorie malnutrition. BMI 19.2 Continue NG tube feeding Encourage oral intake Full Code Attending:?Dr. Simpson DVT Prophylaxis: Lovenox dispo - return to respite; on wait list for [place] inpatient program in [facility] Requires ongoing inpatient stay for treatment of?anorexia nervosa, tube feeding and close monitoring of electrolytes Quality Stroke Does the patient have a stroke diagnosis?: No VTE Prior VTE?: No VTE Risk Level:: Medical - moderate - high VTE Device Contraindication: Treatment Not Indicated VTE Drug Contraindication: N/A - Med Ordered
[2023-07-06 10:46] VITALS: BP 96/53; PULSE 57; RESP 20; TEMP 36.9; O2SAT 98
--- NOTE | 2023-07-06 13:56 | MHC.CLN ---
F/U PO INTAKE 75% X 2 MEALS REGULAR DIET IN PLACE REVIEWED LABS-UNREMARKABLE NO S/S RE-FEEDING AT THIS TIME PT RECEIVING TF JEVITY 1.0 AT MAX GOAL RATE 55ML/HR WITH 120ML Q 8 HRS PROVIDES 1399KCALS (31KCALS/KG), 58G PROTEIN (1.3G/KG), 1462ML TOTAL WATER FROM FORMULA AND FLUSHES CONTINUE TF AT MAX GOAL RATE AND REGULAR DIET MONITOR TOLERANCE, RESIDUALS AND LYTES STRICT PO INTAKE RECORDS
[2023-07-06 15:02] VITALS: BP 119/66; PULSE 93; RESP 20; TEMP 36.7; O2SAT 98
--- NOTE | 2023-07-06 15:13 | MHC.CM.PN ---
Second IMM 07/06/23, Pt has been medically cleared for DC, she will tranfer today to [facility] D/O crane via BLS.
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
== END 2023-07-06 18:14 | disposition other institution (70) | DRG 641 ==
LOC: HO.ED 19:32 → HO.EDOVER 20:29 → HO.IMC 07-02 00:27
PROVIDERS: Physician Assistant; Admitting Provider Student in an Organized Health Care Education/Training Program; Emergency Provider Student in an Organized Health Care Education/Training Program; PCP Nurse Practitioner Adult Health; Visit Provider Nurse Practitioner Acute Care
DX: E44.0 Moderate protein-calorie malnutrition (principal); F50.00 Anorexia nervosa, unspecified; Z68.1 Body mass index [BMI] 19.9 or less, adult; F43.10 Post-traumatic stress disorder, unspecified; J45.20 Mild intermittent asthma, uncomplicated; E86.0 Dehydration; F17.210 Nicotine dependence, cigarettes, uncomplicated; Z71.6 Tobacco abuse counseling; Z79.51 Long term (current) use of inhaled steroids; Z79.899 Other long term (current) drug therapy
CPT/HCPCS: 36415; 71045; 80048; 80053; 81003; 81025; 83735; 84100; 84702; 85025; 93005; 94640; 99285; J3480; J7120

== ENCOUNTER 2023-07-01 20:05 | Outpatient (BNV) | payer OTHER, SELFPAY | END 2023-07-01 21:30 | PROVIDERS: Admitting Provider Student in an Organized Health Care Education/Training Program; Emergency Provider Student in an Organized Health Care Education/Training Program; PCP Nurse Practitioner Adult Health; Visit Provider Internal Medicine | DX: R00.1 Bradycardia, unspecified (principal) | CPT/HCPCS: 93010 ==

== ENCOUNTER → 2023-07-01 20:05 | Outpatient (BNV) | payer OTHER, SELFPAY | PROVIDERS: Admitting Provider Student in an Organized Health Care Education/Training Program; Emergency Provider Student in an Organized Health Care Education/Training Program; PCP Nurse Practitioner Adult Health; Visit Provider Psychiatry & Neurology Psychiatry | DX: F50.00 Anorexia nervosa, unspecified (principal) | CPT/HCPCS: 99222 ==

== ENCOUNTER → 2023-07-01 20:05 | Outpatient (BNV) | payer OTHER, SELFPAY | PROVIDERS: Admitting Provider Student in an Organized Health Care Education/Training Program; Emergency Provider Student in an Organized Health Care Education/Training Program; PCP Nurse Practitioner Adult Health; Visit Provider Physician Assistant Medical | DX: F50.00 Anorexia nervosa, unspecified (principal); E46 Unspecified protein-calorie malnutrition | CPT/HCPCS: 99223; 99232; 99239 ==

== ENCOUNTER 2024-08-23 13:26 | Emergency (ER) | payer OTHER, SELFPAY ==
[2024-08-23] VITALS (7 sets, daily range): BP systolic 99–106; BP diastolic 61–72; PULSE 54–84; RESP 14–18; TEMP 36.4–36.9; O2SAT 96–99; BMI 18.7
--- NOTE | 2024-08-23 13:32 | ED_ITS ---
HPI - General Adult General Chief complaint: ETOH/Substance Use Stated complaint: eating disorder MD called Time Seen by Provider: 08/23/24 14:03 Source: patient, family, RN notes reviewed and old records reviewed Mode of arrival: ambulatory History of Present Illness ED Provider: Misti Fiore PA-C HPI narrative: 34-year-old female with a past medical history anorexia nervosa s/p multiple hospitalizations/inpatient treatments, asthma, MDD, PTSD, GERD, presenting to the ED complaining of relapse of anorexia with decreased p.o. intake x 2 weeks. Also reports ETOH abuse, drinking about 8-10 nips daily, last drink at 15:00 yesterday. Admits to feeling shaky at present. Denies history of ETOH withdrawal/withdrawal seizures, but does report auditory hallucinations - states heard her phone ringing while she was on a walk however did not have her phone with her. Does report diarrhea. Also reports increasing depression with suicidal thoughts, denies SI at present. Denies HI. Denies abdominal pain, nausea/vomiting, dysuria/hematuria Related Data Home Medications ?Medication ?Instructions ?Recorded ?Confirmed disulfiram 250 mg tablet 1 tab PO DAILY PRN alcohol craving 12/20/21 08/24/24 albuterol sulfate 90 mcg/actuation 2 puff inhalation Q4H PRN 05/12/23 08/24/24 aerosol inhaler (Ventolin HFA) Shortness Of Breath Or Wheezing buspirone 10 mg tablet 20 mg PO TID 05/12/23 08/24/24 clonazepam 1 mg tablet 1 mg PO TID 05/12/23 08/24/24 cyanocobalamin (vitamin B-12) 1,000 mcg PO DAILY 05/12/23 08/24/24 1,000 mcg tablet docusate sodium 100 mg capsule 100 mg PO BID 05/12/23 08/24/24 fluticasone furoate 200 1 ea inhalation DAILY 05/12/23 08/24/24 mcg-vilanterol 25 mcg/dose inhalation powder (Breo Ellipta) lurasidone 80 mg tablet 160 mg PO DAILY@1800 05/12/23 08/24/24 omeprazole 20 mg capsule,delayed 20 mg PO DAILY 05/12/23 08/24/24 release clonidine HCl 0.1 mg tablet 0.1 mg PO BID 08/24/24 08/24/24 hydrocortisone 1 % topical cream 1 appl topical BID 08/24/24 08/24/24 with perineal applicator perphenazine 4 mg tablet 4 mg PO TID PRN anxiety 08/24/24 08/24/24 trazodone 50 mg tablet 50 mg PO BEDTIME PRN Insomnia 08/24/24 08/24/24 Previous Rx's ?Medication ?Instructions ?Recorded acetaminophen 325 mg tablet 650 mg (2 x 325 mg) PO Q6H PRN 12/23/21 Headache/Pain Mild Scale (1-3) #10 tabs Allergies Allergy/AdvReac Type Severity Reaction Status Date / Time escitalopram [From Lexapro] AdvReac Unknown Unknown Verified 08/23/24 13:34 egg AdvReac Diarrhea Verified 08/23/24 13:34 Review of Systems 2 Review of Systems: Yes all other systems are reviewed and are negative Constitutional: Constitutional: Reports as per [facility] Past Medical History Attestation statement: The following information was validated with the patient. Source: old records reviewed Medical History Anorexia nervosa Caloric malnutrition MDD (major depressive disorder), recurrent episode, moderate Post traumatic stress disorder (PTSD) Anorexia nervosa Prolonged QT interval Surgical History No pertinent past surgical history Family History Family History Other No family history of coronary artery disease Social History Social History Household Members: Other Household Members Other:: correction Housing: Other Housing Other:: correction Do you presently have visiting nurse or other home services: No Alcohol intake: never Patient Tobacco Use Status: Current everyday Tobacco user Tobacco use type: Cigarette Cigarettes Per Day: 8 Smoked in Last 30 Days: No Second Hand Smoke Exposure: No Use of substances other than those prescribed or required for medical reasons: Yes Substance Use Type: Marijuana Substance Use Frequency: Daily Last Used Substance: Unknown Any prior treatment program specific to substance use: No Advance Directives: No Advance Directives Information Provided: Yes Patient : No service: No Current occupational status: unemployed Sexual orientation: Straight/Heterosexual Physical Exam ED Vital Signs: Vital Signs - 24 hr 08/26/24 17:27 08/26/24 20:45 08/27/24 08:21 Temperature 98.9 F 98.2 F Pulse Rate 67 97 Respiratory Rate 16 20 Blood Pressure 108/61 126/69 126/69 Pulse Oximetry 98 95 Oxygen Delivery Method Room Air Room Air 08/27/24 10:13 Temperature 98.8 F Pulse Rate 77 Respiratory Rate 14 Blood Pressure 94/56 L Pulse Oximetry 99 Oxygen Delivery Method Room Air BMI result Body Mass Index 18.7 Const General: cooperative, healthy appearing and no acute distress Orientation/consciousness: patient oriented x3 Limitations: no limitations HENMT Other: No tremors or tongue fasciculation Head: Yes normal to inspection and Yes atraumatic Ears: hearing grossly normal bilaterally General nose exam: Normal external nose present Face and sinus: Yes normal facial exam Throat: Yes posterior oropharynx normal Eyes General: appearance normal, both eyes and all related structures EOM: EOMs intact bilaterally Neck Neck: Yes normal visual inspection and Yes no meningeal signs Resp Effort & Inspection: normal respiratory effort and no respiratory distress Auscultation: clear to auscultation bilaterally Cardio Rate: regular rate Heart sounds: S1 normal heart sound present and S2 normal heart sound present GI Inspection: Yes normal to inspection Palpation (GI): Soft to palpation, nontender, no guarding and not rigid General: Yes no CVA tenderness Back/Spine/Pelvis Back: no CVA tenderness Skin Rashes: no rashes Wounds: no wounds Neuro General: patient oriented x3, tone normal, moves all extremities, no meningeal signs, no focal motor deficits and CN's II-XI intact bilaterally Cranial nerves: Yes CN's II-XII intact bilaterally Gait exam (Neuro): Normal gait present Motor exam (neuro): 5/5 motor strength present throughout Extrem General: Yes normal to inspection Psych Thought content: suicidality, no homicidality and Depressive thoughts present Course Course Course Narrative: RME, this is a rapid medical exam performed by Almas Nascimento please refer to primary provider for complete H&P- 34 year old female presents for evaluation of weakness. She endorses drinking 8-10 nips daily with her last drink being about 22 hours ago. She reports feeling dehydrated. Plan for labs, medical clearance -9068--no leukocytosis. H/H stable. AST/ALT mildly elevated. Labs otherwise reassuring at this time -UA negative -tox screen positive for THC > patient was evaluated by CARE team and will be [place] bed search ([facility]). Physician observation initiated at 16:10 -1800--ED care transferred to [facility] pending inpatient bed search Reevaluation(s) Reevaluation #1: Time: 09:31 Date: 08/25/24 Provider: Silvia Santiago, DO Patient in physician observation for psychiatric evaluation.? No acute events reported overnight. No current complaints. VS stable.? Patient is in bed search status, pending psych consult. Will continue to monitor. lytes normal, albumin normal patient is requesting G tube with tube feedings - I do not feel that this is appropriate at this time. Reevaluation #2: 08/26/2025 DR. Garg's progress note: Continue with physician observation, VSS, no acute event reported by nursing staff overnight, patient now is section 12, +SI with plan, patient will be a bed search by care team. Continue with physician observation. Time: 11:42 Reevaluation #3: Time: 06:17 Date: 08/27/24 Provider: Tom Gtz MD Patient in physician observation for psychiatric evaluation.? Patient has been in the emergency department for around 88 hours. Patient was re-evaluated yesterday by the care team. Patient stated SI with plan but would not share the plan with the care team clinician. Patient now meets IPLOC criteria, placed on a Section 12. No acute events reported overnight. No current complaints. VS stable. Labs from 08/26/2024 revealed a normal CBC and CMP which is reassuring. Inpatient bed search by care team. Will continue to monitor. Additional Reevaluation(s): Time: 14:04 Date: 08/27/24 Provider: Tom Gtz MD Physician observation ended at 16:04 hours. Patient has been accepted at [facility] at [address] [place] [address], accepting provider is Dr. Zev Pearson Medications Administered Generic Name Dose Route Start Last Admin Trade Name Freq PRN Reason Stop Dose Admin Buspirone HCl 20 mg 08/24/24 15:45 08/27/24 08:22 Buspirone Hcl 10 Mg Tablet PO 20 mg TID MARY BETH Administration Clonazepam 1 mg 08/24/24 15:45 08/27/24 08:22 Clonazepam 1 Mg Tablet PO 1 mg TID MARY BETH Administration Clonidine HCl 0.1 mg 08/24/24 21:00 08/27/24 08:21 Clonidine Hcl 0.1 Mg Tablet PO 0.1 mg BID MARY BETH Administration Protocol Cyanocobalamin 1,000 mcg 08/24/24 15:45 08/27/24 08:21 Cyanocobalamin (Vitamin B-12) 1,000 Mcg Tablet PO 1,000 mcg DAILY MARY BETH Administration Docusate Sodium 100 mg 08/24/24 21:00 08/27/24 08:21 Docusate Sodium 100 Mg Capsule PO 100 mg BID MARY BETH Administration Fluticasone/Vilanterol 1 puff 08/25/24 08:00 08/27/24 08:22 Fluticasone/Vilanterol 200/25 Blst.W.Dev INHALE 1 puff RDAILY MARY BETH Administration Hydrocortisone 1 appl 08/24/24 21:00 08/27/24 08:27 Hydrocortisone 1 % Cream 28.35 Gm Tube TOPICAL Not Given BID MARY BETH Lurasidone HCl 160 mg 08/24/24 18:00 08/26/24 18:21 Lurasidone Hcl 80 Mg Tablet PO 160 mg DAILY@1800 MARY BETH Administration Nicotine Polacrilex 2 mg 08/26/24 20:24 08/27/24 10:20 Nicotine Polacrilex 2 Mg Gum BUCCAL 2 mg Q1H PRN Administration Nicotine Cravings Omeprazole 20 mg 08/25/24 09:00 08/27/24 08:21 Omeprazole 20 Mg Capsule.Dr PO 20 mg DAILY MARY BETH Administration Perphenazine 4 mg 08/24/24 15:31 08/24/24 18:03 Perphenazine 4 Mg Tablet PO 4 mg TID PRN Administration anxiety Trazodone HCl 50 mg 08/24/24 15:31 08/26/24 21:17 Trazodone Hcl 50 Mg Tablet PO 50 mg BEDTIME PRN Administration Insomnia Discontinued Medications Generic Name Dose Route Start Last Admin Trade Name Freq PRN Reason Stop Dose Admin Albuterol Sulfate 5 mg/ 7.5 mg 08/24/24 04:10 08/24/24 04:15 Albuterol Sulfate 2.5 mg INHALE 08/24/24 04:11 7.5 mg ONCE ONE Administration Lactated Ringer's 1,000 mls @ 999 mls/hr 08/23/24 14:15 08/23/24 16:37 Lr IV 08/23/24 15:15 Infused .Q1H1M MARY BETH Infusion Lactated Ringer's 500 mls @ 999 mls/hr 08/23/24 16:15 08/23/24 18:26 Lr IV 08/23/24 16:45 Infused .Q31M MARY BETH Infusion Lorazepam 1 mg 08/23/24 14:14 08/27/24 07:29 Lorazepam 1 Mg Tablet PO 1 mg Q4H PRN Administration Alcohol Withdrawal Nicotine 14 mg 08/24/24 15:31 08/24/24 15:57 Nicotine 14 Mg Patch.Td24 TRANSDERMA 08/24/24 15:32 14 mg ONCE ONE Administration Nicotine 14 mg 08/25/24 10:12 08/25/24 11:31 Nicotine 14 Mg Patch.Td24 TRANSDERMA 08/25/24 10:13 14 mg ONCE ONE Administration Nicotine 14 mg 08/26/24 09:20 08/26/24 09:26 Nicotine 14 Mg Patch.Td24 TRANSDERMA 08/26/24 09:21 14 mg ONCE ONE Administration Nicotine 14 mg 08/27/24 09:58 08/27/24 10:07 Nicotine 14 Mg Patch.Td24 TRANSDERMA 08/27/24 09:59 14 mg ONCE ONE Administration Medical Decision Making Medical Decision Making MDM Narrative: 34-year-old female with a past medical history anorexia nervosa s/p multiple hospitalizations/inpatient treatments, asthma, MDD, PTSD, GERD, presenting to the ED complaining of relapse of anorexia with decreased p.o. intake x 2 weeks. Also reports ETOH abuse, drinking about 8-10 nips daily, & increasing depression with suicidal thoughts. On exam vital signs stable, NAD, nontoxic appearing, no obvious tremors or tongue fasciculations at this time. Concern for eating disorder/anorexia and metabolic abnormalities. Concern for ETOH withdrawal/dependence. Rule out organic causes. Low suspicion for infectious etiology at this time. Unlikely severe sepsis Plan: Labs, UA, tox screen, IVF, CARE team consult, anticipated admission Please refer to course for remaining clinical decision making, interpretation of labs/imaging results, and discussions with consultants and/or family members. Differential Diagnosis Differential Diagnoses: The differential diagnosis associated with the presentation includes As above Admission/Observation Consideration of admission/observation: Escalation of care including admission/observation considered Consult Healthcare Provider Management of the patient was discussed with: Hospitalist Lab Data MDM Lab Attestation statement: I reviewed the patient's lab results. 08/26/24 14:56 08/26/24 14:56 Labs: Lab Results 08/23/24 08/23/24 08/26/24 Range/Units 13:45 13:46 14:56 WBC 9.0 8.3 (4.8-10.8) X10*3/uL RBC 4.06 L 4.41 (4.20-5.50) X10*6/uL Hgb 12.3 13.5 (12.0-16.0) g/dl Hct 36.3 L 39.4 (37.0-47.0) % MCV 89.4 89.3 (80.0-98.0) fL MCH 30.3 30.6 (27.0-33.0) pg MCHC 33.9 34.3 (31.0-35.0) g/dl RDW 13.0 13.0 (11.0-16.0) % Plt Count 262 269 (160-400) X10*3/uL MPV 9.1 L 9.3 L (9.4-12.3) fL Immature Gran % (Auto) 0.3 0.2 (0.0-0.4) % Neut % (Auto) 77.1 H 71.0 (45-73) % Lymph % (Auto) 11.2 L 21.8 (20-40) % [place] % (Auto) 10.7 4.3 (2-11) % Eos % (Auto) 0.1 2.2 (0-4) % Baso % (Auto) 0.6 0.5 (0-2) % Lymph # (Auto) 1.0 L 1.8 (1.2-4.9) X10*3/uL [place] # (Auto) 1.0 0.4 (0.1-1.2) X10*3/uL Eos # (Auto) 0.0 0.2 (0.0-0.4) X10*3/uL Baso # (Auto) 0.1 0.0 (0.0-0.2) X10*3/uL Abs Immat Gran (auto) 0.03 0.02 (0.00-0.03) X10*3/uL Absolute Neuts (auto) 6.9 5.9 (2.0-8.3) x10*3/uL Absolute Nucleated RBC 0.000 0.000 (0.0-0.012) X10*3/uL Nucleated RBC % (auto) 0.0 0.0 (0.0-0.2) /100WBC Sodium 137 140 (135-145) mmol/L Potassium 3.5 4.0 (3.3-5.1) mmol/L Chloride 100 106 (96-108) mmol/L Carbon Dioxide 30 H 22 (22-29) mmol/L Anion Gap 11 L 16 (12-20) BUN 12 12 (9-16) mg/dL Creatinine 0.88 0.88 (0.5-1.4) mg/dL Estim Creat Clear Calc 67.1 67.1 Estimated GFR > 60 > 60 Random Glucose 111 88 (60-115) mg/dL Calcium 9.2 9.0 (8.4-10.2) mg/dL Magnesium 1.6 (1.6-2.6) mg/dL Total Bilirubin 0.9 0.7 (0.0-1.0) mg/dL Direct Bilirubin 0.2 (0.0-0.5) mg/dL AST 61 H 24 (5-31) U/L ALT 37 H 20 (0-31) U/L Alkaline Phosphatase 75 62 (39-117) U/L Total Protein 6.4 L 6.8 (6.5-8.0) g/dL Albumin 4.3 4.3 (3.5-5.0) g/dL Lipase 25 (8-78) U/L Beta HCG, Quant < 2 mIU/mL Urine Color Yellow Urine Appearance Clear Urine pH 6.5 (5.0-9.0) Ur Specific Armstrong 1.010 (1.005-1.025) Urine Protein Negative (Neg-Trace) mg/dL Urine Glucose (UA) Negative (Negative) mg/dL Urine Ketones Trace (Negative) mg/dL Urine Blood Negative (Negative) Urine Nitrite Negative (Negative) Ur Leukocyte Esterase Trace H (Negative) Urine RBC 0-2 (0-2) /HPF Urine WBC 0-5 (0-5) /HPF Ur Squamous Epith Cells 0-2 (0-2) /HPF Urine Bacteria None Seen (None Seen) Hyaline Casts 0-2 (0-2) /LPF Urine Opiates Screen Not Detected (Not Detect) Ur Buprenorphine Scrn Not Detected (Not Detect) ng/mL Ur Oxycodone Screen Not Detected (Not Detect) ng/mL Urine Methadone Screen Not Detected (Not Detect) ng/mL Urine Fentanyl Screen Not Detected (Not Detect) Ur Barbiturates Screen Not Detected (Not Detect) Ur Phencyclidine Scrn Not Detected (Not Detect) Ur Amphetamines Screen Not Detected (Not Detect) U Benzodiazepines Scrn Not Detected (Not Detect) Urine Cocaine Screen Not Detected (Not Detect) U Marijuana (THC) Screen POSITIVE H (Not Detect) Ethyl Alcohol < 10 mg/dL Radiology Impression Discussion of test interpretation with radiology: I have reviewed the radiologist's reading. Independent Historian Clinical information obtained from an independent historian. History obtained from or confirmed by: Parent External Record Review External record reviewed: Inpatient record, Office record, Outpatient record, Prior outpatient labs, Prior outpatient radiology, Primary care record and Outside ED record Tests considered The following testing was considered but not selected: As above Prescription Management I considered prescription management with: Other Chronic Conditions Patient?s care impacted by: Other (Anorexia nervosa, asthma, PTSD) Social Determinants Patient?s care significantly limited by Social Determinants of Health including: Alcoholism and drug addiction in family, Problems related to primary support group and Other Social Determinant of Health Discharge Plan Discharge Clinical Impression: Anorexia nervosa, ETOH abuse, Posttraumatic stress disorder Depression Qualifiers: Depression Type: major depressive disorder Major depression recurrence: u nspecified whether recurrent Active/Remission status: currently active Major depression episode severity: unspecified Qualified Code(s): F32.9 - Major depressive disorder, single episode, unspecified Patient Disposition: Xfer Psychiatric Hosp Transfer Details: TO: [facility], [facility], [address] [facility], [place] [address] ZEV DEAL Instructions: Depression (ED), Anorexia (DC), Abuse of Alcohol (ED) Additional Instructions: your labs and electrolytes are normal albumin is normal Alcohol use disorder You were seen in the Emergency Department today for treatment of alcohol use disorder.? You may have been given medications to help with your withdrawal symptoms.? Please do not drink alcohol with them. This is very dangerous and can cause respiratory depression or other adverse reactions depending on the medication. If you would like to cut down or stop your alcohol use please consider calling our outpatient Addiction Treatment office:? [facility] (M-F 9a-5p) [address] [place] [address] [address] ? You have also been given a list of treatment providers in the area that can assist as well.? If you experience seizures, vomiting blood, black stools, falls, severe headache, chest pain, fevers, trouble breathing, hallucinations or any other concerns you need to call 911 or seek immediate care. Please stay hydrated. Prescriptions: No Action disulfiram 250 mg tablet 1 tab PO DAILY PRN (Reason: alcohol craving) acetaminophen 325 mg Tablet 650 mg PO Q6H PRN (Reason: Headache/Pain Mild Scale (1-3)) Qty: 10 0RF clonidine HCl 0.1 mg tablet 0.1 mg PO BID perphenazine 4 mg tablet 4 mg PO TID PRN (Reason: anxiety) hydrocortisone 1 % cream with perineal applicator 1 appl topical BID trazodone 50 mg tablet 50 mg PO BEDTIME PRN (Reason: Insomnia) cyanocobalamin (vitamin B-12) 1,000 mcg tablet 1,000 mcg PO DAILY docusate sodium 100 mg capsule 100 mg PO BID omeprazole 20 mg capsule,delayed release(DR/EC) 20 mg PO DAILY lurasidone 80 mg tablet 160 mg PO DAILY@1800 albuterol sulfate [Ventolin HFA] 90 mcg/actuation HFA aerosol inhaler 2 puff inhalation Q4H PRN (Reason: Shortness Of Breath Or Wheezing) clonazepam 1 mg tablet 1 mg PO TID buspirone 10 mg tablet 20 mg PO TID fluticasone furoate-vilanterol [Breo Ellipta] 200-25 mcg/dose blister with device 1 ea inhalation DAILY Referrals: Criselda Jeffrey NP [Primary Care Provider] - Print Language: Wolof
[2024-08-23 13:50] LABS: MANUAL DIFF FLAG NO
[2024-08-23 13:55] LABS: Appearance Urine Clear; Color Urine Yellow; Glucose Urine UA Negative (Negative); Leukocyte Esterase Urine Trace (Negative); Nitrite Urine Negative (Negative); PH 6.5 (5.0-9.0); UMIC TRIGGER UACC YES; Urine Blood Negative (Negative); Urine Ketones Trace mg/dL (Negative); Urine Protein Negative (Neg-Trace)
[2024-08-23 13:56] LABS: Basophils Absolute Auto 0.1 X10*3/uL (0.0-0.2); Basophils Percent Auto 0.6 % (0-2); Eosinophils Percent Auto 0.1 % (0-4); Hematocrit 36.3 % (37.0-47.0); Hemoglobin 12.3 g/dl (12.0-16.0); Imm Gran Abs Auto 0.03 X10*3/uL (0.00-0.03); Imm Gran Pct Auto 0.3 % (0.0-0.4); Lymphocytes Percent Auto 11.2 % (20-40); Mean Corpuscular HGB Conc 33.9 g/dl (31.0-35.0); Mean Corpuscular Hemoglobin 30.3 pg (27.0-33.0); Mean Corpuscular Volume 89.4 fL (80.0-98.0); Mean Platelet Volume 9.1 fL (9.4-12.3); Monocytes Percent Auto 10.7 % (2-11); Neutrophils Absolute Auto 6.9 x10*3/uL (2.0-8.3); Neutrophils Percent Auto 77.1 % (45-73); Platelet Count 262 X10*3/uL (160-400); Red Blood Count 4.06 X10*6/uL (4.20-5.50)
[2024-08-23 14:04] LABS: Amphetamine Screen Urine Not Detected (Not Detect); Barbiturates, Urine Not Detected (Not Detect); Benzodiazepines Screen Urine Not Detected (Not Detect); Buprenorphine Scr Not Detected (Not Detect); Cannabinoid Screen Urine POSITIVE (Not Detect); Cocaine Screen Urine Not Detected (Not Detect); Fentanyl, urine Not Detected (Not Detect); Methadone Screen, Urine Not Detected (Not Detect); Opiate Screen Urine Not Detected (Not Detect); Oxycodone Screen Urine Not Detected (Not Detect); Phencyclidine Screen Urine Not Detected (Not Detect)
[2024-08-23 14:05] LABS: Bacteria Urine None Seen (None Seen); Hyaline Casts Urine 0-2 /LPF (0-2); RBC Urine 0-2 /HPF (0-2); Squamous Epithelial Cell Urine 0-2 /HPF (0-2); WBC Urine 0-5 /HPF (0-5)
[2024-08-23 14:16] LABS: Alanine Aminotransferase 37 U/L (0-31); Albumin Level 4.3 g/dL (3.5-5.0); Alkaline Phosphatase 75 U/L (39-117); Anion Gap 11 (12-20); Aspartate Amino Transferase 61 U/L (5-31); Bilirubin Total 0.9 mg/dL (0.0-1.0); Blood Urea Nitrogen 12 mg/dL (9-16); Calcium 9.2 mg/dL (8.4-10.2); Carbon Dioxide 30 mmol/L (22-29); Chloride 100 mmol/L (96-108); Creatinine Clr Calc Pharmacy 67.1; Estimated Glomerular Filt Rate > 60; Ethanol < 10 mg/dL; Glucose Random 111 mg/dL (60-115); HCG Quantitative < 2 mIU/mL; Lipase 25 U/L (8-78); Magnesium 1.6 mg/dL (1.6-2.6); Potassium 3.5 mmol/L (3.3-5.1); Sodium 137 mmol/L (135-145); Total Protein 6.4 g/dL (6.5-8.0)
[2024-08-23] MEDS: Lactated Ringers 1,000 ML 999 ML IV (14:38)
[2024-08-23] MEDS: LORazepam 1 MG TABLET PO ×2 (14:44→21:27)
--- NOTE | 2024-08-23 14:52 | PC.NURSE ---
Pt denies SI/HI; pt arrived while this RN was not present; pt was not changed over; covering machine tender aware; pt has no ETOH in system per labs at this time and is cooperative with care; mother at bedside; pt reports relapsing drinking ETOH approx 2 weeks ago and also has returning sx's of eating disorder with poor PO intake; pt states she feels safe at home; pt's CIWA score at this time 5; pt medicated with PO meds per orders
--- OUTSIDE RECORDS SUMMARY | 2024-08-23 16:42 | XMS_ITS | Continuity of Care Document ---
Author Organization [facility] Address [address] [place] [phone] Phone Care Team Providers Care Inside Account Executive Name Role Phone No Information Unavailable Unavailable Results Test Name Date and Time Measure Units Reference Range Abnormal Flag Status Commen ts Panel Description: evaluation procedure Final Final Advance Directives Directive Yes / No Effective Date File Name No Information Encounters Encounter Description Practice Location Reason(s) For Visit Diagnoses Date Provider [facility], [address] [place] [address], [id number], [place] tel:[phone] No Information 2015 No Information Family History Family Member Type Diagnosis Age At Onset No Information Payers Payer name Insurance type Covered democrat ID Authoriza tion(s) No Information Social History Type Description Quantity Date Captured Comments Sex Female Smoking Status No Information Vital Signs Date / Time: Height Weight BMI Pulse Rate Blood Pressure Temperature Respiratory Rate Body Surface Area Head Circumference Head Circ. Percentile Wt./[place]. Percentile BMI percentile Pulse Ox Inhaled Ox 62.00 in 110.00 lbs 72 /min 110/70 mm[Hg] 61.00 in 116.00 lbs 108 /min 128/70 mm[Hg] 62.00 in 109.00 lbs 19.9 0 kg/m eter (2) 88 /min 110/60 mm[Hg] 52.00 in 109.00 lbs 28.3 0 kg/m eter (2) 88 /min 110/60 mm[Hg] 52.00 in 115.00 lbs 29.9 0 kg/m eter (2) 76 /min 120/70 mm[Hg] Chief Complaint And Reason For Visit No Information History Of Present Illness Encounter Date Complaint History Of Prese nt Illness No Information Instructions Date Instruction Additional Infor mation No Information Assessments Type Assessment Date No Information
--- NOTE | 2024-08-23 16:57 | PC.NURSE ---
Pt resting quietly in room; CIWA score 2 at this time
[2024-08-23] MEDS: Lactated Ringers 500 ML 999 ML IV (17:37)
--- NOTE | 2024-08-23 18:55 | PC.NURSE ---
Pt seen by members of care team; pt is being presented to [facility] for her eating disorder; she is not on a section 12 and is completely voluntary, per care team; pt aware of plan
[2024-08-24] VITALS (10 sets, daily range): BP systolic 97–126; BP diastolic 52–70; PULSE 50–107; RESP 15–18; TEMP 36.3–37.1; O2SAT 98–100
--- NOTE | 2024-08-24 | ECG_ITS ---
Test Reason : PSYCH CLEARANCE Blood Pressure : */* mmHG Vent. Rate : 89 BPM Atrial Rate : 89 BPM P-R Int : 110 ms QRS Dur : 96 ms QT Int : 464 ms P-R-T Axes : 64 60 41 degrees QTcB Int : 564 ms Sinus rhythm with short OK Prolonged QT Abnormal ECG When compared with ECG of 01-Jul-2023 21:30, Vent. rate has increased by 36 bpm QT has lengthened Referred By: Gareth Amato Electronically Signed By: SILKE MEDEIROS MD
[2024-08-24] MEDS: LORazepam 1 MG TABLET PO ×3 (03:00→11:50)
[2024-08-24] MEDS: Albuterol Sulfate 5 MG, Albuterol Sulfate (0.083%) 2.5 MG 7.5 MG INHALE (04:15)
--- NOTE | 2024-08-24 07:34 | PC.NURSE ---
Addendum entered by Beatrice Win RN 08/24/24 07:35: Patient is a 34-year-old female with a past medical history anorexia nervosa s/p multiple hospitalizations/inpatient treatments, asthma, MDD, PTSD, GERD, presenting to the ED complaining of relapse of anorexia with decreased p.o. intake x 2 weeks. Also reports ETOH abuse, drinking about 8-10 nips daily, last drink at 15:00 yesterday. Patient alert and oriented. Lungs clear bilat. Respirations even and non-labored. Abdomen flat, soft, non-tender with positive bowel sounds. Positive pedal pulses with no edema. CIWA performed as ordered and ativan given per patients requested. Pending disposition. Original Note: Medical History Anorexia nervosa Caloric malnutrition MDD (major depressive disorder), recurrent episode, moderate Post traumatic stress disorder (PTSD) Anorexia nervosa Prolonged QT interval
--- NOTE | 2024-08-24 13:45 | PHA.MEDREC ---
Addendum entered by Zev Garcia [facility] 08/24/24 13:54: med rec reviewed Original Note: Pharmacy Consult ? Medication Reconciliation Pharmacy has completed the medication reconciliation. Spoke with pt and she confirmed her medications. Pt confirmed her Clonidine 0.1mg tab and stated she was taking it BID but recently she got it filled again and it is now written for QD. Pt was not made aware of that med being changed and is still taking it BID.
--- NOTE | 2024-08-24 14:41 | MHC.CARE ---
RAD Team spoke with [facility] and was informed that there is a 2-4 week wait list. The referral will be assigned to a coordinator and reviewed for level of care as well as what location she would be the most appropriate for. They also have the option to reach out to their programs that are in boarding [facility] for availability if necessary. They offer residential, inpatient, PHP, and IOP programs. Acceptance will be based on medical and clinical necessity. They have asked that we send updated info to keep her packet updated for when a bed does become available.
--- NOTE | 2024-08-24 15:14 | MHC.EDTECH ---
Patient arrived to pod with jewelry and under garments on. This tech was successful in having patient remove jewelry with the exception of one beaded prayer bracelet on patients wrist. RN aware of bracelet.
--- NOTE | 2024-08-24 15:22 | PC.NURSE ---
Patient transferred to Pod from Main ED. Patient had multiple jewlery pieces around neck and wrists, all but one prayer bracelet removed by pod tech Yvette. Patient's med rec had been done by pharmacy earlier today, provider Kym asked to order at this time.
--- NOTE | 2024-08-24 15:37 | MHC.EDTECH ---
Patient arrived to pod with bra and underwear. This tech had patient change out of undergarments and they were added to patient belongings.
--- NOTE | 2024-08-24 15:39 | PC.NURSE ---
Care team request to monitor patient's intake/output when able - Pod tech nancy made aware, intake/output intervention added to patient's work list, will pass along in report to oncoming RN.
[2024-08-24] MEDS: clonazePAM 1 MG TABLET PO ×2 (15:56→20:48)
[2024-08-24] MEDS: busPIRone HCl 10 MG TABLET 20 MG PO ×2 (15:57→20:48)
[2024-08-24] MEDS: Cyanocobalamin (Vitamin B-12) 1,000 MCG TABLET 1000 MCG PO (15:57)
[2024-08-24] MEDS: Nicotine 14 MG PATCH.TD24 TRANSDERMA (15:57)
--- NOTE | 2024-08-24 16:05 | PC.NURSE ---
Patient c/o muscle tremors she believes to be from withdrawal from EtOH. Patient's VSS, no other symptoms of withdrawal noted. Explained to patient that home meds are going to be restarted, including scheduled Klonopin, however patient has been in the dept for some time and risk of withdrawal is limited. If patient continues to feel shaky/tremulous PRN Ativan is available. Patient verbalized understanding, currently resting quietly on bed in [facility].
[2024-08-24] MEDS: Perphenazine 4 MG TABLET PO (18:03)
[2024-08-24] MEDS: Lurasidone HCl 80 MG TABLET 160 MG PO (18:03)
--- NOTE | 2024-08-24 18:27 | PC.NURSE ---
Patient ate 0% of dinner tray, did drink entire ensure 237mL. Also documented in intake/output.
--- NOTE | 2024-08-24 20:42 | PC.NURSE ---
supine-117/67 68p sitting 108/69 86p stand 101/68 87p 97.8 T 99% resp 15
[2024-08-24] MEDS: cloNIDine HCL 0.1 MG TABLET PO (20:48)
[2024-08-24] MEDS: Docusate Sodium 100 MG CAPSULE PO (20:56)
--- NOTE | 2024-08-25 05:52 | PC.NURSE ---
pt woke up and used the bathroom then back to her room
--- NOTE | 2024-08-25 06:12 | PC.NURSE ---
pt reports feeling quite anxious/having some nausea and a visible hand tremor, pt is not sure if she feeling anxious because of possible alcohol withdrawal or just her normal anxiety, vs stable at this time pt was offered medication for the nausea but states that she is ok at this time but would like something for the anxiety
[2024-08-25] MEDS: LORazepam 1 MG TABLET PO ×3 (06:16→17:23)
[2024-08-25 06:26] VITALS: BP 106/64; PULSE 64; RESP 16; TEMP 36.6; O2SAT 100
[2024-08-25] MEDS: clonazePAM 1 MG TABLET PO ×3 (10:03→20:30)
[2024-08-25] MEDS: Cyanocobalamin (Vitamin B-12) 1,000 MCG TABLET 1000 MCG PO (10:03)
[2024-08-25] MEDS: busPIRone HCl 10 MG TABLET 20 MG PO ×3 (10:03→20:30)
[2024-08-25] MEDS: cloNIDine HCL 0.1 MG TABLET PO ×2 (10:03→20:30)
[2024-08-25] MEDS: Omeprazole 20 MG CAPSULE.DR PO (10:03)
[2024-08-25] MEDS: Docusate Sodium 100 MG CAPSULE PO ×2 (10:04→20:30)
[2024-08-25] MEDS: Nicotine 14 MG PATCH.TD24 TRANSDERMA (11:31)
[2024-08-25] MEDS: Hydrocortisone 1 % Cream 28.35 GM TUBE 1 APPL TOPICAL ×2 (11:32→20:31)
--- NOTE | 2024-08-25 11:33 | PC.NURSE ---
pt removed nicotine patch in shower and it was thrown out. new 14mg patch applied - Right upper outer arm
--- NOTE | 2024-08-25 14:34 | MHC.CARE ---
Reached out to [facility] referral team, the assigned clinician. She will likely be following up with CARE team on Tuesday08/27/2024
[2024-08-25 14:44] VITALS: BP 121/71; PULSE 73; RESP 17; TEMP 36.7; O2SAT 100
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
--- NOTE | 2024-08-25 15:35 | PC.NURSE ---
clonazepam barcode ink had worm off and did not scan. Another RN not available to retrieve another packaging. admin without scan
[2024-08-25] MEDS: Lurasidone HCl 80 MG TABLET 160 MG PO (18:17)
--- NOTE | 2024-08-25 19:01 | PC.NURSE ---
intake 08/25/24 1x ensure 2x coffee with cream&sugar 16oz water refused meals
[2024-08-25 20:22] VITALS: BP 109/63; PULSE 93; RESP 18; TEMP 36.1; O2SAT 99
[2024-08-25 20:30] VITALS: BP 109/63
[2024-08-26] MEDS: LORazepam 1 MG TABLET PO ×5 (01:08→21:07)
[2024-08-26 06:19] VITALS: RESP 16
--- NOTE | 2024-08-26 07:54 | PC.NURSE ---
Assumed care of patient at 0645, patient appears to be in no apparent distress this am, calm and cooperative this am, reporting moderate anxiety, PRN Ativan administered per MAR. Pt did drink one cup of water with Ativan. Continue plan of care for CARE team shadia
[2024-08-26] MEDS: cloNIDine HCL 0.1 MG TABLET PO ×2 (09:01→21:07)
[2024-08-26] MEDS: busPIRone HCl 10 MG TABLET 20 MG PO ×3 (09:01→21:07)
[2024-08-26] MEDS: Omeprazole 20 MG CAPSULE.DR PO (09:01)
[2024-08-26] MEDS: Fluticasone/Vilanterol 200/25 BLST.W.DEV 1 PUFF INHALE (09:01)
[2024-08-26] MEDS: Docusate Sodium 100 MG CAPSULE PO ×2 (09:01→21:06)
[2024-08-26] MEDS: clonazePAM 1 MG TABLET PO ×3 (09:01→21:07)
[2024-08-26] MEDS: Cyanocobalamin (Vitamin B-12) 1,000 MCG TABLET 1000 MCG PO (09:01)
[2024-08-26] MEDS: Hydrocortisone 1 % Cream 28.35 GM TUBE 1 APPL TOPICAL (09:02)
[2024-08-26] MEDS: Nicotine 14 MG PATCH.TD24 TRANSDERMA (09:26)
[2024-08-26 11:26] VITALS: BP 116/74; PULSE 65; RESP 19; TEMP 36.7; O2SAT 100
--- NOTE | 2024-08-26 11:44 | MHC.CARE ---
Pt is now endorsing SI with a plan she will not disclosed. She has been placed on a Section 12a and disposition is changed to ADULT IPLOC. ED provider in agreement.
[2024-08-26 15:01] LABS: MANUAL DIFF FLAG NO
[2024-08-26 15:06] LABS: Basophils Percent Auto 0.5 % (0-2); Eosinophils Absolute Auto 0.2 X10*3/uL (0.0-0.4); Eosinophils Percent Auto 2.2 % (0-4); Hematocrit 39.4 % (37.0-47.0); Hemoglobin 13.5 g/dl (12.0-16.0); Imm Gran Abs Auto 0.02 X10*3/uL (0.00-0.03); Imm Gran Pct Auto 0.2 % (0.0-0.4); Lymphocytes Absolute Auto 1.8 X10*3/uL (1.2-4.9); Lymphocytes Percent Auto 21.8 % (20-40); Mean Corpuscular HGB Conc 34.3 g/dl (31.0-35.0); Mean Corpuscular Hemoglobin 30.6 pg (27.0-33.0); Mean Corpuscular Volume 89.3 fL (80.0-98.0); Mean Platelet Volume 9.3 fL (9.4-12.3); Monocytes Absolute Auto 0.4 X10*3/uL (0.1-1.2); Monocytes Percent Auto 4.3 % (2-11); Neutrophils Absolute Auto 5.9 x10*3/uL (2.0-8.3); Platelet Count 269 X10*3/uL (160-400); Red Blood Count 4.41 X10*6/uL (4.20-5.50); White Blood Count 8.3 X10*3/uL (4.8-10.8)
[2024-08-26 15:19] LABS: Alanine Aminotransferase 20 U/L (0-31); Albumin Level 4.3 g/dL (3.5-5.0); Alkaline Phosphatase 62 U/L (39-117); Anion Gap 16 (12-20); Aspartate Amino Transferase 24 U/L (5-31); Bilirubin Direct 0.2 mg/dL (0.0-0.5); Bilirubin Total 0.7 mg/dL (0.0-1.0); Blood Urea Nitrogen 12 mg/dL (9-16); Carbon Dioxide 22 mmol/L (22-29); Chloride 106 mmol/L (96-108); Creatinine Clr Calc Pharmacy 67.1; Estimated Glomerular Filt Rate > 60; Glucose Random 88 mg/dL (60-115); Sodium 140 mmol/L (135-145); Total Protein 6.8 g/dL (6.5-8.0)
--- NOTE | 2024-08-26 16:30 | PC.NURSE ---
RE: Food Intake Pt ate 0% of breakfast and 0% of lunch Pt did intake about 300ml water with medication administration as well as two cups of coffee
[2024-08-26 17:27] VITALS: BP 108/61; PULSE 67; RESP 16; TEMP 37.2; O2SAT 98
[2024-08-26] MEDS: Lurasidone HCl 80 MG TABLET 160 MG PO (18:21)
--- NOTE | 2024-08-26 18:27 | PC.NURSE ---
pt on phone, sobbing while speaking with mother. After finishing phone call, pt reports that she received bad news. Pt reports she will seek out staff if she feels like she wants to speak about said bad news. Pt drank two more 100ml cups of water and asked for ice to chew on
--- NOTE | 2024-08-26 20:13 | MHC.EDTECH ---
while updating check sheets it was observed on camera that the pt was seemingly hiding something behind her mattress. t/w went into the room where the pt gave a container of nictone lozenges. t/w asked pt to step into the hallway so a complete room search could be done/linen change. security rep present during search, no other contraband was found. t/w asked pt how she was able to conceal this during a tire changer, patient was evasive with questioning, changeover was completed in the main ED/ room 21. POD RN PA AWARE/ CC ANTONIA AWARE.
--- NOTE | 2024-08-26 20:22 | PC.NURSE ---
pt was seen hiding something under her bed, gave over a bottle of nicotine lozenges. states she had a hard day, but did not want to talk about it. provider aware, order placed for nicotine gum. bottle taken from pt, room searched by [facility] and security. CC Katelyn aware. pt tearful but cooperative at this time
[2024-08-26 20:45] VITALS: BP 126/69; PULSE 97; RESP 20; TEMP 36.8; O2SAT 95
[2024-08-26] MEDS: Nicotine Polacrilex 2 MG GUM BUCCAL (21:07)
[2024-08-26] MEDS: traZODone HCL 50 MG TABLET PO (21:17)
--- NOTE | 2024-08-26 21:18 | PC.NURSE ---
pt very tearful tonight, reports SI, doesnt want to wake up tomorrow, no plan. states she is scared, her boyfriend isnt doing well. she doesn't know if [facility] program will accept her d/t anxiety/depression and SI. states she does not feel safe if they sent her home, states she had a severe panic attack last time. pt also stated this eating disorder is killing me . sat with pt for awhile for comfort and reassurance, pt requested prn trazadone to help sleep, pt medicated per MAR with large marni andrew. pt resting at this time.
[2024-08-27] MEDS: Nicotine Polacrilex 2 MG GUM BUCCAL ×4 (01:44→14:33)
[2024-08-27] MEDS: LORazepam 1 MG TABLET PO ×3 (01:44→14:32)
--- NOTE | 2024-08-27 06:28 | PC.NURSE ---
pt resting comfortably throughout the night, no apparent distress noted at this time
--- NOTE | 2024-08-27 07:04 | PC.NURSE ---
This Rn assumed care of patient @ 0700. Patient currently resting in bed. Patient to remain on section 12A as IPLOC
[2024-08-27 08:21] VITALS: BP 126/69
[2024-08-27] MEDS: Cyanocobalamin (Vitamin B-12) 1,000 MCG TABLET 1000 MCG PO (08:21)
[2024-08-27] MEDS: cloNIDine HCL 0.1 MG TABLET PO (08:21)
[2024-08-27] MEDS: Omeprazole 20 MG CAPSULE.DR PO (08:21)
[2024-08-27] MEDS: Docusate Sodium 100 MG CAPSULE PO (08:21)
[2024-08-27] MEDS: busPIRone HCl 10 MG TABLET 20 MG PO ×2 (08:22→14:33)
[2024-08-27] MEDS: Fluticasone/Vilanterol 200/25 BLST.W.DEV 1 PUFF INHALE (08:22)
[2024-08-27] MEDS: clonazePAM 1 MG TABLET PO ×2 (08:22→14:32)
[2024-08-27] MEDS: Nicotine 14 MG PATCH.TD24 TRANSDERMA (10:07)
[2024-08-27 10:13] VITALS: BP 94/56; PULSE 77; RESP 14; TEMP 37.1; O2SAT 99
--- NOTE | 2024-08-27 12:10 | MHC.CARE ---
Patient has been accepted to [facility] located at [address] [place] [id number], ETA 4PM, ambulance pick and shovel man here at 230pm, N2N is not needed. Accepting provider Dr. Zev Patel.
[2024-08-27 15:28] VITALS: BP 94/56; PULSE 77; RESP 14; TEMP 37.1; O2SAT 99
== END 2024-08-27 15:30 ==
PROVIDERS: Physician Assistant; Emergency Provider Emergency Medicine Emergency Medical Services; PCP Nurse Practitioner Adult Health
DX: F50.00 Anorexia nervosa, unspecified (principal); Z68.1 Body mass index [BMI] 19.9 or less, adult; F10.10 Alcohol abuse, uncomplicated; Y90.0 Blood alcohol level of less than 20 mg/100 ml; F33.1 Major depressive disorder, recurrent, moderate; F43.10 Post-traumatic stress disorder, unspecified; R45.851 Suicidal ideations; R53.1 Weakness; Z79.899 Other long term (current) drug therapy
CPT/HCPCS: 36415; 80048; 80053; 80076; 80307; 81001; 83690; 83735; 84702; 85025; 93005; 94640; 96360; 96361; 99285; J7120; S9485

== ENCOUNTER → 2024-08-23 14:06 | Outpatient (BNV) | payer OTHER, SELFPAY | PROVIDERS: Emergency Provider Emergency Medicine Emergency Medical Services; PCP Nurse Practitioner Adult Health; Visit Provider Psychiatry & Neurology Psychiatry | DX: F50.00 Anorexia nervosa, unspecified (principal); Z78.9 Other specified health status | CPT/HCPCS: 99283 ==

== ENCOUNTER → 2024-08-24 08:11 | Outpatient (BNV) | payer OTHER, SELFPAY | PROVIDERS: Emergency Provider Emergency Medicine Emergency Medical Services; PCP Nurse Practitioner Adult Health; Visit Provider Internal Medicine Cardiovascular Disease | DX: R94.31 Abnormal electrocardiogram [ECG] [EKG] (principal); Z13.6 Encounter for screening for cardiovascular disorders | CPT/HCPCS: 93010 ==

== ENCOUNTER 2025-02-15 13:17 | Inpatient (IN) | payer OTHER, SELFPAY ==
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
[2025-02-15 15:57] VITALS: BP 135/88; PULSE 111; RESP 17; TEMP 37.2; O2SAT 98
[2025-02-15 16:48] VITALS: BMI 19.2
--- OUTSIDE RECORDS SUMMARY | 2025-02-15 17:24 | XMS_ITS | Clinical Summary ---
Author Organization [facility] Address [address] [place] [id number] Care Team Providers Care Submersible Pilot Name Role Phone Unknown, Provider Primary Care Provider Unava ilable Allergies Active Allergy Reactions Criticality Noted Date Comments Egg 03/07/2020 Patient able to tolerate eggs as ingredients in food items Lactose 03/12/2020 Patient able to tolerate dairy in foods, no fluid milk Medications albuterol (VENTOLIN HFA) 90 mcg/actuation inhalerIndicati ons:exercise-in duced asthma Inhale 2 Puffs as directed every 4 hours as needed for Wheezing. Active Active Problems Patient Care Coordination No te Formatting of this note migh t be different from the original. Pt states self pay bill until ins is updated. Check note in encounter. Rosalio Amie 03/02/2020 12:33 Problem Noted Date Diagnosed Date Anorexia nervosa 03/18/2020 Cannabis use disorder, moderate, dependence 07/2020 Alcohol use disorder, moderate, dependence 03/18 Unspecified mood (affective) disorder 03/03/2020 Resolved Problems Problem Noted Date Diagnosed Date Resolved Date Mood disorder 03/03/2020 03/18/2020 Suicidal ideation 03/03/2020 03/18/2020 Medical History Medical History Date Comments Asthma H/O seasonal allergies Social History Tobacco Use Types Packs/Day Years Used Date Smoking Tobacco: Former Cigarettes 4 0 06/01/2009 - 06/01/2013 Smokeless Tobacco: Never Alcohol Use Standard Drinks/Week Comments No 0 (1 standard drink = 0.6 oz pure alcohol) says she was diagnosed as an alcoholic, sober since 04/24/13 PHQ-2 Answer Date Recorded PHQ-2 SUBTOTAL 4 03/02/2020 Interpersonal Safety Answer Date Record ed Physically Hurt Never 10/14/2019 Verbally Threaten Not on file 10/14/2019 Comments Unknown Sex and Gender Information Value Date Recorded Sex Assigned at Not on file Legal Sex Female 17:15 EDT Gender Identity Female 03/02/2020 12:33 EST Sexual Orientation Not on file Last Filed Vital Signs Vital Sign Reading Time Taken Comments Blood Pressure 131/51 03/18/2020 1000 EST Pulse 100 03/18/2020 1000 EST Temperature 36.8 C (98.2 F) 03/18/2020 1000 EST Respiratory Rate 20 03/18/2020 1000 EST Oxygen Saturation 99% 03/18/2020 1000 EST Inhaled Oxygen Concentration - - Weight 43.7 kg (96 lb 4.8 oz) 03/18/2020 1400 ES T Height 157.5 cm (5' 2 ) 03/02/2020 0844 EST Body Mass Index 17.61 03/02/2020 0844 EST Plan of Treatment Health Maintenance Due Date Last Done Comments Hepatitis C Screen 1992 Hepatitis B Vaccine (1 of 3 - 19+ 3-dose series) 02/04 COVID-19 Vaccine (2024- season) 2024 Insurance MEDICAID [place] MED[place]ARE Advance Directives For more information, please contact: [phone] * Full Code (Latest Code Status on File) Date Activated Date Inactivated Comments 03/03/2020 15:54 03/19/2020 0:58 Question Answer Comments Reason for decision includes: Full code consistent with overall plan of care Who participated in the discussion? Not Discusse d Care Teams Submersible Pilot Relationship Specialty Start Date End Date Unknown, Provider, PCP - General 03/02/20
--- NOTE | 2025-02-15 17:33 | PC.ADMIT ---
Bozena, a 35 year old female arrived to the floor on a CV via ambulance from [facility] at 1345 for treatment of anorexia nervosa, major depressive disorder, PTSD, ETOH disorder. She has been living at the [facility] for 1.5 years. Patient was brought to the police station after an ambulance was called to the home for her boyfriend who was having difficulty breathing due to flu-like symptoms and found her to be intoxicated. Tox screen positive for benzos and amphetamine. Patient was alert and oriented x4, pleasant and engaged in 1:1. Patient reported drinking 10 nips or 1 bottle of wine daily since 02/09 when she relapsed after a month of being sober, last drink was 02/15 at 9am. Patient also reports having medical card and smoking marijuana daily. She reports not taking daily medications as they require food, especially the Latuda, which she has been unable to take due to restricting her food intake. She reports having not eaten in 5 days and not having a bowel movement since that day as well. She reports her mother, boyfriend and service animal for PTSD are her supports. Patient reports anxiety and depression, denies SI, HI, or A/VH at this time. She reports when does does hear auditory hallucinations when drinking they insulting her; she reports being safe on the unit at this time.
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
[2025-02-15 20:00] VITALS: BP 117/67; PULSE 91; RESP 16; TEMP 37.9; O2SAT 96
[2025-02-15 20:46] VITALS: BP 117/67
[2025-02-15] MEDS: Albuterol Sulfate 90 MCG 8 GM INHALER 2 PUFF INHALE (20:46)
[2025-02-15] MEDS: guaiFENesin 200 MG/10 ML 10 ML LIQUID PO (21:42)
[2025-02-16 08:00] VITALS: BP 124/67; PULSE 70; RESP 17; TEMP 36.7; O2SAT 97
[2025-02-16] MEDS: Albuterol Sulfate 90 MCG 8 GM INHALER 2 PUFF INHALE ×2 (09:05→20:21)
[2025-02-16] MEDS: buPROPion HCl XL 150 MG TAB.ER.24H PO (09:06)
[2025-02-16] MEDS: guaiFENesin 200 MG/10 ML 10 ML LIQUID PO (09:58)
[2025-02-16] MEDS: Nicotine 21 MG PATCH.TD24 TRANSDERMA (09:58)
--- NOTE | 2025-02-16 10:13 | HO.PSYCHPN ---
Subjective Subjective Date of Service: 02/16/25 Reason For Visit: F32.1 Subjective Notes: Conditional Voluntary Healthcare Proxy: No Guardianship: No Medical Problems Affecting Mental Status: No Interim History: Reviewed with team, plan of care reviewed, met with pt who is continuing with detox. She reports sleeping fairly well, attempting to begin intake, agreeable to Ensure as needed. Spending most of her time in bed, however, more visable in the milieu this afternoon. Denies current SI, HI,AH,VH. Respiratory panel is pending-pt with some sx (partner she reports has flu sx.) Medication Compliance: Yes Side effects from medications: No Attending Groups: No Review of Systems Acute medical concerns: No Medical Review of Systems: unchanged 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 of Systems detox Mental Status Exam Mental Status Exam Patient Appearance: Appropriate Patient Orientation: Person, Place, Time and Situation Level of Consciousness: Alert Patient Behavior: Talkative and Good Eye Contact Mood Description: Depressed Affect Description: Flat Patient Cognition Impaired: No Ability to Follow Directions: Good Speech Pattern: Spontaneous Speech Memory Description: Episodic Impaired Hallucinations: None Delusions: Not Present Thought Process: Distracted Thought Content: positive for Suicidal Ideation (denies) Depressive Symptoms: Thoughts of /Suicide (denies) Judgement: Fair Diagnostics Vital Signs (24Hr): Vital Signs - 24 hr 02/15/25 15:57 02/15/25 20:00 02/15/25 20:46 Temperature 99.0 F 100.2 F Pulse Rate 111 H 91 Respiratory Rate 17 16 Blood Pressure 135/88 117/67 117/67 Pulse Oximetry 98 96 Oxygen Delivery Method Room Air Room Air 02/16/25 08:00 Temperature 98.0 F Pulse Rate 70 Respiratory Rate 17 Blood Pressure 124/67 Pulse Oximetry 97 Oxygen Delivery Method Room Air BMI result Body Mass Index 19.2 Medications Medications Current Medications Acetaminophen (Acetaminophen 325 Mg Tablet) 650 mg PO Q6H PRN PRN Reason: Headache/Pain, Scale 1-10 Last Admin: 02/16/25 09:58 Dose: 650 mg Al Hydroxide/Mg Hydroxide (Magnesium Hydrox/Alum Hydrox 30 Ml Oral.Susp) 30 ml PO Q6H PRN PRN Reason: Heartburn/Nausea Albuterol Sulfate (Albuterol Sulfate 90 Mcg 8 Gm Inhaler) 2 puff INHALE RBID MARY BETH Last Admin: 02/16/25 09:05 Dose: 2 puff Bupropion HCl (Bupropion Hcl Xl 150 Mg Tab.Er.24h) 150 mg PO DAILY [facility] Last Admin: 02/16/25 09:06 Dose: 150 mg Buspirone HCl (Buspirone Hcl 10 Mg Tablet) 20 mg PO TID [facility] Last Admin: 02/16/25 09:06 Dose: 20 mg Clonazepam (Clonazepam 1 Mg Tablet) 1 mg PO TID [facility] Last Admin: 02/16/25 09:11 Dose: 1 mg Clonidine HCl (Clonidine Hcl 0.2 Mg Tablet) 0.2 mg PO BID [facility]; Protocol Last Admin: 02/16/25 09:07 Dose: 0.2 mg Clonidine HCl (Clonidine Hcl 0.1 Mg Tablet) 0.1 mg PO DAILY@1400 [facility]; Protocol Docusate Sodium (Docusate Sodium 100 Mg Capsule) 100 mg PO Q12H PRN PRN Reason: Constipation Last Admin: 02/16/25 09:31 Dose: 100 mg Folic Acid (Folic Acid 1 Mg Tablet) 1 mg PO DAILY [facility] Last Admin: 02/16/25 09:10 Dose: 1 mg Guaifenesin (Guaifenesin 200 Mg/10 Ml 10 Ml Liquid) 10 ml PO Q6H PRN PRN Reason: Cough Last Admin: 02/16/25 09:58 Dose: 10 ml Hydroxyzine HCl (Hydroxyzine Hcl 25 Mg Tablet) 25 mg PO Q6H PRN PRN Reason: mild anxiety Lorazepam (Lorazepam 1 Mg Tablet) 1 mg PO TID [facility] Last Admin: 02/16/25 09:06 Dose: 1 mg Lorazepam (Lorazepam 1 Mg Tablet) 2 mg PO Q2H PRN PRN Reason: CIWA 11 and above Lorazepam (Lorazepam 1 Mg Tablet) 1 mg PO Q2H PRN PRN Reason: CIWA 6-10 Last Admin: 02/16/25 09:59 Dose: 1 mg Lurasidone HCl (Lurasidone Hcl 80 Mg Tablet) 160 mg PO BEDTIME [facility] Last Admin: 02/15/25 20:48 Dose: 160 mg Magnesium Hydroxide (Milk Of Magnesia 30 Ml Oral.Susp) 30 ml PO DAILY PRN PRN Reason: Constipation Nicotine (Nicotine 21 Mg Patch.Td24) 21 mg TRANSDERMA DAILY PRN PRN Reason: smoking cessation Last Admin: 02/16/25 09:58 Dose: 21 mg Nicotine Polacrilex (Nicotine Polacrilex 2 Mg Gum) 4 mg BUCCAL Q2H PRN PRN Reason: Nicotine Cravings Last Admin: 02/16/25 09:59 Dose: 4 mg Olanzapine (Olanzapine 5 Mg Tablet) 5 mg PO Q8H PRN PRN Reason: Nausea and Vomiting Omeprazole (Omeprazole 20 Mg Capsule.Dr) 20 mg PO DAILY@0630 [facility] Last Admin: 02/16/25 07:09 Dose: 20 mg Perphenazine (Perphenazine 4 Mg Tablet) 4 mg PO TID PRN PRN Reason: Anxiety Thiamine HCl (Thiamine Hcl 100 Mg Tablet) 100 mg PO DAILY [facility] Last Admin: 02/16/25 09:06 Dose: 100 mg Trazodone HCl (Trazodone Hcl 50 Mg Tablet) 50 mg PO BEDTIME MRX1 PRN PRN Reason: Insomnia Trazodone HCl (Trazodone Hcl 50 Mg Tablet) 50 mg PO BEDTIME [facility] Last Admin: 02/15/25 20:47 Dose: 50 mg Allergies Allergies Allergy/AdvReac Type Severity Reaction Status Date / Time escitalopram (From Lexapro) AdvReac Unknown Unknown Verified 08/23/24 13:34 egg AdvReac Diarrhea Verified 08/23/24 13:34 Assessment & Plan Assessment & Plan (1) MDD (major depressive disorder), recurrent episode, moderate: Status: Acute Code(s): F33.1 - Major depressive disorder, recurrent, moderate (2) Post traumatic stress disorder (PTSD): Status: Acute Code(s): F43.10 - Post-traumatic stress disorder, unspecified (3) Anorexia nervosa: Status: Acute Code(s): F50.00 - Anorexia nervosa, unspecified (4) Alcohol use: Status: Acute Code(s): Z78.9 - Other specified health status (5) Mild persistent asthma: Status: Acute Code(s): J45.30 - Mild persistent asthma, uncomplicated Plan HPI: Patient is a 35-year-old female with history of MDD, PTSD, anorexia nervosa (history of feeding tube/admissions to [facility]) and alcohol use disorder who presents for worsening depression and relapse with alcohol and restricting food. Patient reports that this past fall her mood was overall okay but starting this January her mood started to become more depressed as she was headed towards the holidays, her birthday and knowing she would not see her father at [facility]. The week before [place] patient stopped taking disulfiram, knowing she would want to end up drinking. During she got into a verbal argument with her mom that what upsetting and after that, for the past 5 days, she stopped eating and relapsed with alcohol, drinking about 10 nips a day. She continued to take her medications but also continued to drank; a couple days ago her boyfriend had the flu having trouble breathing so they called 911. When the ambulance showed up so did the police and patient jaymie was taken into custody and released next morning; she has no idea why and does not recollect any reason for this. She said the next day she went home, remained upset... Started having SI... Cut (superficially cut right thigh) and thus called her mom who called patient's outreach specialist and patient came to the hospital. Patient was recently prescribed Wellbutrin. -of note, Patient was last admitted to psychiatric unit M5 12/2021; during this admission she was medically admitted for not eating and received NG tube Formulation/clinical reasoning: Patient depressed with situational exacerbation. Currently withdrawing from alcohol and started on CIWA; patient has not been eating but says she wants to get better and does not want to have to be admitted to [facility] again; also she is motivated to get back to her dog as quickly as possible so agrees to push herself to eat and asks for ensure. Will continue patient's home medications. Will hold off from disulfiram until fully detoxed 02/16: Reviewed with team, plan of care reviewed, met with pt who is continuing with detox. She reports sleeping fairly well, attempting to begin intake, agreeable to Ensure as needed. Spending most of her time in bed, however, more visable in the milieu this afternoon. Denies current SI, HI,AH,VH. Respiratory panel is pending-pt with some sx (partner she reports has flu sx.) Plan: CV Q 15 minute checks Continue home medications: Starting Wellbutrin XL 150 mg daily; this was just prescribed BuSpar 20 mg t.i.d. Clonazepam 1 mg t.i.d. Clonidine 0.1 mg b.i.d. Hold disulfiram Latuda 160 mg Omeprazole Perphenazine 4 mg t.i.d. p.r.n. Trazodone Reason for continued inpatient stay Substantial Risk for: rapid decompensation and med/psych decompensation Time Spent With Patient Time: Total time managing care of this patient today ____ minutes.
[2025-02-16 13:45] VITALS: BP 112/75
[2025-02-16 20:00] VITALS: BP 111/73; PULSE 57; TEMP 36.4; O2SAT 96
--- NOTE | 2025-02-17 05:46 | HO.PSYCHPN ---
Subjective Subjective Date of Service: 02/17/25 Reason For Visit: F32.1 Subjective Notes: Conditional Voluntary and 3 Day Healthcare Proxy: No Guardianship: No Medical Problems Affecting Mental Status: No Interim History: Pt reports difficulty with team interpretation of CIWA and has signed a TDN due to conflict with a hourly team members. Complaint was filed. Today, she feels poorly, positive for flu A. Reports dehydration and minimal intake. States, by history, this is when Doug starts IV and tube feedings . Reports 20+ Doug admits-begins to feel weak and my brain shuts down . Seen by hospitalist team, IV hydration initiated. Medication Compliance: Yes Side effects from medications: No Attending Groups: No Review of Systems as noted 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 of Systems flu A detox anorexia with minimal intake Mental Status Exam Mental Status Exam Patient Appearance: Fatigued Patient Orientation: Person, Place, Time and Situation Level of Consciousness: Alert Patient Behavior: Talkative and Good Eye Contact Mood Description: Flat Affect Description: Flat Patient Cognition Impaired: No Ability to Follow Directions: Good Speech Pattern: Spontaneous Speech Memory Description: Intact Hallucinations: None Delusions: Not Present Thought Process: Intact Thought Content: positive for Intact Depressive Symptoms: Difficulty Concentrating Judgement: Fair Diagnostics Vital Signs (24Hr): Vital Signs - 24 hr 02/16/25 08:00 02/16/25 13:45 02/16/25 20:00 Temperature 98.0 F 97.5 F Pulse Rate 70 57 Respiratory Rate 17 Blood Pressure 124/67 112/75 111/73 Pulse Oximetry 97 96 Oxygen Delivery Method Room Air Room Air BMI result Body Mass Index 19.2 Labs 02/17/25 15:33 02/17/25 15:33 Medications Medications Current Medications Acetaminophen (Acetaminophen 325 Mg Tablet) 650 mg PO Q6H PRN PRN Reason: Headache/Pain, Scale 1-10 Last Admin: 02/16/25 09:58 Dose: 650 mg Al Hydroxide/Mg Hydroxide (Magnesium Hydrox/Alum Hydrox 30 Ml Oral.Susp) 30 ml PO Q6H PRN PRN Reason: Heartburn/Nausea Albuterol Sulfate (Albuterol Sulfate 90 Mcg 8 Gm Inhaler) 2 puff INHALE RBID [facility] Last Admin: 02/16/25 20:21 Dose: 2 puff Bupropion HCl (Bupropion Hcl Xl 150 Mg Tab.Er.24h) 150 mg PO DAILY [facility] Last Admin: 02/16/25 09:06 Dose: 150 mg Buspirone HCl (Buspirone Hcl 10 Mg Tablet) 20 mg PO TID [facility] Last Admin: 02/16/25 20:22 Dose: 20 mg Clonazepam (Clonazepam 1 Mg Tablet) 1 mg PO TID [facility] Last Admin: 02/16/25 20:22 Dose: 1 mg Clonidine HCl (Clonidine Hcl 0.2 Mg Tablet) 0.2 mg PO BID [facility]; Protocol Last Admin: 02/16/25 20:22 Dose: 0.2 mg Clonidine HCl (Clonidine Hcl 0.1 Mg Tablet) 0.1 mg PO DAILY@1400 [facility]; Protocol Last Admin: 02/16/25 13:45 Dose: 0.1 mg Docusate Sodium (Docusate Sodium 100 Mg Capsule) 100 mg PO BID PRN PRN Reason: Constipation Folic Acid (Folic Acid 1 Mg Tablet) 1 mg PO DAILY [facility] Last Admin: 02/16/25 09:10 Dose: 1 mg Guaifenesin (Guaifenesin 200 Mg/10 Ml 10 Ml Liquid) 10 ml PO Q6H PRN PRN Reason: Cough Last Admin: 02/16/25 09:58 Dose: 10 ml Hydroxyzine HCl (Hydroxyzine Hcl 25 Mg Tablet) 25 mg PO Q6H PRN PRN Reason: mild anxiety Lorazepam (Lorazepam 1 Mg Tablet) 2 mg PO Q2H PRN PRN Reason: CIWA 11 and above Last Admin: 02/16/25 17:25 Dose: 2 mg Lorazepam (Lorazepam 1 Mg Tablet) 1 mg PO Q2H PRN PRN Reason: CIWA 6-10 Last Admin: 02/16/25 20:29 Dose: 1 mg Lorazepam (Lorazepam 1 Mg Tablet) 1 mg PO BID [facility] Lurasidone HCl (Lurasidone Hcl 80 Mg Tablet) 160 mg PO BEDTIME [facility] Last Admin: 02/16/25 20:22 Dose: 160 mg Magnesium Hydroxide (Milk Of Magnesia 30 Ml Oral.Susp) 30 ml PO DAILY PRN PRN Reason: Constipation Nicotine (Nicotine 21 Mg Patch.Td24) 21 mg TRANSDERMA DAILY PRN PRN Reason: smoking cessation Last Admin: 02/16/25 09:58 Dose: 21 mg Nicotine Polacrilex (Nicotine Polacrilex 2 Mg Gum) 4 mg BUCCAL Q2H PRN PRN Reason: Nicotine Cravings Last Admin: 12/06/25 20:22 Dose: 4 mg Olanzapine (Olanzapine 5 Mg Tablet) 5 mg PO Q8H PRN PRN Reason: Nausea and Vomiting Last Admin: 02/16/25 16:36 Dose: 5 mg Omeprazole (Omeprazole 20 Mg Capsule.Dr) 20 mg PO DAILY@0630 [facility] Last Admin: 02/16/25 07:09 Dose: 20 mg Perphenazine (Perphenazine 4 Mg Tablet) 4 mg PO TID PRN PRN Reason: Anxiety Last Admin: 02/16/25 16:36 Dose: 4 mg Thiamine HCl (Thiamine Hcl 100 Mg Tablet) 100 mg PO DAILY [facility] Last Admin: 02/16/25 09:06 Dose: 100 mg Trazodone HCl (Trazodone Hcl 50 Mg Tablet) 50 mg PO BEDTIME MRX1 PRN PRN Reason: Insomnia Trazodone HCl (Trazodone Hcl 50 Mg Tablet) 50 mg PO BEDTIME [facility] Last Admin: 02/16/25 20:22 Dose: 50 mg Allergies Allergies Allergy/AdvReac Type Severity Reaction Status Date / Time escitalopram (From Lexapro) AdvReac Unknown Unknown Verified 08/23/24 13:34 egg AdvReac Diarrhea Verified 08/23/24 13:34 Assessment & Plan Assessment & Plan (1) MDD (major depressive disorder), recurrent episode, moderate: Status: Acute Code(s): F33.1 - Major depressive disorder, recurrent, moderate (2) Post traumatic stress disorder (PTSD): Status: Acute Code(s): F43.10 - Post-traumatic stress disorder, unspecified (3) Anorexia nervosa: Status: Acute Code(s): F50.00 - Anorexia nervosa, unspecified (4) Alcohol use: Status: Acute Code(s): Z78.9 - Other specified health status (5) Mild persistent asthma: Status: Acute Code(s): J45.30 - Mild persistent asthma, uncomplicated Plan HPI: Patient is a 35-year-old female with history of MDD, PTSD, anorexia nervosa (history of feeding tube/admissions to [place]) and alcohol use disorder who presents for worsening depression and relapse with alcohol and restricting food. Patient reports that this past fall her mood was overall okay but starting this January her mood started to become more depressed as she was headed towards the holidays, her birthday and knowing she would not see her father at [facility]. The week before Christina patient stopped taking disulfiram, knowing she would want to end up drinking. During she got into a verbal argument with her mom that what upsetting and after that, for the past 5 days, she stopped eating and relapsed with alcohol, drinking about 10 nips a day. She continued to take her medications but also continued to drank; a couple days ago her boyfriend had the flu having trouble breathing so they called 911. When the ambulance showed up so did the police and patient jaymie was taken into custody and released next morning; she has no idea why and does not recollect any reason for this. She said the next day she went home, remained upset... Started having SI... Cut (superficially cut right thigh) and thus called her mom who called patient's utility worker woolen mill and patient came to the hospital. Patient was recently prescribed Wellbutrin. -of note, Patient was last admitted to psychiatric unit [facility] 12/2021; during this admission she was medically admitted for not eating and received NG tube Formulation/clinical reasoning: Patient depressed with situational exacerbation. Currently withdrawing from alcohol and started on CIWA; patient has not been eating but says she wants to get better and does not want to have to be admitted to [place] again; also she is motivated to get back to her dog as quickly as possible so agrees to push herself to eat and asks for ensure. Will continue patient's home medications. Will hold off from disulfiram until fully detoxed 02/16: Reviewed with team, plan of care reviewed, met with pt who is continuing with detox. She reports sleeping fairly well, attempting to begin intake, agreeable to Ensure as needed. Spending most of her time in bed, however, more visable in the milieu this afternoon. Denies current SI, HI,AH,VH. Respiratory panel is pending-pt with some sx (partner she reports has flu sx.) 02/17: Pt reports difficulty with team interpretation of CIWA and has signed a TDN due to conflict with a hourly team members. Complaint was filed. Today, she feels poorly, positive for flu A. Reports dehydration and minimal intake. States, by history, this is when Doug starts IV and tube feedings . Reports 20+ Doug admits-begins to feel weak and my brain shuts down . Seen by hospitalist team, IV hydration initiated. Plan: IV hydration Tamiflu Continue current regime/detox Labs OK, not a good indicator per pt report Continue to monitor Plan: CV Q 15 minute checks Continue home medications: Starting Wellbutrin XL 150 mg daily; this was just prescribed BuSpar 20 mg t.i.d. Clonazepam 1 mg t.i.d. Clonidine 0.1 mg b.i.d. Hold disulfiram Latuda 160 mg Omeprazole Perphenazine 4 mg t.i.d. p.r.n. Trazodone Reason for continued inpatient stay Substantial Risk for: rapid decompensation and med/psych decompensation Time Spent With Patient Time: Total time managing care of this patient today ____ minutes.
[2025-02-17 08:00] VITALS: BP 126/64; PULSE 77; TEMP 36.6; O2SAT 99
[2025-02-17 08:41] LABS: Chlamydia pneumoniae PCR Not Detected (Not Detect.); Coronavirus 229E PCR Not Detected (Not Detect.); Coronavirus HKU1 PCR Not Detected (Not Detect.); Coronavirus NL63 PCR Not Detected (Not Detect.); Coronavirus OC43 PCR Not Detected (Not Detect.); Influenza A H3 PCR Detected (Not Detect.); RSV PCR Not Detected (Not Detect.); Rhino/Enterovirus PCR Not Detected (Not Detect.)
[2025-02-17] MEDS: buPROPion HCl XL 150 MG TAB.ER.24H PO (08:59)
[2025-02-17 09:02] LABS: Influenza A H1 PCR Not Detected (Not Detect.); Influenza A H1-2009 PCR Not Detected (Not Detect.); SARS-CoV-2 PCR Not Detected (Not Detect.)
[2025-02-17] MEDS: Nicotine 21 MG PATCH.TD24 TRANSDERMA (09:02)
[2025-02-17] MEDS: Albuterol Sulfate 90 MCG 8 GM INHALER 2 PUFF INHALE ×2 (09:03→22:05)
[2025-02-17 09:14] LABS: Alanine Aminotransferase 27 U/L (0-31); Albumin Level 4.4 g/dL (3.5-5.0); Alkaline Phosphatase 58 U/L (39-117); Anion Gap 13 (12-20); Aspartate Amino Transferase 29 U/L (5-31); Blood Urea Nitrogen 8 mg/dL (9-16); Calcium 9.0 mg/dL (8.4-10.2); Carbon Dioxide 27 mmol/L (22-29); Chloride 107 mmol/L (96-108); Cholesterol 176 mg/dL (<200); Creatinine Clr Calc Pharmacy 71.6; Estimated Glomerular Filt Rate > 60; HDL Cholesterol 61 mg/dL (>40); Potassium 4.0 mmol/L (3.3-5.1); Sodium 143 mmol/L (135-145); Total Protein 6.9 g/dL (6.5-8.0); Triglycerides 71 mg/dL (<150)
--- NOTE | 2025-02-17 14:23 | PM.EVENT ---
Event Note Date of Service: 02/17/25 Event Note: S:35 year old women with history of depression, anorexia. Apparently patient has felt unwell and has taken no po in several days. Labs drawn today with normal electrolytes and normal renal function, no clinical sign of dehydration. Also patient stated that she is taking water with her medications and drinking ensures at nighttime. O:Alert and oriented Lungs normal expansion abd non distended AP: Poor po intake with hx of anorexia Start D5NS @ 100 encourage oral intake add protein shakes to diet re-evaluate tomorrow for need of NGT Flu A no hypoxia Tamiflu started supportive care Time Spent With Patient Time: Total time managing care of this patient today ____ minutes.
[2025-02-17 14:52] VITALS: BP 123/71
[2025-02-17 15:38] LABS: MANUAL DIFF FLAG NO
[2025-02-17 15:40] LABS: Hematocrit 38.1 % (37.0-47.0); Hemoglobin 12.8 g/dl (12.0-16.0); Imm Gran Abs Auto 0.00 X10*3/uL (0.00-0.03); Imm Gran Pct Auto 0.0 % (0.0-0.4); Lymphocytes Absolute Auto 1.6 X10*3/uL (1.2-4.9); Mean Corpuscular HGB Conc 33.6 g/dl (31.0-35.0); Mean Corpuscular Hemoglobin 30.0 pg (27.0-33.0); Mean Corpuscular Volume 89.2 fL (80.0-98.0); NRBC Abs Auto 0.000 X10*3/uL (0.0-0.012); NRBC Pct Auto 0.0 /100WBC (0.0-0.2); Platelet Count 223 X10*3/uL (160-400); Red Blood Count 4.27 X10*6/uL (4.20-5.50); White Blood Count 4.3 X10*3/uL (4.8-10.8)
[2025-02-17 15:53] LABS: Alanine Aminotransferase 23 U/L (0-31); Albumin Level 4.3 g/dL (3.5-5.0); Alkaline Phosphatase 58 U/L (39-117); Anion Gap 14 (12-20); Aspartate Amino Transferase 27 U/L (5-31); Blood Urea Nitrogen 6 mg/dL (9-16); Calcium 8.8 mg/dL (8.4-10.2); Carbon Dioxide 24 mmol/L (22-29); Chloride 106 mmol/L (96-108); Creatinine Clr Calc Pharmacy 72.4; Estimated Glomerular Filt Rate > 60; Potassium 4.0 mmol/L (3.3-5.1); Sodium 140 mmol/L (135-145); Total Protein 6.6 g/dL (6.5-8.0)
--- NOTE | 2025-02-17 19:07 | PC.NURSE ---
Spoke with Crystal Lynn who agreed pt's IV can be increase to run at 200ml/hr for the remainder of the infusion.
[2025-02-17 20:00] VITALS: BP 107/65; PULSE 67; RESP 16; TEMP 37.1; O2SAT 98
[2025-02-17 21:19] VITALS: BP 107/65
[2025-02-17] MEDS: 0.9 % Sodium Chloride Flush 3 ML SYRINGE IVFLUSH (22:07)
--- NOTE | 2025-02-17 22:10 | PC.NURSE ---
Addendum entered by Criselda Mendoza RN 02/17/25 22:31: This lyric writer spoke with Gabriele Matos, on care provider and was okayed to remove IV heplock. It was removed at 2230. Original Note: D5NS. IV infusion completed at 2205. Patient has requested IV helplock be removed.
[2025-02-18 08:00] VITALS: BP 93/52; PULSE 57; RESP 16; TEMP 36.9; O2SAT 98
[2025-02-18] MEDS: buPROPion HCl XL 150 MG TAB.ER.24H PO (09:02)
[2025-02-18] MEDS: Albuterol Sulfate 90 MCG 8 GM INHALER 2 PUFF INHALE (09:43)
--- NOTE | 2025-02-18 09:43 | P.PNPSI_ITS ---
Subjective Subjective Date of Service: 02/18/25 Reason For Visit: F32.1 Diagnostics Vital Signs (24Hr): Vital Signs - 24 hr 02/17/25 14:52 02/17/25 20:00 02/17/25 21:19 Temperature 98.7 F Pulse Rate 67 Respiratory Rate 16 Blood Pressure 123/71 107/65 107/65 Pulse Oximetry 98 Oxygen Delivery Method Room Air 02/18/25 08:00 Temperature 98.5 F Pulse Rate 57 Respiratory Rate 16 Blood Pressure 93/52 L Pulse Oximetry 98 Oxygen Delivery Method Room Air BMI result Body Mass Index 19.2 Labs 02/17/25 15:33 02/17/25 15:33 Labs: Laboratory Results - last 48 hr 02/16/25 02/17/25 02/17/25 15:15 08:30 15:33 WBC 4.3 L RBC 4.27 Hgb 12.8 Hct 38.1 MCV 89.2 MCH 30.0 MCHC 33.6 RDW 13.3 Plt Count 223 MPV 9.0 L Immature Gran % (Auto) 0.0 Neut % (Auto) 53.2 Lymph % (Auto) 37.2 Alfalfa % (Auto) 6.9 Eos % (Auto) 2.5 Baso % (Auto) 0.2 Lymph # (Auto) 1.6 Alfalfa # (Auto) 0.3 Eos # (Auto) 0.1 Baso # (Auto) 0.0 Abs Immat Gran (auto) 0.00 Absolute Neuts (auto) 2.3 Absolute Nucleated RBC 0.000 Nucleated RBC % (auto) 0.0 Sodium 143 140 Potassium 4.0 4.0 Chloride 107 106 Carbon Dioxide 27 24 Anion Gap 13 14 BUN 8 L 6 L Creatinine 0.84 0.83 Estim Creat Clear Calc 71.6 72.4 Estimated GFR > 60 > 60 Random Glucose 89 105 Estimat Average Glucose 111 Hemoglobin A1c % 5.5 Calcium 9.0 8.8 Total Bilirubin 0.3 0.3 AST 29 27 ALT 27 23 Alkaline Phosphatase 58 58 Total Protein 6.9 6.6 Albumin 4.4 4.3 Triglycerides 71 Cholesterol 176 LDL Cholesterol, Calc 101 H HDL Cholesterol 61 TSH 0.99 Respiratory Panel Ashley See Note Adenovirus (Rapid PCR) Not Detected B.pert (TEM-PCR) Not Detected B.parapertussis DNA PCR Not Detected C. pneumoniae DNA (PCR) Not Detected Coronavirus OC43 (PCR) Not Detected Coronavirus HKU1 (PCR) Not Detected Coronavirus 229E (PCR) Not Detected Coronavirus NL63 (PCR) Not Detected Human Metapneumovir PCR Not Detected Influenza A (RT-PCR) Not Detected Influenza A (H1) PCR Not Detected Influ A (H1/09) PCR Not Detected Influenza A (H3) PCR Detected A Influenza B (RT-PCR) Not Detected M. pneumoniae (PCR) Not Detected Parainfluenza 1 (PCR) Not Detected Parainfluenza 2 (PCR) Not Detected Parainfluenza 3 (PCR) Not Detected Parainfluenza 4 (PCR) Not Detected RSV (PCR) Not Detected Entero/Rhino (PCR) Not Detected SARS-CoV-2 RNA (RT-PCR) Not Detected Medications Medications Current Medications Acetaminophen (Acetaminophen 325 Mg Tablet) 650 mg PO Q6H PRN PRN Reason: Headache/Pain, Scale 1-10 Last Admin: 02/16/25 09:58 Dose: 650 mg Al Hydroxide/Mg Hydroxide (Magnesium Hydrox/Alum Hydrox 30 Ml Oral.Susp) 30 ml PO Q6H PRN PRN Reason: Heartburn/Nausea Albuterol Sulfate (Albuterol Sulfate 90 Mcg 8 Gm Inhaler) 2 puff INHALE RBID [facility] Last Admin: 02/17/25 22:05 Dose: 2 puff Bupropion HCl (Bupropion Hcl Xl 150 Mg Tab.Er.24h) 150 mg PO DAILY [facility] Last Admin: 02/18/25 09:02 Dose: 150 mg Buspirone HCl (Buspirone Hcl 10 Mg Tablet) 20 mg PO TID [facility] Last Admin: 02/18/25 09:02 Dose: 20 mg Clonazepam (Clonazepam 1 Mg Tablet) 1 mg PO TID [facility] Last Admin: 02/18/25 09:02 Dose: 1 mg Clonidine HCl (Clonidine Hcl 0.2 Mg Tablet) 0.2 mg PO BID [facility]; Protocol Last Admin: 02/17/25 21:19 Dose: 0.2 mg Clonidine HCl (Clonidine Hcl 0.1 Mg Tablet) 0.1 mg PO DAILY@1400 [facility]; Protocol Last Admin: 02/17/25 14:52 Dose: 0.1 mg Docusate Sodium (Docusate Sodium 100 Mg Capsule) 100 mg PO BID PRN PRN Reason: Constipation Last Admin: 02/17/25 09:00 Dose: 100 mg Folic Acid (Folic Acid 1 Mg Tablet) 1 mg PO DAILY [facility] Last Admin: 02/18/25 09:02 Dose: 1 mg Guaifenesin (Guaifenesin 200 Mg/10 Ml 10 Ml Liquid) 10 ml PO Q6H PRN PRN Reason: Cough Last Admin: 02/16/25 09:58 Dose: 10 ml Hydroxyzine HCl (Hydroxyzine Hcl 25 Mg Tablet) 25 mg PO Q6H PRN PRN Reason: mild anxiety Dextrose/Sodium Chloride (D5ns) 1,000 mls @ 100 mls/hr IVCONT .Q10H [facility] Last Admin: 02/18/25 00:18 Dose: Not Given Lorazepam (Lorazepam 1 Mg Tablet) 2 mg PO Q2H PRN PRN Reason: CIWA 11 and above Last Admin: 02/17/25 15:26 Dose: 2 mg Lorazepam (Lorazepam 1 Mg Tablet) 1 mg PO Q2H PRN PRN Reason: CIWA 6-10 Last Admin: 02/17/25 21:20 Dose: 1 mg Lorazepam (Lorazepam 1 Mg Tablet) 1 mg PO BID [facility] Last Admin: 02/18/25 09:02 Dose: 1 mg Lurasidone HCl (Lurasidone Hcl 80 Mg Tablet) 160 mg PO BEDTIME [facility] Last Admin: 02/17/25 21:20 Dose: 160 mg Magnesium Hydroxide (Milk Of Magnesia 30 Ml Oral.Susp) 30 ml PO DAILY PRN PRN Reason: Constipation Nicotine (Nicotine 21 Mg Patch.Td24) 21 mg TRANSDERMA DAILY PRN PRN Reason: smoking cessation Last Admin: 02/17/25 09:02 Dose: 21 mg Nicotine Polacrilex (Nicotine Polacrilex 2 Mg Gum) 4 mg BUCCAL Q2H PRN PRN Reason: Nicotine Cravings Last Admin: 02/17/25 21:20 Dose: 4 mg Olanzapine (Olanzapine 5 Mg Tablet) 5 mg PO Q8H PRN PRN Reason: anxiety, agitation Last Admin: 02/17/25 09:57 Dose: 5 mg Omeprazole (Omeprazole 20 Mg Capsule.Dr) 20 mg PO DAILY@0630 [facility] Last Admin: 02/18/25 07:05 Dose: 20 mg Ondansetron HCl (Ondansetron Odt 4 Mg Tab.Rapdis) 4 mg TRANSLINGU Q6H PRN PRN Reason: Nausea and Vomiting Last Admin: 02/17/25 22:05 Dose: 4 mg Oseltamivir Phosphate (Oseltamivir Phosphate 75 Mg Capsule) 75 mg PO Q12H [facility] Stop: 02/22/25 03:01 Last Admin: 02/18/25 07:05 Dose: 75 mg Perphenazine (Perphenazine 4 Mg Tablet) 4 mg PO TID PRN PRN Reason: Anxiety Last Admin: 02/16/25 16:36 Dose: 4 mg Sodium Chloride (0.9 % Sodium Chloride Flush 3 Ml Syringe) 3 ml IVFLUSH QSHIFT [facility] Last Admin: 02/17/25 22:07 Dose: 3 ml Thiamine HCl (Thiamine Hcl 100 Mg Tablet) 100 mg PO DAILY [facility] Last Admin: 02/18/25 09:02 Dose: 100 mg Trazodone HCl (Trazodone Hcl 50 Mg Tablet) 50 mg PO BEDTIME MRX1 PRN PRN Reason: Insomnia Trazodone HCl (Trazodone Hcl 50 Mg Tablet) 50 mg PO BEDTIME [facility] Last Admin: 02/17/25 21:19 Dose: 50 mg Allergies Allergies Allergy/AdvReac Type Severity Reaction Status Date / Time escitalopram (From Lexapro) AdvReac Unknown Unknown Verified 08/23/24 13:34 egg AdvReac Diarrhea Verified 08/23/24 13:34 Assessment & Plan Assessment & Plan (1) MDD (major depressive disorder), recurrent episode, moderate: Status: Acute Code(s): F33.1 - Major depressive disorder, recurrent, moderate (2) Post traumatic stress disorder (PTSD): Status: Acute Code(s): F43.10 - Post-traumatic stress disorder, unspecified (3) Anorexia nervosa: Status: Acute Code(s): F50.00 - Anorexia nervosa, unspecified (4) Alcohol use: Status: Acute Code(s): Z78.9 - Other specified health status (5) Mild persistent asthma: Status: Acute Code(s): J45.30 - Mild persistent asthma, uncomplicated Plan HPI: Patient is a 35-year-old female with history of MDD, PTSD, anorexia nervosa (history of feeding tube/admissions to [place]) and alcohol use disorder who presents for worsening depression and relapse with alcohol and restricting food. Patient reports that this past fall her mood was overall okay but starting this January her mood started to become more depressed as she was headed towards the holidays, her birthday and knowing she would not see her father at [facility]. The week before Christina patient stopped taking disulfiram, knowing she would want to end up drinking. During she got into a verbal argument with her mom that what upsetting and after that, for the past 5 days, she stopped eating and relapsed with alcohol, drinking about 10 nips a day. She continued to take her medications but also continued to drank; a couple days ago her boyfriend had the flu having trouble breathing so they called 911. When the ambulance showed up so did the police and patient jaymie was taken into custody and released next morning; she has no idea why and does not recollect any reason for this. She said the next day she went home, remained upset... Started having SI... Cut (superficially cut right thigh) and thus called her mom who called patient's forest and conservation worker and patient came to the hospital. Patient was recently prescribed Wellbutrin. -of note, Patient was last admitted to psychiatric unit M5 12/2021; during this admission she was medically admitted for not eating and received NG tube Formulation/clinical reasoning: Patient depressed with situational exacerbation. Currently withdrawing from alcohol and started on CIWA; patient has not been eating but says she wants to get better and does not want to have to be admitted to [place] again; also she is motivated to get back to her dog as quickly as possible so agrees to push herself to eat and asks for ensure. Will continue patient's home medications. Will hold off from disulfiram until fully detoxed 02/16: Reviewed with team, plan of care reviewed, met with pt who is continuing with detox. She reports sleeping fairly well, attempting to begin intake, agreeable to Ensure as needed. Spending most of her time in bed, however, more visable in the milieu this afternoon. Denies current SI, HI,AH,VH. Respiratory panel is pending-pt with some sx (partner she reports has flu sx.) 02/17: Pt reports difficulty with team interpretation of CIWA and has signed a TDN due to conflict with a steam conditioner filling. Complaint was filed. Today, she feels poorly, positive for flu A. Reports dehydration and minimal intake. States, by history, this is when Doug starts IV and tube feedings . Reports 20+ Doug admits-begins to feel weak and my brain shuts down . Seen by hospitalist team, IV hydration initiated. Plan: IV hydration Tamiflu Continue current regime/detox Labs OK, not a good indicator per pt report Continue to monitor Plan: CV Q 15 minute checks Continue home medications: Starting Wellbutrin XL 150 mg daily; this was just prescribed BuSpar 20 mg t.i.d. Clonazepam 1 mg t.i.d. Clonidine 0.1 mg b.i.d. Hold disulfiram Latuda 160 mg Omeprazole Perphenazine 4 mg t.i.d. p.r.n. Trazodone Time Spent With Patient Time: Total time managing care of this patient today ____ minutes.
[2025-02-18 09:44] VITALS: BP 106/74
--- NOTE | 2025-02-18 11:10 | P.DS_ITS ---
DS: Providers Provider Date of Service: 02/18/25 Date of admission: 02/15/25 13:17 Date of discharge: 02/18/25 Primary care physician: Unknown Physician Attending physician on admission: Robson Cade Consults: 02/15/25 14:02 Consult to Hospitalist Routine Comment: Consulting Provider: [facility] [place] Hospitalists Reason For Exam: admission physical 02/17/25 14:28 Consult to Hospitalist Routine Comment: no intake for 7 days, poor fluid intake, new flu + Consulting Provider: [facility] [place] Hospitalists Reason For Exam: Detoxing, anorexia Attending physician on discharge: Robson Cade DS: Diagnosis Discharge Diagnosis (1) MDD (major depressive disorder), recurrent episode, moderate: Status: Acute (2) Post traumatic stress disorder (PTSD): Status: Acute (3) Anorexia nervosa: Status: Acute (4) Alcohol use: Status: Acute (5) Mild persistent asthma: Status: Acute DS: Medications Discharge Medications Home Medications: Home Medications ?Medication ?Instructions ?Recorded ?Confirmed albuterol sulfate 90 mcg/actuation 2 puff inhalation B ID 02/15/25 02/15/25 aerosol inhaler bupropion HCl 100 mg tablet,12 hr 150 mg PO QAM 02/15/25 sustained-release (Wellbutrin SR) buspirone 10 mg tablet 20 mg PO TID 02/15/25 clonazepam 1 mg tablet 1 mg PO TID 02/15/25 5 clonidine HCl 0.1 mg tablet 0.1 mg PO 1XD 02/15/2508/05 clonidine HCl 0.2 mg tablet 0.2 mg PO 2XD 02/15/2508/05 docusate sodium 100 mg capsule 100 mg PO Q12H PRN Cons tipation 02/15/25 02/15/25 folic acid 1 mg tablet 1 mg PO QAM 02/15/25 5 lurasidone 40 mg tablet 160 mg PO QPM 02/15/2502/15 nicotine (polacrilex) 2 mg buccal 2 mg PO Q2H PRN Castillo lashell Cravings 02/15/25 lozenge nicotine 7 mg/24 hr daily 1 patch topical BEDTIME 08/0502/15/25 transdermal patch olanzapine 5 mg tablet 5 mg PO Q8H PRN Nausea And V omiting 02/15/25 02/15/25 omeprazole 20 mg tablet,delayed 20 mg PO QAM 02/15/25 02/15/25 release perphenazine 2 mg tablet 2 mg PO TID PRN anxiety 08/0502/15/25 trazodone 50 mg tablet 50 mg PO BEDTIME 02/15/25 disulfiram 250 mg tablet 250 mg PO DAILY 02/17/25 lurasidone 80 mg tablet 160 mg PO BEDTIME 02/17/25 Mental Status Exam Mental Status Exam Narrative: Pt is alert and oriented; behavior is cooperative, quiet but friendly and calm; patient is not in distress; dressed in casual attire with adequate hygiene and grooming; mood is described as ok and affect congruent; eye contact appropriate; Speech is normal rate, volume and prosody and not pressured; no psychomotor agitation/retardation present; thought process is organized and goal directed; Thought content is on tx; otherwise pertinent to relevant topics and without any delusional content, paranoid ideations or grandiosity; denies any SI/HI. Denies AVH and there is no evidence of perceptual disturbance. Patients insight and judgment appear intact. Data Data Completed and Pending Completed studies during hospitalization [Text1]: 02/16/25 02/17/25 02/17/25 15:15 08:30 15:33 WBC 4.3 L RBC 4.27 Hgb 12.8 Hct 38.1 MCV 89.2 MCH 30.0 MCHC 33.6 RDW 13.3 Plt Count 223 MPV 9.0 L Immature Gran % (Auto) 0.0 Neut % (Auto) 53.2 Lymph % (Auto) 37.2 [place] % (Auto) 6.9 Eos % (Auto) 2.5 Baso % (Auto) 0.2 Lymph # (Auto) 1.6 [place] # (Auto) 0.3 Eos # (Auto) 0.1 Baso # (Auto) 0.0 Abs Immat Gran (auto) 0.00 Absolute Neuts (auto) 2.3 Absolute Nucleated RBC 0.000 Nucleated RBC % (auto) 0.0 Sodium 143 140 Potassium 4.0 4.0 Chloride 107 106 Carbon Dioxide 27 24 Anion Gap 13 14 BUN 8 L 6 L Creatinine 0.84 0.83 Estim Creat Clear Calc 71.6 72.4 Estimated GFR > 60 > 60 Random Glucose 89 105 Estimat Average Glucose 111 Hemoglobin A1c % 5.5 Calcium 9.0 8.8 Total Bilirubin 0.3 0.3 AST 29 27 ALT 27 23 Alkaline Phosphatase 58 58 Total Protein 6.9 6.6 Albumin 4.4 4.3 Triglycerides 71 Cholesterol 176 LDL Cholesterol, Calc 101 H HDL Cholesterol 61 TSH 0.99 Respiratory Panel Ashley See Note Adenovirus (Rapid PCR) Not Detected B.pert (TEM-PCR) Not Detected B.parapertussis DNA PCR Not Detected C. pneumoniae DNA (PCR) Not Detected Coronavirus OC43 (PCR) Not Detected Coronavirus HKU1 (PCR) Not Detected Coronavirus 229E (PCR) Not Detected Coronavirus NL63 (PCR) Not Detected Human Metapneumovir PCR Not Detected Influenza A (RT-PCR) Not Detected Influenza A (H1) PCR Not Detected Influ A (H1/09) PCR Not Detected Influenza A (H3) PCR Detected A Influenza B (RT-PCR) Not Detected M. pneumoniae (PCR) Not Detected Parainfluenza 1 (PCR) Not Detected Parainfluenza 2 (PCR) Not Detected Parainfluenza 3 (PCR) Not Detected Parainfluenza 4 (PCR) Not Detected RSV (PCR) Not Detected Entero/Rhino (PCR) Not Detected SARS-CoV-2 RNA (RT-PCR) Not Detected DS: Summary Hospital Course Hospital Course: HPI: Patient is a 35-year-old female with history of MDD, PTSD, anorexia nervosa (history of feeding tube/admissions to [facility]) and alcohol use disorder who presents for worsening depression and relapse with alcohol and restricting food. Patient reports that this past fall her mood was overall okay but starting this January her mood started to become more depressed as she was headed towards the holidays, her birthday and knowing she would not see her father at [facility]. The week before [facility] patient stopped taking disulfiram, knowing she would want to end up drinking. During [facility] she got into a verbal argument with her mom that what upsetting and after that, for the past 5 days, she stopped eating and relapsed with alcohol, drinking about 10 nips a day. She continued to take her medications but also continued to drank; a couple days ago her boyfriend had the flu having trouble breathing so they called 911. When the ambulance showed up so did the police and patient jaymie was taken into custody and released next morning; she has no idea why and does not recollect any reason for this. She said the next day she went home, remained upset... Started having SI... Cut (superficially cut right thigh) and thus called her mom who called patient's sound installation worker and patient came to the hospital. Patient was recently prescribed Wellbutrin. -of note, Patient was last admitted to psychiatric unit [facility] 12/2021; during this admission she was medically admitted for not eating and received NG tube Formulation/clinical reasoning: Patient depressed with situational exacerbation. Currently withdrawing from alcohol and started on CIWA; patient has not been eating but says she wants to get better and does not want to have to be admitted to [facility] again; also she is motivated to get back to her dog as quickly as possible so agrees to push herself to eat and asks for ensure. Will continue patient's home medications. Will hold off from disulfiram until fully detoxed 02/16: Reviewed with team, plan of care reviewed, met with pt who is continuing with detox. She reports sleeping fairly well, attempting to begin intake, agreeable to Ensure as needed. Spending most of her time in bed, however, more visable in the milieu this afternoon. Denies current SI, HI,AH,VH. Respiratory panel is pending-pt with some sx (partner she reports has flu sx.) 02/17: Pt reports difficulty with team interpretation of CIWA and has signed a TDN due to conflict with a teamsite developer. Complaint was filed. Today, she feels poorly, positive for flu A. Reports dehydration and minimal intake. States, by history, this is when Doug starts IV and tube feedings . Reports 20+ Doug admits-begins to feel weak and my brain shuts down . Seen by hospitalist team, IV hydration initiated. Plan: IV hydration Tamiflu Continue current regime/detox Labs OK, not a good indicator per pt report Continue to monitor Pt signed a 3 day notice Battery Parts Assembler saw patient on 02/18. She reports she would like to discharge, mood is better and she remains w/out any SI. She wants to remain sober and will restart Disulfiram at home (does not want further help w/ substance abuse). Pt says she's still struggling with eating but has been taking ensure daily. Over the weekend she made reference to wanting a feeding tube but still wants discharge and is hopeful she won't need to go back to [facility]. [employer] As[employer]er reviewed labs from 02/17 which are WNL and does not need a feeding tube at this time. Pt has all her medications filled and waiting for her at the pharmacy and has scheduled follow up appointment with Dr. Mak, her outpt provider. Pt of course remains vulnerable to relapse with alcohol and poor PO intake, however these are chronic issues for her, of which she is well aware and will not resolve with further time on the unit, but require continued, fci outpt therapy which she says she wants. Patient has remained appropriate with peers and staff throughout her admission. She is not in imminent risk for harm to self or others and she is able to take care of herself in the community. At this time, publications writer cannot testify that there is no less restrictive setting for her treatment and publications writer agrees she is appropriate to return to the community for treatment. Her request for discharge honored. Time spent discussing smoking cessation with patient: 3 to 10 minutes Status at Discharge Functional status at discharge: independent ambulation Overall status at discharge: patient is progressing back to baseline Time Spent with Patient Time attestation: Total time managing care of this patient today _45___ minutes. Time spent: Greater than 30 minutes Specific discharge activities: met with patient; discussed with team; scripts, charting Discharge Plan Discharge Anticipated Discharge Date/Time: 02/18/25 12:00 Patient Disposition: Home, Self-Care Discharge Diagnosis: MDD, recurrent, moderate without psychosis in partial remission Referrals: Physician,Unknown J [Primary Care Provider, Medical] - 1 Week Discharge Medications: New oseltamivir [Tamiflu] 75 mg Capsule 75 mg PO BID 4 Days Qty: 8 0RF Continued bupropion HCl [Wellbutrin SR] 100 mg tablet sustained-release 12 hr 150 mg PO QAM albuterol sulfate 90 mcg/actuation HFA aerosol inhaler 2 puff inhalation BID clonidine HCl 0.1 mg tablet 0.1 mg PO 1XD Rx Instructions: 0.1 mg at 1400 or 1500 daily perphenazine 2 mg tablet 2 mg PO TID PRN (Reason: anxiety) trazodone 50 mg tablet 50 mg PO BEDTIME olanzapine 5 mg tablet 5 mg PO Q8H PRN (Reason: Nausea And Vomiting) clonazepam 1 mg tablet 1 mg PO TID clonidine HCl 0.2 mg tablet 0.2 mg PO 2XD buspirone 10 mg tablet 20 mg PO TID docusate sodium 100 mg capsule 100 mg PO Q12H PRN (Reason: Constipation) folic acid 1 mg tablet 1 mg PO QAM nicotine 7 mg/24 hr patch 24 hour 1 patch topical BEDTIME nicotine (polacrilex) 2 mg lozenge 2 mg PO Q2H PRN (Reason: Nicotine Cravings) omeprazole 20 mg tablet,delayed release (DR/EC) 20 mg PO QAM lurasidone 40 mg tablet 160 mg PO QPM disulfiram 250 mg tablet 250 mg PO DAILY Discontinued lurasidone 80 mg tablet 160 mg PO BEDTIME Discharge Orders: Discharge Order (Routine); Ordered 02/18/25 Ordered By: Robson Cade Diet: Regular diet Activity on Discharge: As tolerated Stand Alone Forms: Patient Portal Discharge page Print Language: Mongolian Care Plan Goals: Maintain mood and safe behaviors Take medications as prescribed Continue to pursue sobriety Practice coping skills Continue with outpatient providers and reach out to them as needed Health Concerns: Mood stability and behaviors Sobriety mild persistent Asthma Plan of Treatment: Follow up with your PCP, psychiatric provider and other outpatient providers regarding above concerns Take medications as prescribed Assessment: Risk assessment at time of discharge:? Patient was interviewed prior to discharge and found to be fully oriented and without any SI or HI. Patient has improved insight and judgment and wants to continue treatment. Patient is not in imminent risk of harm to self or others and has a safety plan that includes presenting to the closest ER or calling 911 if feeling unsafe.? Patient has been observed closely by nursing and unit staff throughout admission; patient has not engaged in any behaviors that suggest dangerousness to self or others and has demonstrated appropriate behaviors and impulse control
[2025-02-18] MEDS: Nicotine 7 MG PATCH.TD24 TRANSDERMA (11:36)
== END 2025-02-18 12:48 | disposition home or self-care (01) | DRG 885 ==
PROVIDERS: Clinical Nurse Specialist Psychiatric/Mental Health, Adult; Admitting Provider Psychiatry & Neurology Psychiatry; Visit Provider Psychiatry & Neurology Psychiatry
DX: F33.1 Major depressive disorder, recurrent, moderate (principal); F50.00 Anorexia nervosa, unspecified; Z68.1 Body mass index [BMI] 19.9 or less, adult; F10.939 Alcohol use, unspecified with withdrawal, unspecified; J10.1 Influenza due to other identified influenza virus with other respiratory manifestations; J45.30 Mild persistent asthma, uncomplicated; F17.210 Nicotine dependence, cigarettes, uncomplicated; Z71.6 Tobacco abuse counseling; Z79.899 Other long term (current) drug therapy
CPT/HCPCS: 36415; 80053; 80061; 83036; 84443; 85025; 87633

== ENCOUNTER → 2025-02-15 13:17 | Outpatient (BNV) | payer OTHER, SELFPAY | PROVIDERS: Admitting Provider Psychiatry & Neurology Psychiatry; Visit Provider Psychiatry & Neurology Psychiatry | DX: F33.1 Major depressive disorder, recurrent, moderate (principal); F50.00 Anorexia nervosa, unspecified; F43.11 Post-traumatic stress disorder, acute; Z78.9 Other specified health status; J45.30 Mild persistent asthma, uncomplicated | CPT/HCPCS: 90792 ==

== ENCOUNTER → 2025-02-15 13:17 | Outpatient (BNV) | payer OTHER, SELFPAY | PROVIDERS: Admitting Provider Psychiatry & Neurology Psychiatry; Visit Provider Nurse Practitioner Family | DX: J45.30 Mild persistent asthma, uncomplicated (principal) | CPT/HCPCS: 99221; 99499 ==